=== PATIENT | male | born 1970 | race Caucasian/White ===

== ENCOUNTER 2018-04-09 10:11 | Observation (INO) | payer BC ==
--- NOTE | 2018-04-09 10:27 | ED ---
Shortness of Breath - HPI Summary HPI Summary: This is scrhang Jj documenting for attending Parish Xiong MD. Patient is a 47 y/o M w/ c/o SOB. He was sent to ED from [facility] today due to low O2 sat on RA and SOB. Patient notes SOB onset a couple of months ago. He notes that he measures O2 sat levels at home and reports they are typically in the 70s in the morning and mid 80s later in the day. He denies chest pain, palpitations, N/V/D, and constipation. The patient reports going to his doctor some time last week and states he was prescribed prednisone, which he notes was helpful in alleviating Sx. However, he ran out of prednisone recently. In the ED room, he was given O2 which increased sat levels to 98. On triage, pain is denied and nothing is noted to aggravate Sx. He reports that he smoked for 25 years before quitting 2 years ago. PMHx of testicular problems, depression, and biopsy is reported; he denies asthma, diabetes, COPD, HTN, and HLD. However, his BP on vitals is 161/121. 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 Allergies and home medications are noted. - History of Current Complaint Chief Complaint: EDShortnessOfBreath Time Seen by Provider: 04/09/18 10:22 Hx Obtained From: Patient Onset/Duration: Lasting Weeks - onset a couple of months ago Timing: Constant Current Severity: None - pain is denied on triage Aggrevating Factors: Nothing Alleviating Factors: Oxygen, Other - prednisone is noted to improve O2 sat levelts - Allergy/Home Medications Allergies/Adverse Reactions: Allergies Allergy/AdvReac Type Severity Reaction Status Date / Time No Known Allergies Allergy Verified 12/09/13 11:46 Home Medications: Home Medications DULoxetine DR CAP* [Cymbalta CAP*] 1 cap PO DAILY 04/09/18 [History Confirmed ] PMH/Surg Hx/FS Hx/Imm Hx Endocrine/Hematology History: Denies: Hx Diabetes - reported in room Cardiovascular History: Reports: Other Cardiovascular Problems/Disorders - NEGATIVE: HLD, reported in room Denies: Hx Hypertension - reported in room Respiratory History: Reports: Hx Pneumonia - reported in room , Other Respiratory Problems/Disorders - HX OF WHEEZING NONE NOW Denies: Hx Chronic Obstructive Pulmonary Disease (COPD) History: Reports: Other Problems/Disorders - testicular problems Sensory History: Reports: Hx Contacts or Glasses - GLASSES Denies: Hx Hearing Aid Opthamlomology History: Reports: Hx Contacts or Glasses - GLASSES Psychiatric History: Reports: Hx Anxiety - ON MEDS - Surgical History Surgery Procedure, Year, and Place: 1974 TONSILLECTOMY AND ADENOIDECTOMY, [facility] Hx Anesthesia Reactions: No Infectious Disease History: No Infectious Disease History: Denies: History Other Infectious Disease, Traveled Outside the [place] in Last 30 Days - Family History Known Family History: Negative: Blood Disorder - Social History Alcohol Use: Daily Alcohol Amount: 6 PACK PER DAY Substance Use Type: Reports: None Smoking Status (MU): Heavy Every Day Tobacco Smoker Amount Used/How Often: 1 PPD Length of Time of Smoking/Using Tobacco: 28 YEARS Review of Systems Negative: Palpitations, Chest Pain Positive: Shortness Of Breath Positive: Other - NEGATIVE: constipation . Negative: Vomiting, Diarrhea, Nausea All Other Systems Reviewed And Are Negative: Yes Physical Exam - Summary Physical Exam Summary: VITAL SIGNS: Reviewed. GENERAL: Patient is a well-developed and nourished male who is lying comfortable in the stretcher. Patient is not in any acute respiratory distress. HEAD AND FACE: No signs of trauma. No ecchymosis, hematomas or skull depressions. No sinus tenderness. EYES: PERRLA, EOMI x 2, No injected conjunctiva, no nystagmus. EARS: Hearing grossly intact. Ear canals and tympanic membranes are within normal limits. MOUTH: Oropharynx within normal limits. NECK: Supple, trachea is midline, no adenopathy, no JVD, no carotid bruit, no c- spine tenderness, neck with full ROM. CHEST: Symmetric, no tenderness at palpation LUNGS: Decreased breathing sounds, a little wheezing is noted. No crackles. Clear to auscultation bilaterally. CVS: Regular rate and rhythm, S1 and S2 present, no murmurs or gallops appreciated. ABDOMEN: Soft, non-tender. No signs of distention. No rebound no guarding, and no masses palpated. Bowel sounds are normal. EXTREMITIES: FROM in all major joints, no edema, no cyanosis or clubbing. NEURO: Alert and oriented x 3. No acute neurological deficits. Speech is normal and follows commands. SKIN: Dry and warm Triage Information Reviewed: Yes Vital Signs On Initial Exam: Initial Vitals Temp Pulse Resp BP Pulse Ox 98.6 F 82 18 161/121 95 04/09/18 10:18 04/09/18 10:18 04/09/18 10:18 04/09/18 10:18 04/09/18 10:18 Vital Signs Reviewed: Yes Diagnostics - Vital Signs Vital Signs Temp Pulse Resp BP Pulse Ox 04/09/18 10:18 98.6 F 82 18 161/121 95 - Laboratory Result Diagrams: 04/09/18 10:43 04/09/18 10:43 Lab Statement: Any lab studies that have been ordered have been reviewed, and results considered in the medical decision making process. - Radiology CXR Radiology Interpretation Completed By: Radiologist - COPD with stable fibrotic changes. This report was reviewed by ED physician. - EKG 1044 Cardiac Rate: NL - rate of BPM 86 EKG Rhythm: Sinus Rhythm EKG Interpretation: no ST elevation, normal axis Re-Evaluation - Re-Evaluation First Eval Re-Evaluation Time: 12:07 Comment: Discussed labs and test results with patient as well as likely admission of patient to [facility] for further work-up. Course/Dx - Course Assessment/Plan: This patient is a 47-year-old male who was transferred from the primary care physician office secondary to hypoxia. The patient reports that he doesnt have any history of COPD or asthma however he has smoked for approximately 25 years and he quit 2 years ago. He reports that he has a pulse oximetry the home and his usual O2 sat on the morning is about 70. Acid stable on his O2 sat is about 85 in the afternoon. Today the patient is only complaining of shortness of breath. Denies any chest pain or palpitations. Patient denies any nausea vomiting diarrhea constipation. Patient has history of depression and he takes one aspirin. In the ED course the patient was given 2 nebs, Solu-Medrol and aspirin since the patients troponin was elevated. Test results without any significant abnormality except for troponin of 0.04 CRP of 10 and BMP 158. D-dimer is less than 200. ABG shows a pH of 7.31, PCO2 of 54, PCO2 of 52, O2 sat is 86.1%. In the ED course he reports that after the medications he feels better the shortness of breath has improved. Chest x-ray impression: COPD with a stable fibrotic changes. I discussed the findings and test results with Dr. Mendoza who accepted the patient for admission. He since that the patient has a COPD exacerbation way the demand ischemia secondary to hypoxia. Dr. Mendoza requested to order a chest CT without contrast and she will follow-up the test results. - Diagnoses Differential Diagnosis/HQI/PQRI: Positive: CHF, COPD Exacerbation, OR, Pulmonary Edema Provider Diagnoses: COPD exacerbation, Elevated troponin, Hypoxia - Physician Notifications Discussed Care of Patient With: Ines Mendoza Time Discussed With Above Provider: 12:07 Instructed by Provider To: Other - Dr. Mendoza was consulted with regards to this patient's case at 1207. Dr. Mendoza accpets patient for admission to hospital. Discharge - Sign-Out/Discharge Documenting (check all that apply): Patient Departure - admit - Discharge Plan Condition: Good Disposition: ADMITTED TO [facility] Referrals: Neela Mcqueen WELDING MACHINE OPERATOR [Primary Care Provider] -
[2018-04-09] MEDS ORDERED: methylPREDNISolone 125 MG* 2 ML VIAL IV ONE (10:30)
--- OUTSIDE RECORDS SUMMARY | 2018-04-09 10:42 | XMS REPORT ---
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 Cigarette Use Former Cigarette Smoker ETOH Use Currently consumes alcohol 1 30 pack or more/week sometimes less ETOH Use He has hx of Dwi, has breathilizer in his car Recreational Drug Use Denies Drug Use Smoking Patient is a former smoker Recreational Drug Use Former Drug User crystal meth age 31 for 1 year, smoked and IVDA Allergies, Adverse Reactions, Alerts Date Description Reaction Status Severity Comments 06/25/2013 NKDA active Medications Medication Date Status Form Strength Qnty SIG Indications Ordering Provider Prednisone 03/23/ Active Tablets 50mg 5tabs 1 tab by J44.9 Neela 2017 mouth once Shortle, a day for 5 [employer] days Ventolin HFA 03/20/ Active Aerosol 108(90Bas 8gm 2 puff Neela 2017 e) inhalation Shortle, mcg/Act every 4 to [employer] 6 hours as needed Duloxetine HCL 04/07/ Active Caps DR 60mg 30cap take one Neela 2016 Part s capsule by Charisse, mouth every [employer] day Oxycodone HCL 07/31/ Hx Tablets 5mg 24tab take one to Divine 2016 - two tablet P. 03/20/ by mouth Blegen, 2018 every 6 M.D. hours as needed for pain; maximum daily dose=4 Advair HFA 01/07/ Hx Aerosol 115-21mcg 8gm 1 R06.02 Imelda 2016 - /Act inhalation Oscar, 03/20/ twice a [employer]C 2017 day, then rinse your mouth, Ventolin HFA 01/07/ Hx Aerosol 108(90Bas 1unit 2 puffs R06.02 Imelda 2016 - e) s every every Oscar, 03/20/ mcg/Act 4-6 hours [employer] 2017 as needed wheezing/ti ghtness Duloxetine HCL 12/03/ Hx Caps 60mg 30cap 1 by mouth Imelda 2017 - Part s every day Oscar, 01/07/ [employer] 2016 Cephalexin 12/03/ Hx Tablets 250mg 21tab 1 tablet by S61.223A Imelda 2016 - s mouth three Oscar, 12/15/ times a day [employer] 2016 x 7 days Ibuprofen 07/19/ Hx Tablets 800mg 90tab one by M54.2 Imelda 2015 - s mouth every Oscar, 12/03/ 8 hours [employer] 2016 with food as needed pain Cyclobenzaprine 07/19/ Hx Tablets 5mg 30tab 1-2 by M54.2 Imelda HCL 2015 - s mouth three Oscar, 12/03/ times a day [employer] 2016 for muscle spasm, may cause drowsiness Prednisone 10/25/ Hx Tablets 20mg QS take 2 tabs 486 Imelda 2014 - po daily X Oscar, 10/02/ days [employer] 2015 Azithromycin 10/24/ Hx Tablets 250mg 6tabs take 2 J18.8 Imelda 2015 - tablets Oscar, 07/19/ today then [employer] 2016 1 tablet daily for the next 4 days Ventolin HFA 10/24/ Hx Aerosol 108(90Bas 1unit 2 puffs J18.8 Imelda 2014 - e) s every every Oscar, 12/03/ mcg/Act 4-6 hours [facility] 2016 as needed wheezing/ti ghtness Nicotine Step 3 09/05/ Hx Patches 7mg/24HR 28uni apply one Imelda 2013 - 24HR ts patch every [facility], 07/19/ 24 hours as [employer] 2016 directed. rotate sites. Nicotine 08/05/ Hx Patches 14mg/24HR 28uni Apply One Imelda 2013 - 24HR ts Patch Oscar, 07/19/ Topically [employer] 2016 Every 24 Hours as Directed Rotate Sites Duloxetine HCL 07/11/ Hx Caps DR 20mg 60cap Take Two Imelda 2013 - Part s Capsules By Oscar, 12/03/ Mouth Once [employer] [facility] 2016 Daily Escitalopram 07/09/ Hx Tablets 10mg 30tab 1 tablet po 300.00 Imelda Oxalate 2012 - s daily Oscar, 07/11/ [employer] 2013 No Active 06/25/ Hx Imelda Medications 2012 - [facility], 06/25/ [facility] 2012 Nicotine 06/25/ Hx Patches 21mg/24HR 28uni apply 1 305.1 Imelda 2012 - 24HR ts patch every [facility], 07/19/ 24 hours, [facility] 2015 rotate sites Mupirocin 06/25/ Hx Ointment 2% 1tube apply thin Imelda 2013 - layer on [facility], 07/19/ lesion bid [facility] 2015 until healed Immunizations CPT Code Status Date Vaccine Lot # [id number] Given 01/07/2017 Tdap (Adacel) [id number] Given 2014 Influenza Virus Vaccine, Quadrivalent, 3 Yr > [id number] Quad, Preserv Free Vital Signs Date Vital Result Comment 04/09/2018 Weight 214.00 lb Weight in kg's 97.070 BP Systolic 124 mmHg BP Diastolic 84 mmHg Heart Rate 88 /min Body Temperature 97.4 F Respiratory Rate 20 /min O2 % BldC Oximetry 78 % 03/23/2018 Weight 212.00 lb Weight in kg's 96.163 BP Systolic 144 mmHg BP Diastolic 90 mmHg Heart Rate 84 /min Body Temperature 97.9 F Respiratory Rate 16 /min O2 % BldC Oximetry 91 % 03/20/2018 Weight 215.00 lb Weight in kg's 97.524 BP Systolic 150 mmHg BP Diastolic 108 mmHg Heart Rate 88 /min Body Temperature 98.9 F Respiratory Rate 18 /min O2 % BldC Oximetry 88 % 07/31/2017 Weight 226.00 lb Weight in kg's 102.514 BP Systolic 150 mmHg BP Diastolic 90 mmHg Heart Rate 88 /min Body Temperature 97.9 F Respiratory Rate 20 /min O2 % BldC Oximetry 90 % 07/28/2017 Weight 222.00 lb Weight in kg's 100.699 BP Systolic 140 mmHg BP Diastolic 100 mmHg Heart Rate 94 /min Body Temperature 98.4 F Respiratory Rate 20 /min O2 % BldC Oximetry 93 % 02/14/2017 Weight 216.00 lb Weight in kg's 97.978 BP Systolic 138 mmHg BP Diastolic 80 mmHg Heart Rate 72 /min Body Temperature 98.4 F Respiratory Rate 20 /min 01/07/2017 Weight 215.00 lb Weight in kg's 97.524 BP Systolic 136 mmHg BP Diastolic 86 mmHg Heart Rate 66 /min Body Temperature 98.1 F Respiratory Rate 18 /min O2 % BldC Oximetry 92 % 12/03/2016 Weight 219.00 lb Weight in kg's 99.338 BP Systolic 142 mmHg BP Diastolic 92 mmHg Heart Rate 73 /min Body Temperature 98.0 F Respiratory Rate 18 /min Height 70 inches 5'10" BMI (Body Mass Index) 31.4 kg/m2 O2 % BldC Oximetry 92 % 07/19/2016 Weight 198.00 lb Weight in kg's 89.813 BP Systolic 128 mmHg BP Diastolic 85 mmHg Heart Rate 72 /min O2 % BldC Oximetry 96 % 10/02/2015 Weight 202.00 lb Weight in kg's 91.627 BP Systolic 140 mmHg BP Diastolic 87 mmHg Heart Rate 84 /min Body Temperature 97.9 F O2 % BldC Oximetry 90 % 11/29/2014 Weight 192.00 lb Weight in kg's 87.091 BP Systolic 110 mmHg BP Diastolic 70 mmHg Heart Rate 74 /min Body Temperature 97.2 F O2 % BldC Oximetry 93 % 10/28/2014 Weight 200.00 lb With Boots Weight in kg's 90.720 BP Systolic 134 mmHg BP Diastolic 78 mmHg Heart Rate 71 /min Body Temperature 97.5 F O2 % BldC Oximetry 93 % Room Air 10/25/2014 Weight 200.00 lb With Boots Weight in kg's 90.720 BP Systolic 118 mmHg BP Diastolic 80 mmHg Heart Rate 67 /min Body Temperature 96.9 F O2 % BldC Oximetry 93 % 10/24/2014 Weight 203.00 lb W/Boots Weight in kg's 92.081 BP Systolic 122 mmHg BP Diastolic 78 mmHg Heart Rate 78 /min Body Temperature 98.0 F O2 % BldC Oximetry 84 % 87-89 repeat, best 95 with deep br 08/05/2014 Weight 195.00 lb Weight in kg's 88.452 BP Systolic 126 mmHg BP Diastolic 74 mmHg Heart Rate 76 /min 2014 Weight 194.00 lb Weight in kg's 87.998 BP Systolic 126 mmHg BP Diastolic 82 mmHg Heart Rate 72 /min Height 70 inches 5'10" BMI (Body Mass Index) 27.8 kg/m2 08/06/2013 Weight 192.00 lb Weight in kg's 87.091 BP Systolic 120 mmHg BP Diastolic 72 mmHg Heart Rate 84 /min 07/09/2013 Weight 199.00 lb Weight in kg's 90.266 BP Systolic 128 mmHg BP Diastolic 70 mmHg Heart Rate 88 /min Body Temperature 97.5 F O2 % BldC Oximetry 98 % 06/25/2013 Weight 194.00 lb Weight in kg's 87.998 BP Systolic 126 mmHg BP Diastolic 86 mmHg Heart Rate 88 /min Height 69 inches 5'9" BMI (Body Mass Index) 28.6 kg/m2 Results Test Date Test Result H/L Range Note Lipid Profile (Trig/Chol/HDL) 02/14/2017 Triglycerides 423 mg/dL 1 Cholesterol 265 mg/dL 2 HDL Cholesterol 45.2 mg/dL 3 LDL Cholesterol (SEE NOTE) mg/dL 4 Laboratory test finding 02/14/2017 TSH (Thyroid Stimulating 2.05 mcIU/mL 0.34-5.60 Horm) Total T3 1.38 ng/mL 0.87-1.78 Free T4 0.76 ng/dL 0.61-1.12 Thyroperoxidase AB 9.30 IU/mL High <9 CBC Auto Diff 01/07/2017 White Blood Count 7.0 10^3/uL 3.5-10.8 Red Blood Count 5.53 10^6/uL High 4.0-5.4 Hemoglobin 16.1 g/dL 14.0-18.0 Hematocrit 49 % 42-52 Mean Corpuscular Volume 89 fL 80-94 Mean Corpuscular Hemoglobin 29 pg 27-31 Mean Corpuscular HGB Conc 33 g/dL 31-36 Red Cell Distribution Width 14 % 10.5-15 Platelet Count 243 10^3/uL 150-450 Mean Platelet Volume 9 um3 7.4-10.4 Abs Neutrophils 4.7 10^3/uL 1.5-7.7 Abs Lymphocytes 1.1 10^3/uL 1.0-4.8 Abs Monocytes 1.0 10^3/uL High 0-0.8 Abs Eosinophils 0.2 10^3/uL 0-0.6 Abs Basophils 0.1 10^3/uL 0-0.2 Abs Nucleated RBC 0.02 10^3/uL Granulocyte % 67.1 % 38-83 Lymphocyte % 15.0 % Low 25-47 Monocyte % 14.5 % High 1-9 Eosinophil % 2.3 % 0-6 Basophil % 1.1 % 0-2 Nucleated Red Blood Cells % 0.3 Comp Metabolic Panel 01/07/2017 Sodium 134 mmol/L 133-145 Potassium 4.6 mmol/L 3.5-5.0 Chloride 98 mmol/L Low 101-111 Co2 Carbon Dioxide 30 mmol/L 22-32 Anion Gap 6 mmol/L 2-11 Glucose 103 mg/dL High 70-100 Blood Urea Nitrogen 20 mg/dL 6-24 Creatinine 0.94 mg/dL 0.67-1.17 BUN/Creatinine Ratio 21.3 High 8-20 Calcium 10.1 mg/dL 8.6-10.3 Total Protein 7.3 g/dL 6.4-8.9 Albumin 4.5 g/dL 3.2-5.2 Globulin 2.8 g/dL 2-4 Albumin/Globulin Ratio 1.6 1-3 Total Bilirubin 0.60 mg/dL 0.2-1.0 Alkaline Phosphatase 65 U/L 34-104 Alt 59 U/L High 7-52 Ast 37 U/L 13-39 Egfr Non- 86.0 >60 Egfr 110.6 >60 5 Lipid Profile (Trig/Chol/HDL) 01/07/2017 Triglycerides 513 mg/dL 6 Cholesterol 274 mg/dL 7 HDL Cholesterol 47.4 mg/dL 8 LDL Cholesterol (SEE NOTE) mg/dL 9 Laboratory test finding 01/07/2017 PSA Screening 3.388 ng/mL 0-4.000 10 CBC Auto Diff 11/29/2014 White Blood Count 7.7 10^3/uL 4.8-10.8 Red Blood Count 5.43 10^6/uL High 4.0-5.4 Hemoglobin 16.8 g/dL 14.0-18.0 Hematocrit 50 % 42-52 Mean Corpuscular Volume 93 fL 80-94 Mean Corpuscular Hemoglobin 31 pg 27-31 Mean Corpuscular HGB Conc 34 g/dL 31-36 Red Cell Distribution Width 14 % 10.5-15 Platelet Count 282 10^3/uL 150-450 Mean Platelet Volume 9 um3 7.4-10.4 Abs Neutrophils 5.3 10^3/uL 1.5-7.7 Abs Lymphocytes 1.3 10^3/uL 1.0-4.8 Abs Monocytes 0.9 10^3/uL High 0-0.8 Abs Eosinophils 0.1 10^3/uL 0-0.6 Abs Basophils 0.1 10^3/uL 0-0.2 Abs Nucleated RBC 0 10^3/uL Granulocyte % 68.8 % 38-83 Lymphocyte % 17.1 % Low 25-47 Monocyte % 12.0 % High 1-9 Eosinophil % 1.3 % 0-6 Basophil % 0.8 % 0-2 Nucleated Red Blood Cells % 0.1 Comp Metabolic Panel 11/29/2014 Sodium 136 mmol/L 133-145 Potassium 4.1 mmol/L 3.5-5.0 Chloride 100 mmol/L Low 101-111 Co2 Carbon Dioxide 30 mmol/L 22-32 Anion Gap 6 mmol/L 2-11 Glucose 93 mg/dL 70-100 Blood Urea Nitrogen 26 mg/dL High 6-24 Creatinine 0.87 mg/dL 0.67-1.17 BUN/Creatinine Ratio 29.9 High 8-20 Calcium 9.9 mg/dL 8.6-10.3 Total Protein 7.1 g/dL 6.4-8.9 Albumin 4.7 g/dL 3.2-5.2 Globulin 2.4 g/dL 2-4 Albumin/Globulin Ratio 2.0 1-3 Total Bilirubin 0.40 mg/dL 0.2-1.0 Alkaline Phosphatase 54 U/L 34-104 Alt 29 U/L 7-52 Ast 21 U/L 13-39 Egfr Non- 94.9 >60 Egfr 122.0 >60 11 Laboratory test finding 11/29/2014 Lyme Disease Serology Negative Negative 12 Urine DIP 11/29/2014 Specific [place] 1.020 1.01-1.02 Urine pH 5 5-6 Leukocytes NEG Neg Urine Nitrites NEG Neg Total Protein, Urine +30 High Neg Urine Glucose NORM Norm Urine Ketones NEG Neg Urobilinogen NORM Norm Urine Bilirubin NEG Neg Urine Blood NEG Neg Flu Test A, B, Or A & B,Binaxn 10/24/2014 Influenza A Antigen neg Influenza B Antigen neg CBC Auto Diff 2014 White Blood Count 9.1 10^3/uL 4.8-10.8 Red Blood Count 5.35 10^6/uL 4.0-5.4 Hemoglobin 16.8 g/dL 14.0-18.0 Hematocrit 49 % 42-52 Mean Corpuscular Volume 92 fL 80-94 Mean Corpuscular Hemoglobin 31 pg 27-31 Mean Corpuscular HGB Conc 34 g/dL 31-36 Red Cell Distribution Width 14 % 10.5-15 Platelet Count 278 10^3/uL 150-450 Mean Platelet Volume 8 um3 7.4-10.4 Abs Neutrophils 6.7 10^3/uL 1.5-7.7 Abs Lymphocytes 1.2 10^3/uL 1.0-4.8 Abs Monocytes 1.0 10^3/uL High 0-0.8 Abs Eosinophils 0.1 10^3/uL 0-0.6 Abs Basophils 0 10^3/uL 0-0.2 Abs Nucleated RBC 0.01 10^3/uL Granulocyte % 73.8 % 38-83 Lymphocyte % 13.6 % Low 25-47 Monocyte % 10.9 % High 1-9 Eosinophil % 1.2 % 0-6 Basophil % 0.5 % 0-2 Nucleated Red Blood Cells % 0.1 Comp Metabolic Panel 2014 Sodium 135 mmol/L 133-145 Potassium 4.8 mmol/L 3.7-5.6 Chloride 99 mmol/L Low 101-111 Co2 Carbon Dioxide 32 mmol/L 22-32 Anion Gap 4 mmol/L 2-11 Glucose 96 mg/dL 70-100 Blood Urea Nitrogen 13 mg/dL 6-24 Creatinine 0.85 mg/dL 0.67-1.17 BUN/Creatinine Ratio 15.3 8-20 Calcium 9.8 mg/dL 8.6-10.3 Total Protein 7.2 g/dL 6.4-8.9 Albumin 4.6 g/dL 3.2-5.2 Globulin 2.6 g/dL 2-4 Albumin/Globulin Ratio 1.8 1-3 Total Bilirubin 0.70 mg/dL 0.2-1.0 Alkaline Phosphatase 51 U/L 34-104 Alt 50 U/L 7-52 Ast 28 U/L 13-39 Egfr Non- 97.5 >60 Egfr 125.4 >60 13 Urine DIP 2014 Specific [place] 1.010 1.01-1.02 Urine pH 7 High 5-6 Leukocytes NEG Neg Urine Nitrites NEG Neg Total Protein, Urine 30+ High Neg Urine Glucose NORM Norm Urine Ketones NEG Neg Urobilinogen NORM Norm Urine Bilirubin NEG Neg Urine Blood NEG Neg Laboratory test finding 2014 PSA Screening 3.764 ng/mL 0-4.000 14 TSH (Thyroid Stimulating Horm) 3.00 IU/mL 0.34-5.60 Lipid Profile (Trig/Chol/HDL) 2014 Triglycerides 201 mg/dL 15 Cholesterol 251 mg/dL 16 HDL Cholesterol 61.3 mg/dL 17 LDL Cholesterol 150 mg/dL 18 Laboratory test 07/09/2013 Hemoglobin A1c 6.0 % Less than 6.0 19 finding Vitamin D, 25 Hydroxy 06/25/2013 25-Hydroxy Vitamin D2 <4.0 ng/mL 25-Hydroxy Vitamin D3 29 ng/mL 25-Hydroxy Vitamin D Total 29 ng/mL 20 Comp Metabolic Panel 06/25/2013 Sodium 137 mmol/L 133-145 Potassium 4.8 mmol/L 3.5-5.0 Chloride 101 mmol/L 101-111 Co2 Carbon Dioxide 29.0 mmol/L 22-32 Anion Gap 7.0 mmol/L 2-11 Glucose 197 mg/dL High 70-100 Blood Urea Nitrogen 17 mg/dL 6-24 Creatinine 1.00 mg/dL 0.50-1.40 BUN/Creatinine Ratio 17.0 8-20 Calcium 9.8 mg/dL 8.1-9.9 Total Protein 6.7 g/dL 6.2-8.1 Albumin 4.4 g/dL 3.6-5.4 Globulin 2.3 g/dL 2-4 Albumin/Globulin Ratio 1.9 1-3 Total Bilirubin 0.6 mg/dL 0.4-1.5 Alkaline Phosphatase 52 U/L 30-110 Alt 39 U/L 14-54 Ast 31 U/L 12-42 Egfr Non- 81.6 >60 Egfr 104.9 >60 21 CBC Auto Diff 06/25/2013 White Blood Count 10.2 10^3/uL 4.8-10.8 Red Blood Count 5.34 10^6/uL 4.0-5.4 Hemoglobin 16.5 g/dL 14.0-18.0 Hematocrit 48 % 42-52 Mean Corpuscular Volume 90 fL 80-94 Mean Corpuscular Hemoglobin 31 pg 27-31 Mean Corpuscular HGB Conc 34 g/dL 31-36 Red Cell Distribution Width 14 % 10.5-15 Platelet Count 351 10^3/uL 150-450 Mean Platelet Volume 8 um3 7.4-10.4 Abs Neutrophils 9.2 10^3/uL High 1.5-7.7 Abs Lymphocytes 0.6 10^3/uL Low 1.0-4.8 Abs Monocytes 0.4 10^3/uL 0-0.8 Abs Eosinophils 0 10^3/uL 0-0.6 Abs Basophils 0 10^3/uL 0-0.2 Abs Nucleated RBC 0.01 10^3/uL Granulocyte % 89.4 % High 38-83 Lymphocyte % 6.0 % Low 25-47 Monocyte % 4.3 % 1-9 Eosinophil % 0.1 % 0-6 Basophil % 0.2 % 0-2 Nucleated Red Blood Cells % 0.1 Laboratory test finding 06/25/2013 PSA Screening 2.330 ng/mL 0-4.000 22 Wound Culture/Sensi 06/25/2013 Wound/Misc Culture-Gram (SEE NOTE) 23 Stain Urine DIP 06/25/2013 Leukocytes NEG Neg Urine Nitrites NEG Neg Urine pH 5 5-6 Total Protein, Urine 30+ High Neg Urine Glucose 100 High Norm Urine Ketones NEG Neg Urobilinogen NORM Norm Urine Bilirubin NEG Neg Urine Blood NEG Neg Specific [place] 1.015 1.01-1.02 Laboratory test finding 06/25/2013 TSH (Thyroid Stimulating 0.94 miu/mL 0.34-5.60 Horm) 1 Desirable <150 Borderline high 150-199 High 200-499 Very High >500 2 Desirable <200 Borderline high 200-239 High >239 3 Low <40 Desirable: 40-60 High: >60 4 Unable to calculate LDL as triglyceride is > 400 5 Because ethnic data is not always readily available, this report includes an eGFR for both -Americans and non- Americans. The National Kidney Disease Education Program (NKDEP) does not endorse the use of the MDRD equation for patients that are not between the ages of 18 and 70, are , have extremes of body size, muscle mass, or nutritional status, or are non- or non-. According to the National Kidney Foundation, irrespective of diagnosis, the stage of the disease is based on the level of kidney function: Stage Description GFR(mL/min/1.73 m(2)) 1 Kidney damage with normal or decreased GFR 90 2 Kidney damage with mild decrease in GFR 60-89 3 Moderate decrease in GFR 30-59 4 Severe decrease in GFR 15-29 5 Kidney failure <15 (or dialysis) 6 Desirable <150 Borderline high 150-199 High 200-499 Very High >500 7 Desirable <200 Borderline high 200-239 High >239 8 Low <40 Desirable: 40-60 High: >60 9 Unable to calculate LDL as triglyceride is > 400 10 Serum levels of PSA measured using the Pari Exact[employer] DXI Hybritech immunoassay should not be interpreted as absolute evidence of the presence or absence of disease. The PSA value should be used in conjunction with other pertinent clinical diagnostic procedures. The values obtained with different assay methods or kits cannot be used interchangeably. 11 Because ethnic data is not always readily available, this report includes an eGFR for both -Americans and non- Americans. The National Kidney Disease Education Program (NKDEP) does not endorse the use of the MDRD equation for patients that are not between the ages of 18 and 70, are , have extremes of body size, muscle mass, or nutritional status, or are non- or non-. According to the National Kidney Foundation, irrespective of diagnosis, the stage of the disease is based on the level of kidney function: Stage Description GFR(mL/min/1.73 m(2)) 1 Kidney damage with normal or decreased GFR 90 2 Kidney damage with mild decrease in GFR 60-89 3 Moderate decrease in GFR 30-59 4 Severe decrease in GFR 15-29 5 Kidney failure <15 (or dialysis) 12 Serologic response to B. burgdorferi infection is not detected, but cannot rule out early infection during which low or undetectable antibody levels to B. burgdorferi may be present. If clinically indicated, a new serum specimen should be submitted in 7-14 days. Test Performed by: [facility] [address] [place] [address] Sem Manager: Jj Ramey II, M.D., Ph.D. 13 Because ethnic data is not always readily available, this report includes an eGFR for both -Americans and non- Americans. The National Kidney Disease Education Program (NKDEP) does not endorse the use of the MDRD equation for patients that are not between the ages of 18 and 70, are , have extremes of body size, muscle mass, or nutritional status, or are non- or non-. According to the National Kidney Foundation, irrespective of diagnosis, the stage of the disease is based on the level of kidney function: Stage Description GFR(mL/min/1.73 m(2)) 1 Kidney damage with normal or decreased GFR 90 2 Kidney damage with mild decrease in GFR 60-89 3 Moderate decrease in GFR 30-59 4 Severe decrease in GFR 15-29 5 Kidney failure <15 (or dialysis) 14 Serum levels of PSA measured using the Pari Cristobal DXI Hybritech immunoassay should not be interpreted as absolute evidence of the presence or absence of disease. The PSA value should be used in conjunction with other pertinent clinical diagnostic procedures. The values obtained with different assay methods or kits cannot be used interchangeably. 15 Desirable <150 Borderline high 150-199 High 200-499 Very High >500 16 Desirable <200 Borderline high 200-239 High >239 17 Low <40 Desirable: 40-60 High: >60 18 Desirable <100 Near Optimal 100-129 Borderline high 130-159 High 160-189 Very High >189 19 Therapeutic target for the treatment of diabetes Mellitus patients is <7% HBA1C, and in selective patients <6.0%.Please refer to [place] [employer] Diabetic care guidelines for further information. 20 -- REFERENCE VALUE -- 25-HYDROXY D TOTAL (D2+D3) Optimum levels in the healthy population are 20-50, patients with bone disease may benefit from higher levels within this range. Test Performed by: [facility] [address] [place] [address] Sem Manager: Stanley Potter III, M.D. 21 Because ethnic data is not always readily available, this report includes an eGFR for both -Americans and non- Americans. The National Kidney Disease Education Program (NKDEP) does not endorse the use of the MDRD equation for patients that are not between the ages of 18 and 70, are , have extremes of body size, muscle mass, or nutritional status, or are non- or non-. According to the National Kidney Foundation, irrespective of diagnosis, the stage of the disease is based on the level of kidney function: Stage Description GFR(mL/min/1.73 m(2)) 1 Kidney damage with normal or decreased GFR 90 2 Kidney damage with mild decrease in GFR 60-89 3 Moderate decrease in GFR 30-59 4 Severe decrease in GFR 15-29 5 Kidney failure <15 (or dialysis) 22 Serum levels of PSA measured using the Pari Cristobal DXI Hybritech immunoassay should not be interpreted as absolute evidence of the presence or absence of disease. The PSA value should be used in conjunction with other pertinent clinical diagnostic procedures. The values obtained with different assay methods or kits cannot be used interchangeably. 23 RUN DATE: 06/27/13 [facility] LAB LIVE PAGE 1 RUN TIME: [address] [place], [place] [address] Specimen Inquiry Name: NAIMA GRISSOM : [address]: Imelda Evans NP Acct: [id number] Unit: [id number] AGE: 42 Location: [facility] Re06/25/13 SEX: M Status: REG REF SPEC: [id number] ALLIE: 06/25/13 [facility] DR: Imelda Evans NP REQ: [id number] RECD: 06/25/13 STATUS: COMP _ SOURCE: FACE SPDESC: ORDERED: Culture Stain QUERIES: Medent Number [id number] Specimen Description RIGHT FACE LESION Procedure Result Verified Site Wound/Misc Gram Stain Final 06/26/13- 0738 ML 1+ Epithelial Cells No Polys Observed 2+ Gram Positive Cocci Possible 1+ Gram Negative Bacilli Wound/Misc Culture Final 06/27/13- 1119 ML Organism 1 NORMAL SAMUEL Quantity 2+ END OF REPORT * ML=Testing performed at Main Lab DEPARTMENT OF PATHOLOGY, [address] [place] [id number] Brenton Smith M.D. Director [facility] Permit #[id number] Procedures Date CPT Code Description Status 01/07/2017 66209 Spirometry Completed 10/25/2014 13418 Nebulizer Treatment Completed 10/24/2014 52357 Nebulizer Treatment Completed Encounters Type Date Location Provider CPT E/M Dx Office Visit 03/23/2018 9:00a Main Office Neela MIGUEL Mcqueen 75360 J44.9 Office Visit 03/20/2018 9:30a [place] [address] R06.02 Office Visit 07/31/2017 12:00p Main Office BLAISE Felix-Lester 42297 R07.82 Office Visit 07/28/2017 11:30a [place] [address] R07.82 Office Visit 02/14/2017 8:45a Main Office BLAISE Felix-Lester 11413 E78.2 Office Visit 01/07/2017 9:00a Main Office RULA Felix 67923 Z00.00 Z12.5 R33.8 R06.02 Z23 Office Visit 12/03/2016 12:00p Main Office RULA Felix 24961 S61.223A F32.89 Office Visit 07/19/2016 9:30a Main Office RULA Felix 61463 M54.2 Office Visit 10/02/2015 4:00p Main Office RULA Felix 21140 J20.9 Office Visit 11/29/2014 4:15p Main Office RULA Felix 33603 257.8 785.6 Office Visit 10/28/2014 3:15p Main Office RULA Felix 80121 486 Office Visit 10/25/2014 4:45p Main Office RULA Felix 05029 486 Office Visit 10/24/2014 2:15p Main Office RULA Felix 33846 486 Office Visit 08/05/2014 4:15p Main Office RULA Felix 49941 300.00 Office Visit 2014 8:00a Main Office Imelda Evans [facility] 54233 V70.0 300.00 V18.11 V17.49 V04.81 Office Visit 08/06/2013 3:30p Main Office Imelda Herronjimmie [facility] 60490 300.00 709.8 Office Visit 07/09/2013 3:00p Main Office Imelda Evans [facility] 97755 300.00 790.6 Office Visit 06/25/2013 1:30p Main Office Imelda Herronjimmie [facility] 04842 V70.0 300.09 V17.49 V18.11 305.1 Plan of Care 04/09/2018 - Neela Mcqueen, SHADY44.9 Chronic obstructive pulmonary disease, unspecifiedComments:Patient sent to ED for higher level of care. Patient refused ambulance. Educated on risks of taking private car and patient stated understanding. Patient's parents are here to drive patient to ED. Report called to ED by RN.
--- OUTSIDE RECORDS SUMMARY | 2018-04-09 10:42 | XMS REPORT ---
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 [address] PayID: [id number] [place] [address] Problems Description No Information Family History Date [...] mouth once Shortle, a day for 5 CROSSBAR SWITCH ADJUSTER days Ventolin HFA 03/20/ Active Aerosol 108(90Bas 8gm 2 puff Neela 2017 e) inhalation Shortle, mcg/Act every 4 to CROSSBAR SWITCH ADJUSTER 6 hours as needed Duloxetine HCL 04/07/ Active Caps DR 60mg 30cap take one Neela 2016 Part s capsule by Charisse, mouth every CROSSBAR SWITCH ADJUSTER day Oxycodone HCL 07/31/ Hx Tablets 5mg 24tab take one to Divine 2016 - two tablet P. 03/20/ by mouth Blegen, 2018 every 6 M.D. hours as needed for pain; maximum daily dose=4 Advair HFA 01/07/ Hx Aerosol 115-21mcg 8gm 1 R06.02 Imelda 2016 - /Act inhalation Oscar, 03/20/ twice a PORTER BAGGAGE-C 2017 day, then rinse your mouth, Ventolin HFA 01/07/ Hx Aerosol 108(90Bas 1unit 2 puffs R06.02 Imelda 2016 - e) s every every Oscar, 03/20/ mcg/Act 4-6 hours PORTER BAGGAGE-C 2017 as needed wheezing/ti ghtness Duloxetine HCL 12/03/ Hx Caps 60mg 30cap 1 by mouth Imelda 2017 - Part s every day Oscar, 01/07/ PORTER BAGGAGE-C 2016 Cephalexin 12/03/ Hx Tablets 250mg 21tab 1 tablet by S61.223A Imelda 2016 - s mouth three Oscar, 12/15/ times a day PORTER BAGGAGE-C 2016 x 7 days Ibuprofen 07/19/ Hx Tablets 800mg 90tab one by M54.2 Imelda 2015 - s mouth every Oscar, 12/03/ 8 hours PORTER BAGGAGE-C 2016 with food as needed pain Cyclobenzaprine 07/19/ Hx Tablets 5mg 30tab 1-2 by M54.2 Imelda HCL 2015 - s mouth three Oscar, 12/03/ times a day PORTER BAGGAGE-C 2016 for muscle spasm, may cause drowsiness Prednisone 10/25/ Hx Tablets 20mg QS take 2 tabs 486 Imelda 2014 - po daily X Oscar, 10/02/ days PORTER BAGGAGE-C 2015 Azithromycin 10/24/ Hx Tablets 250mg 6tabs take 2 J18.8 Imelda 2015 - tablets Oscar, 07/19/ today then PORTER BAGGAGE-C 2016 1 tablet daily for the next 4 days Ventolin HFA 10/24/ Hx Aerosol 108(90Bas 1unit 2 puffs J18.8 Imelda 2014 - e) s every every Oscar, 12/03/ mcg/Act 4-6 hours PORTER BAGGAGE-C 2016 as needed wheezing/ti ghtness Nicotine Step 3 09/05/ Hx Patches 7mg/24HR 28uni apply one Imelda 2013 - 24HR ts patch every [facility], 07/19/ 24 hours as PORTER BAGGAGE-C 2016 directed. rotate sites. Nicotine 08/05/ Hx Patches 14mg/24HR 28uni Apply One Imelda 2013 - 24HR ts Patch Oscar, 07/19/ Topically PORTER BAGGAGE-C 2016 Every 24 Hours as Directed Rotate Sites Duloxetine HCL 07/11/ Hx Caps DR 20mg 60cap Take Two Imelda 2013 - Part s Capsules By Oscar, 12/03/ Mouth Once PORTER BAGGAGE-C 2016 Daily Escitalopram 07/09/ Hx Tablets 10mg 30tab 1 tablet po 300.00 Imelda Oxalate 2012 - s daily Oscar, 07/11/ PORTER BAGGAGE-C 2013 No Active 06/25/ Hx Imelda Medications 2012 - Oscar, 06/25/ PORTER BAGGAGE-C 2012 Nicotine 06/25/ Hx Patches 21mg/24HR 28uni apply 1 305.1 Imelda 2012 - 24HR ts patch every [facility], 07/19/ 24 hours, PORTER BAGGAGE-C 2015 rotate sites Mupirocin 06/25/ Hx Ointment 2% 1tube apply thin Imelda 2013 - layer on [facility], 07/19/ lesion bid PORTER BAGGAGE-C 2015 until healed Immunizations CPT Code Status Date Vaccine Lot # [id number] Given 01/07/2017 Tdap (Adacel) [id number] Given 2014 Influenza Virus Vaccine, Quadrivalent, 3 Yr > [id number] Quad, Preserv Free Vital Signs Date Vital Result Comment 03/23/2018 Weight 212.00 lb Weight in kg's [...] Negative Negative 12 Urine DIP 11/29/2014 [facility] [place] 1.020 1.01-1.02 Urine pH 5 5-6 Leukocytes [...] 125.4 >60 13 Urine DIP 2014 [facility] 1.010 1.01-1.02 Urine pH 7 High 5-6 [...] NEG Neg Urine Blood NEG Neg [facility] 1.015 1.01-1.02 Laboratory test finding 06/25/2013 TSH [...] levels of PSA measured using the Pari Local[employer] DXI Hybritech immunoassay should not be interpreted [...] submitted in 7-14 days. Test Performed by: [facility] [address] [place] [address] Staple Cutter: Jj Ramey II, M.D., Ph.D. 13 Because [...] levels of PSA measured using the Pari Local[employer] DXI Hybritech immunoassay should not be interpreted [...] and in selective patients <6.0%.Please refer to [place] [employer] Diabetic care guidelines for further information. 20 -- REFERENCE VALUE -- 25-HYDROXY D TOTAL (D2+D3) Optimum levels in the healthy population are 20-50, patients with bone disease may benefit from higher levels within this range. Test Performed by: [facility] [address] [place] [address] Staple Cutter: Stanley Potter III, M.D. 21 Because ethnic [...] levels of PSA measured using the Pari Local[employer] DXI Hybritech immunoassay should not be interpreted as absolute evidence of the presence or absence of disease. The PSA value should be used in conjunction with other pertinent clinical diagnostic procedures. The values obtained with different assay methods or kits cannot be used interchangeably. 23 RUN DATE: 06/27/13 [facility] LAB LIVE PAGE 1 RUN TIME: [address] [place], [place] [address] Specimen Inquiry Name: NAIMA GRISSOM : [address]: Imelda Evans NP Acct: [id number] Unit: [id number] AGE: 42 Location: [facility] Re06/25/13 SEX: M Status: REG REF SPEC: [id number] ALLIE: 06/25/[address] [facility] [address]: Imelda Evans NP REQ: [id number] RECD: 06/25/13 STATUS: COMP _ SOURCE: FACE SPDESC: ORDERED: Culture Stain QUERIES: [employer] Number [id number] Specimen Description RIGHT FACE LESION Procedure Result Verified Site Wound/Misc Gram Stain Final 06/26/13- 0738 ML 1+ Epithelial Cells No Polys Observed 2+ Gram Positive Cocci Possible 1+ Gram Negative Bacilli Wound/Misc Culture Final 06/27/13- 1119 ML Organism 1 NORMAL SAMUEL Quantity 2+ END OF REPORT * ML=Testing performed at Main Lab DEPARTMENT OF PATHOLOGY, [address] [place] [address] Brenton Smith M.D. Director [facility] Permit #[id number] Procedures Date CPT Code Description Status 01/07/2017 13287 Spirometry Completed 10/25/2014 81407 Nebulizer Treatment Completed 10/24/2014 88726 Nebulizer Treatment Completed Encounters Type Date Location Provider CPT E/M Dx Office Visit 07/31/2017 12:00p Main Office BLAISE Felix-C 39954 R07.82 Office Visit 07/28/2017 11:30a Main Office Neela Mcqueen CROSSBAR SWITCH ADJUSTER 40448 R07.82 Office Visit 02/14/2017 8:45a Main Office BLAISE Felix-C 14294 E78.2 Office Visit 01/07/2017 9:00a Main Office BLAISE Felix-C 31154 Z00.00 Z12.5 R33.8 R06.02 Z23 Office Visit 12/03/2016 12:00p Main Office BLAISE Felix-C 82146 S61.223A F32.89 Office Visit 07/19/2016 9:30a Main Office BLAISE Felix-C 75640 M54.2 Office Visit 10/02/2015 4:00p Main Office BLAISE Felix-C 51588 J20.9 Office Visit 11/29/2014 4:15p Main Office BLAISE Felix-C 34689 257.8 785.6 Office Visit 10/28/2014 3:15p Main Office BLAISE Felix-C 17297 486 Office Visit 10/25/2014 4:45p Main Office BLAISE Felix-C 24899 486 Office Visit 10/24/2014 2:15p Main Office BLAISE Felix-C 70858 486 Office Visit 08/05/2014 4:15p Main Office BLAISE Felix-C 92166 300.00 Office Visit 2014 8:00a Main Office BLAISE Felix-C 07673 V70.0 300.00 V18.11 V17.49 V04.81 Office Visit 08/06/2013 3:30p Main Office BLAISE Felix-C 43852 300.00 709.8 Office Visit 07/09/2013 3:00p Main Office BLAISE Felix-C 73498 300.00 790.6 Office Visit 06/25/2013 1:30p Main Office Imelda HerronRULA samuel 91665 V70.0 300.09 V17.49 V18.11 305.1 Plan of Care Future Appointment(s):04/09/2018 9:30 am - Neela Mcqueen NP at Main Amdksz9503/23/2018 - Neela Mcqueen NPJ44.9 Chronic obstructive pulmonary disease, unspecifiedNew Medication:Prednisone 50 mgComments:DuoNeb given in officeO2 sat increased to 96% after treatment and mildly increase in air flow noted.Prednisone ordered. Discussed med, action, side effects, proper usePatient to follow up in 2 wks and if continues to need rescue as often we will add maintenance inhaler.Educated on new/worsening symptoms and when to call /return or when to seek immediate medical attentionPatient stated understanding and agrees to planFollow up:follow up in 2 wks
--- OUTSIDE RECORDS SUMMARY | 2018-04-09 10:42 | XMS REPORT ---
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 03/20/ by mouth Blegen, 2018 every 6 M.D. hours as needed for pain; maximum daily dose=4 Advair HFA 01/07/ Hx Aerosol 115-21mcg 8gm 1 R06.02 Imelda 2017 - /Act inhalation Oscar, 03/20/ twice a GIG TENDER-C 2017 day, then rinse your mouth, Ventolin HFA 01/07/ Hx Aerosol 108(90Bas 1unit 2 puffs R06.02 Imelda 2016 - e) s every every Oscar, 03/20/ mcg/Act 4-6 hours GIG TENDER-C 2017 as needed wheezing/ti ghtness Duloxetine HCL 12/03/ Hx Caps DR 60mg 30cap 1 by mouth Imelda 2016 - Part s every day Oscar, 01/07/ GIG TENDER-C 2016 Cephalexin 12/03/ Hx Tablets 250mg 21tab 1 tablet by S61.223A Imelda 2016 - s mouth three Oscar, 12/15/ times a day GIG TENDER-C 2016 x 7 days Ibuprofen 07/19/ Hx Tablets 800mg 90tab one by M54.2 Imelda 2015 - s mouth every Oscar, 12/03/ 8 hours GIG TENDER-C 2016 with food as needed pain Cyclobenzaprine 07/19/ Hx Tablets 5mg 30tab 1-2 by M54.2 Imelda HCL 2016 - s mouth three Oscar, 12/03/ times a day GIG TENDER-C 2016 for muscle spasm, may cause drowsiness Prednisone 10/25/ Hx Tablets 20mg QS take 2 tabs 486 Imelda 2014 - po daily X Oscar, 10/02/ 7 days GIG TENDER-C 2015 Azithromycin 10/24/ Hx Tablets 250mg 6tabs take 2 J18.8 Imelda 2014 - tablets Oscar, 07/19/ today then GIG TENDER-C 2015 1 tablet daily for the next 4 days Ventolin HFA 10/24/ Hx Aerosol 108(90Bas 1unit 2 puffs J18.8 Imelda 2014 - e) s every every Oscar, 12/03/ mcg/Act 4-6 hours GIG TENDER-C 2016 as needed wheezing/ti ghtness Nicotine Step 3 09/05/ Hx Patches 7mg/24HR 28uni apply one Imelda 2013 - 24HR ts patch every Oscar, 07/19/ 24 hours as GIG TENDER-C 2016 directed. rotate sites. Nicotine 08/05/ Hx Patches 14mg/24HR 28uni Apply One Imelda 2013 - 24HR ts Patch Oscar, 07/19/ Topically GIG TENDER-C 2016 Every 24 Hours as Directed Rotate Sites Duloxetine HCL 07/11/ Hx Caps DR 20mg 60cap Take Two Imelda 2013 - s Capsules By Oscar, 12/03/ Mouth Once GIG TENDER-C 2016 Daily Escitalopram 07/09/ Hx Tablets 10mg 30tab 1 tablet po 300.00 Imelda Oxalate 2012 - daily Oscar, 07/11/ GIG TENDER-C 2013 No Active 06/25/ Hx Imelda Medications 2012 - Oscar, 06/25/ GIG TENDER-C 2012 Nicotine 06/25/ Hx Patches 21mg/24HR 28uni apply 1 305.1 Imelda 2012 - 24HR ts patch every Oscar, 07/19/ 24 hours, GIG TENDER-C 2015 rotate sites Mupirocin 06/25/ Hx Ointment 2% 1tube apply thin Imelda 2012 - layer on Oscar, 07/19/ lesion bid GIG TENDER-C 2015 until healed Immunizations CPT Code Status Date Vaccine Lot # [id number] Given 01/07/2017 Tdap (Adacel) [id number] Given 2014 Influenza Virus Vaccine, Quadrivalent, 3 Yr > [id number] Quad, Preserv Free Vital Signs Date Vital [...] Negative Negative 12 Urine DIP 11/29/2014 Specific [place] 1.020 1.01-1.02 Urine pH 5 5-6 Leukocytes [...] 125.4 >60 13 Urine DIP 2014 Specific [place] 1.010 1.01-1.02 Urine pH 7 High 5-6 [...] NEG Neg Urine Blood NEG Neg Specific [place] 1.015 1.01-1.02 Laboratory test finding 06/25/2013 TSH [...] Serum levels of PSA measured using the [employer] DXI Hybritech immunoassay should not be interpreted [...] submitted in 7-14 days. Test Performed by: [address] [address] Pathology Technician: Jj Ramey II, M.D., Ph.D. 13 Because [...] Serum levels of PSA measured using the MYTRND DXI Hybritech immunoassay should not be interpreted [...] and in selective patients <6.0%.Please refer to [place] Diabetes Association Diabetic care guidelines for further information. 20 -- REFERENCE VALUE -- 25-HYDROXY D TOTAL (D2+D3) Optimum levels in the healthy population are 20-50, patients with bone disease may benefit from higher levels within this range. Test Performed by: [address] [address] Pathology Technician: Stanley Potter III, M.D. 21 Because ethnic [...] be used interchangeably. 23 RUN DATE: 06/27/13 [facility] LAB LIVE PAGE 1 RUN TIME: [address] [place], [place] [address] Specimen Inquiry Name: JACIELNAIMA L : [address]: Imelda Evans NP Acct: [id number] Unit: [id number] AGE: 42 Location: [facility] Re06/25/13 SEX: M Status: REG REF SPEC: [id number] ALLIE: 06/25/13-[address]: Imelda Evans NP REQ: [id number] RECD: 06/25/13 STATUS: COMP _ SOURCE: FACE SPDESC: ORDERED: Culture Stain QUERIES: [facility] Number [id number] Specimen Description RIGHT FACE LESION Procedure Result Verified Site Wound/Misc Gram Stain Final 06/26/13- 0738 ML 1+ Epithelial Cells No Polys Observed 2+ Gram Positive Cocci Possible 1+ Gram Negative Bacilli Wound/Misc Culture Final 06/27/13- 1119 ML Organism 1 NORMAL SAMUEL Quantity 2+ END OF REPORT * ML=Testing performed at Main Lab DEPARTMENT OF PATHOLOGY, [address] [place] [address] Brenton Smith M.D. Director [facility] Permit #[id number] Procedures Date CPT Code Description Status 01/07/2017 47281 Spirometry Completed 10/25/2014 17352 Nebulizer Treatment Completed 10/24/2014 01668 Nebulizer Treatment Completed Encounters Type Date Location Provider CPT E/M Dx Office Visit 07/31/2017 12:00p Main Office Imelda Evans GIG TENDER-C 66390 R07.82 Office Visit 07/28/2017 11:30a [place] [address] R07.82 Office Visit 02/14/2017 8:45a Main Office Imelda Evans GIG TENDER-C 94430 E78.2 Office Visit 01/07/2017 9:00a Main Office Imelda HerronBLAISE samuel-C 65441 Z00.00 Z12.5 R33.8 R06.02 Z23 Office Visit 12/03/2016 12:00p Main Office Imelda Herronjimmie GIG TENDER-C 22896 S61.223A F32.89 Office Visit 07/19/2016 9:30a Main Office Imelda HerronTOBI samuelP-C 42089 M54.2 Office Visit 10/02/2015 4:00p Main Office Imelda HerronBLAISE samuel-C 21932 J20.9 Office Visit 11/29/2014 4:15p Main Office Imelda Herronjimmie GIG TENDER-C 80574 257.8 785.6 Office Visit 10/28/2014 3:15p Main Office Imelda HerronTOBI samuelP-C 40581 486 Office Visit 10/25/2014 4:45p Main Office Imelda Herronjimmie GIG TENDER-C 39678 486 Office Visit 10/24/2014 2:15p Main Office Imelda HerronTOBI samuelP-C 80764 486 Office Visit 08/05/2014 4:15p Main Office Imelda HerronTOBI samuelP-C 34315 300.00 Office Visit 2014 8:00a Main Office Imelda Herronjimmie GIG TENDER-C 12518 V70.0 300.00 V18.11 V17.49 V04.81 Office Visit 08/06/2013 3:30p Main Office Imelda BLAISE Evans-C 07811 300.00 709.8 Office Visit 07/09/2013 3:00p Main Office Imelda Oscar GIG TENDER-C 37176 300.00 790.6 Office Visit 06/25/2013 1:30p Main Office Imeldakecia Evans GIG TENDER-C 09240 V70.0 300.09 V17.49 V18.11 305.1 Plan of Care 03/20/2018 - Neela Charisse, NPR06.02 Shortness of breathComments:Patient O2 stat increases to 97% with deep breath, but dips to low 90s to high 80s as rest.GH evaluated the patient also EKG obtained and reviewed. Due to low O2 Saturation and sob, patient encouraged to go to ED for oxygen therapy and further evaluation. Patient refused. Discussed risks not being treated and patient stated understandingPatient agrees to hold and call chest xray. Xray orderedPatient to follow up FridayEducated on new/worsening symptoms and when to call/return or seek immediate medical attention. Encouraged to have low threshold for gong to EDPatient stated understanding and agrees to planFollow up :schedule chest xray hold and call follow up friday with me or NILTON
[2018-04-09] MEDS: Albuterol/Ipratropium NEB.SOL* Albuterol 2.5 MG/Ipratropium 0.5 MG 3 ML INH SCH ×3 (10:46→13:26)
[2018-04-09 11:09] LABS: ABS Basophils 0 10^3/ul (0-0.2); ABS Eosinophils 0.1 10^3/ul (0-0.6); ABS Lymphocytes 0.9 10^3/ul (1.0-4.8); ABS Monocytes 0.5 10^3/ul (0-0.8); ABS Neutrophils 2.2 10^3/ul (1.5-7.7); ABS Nucleated RBC 0 10^3/ul; Eosinophil % 2.2 % (0-6); Hematocrit 49 % (42-52); Hemoglobin 16.1 g/dl (14.0-18.0); Lymphocyte % 24.4 % (25-47); Mean Corpuscular HGB Conc 33 g/dl (31-36); Mean Corpuscular Hemoglobin 30 pg (27-31); Mean Corpuscular Volume 91 fL (80-94); Mean Platelet Volume 7.6 um3 (7.4-10.4); Nucleated Red Blood Cells % 0.7; Platelet Count 228 10^3/ul (150-450); Red Cell Distribution Width 14 % (10.5-15); White Blood Count 3.7 10^3/ul (3.5-10.8)
[2018-04-09] MEDS ORDERED: Aspirin TAB* 325 MG PO ONE (11:47)
[2018-04-09 11:50] LABS: EGFR Non-African American 114.7 (>60)
--- NOTE | 2018-04-09 12:12 | RAD ---
HISTORY: SOB COMPARISONS: March 20, 2018 VIEWS: 4: Frontal dual-energy and lateral views of the chest. FINDINGS: CARDIOMEDIASTINAL SILHOUETTE: The cardiomediastinal silhouette is normal. AIDA: The aida are normal. PLEURA: The costophrenic angles are sharp. No pleural abnormalities are noted. LUNG PARENCHYMA: There is hyperinflation with flattening of the diaphragm and expansion of the AP diameter of the chest. There is a coarse reticular pattern, similar to the previous examination. There are calcified granulomas. ABDOMEN: The upper abdomen is clear. There is no subphrenic gas. BONES AND SOFT TISSUES: No bone or soft tissue abnormalities are noted. OTHER: None. IMPRESSION: COPD WITH STABLE FIBROTIC CHANGES.
[2018-04-09 12:40] LABS: Urine Appearance Clear; Urine Blood 1+ (Negative); Urine Color Yellow; Urine Ketones Negative (Negative); Urine Protein 3+(>=500 mg/dL) (Negative); Urine Red Blood Cell Trace(0-2/hpf) (Absent); Urine Specific Gravity 1.014 (1.010-1.030); Urine Urobilinogen Negative (Negative); Urine White Blood Cell Trace(0-5/hpf) (Absent)
--- NOTE | 2018-04-09 12:55 | RAD ---
HISTORY: Hypoxia COMPARISONS: None TECHNIQUE: Multiple contiguous axial CT scans of the chest were obtained without intravenous contrast. Coronal and sagittal multiplanar reformations are also submitted for review. FINDINGS: The study is limited by the lack of intravenous contrast. This limits evaluation of the solid organs and vasculature. NECK AND THYROID: The lower neck and thyroid are unremarkable. CHEST WALL: There is no lower cervical, axillary, or supraclavicular lymphadenopathy by size criteria. HEART AND PERICARDIUM: The heart is unremarkable. AORTA AND PULMONARY VASCULATURE: The aorta and pulmonary vasculature are normal. MEDIASTINUM: There are calcified mediastinal lymph nodes. AIDA: There are calcified hilar lymph nodes. AIRWAY AND ESOPHAGUS: The airway is unremarkable, without endobronchial filling defect. The esophagus is grossly normal. LUNG PARENCHYMA: There is minimal subpleural nodularity of the left upper lobe on axial image 29 measuring 0.3 cm. There is a nodule of the right lower lobe on axial image 35 measuring 0.5 cm. There are scattered calcified granulomas of the lungs. There fibrotic changes of the right upper lung and left lower lung. PLEURA: No pleural abnormalities are noted. UPPER ABDOMEN: There is fatty infiltration of the liver. BONES AND SOFT TISSUES: No bone or soft tissue abnormalities are noted. OTHER: None. IMPRESSION: 1. 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 2. THE NONCALCIFIED LUNG NODULES MEASURING UP TO 0.5 CM IN SIZE. THE RECOMMENDATIONS FOR FOLLOWUP AND MANAGEMENT OF AN INCIDENTALLY DETECTED PULMONARY NODULE LESS THAN 6 MM IN SIZE, IN A PATIENT WITHOUT A HISTORY OF MALIGNANCY, INCLUDE NO FOLLOWUP FOR A LOW-RISK PATIENT OR OPTIONAL FOLLOWUP CT IN 12 MONTHS FOR A HIGH RISK PATIENT. NOTES: SIZE = AVERAGE LENGTH AND WIDTH; HIGH RISK IS DEFINED A HISTORY OF SMOKING OR OTHER KNOW RISK FACTORS FOR LUNG CANCER; LOW RISK IS DEFINED MINIMAL OR ABSENT HISTORY OF SMOKING OR OTHER KNOWN RISK FACTORS. Betina, H, HAIDER Olivarez, WALLACE Edmondson, et al (2017) "Guidelines for Management of Incidental Pulmonary Nodules Detected on CT Images: From the Fleischner Society 2017." Radiology; 284(1): 228-243. doi:10.1148/radiol.[id number]
[2018-04-09] MEDS ORDERED: LORazepam TAB(*) 0.5 MG PO PRN (14:02)
[2018-04-09] MEDS: amLODIPine TAB* 5 MG PO SCH (15:41)
--- NOTE | 2018-04-09 16:11 | HP ---
CC: [facility] * HISTORY AND PHYSICAL: DATE OF ADMISSION: 04/09/18 PRIMARY CARE PROVIDER: [facility]. CHIEF COMPLAINT: Shortness of breath and hypoxia. HISTORY OF PRESENT ILLNESS: Mr. Patel is a 47-year-old male who has a 25-pack - year history of smoking, quitting approximately 2 years ago, who was initially seen at [facility] around 03/20/18 with complaints of shortness of breath and increased sputum production. The patient at that time underwent chest x-ray and was started on prednisone for 5 days and was given an albuterol inhaler. He states that for a while he felt better. Today, he had a routine followup from that visit with Neela Mcqueen at [facility]. At that point, he was found to be significantly hypoxic with oxygen saturations in 80s on room air. The patient does state that approximately 3 days prior to admission, he again began to feel as of his breathing was tight. He again noticed some slight increase in cough, increased mucus production. The patient states that he has a pulse oximeter at home and when he was checking his oxygen level while treating with prednisone and albuterol, he noted that his oxygen saturations were typically in the 90s. He states that over the last 3 days in the morning, he would note that his oxygen saturations were in the 70s in the morning and by afternoon, they would be in the 80s, but never in the 90s. The patient denies any significant fevers or chills. He denies any change in appetite. No unexplained weight loss. He does state that he lived in [place] for 10 years and [place] for 10 years and otherwise he is lived in [facility]. 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 He does not routinely wear respirator. PAST MEDICAL HISTORY: None. PAST SURGICAL HISTORY: 1. Inguinal hernia repair bilaterally as an . 2. Tonsillectomy. MEDICATIONS: 1. Albuterol 2 puffs inhaled q.4 hours p.r.n. shortness of breath. 2. Duloxetine 60 mg p.o. daily. 3. Aspirin 325 mg p.o. daily. ALLERGIES: No known drug allergies. FAMILY HISTORY: Mom is living, she is 72. Her health is unknown. Dad is also living, he is 78. He has history of asbestos exposure and has lung disease related to that. SOCIAL HISTORY: The patient is a former smoker of 1 pack per day for approximately 25 years. He quit approximately 2 years ago. He admits to drinking 1 pint of liquor daily as well as 6 beers daily. He states that he has never gone through withdrawal as he has never stopped drinking. He works, doing maintenance as above. He is not . He has 2 children. He indicates his father, Jamie, would be his surrogate decision maker. REVIEW OF SYSTEMS: A complete 11-system review of systems is obtained, pertinent positives and negatives are as per HPI and otherwise negative. PHYSICAL EXAMINATION GENERAL: The patient is a well-developed, middle aged male, sitting up in the stretcher, in no acute distress. VITAL SIGNS: Blood pressure 157/107, pulse 94, respirations 22, temp 98.6, O2 sat 91% on 2 L. HEENT: Pupils are equal and round. Extraocular muscles are intact. Oropharynx is clear. Oral mucosa is moist. There is no submandibular, cervical , or supraclavicular adenopathy. Thyroid is not enlarged. No thyroid nodules noted. PULMONARY: Lungs are clear bilaterally. The breath sounds are diminished throughout. CARDIAC: Normal S1 and S2. Regular rate and rhythm. I do not appreciate any murmurs. ABDOMEN: Bowel sounds are present. Abdomen is soft, nontender, nondistended. MUSCULOSKELETAL: There is no cyanosis or clubbing of the digits. There is full active range of motion of all 4 extremities. NEURO: Cranial nerves II through XII are grossly intact. Sensation is intact to light touch throughout. Strength is 5/5 and symmetric in both upper lower extremities bilaterally. SKIN: Warm and dry. There are no rashes. PSYCH: The patient is alert. He is oriented x3. Affect appears appropriate. LABORATORY DATA/DIAGNOSTIC STUDIES: WBC 3.7, hemoglobin 16.1, hematocrit 49, platelets 228. D-dimer less than 200. Sodium 141, potassium 4.9, chloride of 106, CO2 of 26, BUN 17, creatinine 0.73, glucose 118, lactic acid 1.6, calcium 8.9. Bilirubin 0.3, AST 47, ALT 52, alk phos 65. CPK 130, troponin 0.04, CRP 10.27, BNP 158, albumin 3.8. EKG reveals normal sinus rhythm with slight ST depression in leads II, III, and aVF. CT chest, calcified and non-calcified lung nodules with calcified mediastinal and hilar lymph nodes and bilateral fibrotic changes most consistent with exposure to granulomatous disease. The non-calcified lung nodules measure up to 0.5 cm in size. ASSESSMENT AND PLAN: Mr. Patel is a 47-year-old male with [id number] history of smoking as well as alcohol abuse, who presents to the emergency room with complaints of shortness of breath and hypoxia and is admitted for possible chronic obstructive pulmonary disease exacerbation. 1. Hypoxia and shortness of breath. Most likely etiology for the patient's current symptoms is chronic obstructive pulmonary disease exacerbation. Reportedly, the patient's breath sounds were quite tight and he was wheezing. He has been treated in the emergency room. With this, the wheezing and tight breath sounds have resolved. The patient will be admitted under observation status and placed on Solu-Medrol 40 mg IV q.12 hours and standing nebs every 6 hours. I am most concerned, however, about the patient's abnormal CT findings. Because of these findings, I will ask Dr. Mojica to consult on the patient. Perhaps he needs biopsy. Regardless, he will need long-term followup with Pulmonology. We will monitor his oxygen saturation closely and try to wean him off oxygen. Nocturnal desaturation study will be obtained this evening on room air. 2. Alcohol abuse. The patient admits to drinking 1 pint of liquor and 6 beers daily. He states that he has never tried to quit drinking. At this point, he will be placed on WAM protocol every 2 hours. 3. Hypertension. The patient's blood pressure is moderately elevated in the emergency room. He will be started on amlodipine 5 mg p.o. daily. 4. Depression/issues with anger. The patient will continue on duloxetine. 5. DVT prophylaxis. According to the Adult Thrombosis Prophylaxis Risk Factor Assessment Guide, the patient has a total risk factor score of 2, making him moderate risk. Ambulation will be utilized as DVT prophylaxis. Code status is full. TIME SPENT: Sixty five minutes were spent admitting this patient, of which greater than half spent [id number] with the patient reviewing his history and performing physical exam. [id number]/[facility] #: [id number] ABHINAV
[2018-04-09] MEDS ORDERED: Levofloxacin 500 MG IVPREMIX(* 500 MG/100 ML BAG IVPB SCH (17:00)
[2018-04-09] MEDS: hydrALAZINE IV* 20 MG/ML VIAL IV SLOW PU PRN (17:20)
[2018-04-09] MEDS: LORazepam TAB(*) 1 MG PO PRN (17:20)
--- NOTE | 2018-04-09 18:47 | CONS ---
PULMONARY CONSULTATION REPORT: DATE OF CONSULT: 04/09/18 CONSULTATION REQUESTED BY: Ines Mendoza DO REASON FOR CONSULTATION: Evaluation of shortness of breath and abnormal CT chest findings. HISTORY OF PRESENT ILLNESS: The patient is a 47-year-old obese male, former smoker with [id number] smoking history, quit 2 years ago, who presents with worsening shortness of breath and sputum production. The patient a few days ago has not been feeling himself, has been having significant cough and sputum production. The patient reports feeling hot, but did not take his temperatures. The patient denies chills. The patient denies loss of weight or appetite. The patient was seen by primary care physician and was prescribed prednisone and albuterol. The patient has been checking pulse ox that he has at home, O2 sats have been in low 80s 2 days ago. The patient had symptomatic improvement with prednisone, symptoms recurred again, and he decided to come in for further evaluation. Further evaluation in the emergency room revealed significant hypoxemia with O2 sats in the 70s to 80s. The patient was placed on O2 supplementation. The patient had CT scan of the chest for further evaluation. I have personally reviewed chest x-ray and CT scan of the chest. The patient noted to have patchy reticulonodular opacities bilaterally and evidence of scar tissue. The patient also noted to have a calcified pulmonary nodules and mildly enlarged and calcified mediastinal and hilar nodes. The patient also with subcentimeter pulmonary nodules, some of them that are noncalcified. Mild scattered emphysematous changes. No pleural effusion noted. The patient was admitted for acute COPD exacerbation and was initiated on bronchodilators, Solu- Medrol. The patient reports cough productive of green phlegm. The patient denies chest pain, palpitations, dizziness. The patient also noted to have significant elevated blood pressure. He is also mildly tachycardic. The patient was seen and examined at bedside. The patient reports improvement in shortness of breath. The patient also reports significant relief from the cough. PAST MEDICAL HISTORY: 1. A 25-year tobacco smoking history. 2. Obesity. PAST SURGICAL HISTORY: 1. Inguinal hernia repair. 2. Tonsillectomy. MEDICATIONS: 1. Albuterol 2 puffs q.4 hours p.r.n. 2. Duloxetine 60 mg daily. 3. Aspirin 325 mg daily. ALLERGIES: No known drug allergies. FAMILY HISTORY: Father has history of asbestos lung disease and COPD. SOCIAL HISTORY: Former smoker, smoked 1 pack per day for approximately 25 years , quit 2 years ago. The patient with significant alcohol intake with pint of liquor every day as well as 6 beers. He works in [employer], reports significant exposure to dust, mold, and fungus. The patient reports doing meth in the past, has not been doing any drugs at this time. REVIEW OF SYSTEMS: All 14 systems reviewed and as per HPI. PHYSICAL EXAM: Obese male in bed, in no apparent distress. Vital Signs: Temperature 98.1, pulse 93 beats per minute, respiratory rate 19 per minute, O2 sat 96% on 2 L, blood pressure 178/102. HEENT: Pupils equal and reactive to light. Mucous membranes moist. Lungs: Diminished air entry bilaterally, decreased at bases. Scattered wheezing bilaterally. Cardiovascular: S1, S2 present, tachycardic. No murmurs or rubs. Abdomen: Obese. Bowel sounds present, nontender, nondistended. Extremities: Normal range of motion. No edema. Skin: No rash or bruise. Neurologic: No focal deficits. DIAGNOSTIC STUDIES/LAB DATA: WBC count 3.7, hemoglobin 16.1, hematocrit 49, platelet count 228. D-dimer less than 200. Blood gas analysis showed respiratory acidosis with pO2 of 52 and O2 sat of 86%. Sodium 141, potassium 4.9, chloride 106, bicarb 26, BUN 17, creatinine 0.73, glucose 118. Lactic acid 1.6. Troponin slightly elevated on admission coming down. CRP elevated at 10.27. BNP elevated at 158. LFTs within normal limits, except for mildly elevated AST at 47. Chest x-ray, CT chest as described above in HPI. IMPRESSION AND RECOMMENDATIONS: 47-year-old morbidly obese male, former smoker , admitted with worsening shortness of breath and cough, being treated for acute bronchitis/acute chronic obstructive pulmonary disease exacerbation. The patient reports symptomatic improvement. He also had hypoxemia on admission, likely secondary from underlying chronic obstructive pulmonary disease exacerbation. He does have reticulonodular opacities, calcified lymph nodes, and calcified pulmonary nodules indicative of chronic granulomatous disease, sarcoidosis is also possibility. I do not think he has an acute exacerbation of interstitial lung disease. Would treat as acute chronic obstructive pulmonary disease exacerbation. He is also already showing clinical improvement, FiO2 requirements are also improving. Agree with current dose of steroids. Given green sputum and reported sick contact with his father being diagnosed with community-acquired pneumonia, would start him on antibiotics even though he does not have a white count. He will need PFTs, sleep study as outpatient. Thank you for allowing me to participate in the care of your patient. We will follow up with you. [id number]/[facility] #: [id number] ABHINAV
[2018-04-09] MEDS ORDERED: Albuterol 2.5 MG/3 ML NEB.SOL* (0.083%) INH SCH (19:00)
[2018-04-09] MEDS ORDERED: amLODIPine TAB* 5 MG PO ONE (21:10)
[2018-04-09] MEDS: methylPREDNISolone SOD 40 MG* 1 ML VIAL IV SCH (21:37)
[2018-04-09] MEDS ORDERED: Albuterol 2.5 MG/3 ML NEB.SOL* (0.083%) INH PRN (23:22)
[2018-04-10] MEDS: LORazepam TAB(*) 1 MG PO PRN (01:40)
[2018-04-10] MEDS: hydrALAZINE IV* 20 MG/ML VIAL IV SLOW PU PRN (01:40)
[2018-04-10] MEDS ORDERED: DULoxetine DR CAP* 60 MG CAP.DR PO SCH (09:00)
[2018-04-10] MEDS ORDERED: Aspirin TAB* 325 MG PO SCH (09:00)
[2018-04-10] MEDS: amLODIPine TAB* 5 MG PO SCH (09:05)
[2018-04-10] MEDS: methylPREDNISolone SOD 40 MG* 1 ML VIAL IV SCH (09:06)
[2018-04-10 10:54] VITALS: BP 161/110
--- NOTE | 2018-04-11 03:24 | DS ---
CC: Neela Mcqueen NP; Dr. Mojica * DISCHARGE SUMMARY: DATE OF ADMISSION: 04/09/18 DATE OF DISCHARGE: 04/10/18 PRIMARY CARE PROVIDER: Neela Mcqueen NP PRINCIPAL DIAGNOSES: 1. Hypoxia, likely secondary to chronic obstructive pulmonary disease exacerbation plus/minus bronchitis. 2. Appearance of interstitial lung disease - possible sarcoidosis. 3. Hypertension. SECONDARY DIAGNOSES: 1. Tobacco abuse. 2. Alcohol abuse. DISCHARGE MEDICATIONS: 1. Duloxetine 60 mg p.o. daily. 2. Aspirin 325 mg p.o. daily. 3. Prednisone 40 mg p.o. daily x2 days, then 30 mg x2 days, then 20 mg x2 days , then 10 mg x2 days. 4. Spiriva 1 puff inhaled daily (new). 5. Losartan 25 mg p.o. daily (new). 6. Levofloxacin 500 mg p.o. daily x6 days. 7. Amlodipine 10 mg p.o. daily (new). HOSPITAL COURSE: Mr. Patel is a 47-year-old male who has a past history of tobacco abuse quitting approximately 2 years ago and ongoing alcohol abuse, who presents to the emergency room with complaints of hypoxia from his PCP's office. The patient states that early in March he developed shortness of breath, cough and mucus production. He was seen by his primary care provider and prescribed prednisone and an albuterol inhaler. He felt well after initiating that therapy; however, approximately 3 days prior to this admission he again began to feel short of breath. He also noted that his oxygen saturations were in the 70s in the morning. The patient had a routine followup with his primary care provider, on the day of admission he was found to be hypoxic in the 80s. He was referred to the emergency room for evaluation. The patient was ultimately admitted for possible COPD exacerbation, though COPD has not been formally diagnosed. He does carry a longstanding history of tobacco abuse. He was treated with steroids, nebulizers and was started on Levaquin. The patient has had significant improvement in his hypoxia and his shortness of breath with this treatment. Of note, in the emergency room, the patient had a chest x-ray that was read as having COPD with stable fibrotic changes. He then underwent a CT of the chest, which revealed calcified and noncalcified lung nodules with calcified mediastinal and hilar lymph nodes and bilateral fibrotic changes most consistent with exposure to granulomatous disease. Noncalcified lung nodules were identified up to 0.5 cm in size. Followup CT scan was recommended in 12 months for a high risk patient. Given the lung findings, the patient was seen in consultation by Dr. Mojica. She felt that treating the patient for a COPD exacerbation would be appropriate. She did recommend continuing antibiotics despite no fever, elevated white blood cell count. It was felt that he would need a biopsy for the granulomatous disease possibility. This can be done as an outpatient. It was also felt that he would need outpatient PFTs and sleep study. At this point, the patient is feeling quite a bit better. He is no longer hypoxic. He denies any shortness of breath. At this point, the patient would like to be discharged home. The patient admitted to a history of snoring. Given his hypoxia and reports of low oxygen saturations in the morning, a nocturnal desaturation study was performed. He was found to have desaturated for 1 hour 58 minutes of sleep. Because of this, he was started on 2 L of oxygen to use with sleep. The patient will need a formal sleep study as an outpatient. PHYSICAL EXAMINATION: On the day of discharge, the patient is awake, alert, and oriented, sitting up in bed, in no acute distress. His blood pressure is moderately elevated. His heart rate is regular. His lungs are diminished throughout, but clear. Abdomen is soft, nontender, and nondistended. FOLLOWUP CONCERNS: The patient is being discharged home today, 04/10/18. ACTIVITY LEVEL: As tolerated. DIET: Regular. CONDITION ON DISCHARGE: Poor, but stable. DISCHARGE FOLLOWUP: The patient is to follow up with Dr. Mojica on 05/11/18 at 12:30 p.m.; however, I have left message for her to try to get him in sooner for the biopsy. Additionally, the patient will need to follow up with his primary care provider in the next 4 to 7 days. TIME SPENT: Thirty-five minutes was spent discharging this patient. [id number]/[facility] #: [id number] ABHINAV
== END 2018-04-10 12:25 | disposition home or self-care (01) ==
LOC: ED 10:11 → MED 13:21
PROVIDERS: ADMIT Hospitalist; ATTEND Hospitalist
DX: R09.02 Hypoxemia (principal); Z79.82 Long term (current) use of aspirin; F10.10 Alcohol abuse, uncomplicated; I10 Essential (primary) hypertension; E66.9 Obesity, unspecified; Z87.891 Personal history of nicotine dependence; R06.02 Shortness of breath
CPT/HCPCS: 36415; 71046; 71250; 80053; 81003; 81015; 82550; 82803; 83605; 83880; 84484; 85025; 85379; 86140; 87086; 93005; 94640; 96374; 96375; 99284; A9270-GY; G0378; J0360; J1956; J2920; J2930

== ENCOUNTER → 2019-02-05 05:46 | Day surgery (SDC) | payer OTHER ==
[~2019-02-05 05:46] MED LIST: Acetaminophen TAB* 325 MG ONE; Acetaminophen TAB* 325 MG PO ONE; Acetaminophen TAB* 325 MG PO PRN; Buffered Lidocaine 1% SYRIN* 1 ML/SYRINGE INTRADERM ONE; Bupivacaine 0.5% W/EPI SDV* 30 ML VIAL ONE; Cisatracurium* 2 MG/ML MDV 5 ML ONE; DiMENhydriNATE IV* 50 MG/ML VIAL IV PUSH PRN; EPINEPHRINE 1 MG/ML 1 ML VIAL ONE; Famotidine IV* 10 MG/ML 2 ML (20 mg) IV ONE; Famotidine IV* 10 MG/ML 2 ML (20 mg) ONE; Gabapentin CAP(*) 300 MG ONE; Gabapentin CAP(*) 300 MG PO ONE; HYDROcodone/ACETAMIN 5-325 MG* 1 TAB ONE; HYDROcodone/ACETAMIN 5-325 MG* 1 TAB PO PRN; HYDROmorphone INJ1* 1 MG/ML SYRINGE IV PRN; HYDROmorphone INJ1* 1 MG/ML SYRINGE ONE; Ketorolac INJ* 30 MG/ML 1 ML VIAL ONE; Lactated Ringers 1000 ML Bag* 1,000 ML IV SCH; Levalbuterol 0.63MG/3ML NEB* UNIT OF USE INH ONE; Levalbuterol 0.63MG/3ML NEB* UNIT OF USE INH PRN; Levalbuterol HFA INHALER* 1 PUFF MDI ONE; Lidocaine 2% PF * 5 ML VIAL ONE; Midazolam* 1 MG/ML 2 ML VIAL (2 MG) ONE; Naloxone* 0.4 MG/ML 1 ML VIAL IV PRN; Ondansetron INJ* 2 MG/ML VIAL ONE; PROCHLORPERAZINE INJ 5 MG/ML 2 ML VIAL IV PRN; ROPIVACAINE 5 MG/ML 30 ML BTL (0.5%) ONE; Ropivacaine (OR use only) 2 MG/ML 10 ML ONE; ceFAZolin 2 GM PREMIX in ORs 2 GM/50 ML BAG IVPB ONE; diPHENhydraMINE IV* 50 MG/ML 1 ml VIAL (BENADRYL) IV PRN; fentaNYL* 50 MCG/ML 2 ML VIAL (100 MCG VIAL) ONE
[2019-02-05] MEDS: fentaNYL* 50 MCG/ML 2 ML VIAL (100 MCG VIAL) IV PRN ×4 (11:39→12:31)
[2019-02-05 14:59] VITALS: BP 125/99
--- NOTE | 2019-02-06 15:15 | OP ---
OPERATIVE REPORT: DATE OF SURGERY: 02/05/19 DATE OF : 68 SURGEON: Scott Herman MD PARTNER MARKETING MANAGER: LEE Winchester ANESTHESIOLOGIST: Shandra Agarwal MD ANESTHESIA: General anesthesia, regional interscalene block anesthesia, local anesthesia with Marcai ne 0.5% with epinephrine, 25 cc. PRE-OP DIAGNOSES: 1. Left shoulder rotator cuff tendon tear, supraspinatus, infraspinatus. 2. Left shoulder subacromial bursitis and impingement. 3. Left shoulder acromioclavicular joint osteoarthritis. 4. Possible left shoulder biceps tendinitis. POST-OP DIAGNOSES: 1. Left shoulder rotator cuff tendon tear, supraspinatus, infraspinatus, with significant retraction . 2. Left shoulder subacromial impingement and bursitis. 3. Left shoulder acromioclavicular joint osteoarthritis. 4. Left shoulder proximal biceps tendinitis and superior labral tear. OPERATIVE PROCEDURE: 1. Left shoulder arthroscopic rotator cuff tendon repair, supraspinatus, anterior portion of infrasp inatus with double row repair after significant mobilization and anterior interval release. 2. Modifier 22 given the complexity of procedure, given the significant amount of debridement and re lease as it need be performed to make a rotator cuff repair feasible, making this longer than the sta ndard rotator cuff repair in duration. 3. Left shoulder arthroscopic subacromial decompression. 4. Left shoulder arthroscopic distal clavicle resection. 5. Left shoulder arthroscopic limited debridement with release of biceps tendon, anterior interval r elease and significant bursectomy and release of tissue surrounding rotator cuff tendons. ANTIBIOTICS: Ancef 2 g IV. IV FLUIDS: 800 cc. DMWO-EX-FBLR TIME: 133 minutes. ARTHROSCOPIC FLUID UTILIZED: Not recorded. SPECIMEN: None. IMPLANTS: A 5.5 mm Arthrex double-loaded rotator cuff anchors with suture tape. Also, 2 SwiveLock Ar threx anchors, placed laterally. COMPLICATIONS: None. ESTIMATED BLOOD LOSS: Minimal. 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 Left should er MRI demonstrated significantly retracted rotator cuff tear of the supraspinatus with likely a tear in infraspinatus as well as the appropriate degenerative changes. The patient looks older than chronologic age and has a significant smoking tobacco history. The jordyn ent was seen and cleared by his primary care physician and his double end tenoner operator. Business Attorney noted th at the patient was at high risk for surgery because of idiopathic interstitial lung disease and COPD. He stated that the patient was optimized for surgery. Discussed risks and potential complications of surgery with the patient including nonhealing of tear and possible retear. I discussed worsened outcomes with cigarette smoking. After Anesthesiology reviewed this case, we decided that it would be a low threshold to admit the pat ient postoperatively for respiratory therapy and observation given the patient's significant respirat ory history. I booked the patient for a rotator cuff tendon repair versus superior capsular repair, given that mariama palumbo at the patient's MRI was not clear whether the supraspinatus would be able to be repaired or not primarily. The patient understood this. DESCRIPTION OF PROCEDURE: In preoperative holding, the patient signed a written consent. Operative extremity was marked in preoperative holding. Anesthesiologist after discussing risks and potential complications with the patient performed interscalene regional nerve block in preoperative holding. The patient was taken back to the operating room and placed supine on the operating room table. Linda francis and intubated. Transferred to the lateral decubitus position, left shoulder up. Axillary roll, all bony prominences padded. Celis bag hardened. Longitudinal traction left shoulder with appropriate forward flexion an d abduction. Left shoulder was prepped and draped. Surgical time-out performed. At this point, I performed manipulation of the left shoulder. The patient's arm was taken out of tra ction. Performed a manipulation which produced audible and palpable breaking up of scar tissue, crac brody. I was able to get 180 degrees of forward flexion, proximally 80 degrees of external and inter nal rotation with the shoulder abducted 90 degrees. I repositioned the patient's shoulder in longitudinal traction. I infused 30 cc of normal saline into the glenohumeral joint from posterior. I established a posteri or glenohumeral joint portal using standard technique. Started diagnostic arthroscopy. No significant articular cartilage wear, humeral head or glenoid. Significant inflammation along the long head biceps tendon and at the superior labrum with some tearing of superior labrum. No loose body. I established an anterior glenohumeral joint portal under direct visualization. Introduced an arthros copic scissors and released the long head biceps tendon just off its origin. I introduced arthroscop ic shaver and smoothed out the superior labrum. Debrided some bursitic tissue in the rotator interva l. Subscapularis tendon intact. A clear full thickness tear of supraspinatus superior. Removed all instruments and fluids from glenohumeral joint. Next, moved to the subacromial space ant erior and posterior. Established lateral and then posterolateral portals under direct visualization. A bursitis encountered in this area and debrided with arthroscopic shaver. My first visualization from this perspective of the supraspinatus showed it to be retracted to the le skyler of the glenoid. The quality did not look excellent of the supraspinatus or infraspinatus, most of which seemed to be intact, the infraspinatus. I brought in a rotator cuff grasper. I was able to mobilize the tendon somewhat, although I was not yet certain if this would be repairable. This mobilized but not quite to the level lateral that woul d be expected of a good repair. I placed a traction suture using fiber tape in the supraspinatus. While playing traction, I used an arthroscopic shaver and a switching stick to debride superior and inferior to the supraspinatus. I d ebrided tissue back to the scapular spine which enabled me to visualize excellently what tendons were effective by this injury. Turned out that the entire width of the supraspinatus was torn and retrac francis. The anterior perhaps 15% of the infraspinatus were affected. It was clear that some more mobilization was required for a good repair. I therefore performed an an terior interval slide, debriding significant amount of rotator cuff interval tissue connecting subsca pularis to supraspinatus. I debrided down to the base of the coracoid process. That was well visual ized. The anterior interval slide did result in a significant increase of mobilization of the supras pinatus. With lateral traction, we could really get the tendon to cover the entire head of the humerus. Howev er, the tendon was not of the best quality. We were clearly lateralizing the tendon muscle unit. We had almost the muscle of the supraspinatus reaching bone. At this point, I decided that a rotator cuff repair will be preferable to the superior capsular repai r. This was because I had adequately lateralized the tendon such that a repair could be performed. My concern is given the patient's smoking history and the overall quality of this tendon. I knew terrence t this was not guaranteed to heal or not re-tear, but nor is a superior capsular repair guaranteed to be successful. I thought I would give this patient first a chance to heal his own tendon. A superi or capsular repair could always be done if he fails this repair in the future. Next, I performed subacromial decompression. Used arthroscopic joni to flatten out the curve on the undersurface of the anterior aspect of the acromion. This worked nicely. I then used a VAPR followe d by an arthroscopic joni to remove residual rotator cuff tendon tissue on the humeral head and prepa re that footprint for good healing. I also medialized the footprint significantly, perhaps 4 mm or s o. This provided a large bed for healing. I looked at first to tell how many medial row anchors would be required. It seemed that most of the infraspinatus was firmly attached to the humeral head. While this tissue was not the stoutest, there was no clear disruption of its insertion. I decided 2 anchors would sufficient to medial row. I went to the medial most aspect of the new foot print that I had developed. Through superolateral stab incisions, I placed two 5.5 mm Arthrex anchor s double-loaded with suture tape. Using a Arthrex scorpion passer, I passed horizontal mattress stitches. I passed all of these suture s before tying any of them. I tied my horizontal mattress stitches. I then next debrided the lateral aspect of the footprint. I decided there was enough room for 2 late ral row anchors. I placed 2 SwiveLock anchors, each with 4 pieces of tape from the medial row. To probing and also to passive rotation of the upper arm, the repair was stable. I next moved to the AC joint. I debrided bursitic tissue with a VAPR and then debrided 8 mm of the d istal end of the clavicle with an arthroscopic joni. Removed the instruments and fluids from the subacromial space. Closed skin incisions with figure-of- eight 12 stitches using nylon 3-0 suture. Anesthesia was concerned about the efficacy of the block, regional done preoperatively, so I provided significant amount of local anesthetic. A 25 cc of local anesthesia placed about the skin incisions . Xeroform, 4x4s, ABDs, foam tape. Sling and abduction pillow. The patient was awakened, extubated, and transferred to the PACU. DISPOSITION: The patient was discharged home when medically stable. W ound care instructions provided. Percocet as needed for pain control. The patient will follow up in 10 to 14 days postoperatively. Sling day and night. No physical therapy until at least 6 weeks pos toperative. [id number]/[facility] #: [id number]
== END | disposition home or self-care (01) ==
LOC: OR 05:46
PROVIDERS: ATTEND Orthopaedic Surgery
DX: S46.012A Strain of muscle(s) and tendon(s) of the rotator cuff of left shoulder, initial encounter (principal); M75.42 Impingement syndrome of left shoulder; M75.52 Bursitis of left shoulder; M75.22 Bicipital tendinitis, left shoulder; G89.18 Other acute postprocedural pain; I10 Essential (primary) hypertension; G47.33 Obstructive sleep apnea (adult) (pediatric); J44.9 Chronic obstructive pulmonary disease, unspecified; I27.20 Pulmonary hypertension, unspecified; F41.8 Other specified anxiety disorders; Z72.0 Tobacco use; W00.9XXA Unspecified fall due to ice and snow, initial encounter; Y92.89 Other specified places as the place of occurrence of the external cause
CPT/HCPCS: A9270-GY; C1713; J0690; J1170; J1885; J2250; J2405; J2795; J3010

== ENCOUNTER 2019-05-21 08:05 | Inpatient (IN) | payer BC ==
[2019-05-21] MEDS ORDERED: Albuterol/Ipratropium NEB.SOL* Albuterol 2.5 MG/Ipratropium 0.5 MG 3 ML ONE (08:27)
[2019-05-21] MEDS ORDERED: Dexamethasone IV* 4 MG/ML 1 ML (4 MG) IV SLOW PU ONE (08:29)
[2019-05-21] MEDS ORDERED: Albuterol/Ipratropium NEB.SOL* Albuterol 2.5 MG/Ipratropium 0.5 MG 3 ML INH ONE (08:29)
--- OUTSIDE RECORDS SUMMARY | 2019-05-21 08:33 | XMS REPORT | Continuity of Care Document ---
:1970 External Reference #:[id number] Author Name Scott Herman MD (transmitted by agent of provider Ary Baltazar) Address [address] [place] [address] Care Team Providers Name Role Phone Jovita Alfonso MD [facility] - Care Team Information Cardiac Monitor Technician Cardiovascular Disease Ashwini Hudson F.N.P. - Family Care Team Information Cardiac Monitor Technician Problems Active Problems Provider Date Strain of muscle(s) and tendon(s) of the Scott Herman MD Onset: 2018 rotator cuff of right shoulder, subsequent encounter Social History Type Date Description Comments Sex Unknown Tobacco Use Start: Unknown End: Former Cigarette Quit smoking in 2015 Unknown Smoker 1 Pack Daily Tobacco Use Start: Unknown Current Cigarette 3/4 of a pack. Smoker 1 Pack Daily Restarted 2017. Plans to quit after surgery Smoking Status Reviewed: 04/29/19 Current Cigarette 3/4 of a pack. Smoker 1 Pack Daily Restarted 2017. Plans to quit after surgery ETOH Use consumes 5-6 beers per day ETOH Use Consumes 1 pint of liquor per day Recreational Drug Use Former Drug User smoking, injecting, and eating meth for two years 7711-4963 Tobacco Use Start: Unknown Heavy tobacco smoker Restarted 2017. (more than 10 Plans to quit after cigarettes/day) surgery Exercise Type/Frequency Exercises rarely Allergies, Adverse Reactions, Alerts Description No Known Drug Allergies Medications Active Medications SIG Qnty Indications Ordering Date Provider Ipratropium 1 unit every 6 hours 270ml Leilani Galina, 03/10/2019 [place]/Albuterol as needed MD Sulfate 0.5-2.5(3)mg/3ML Solution Nebulizer 1 unit nebulization 1units Leilani Mojica, 03/10/2019 Kit/Tubing/Mouthpiec every 4- 6 hours as e needed Kit Nebulizer Air 1 unit nebulization 1units Leilani Mojica, 03/10/2019 Tube/Plugs every 4-6 hours MD Man Oxycodone-Acetaminop 1-2 tabs by mouth 60tabs Scott Becerra 02/16/2019 hen every 4 hours for MD Batsheva 5-325mg Tablets pain Magnesium Oxide 1 by mouth twice Brionna Ghulam Kevin, 07/20/2018 400mg daily N.P. Tablets Oxygen please use o2 at 1units R09.02 Leilani Mojica, 06/30/2018 Misc 3l/min during MD exertion, pls provide pt with portable o2 concentrator. uses 3liters with cpap for sleep as well Lasix one by mouth every 30tabs Qutaybeh S. 06/18/2018 40mg Tablets day Wild Alfonso Ventolin HFA 2-4 puffs by mouth Unknown four times a day as 108(90Base) mcg/Act needed Aerosol Duloxetine HCL 1 by mouth every day Unknown 60mg Caps DR Perdomo Losartan Potassium 1 by mouth twice a 90tabs Qutaybeh S. day Wild Alfonso 50mg Tablets Spiriva Handihaler 1 unit inhalation Unknown daily 18mcg Capsules Eq Lansoprazole 1 capsule daily by Unknown 15mg mouth. Patient says Angélica GERMAIN he decided on his own to take this med Cpap for use while Unknown Device sleeping History Medications Oxycodone-Acetaminophen 1-2 tabs by 60tabs Scott Becerra 02/05/2019 - 5-325mg Tablets mouth every 4 MD Batsheva 02/15/2019 hours for pain Immunizations Description No Information Available Vital Signs Date Vital Result Comment 04/29/2019 8:45am Height 69 inches 5'9" Heart Rate 87 /min BP Systolic 120 mmHg BP Diastolic 60 mmHg Respiratory Rate 16 /min Body Temperature 98.6 F Pain Level 4 03/25/2019 8:42am Height 69 inches 5'9" Heart Rate 104 /min BP Systolic 128 mmHg BP Diastolic 82 mmHg Respiratory Rate 18 /min Body Temperature 98.2 F Pain Level 5 Results Description No Information Available Procedures Date Code Description Status 02/05/2019 50058 Arthroscopy Shoulder,W/Rotator Cuff Repair Completed 02/05/2019 78578 Arthroscopy Shoulder,W/Rotator Cuff Repair Completed 02/05/2019 75808 Arthroscopy,Shoulder Decompression Of Subacromial Space Completed W/Acromio 02/05/2019 11394 Arthroscopy,Shoulder Decompression Of Subacromial Space Completed W/Acromio 02/05/2019 58124 Arthroscopy,Shoulder,Distal Claviculectomy Incl Dist Completed Articular SR 02/05/2019 62834 Arthroscopy,Shoulder,Distal Claviculectomy Incl Dist Completed Articular SR Medical Devices Description No Information Available Encounters Type Date Location Provider Dx Diagnosis Office Visit 04/29/2019 Orthopedic Scott Becerra S46.012D Strain of 8:45a Services Of Gino Herman MD musc/tend the rotator cuff of left shoulder, subs M75.42 Impingement syndrome of left shoulder M75.22 Bicipital tendinitis, left shoulder M19.012 Primary osteoarthritis, left shoulder Office Visit 02/22/2019 9:15a Pulmonology And Leilani J44.9 Chronic Sleep Services Of MD [place] obstructive Nanny Babysitter pulmonary disease, unspecified G47.33 Obstructive sleep apnea (adult) (pediatric) R09.02 Hypoxemia Office Visit 01/28/2019 10:30a Pulmonology And Leilani J44.9 [facility] [place] obstructive Nanny Babysitter pulmonary disease, unspecified Z01.811 Encounter for preprocedural respiratory examination R09.02 Hypoxemia J44.9 Chronic obstructive pulmonary disease, unspecified G47.33 Obstructive sleep apnea (adult) (pediatric) R09.02 Hypoxemia Z01.811 Encounter for preprocedural respiratory examination G47.33 Obstructive sleep apnea (adult) (pediatric) Office Visit 12/17/2018 3:30p Orthopedic Scott Becerra S46.012D Strain of Services Of MD Batsheva musc/tend the C.M.A. rotator cuff of left shoulder, subs S46.012D Strain of musc/tend the rotator cuff of left shoulder, subs M75.52 Bursitis of left shoulder M75.42 Impingement syndrome of left shoulder Office Visit 12/15/2018 [facility] Dermatology Bess Mojica, L92.0 Granuloma 11:00a MD barton Office Visit 11/30/2018 Orthopedic Scott Becerra S46.012A Strain of 1:30p Services Of MD Batsheva musc/tend the C.M.A. 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.0 Granuloma annulare D22.5 Melanocytic nevi of trunk Z08 Encntr for follow-up exam after trtmt for malignant neoplasm Z85.828 Personal history of other malignant neoplasm of skin Assessments Date Code Description Provider 04/29/2019 S46.012D Strain of muscle(s) and tendon(s) of the Scott Herman MD rotator cuff of left shoulder, subsequent encounter 04/29/2019 M75.42 Impingement syndrome of left shoulder Scott Herman MD 04/29/2019 M75.22 Bicipital tendinitis, left shoulder Scott Herman MD 04/29/2019 M19.012 Primary osteoarthritis, left shoulder Scott Herman MD 03/25/2019 S46.012D Strain of muscle(s) and tendon(s) of the Scott Herman MD rotator cuff of lef 03/25/2019 M75.42 Impingement syndrome of left shoulder Scott Herman MD 03/25/2019 M75.22 Bicipital tendinitis, left shoulder Scott Herman MD 03/25/2019 M19.012 Primary osteoarthritis, left shoulder Scott Herman MD 03/25/2019 S46.012D Strain of muscle(s) and tendon(s) of the Scott Herman MD rotator cuff of left shoulder, subsequent encounter 02/22/2019 J44.9 Chronic obstructive pulmonary disease, Leilani Mojica MD unspecified 02/22/2019 G47.33 Obstructive sleep apnea (adult) Leilani Mojica MD (pediatric) 02/22/2019 R09.02 Hypoxemia Leilani Mojica MD 02/16/2019 S46.012D Strain of muscle(s) and tendon(s) of the Scott Herman MD rotator cuff of lef 02/16/2019 M75.42 Impingement syndrome of left shoulder Scott Herman MD 02/16/2019 M75.22 Bicipital tendinitis, left shoulder Scott Herman MD 02/16/2019 M19.012 Primary osteoarthritis, left shoulder Scott Herman MD 02/05/2019 S46.012A Strain of musc/tend the rotator cuff of LEE Winchester left shoulder, init 02/05/2019 S46.012A Strain of musc/tend the rotator cuff of Scott Herman MD left shoulder, init 02/05/2019 M75.42 Impingement syndrome of left shoulder Orestes Boykin PA 02/05/2019 M75.42 Impingement syndrome of left shoulder Scott Herman MD 02/05/2019 M75.22 Bicipital tendinitis, left shoulder Orestes Boykin, PA 02/05/2019 M19.012 Primary osteoarthritis, left shoulder Scott Herman MD 02/05/2019 M19.012 Primary osteoarthritis, left shoulder Orestes Boykin, PA 02/05/2019 M75.22 Bicipital tendinitis, left shoulder Scott Herman MD 01/28/2019 J44.9 Chronic obstructive pulmonary disease, Leilani Mojica MD unspecified 01/28/2019 Z01.811 Encounter for preprocedural respiratory Leilani Mojica MD examination 01/28/2019 R09.02 Hypoxemia Leilani Mojica MD 01/28/2019 J44.9 Chronic obstructive pulmonary disease, Leilani Mojica MD unspecified 01/28/2019 G47.33 Obstructive sleep apnea (adult) Leilani Mojica MD (pediatric) 01/28/2019 R09.02 Hypoxemia Leilani Mojica MD 01/28/2019 Z01.811 Encounter for preprocedural respiratory Leilani Mojica MD examination 01/28/2019 G47.33 Obstructive sleep apnea (adult) Leilani Mojica MD (pediatric) 01/21/2019 S46.011D Strain of muscle(s) and tendon(s) of the Scott Herman MD rotator cuff of rig 01/12/2019 S46.012D Strain of muscle(s) and tendon(s) of the Scott Herman MD rotator cuff of left shoulder, subsequent encounter 12/17/2018 S46.012D Strain of muscle(s) and tendon(s) of the Scott Herman MD rotator cuff of lef 12/17/2018 S46.012D Strain of muscle(s) and tendon(s) of the Scott Herman MD rotator cuff of left shoulder, subsequent encounter 12/17/2018 M75.52 Bursitis of left shoulder Scott Herman MD 12/17/2018 M75.42 Impingement syndrome of left shoulder Scott Herman MD 12/15/2018 L92.0 Granuloma mick Mojica MD 11/30/2018 S46.012A Strain of musc/tend the rotator cuff of Scott Herman MD left shoulder, init 11/30/2018 W00.9xxA Unspecified fall due to ice and snow, Scott Herman MD initial encounter 11/20/2018 L85.3 Xerosis cutis Bess Mojica MD 11/20/2018 L92.0 Granuloma yarye Bess Mojica MD 11/20/2018 D22.5 Melanocytic nevi of trunk Bess Mojica MD 11/20/2018 Z08 Encounter for follow-up examination after Bess Mojica MD completed treatmen 11/20/2018 Z85.828 Personal history of other malignant Bess Mojica MD neoplasm of skin Plan of Treatment Future Appointment(s):12/07/2019 8:00 am - Bess Mojica MD at [facility] Zzwmqjndmau38/15/2019 - Scott Herman MDS46.012D Strain of muscle(s) and tendon(s) of the rotator cuff of left shoulder, subsequent encounterFollow up: Follow up: 2 culqviL50.42 Impingement syndrome of left mvhoioubQ16.22 Bicipital tendinitis, left euqfbgvtG48.012 Primary osteoarthritis, left shoulder Functional Status Description No Information Available Mental Status Description No Information Available Referrals Description No Information Available
[2019-05-21 09:13] LABS: ABS Eosinophils 0.1 10^3/ul (0-0.6); ABS Lymphocytes 0.5 10^3/ul (1.0-4.8); ABS Monocytes 1.1 10^3/ul (0-0.8); ABS Neutrophils 17.7 10^3/ul (1.5-7.7); Eosinophil % 0.3 %; Hematocrit 51 % (42-52); Hemoglobin 16.4 g/dL (14.0-18.0); Lymphocyte % 2.8 %; Mean Corpuscular HGB Conc 32 g/dL (31-36); Mean Corpuscular Hemoglobin 28 pg (27-31); Mean Corpuscular Volume 88 fL (80-94); Platelet Count 314 10^3/uL (150-450); Red Blood Count 5.77 10^6 /uL (4.18-5.48); Red Cell Distribution Width 15 % (10-15); White Blood Count 19.5 10^3/uL (3.5-10.8)
[2019-05-21 09:28] LABS: Albumin 4.4 g/dL (3.2-5.2); Anion Gap 14 mmol/L (2-11); CO2 Carbon Dioxide 30 mmol/L (22-32); Calcium 10.1 mg/dL (8.6-10.3); Chloride 93 mmol/L (101-111); Sodium 137 mmol/L (135-145)
[2019-05-21 09:29] LABS: Troponin I 0.04 ng/mL (<0.04)
[2019-05-21] MEDS ORDERED: Furosemide IV* 10 MG/ML VIAL (40 MG) IV SLOW PU ONE (09:31)
[2019-05-21 09:35] LABS: ALT 15 U/L (7-52); AST 17 U/L (13-39); Albumin/Globulin Ratio 1.3 (1-3); Alkaline Phosphatase 75 U/L (34-104); BUN/Creatinine Ratio 24.1 (8-20); Blood Urea Nitrogen 20 mg/dL (6-24); EGFR African American 119.2 (>60); EGFR Non-African American 98.5 (>60); Globulin 3.5 g/dL (2-4); Glucose 126 mg/dL (70-100); Total Protein 7.9 g/dL (6.4-8.9)
[2019-05-21] MEDS ORDERED: cefTRIAXone(*) 1 GM in NS 0.9% 50 ML* 50 ML IVPB ONE (09:44)
[2019-05-21] MEDS ORDERED: Azithromycin 500 mg/250 ml NS 500 MG/250 ML BAG IVPB ONE (09:44)
[2019-05-21] MEDS ORDERED: NS 0.9% IV ONE (09:44)
--- NOTE | 2019-05-21 10:05 | ED ---
Shortness of Breath - HPI Summary HPI Summary: Pt is a 48 y/o M presenting to the ED with a chief complaint of SOB initially onset 3wks ago, but worsened this morning. He reports slight chest tightness and pressure in the lower sternal/epigastric region, wheezing, a slight cough and has been using his inhaler and nebulizer without relief. He last used it today at 0630. Pt denies any fever, chills, erythema of eyes, sore throat, orthopnea, abdominal pain, N/V, dysuria, hematuria, myalgia, edema, rash, or dizziness. He uses 3L of O2 at home. Sx aggravated by sitting up. - History of Current Complaint Chief Complaint: EDShortnessOfBreath Time Seen by Provider: 05/21/19 08:15 Hx Obtained From: Patient Onset/Duration: Gradual Onset, Lasting Weeks, Still Present, Worse Since - this morning Timing: Constant Current Severity: Moderate Dyspnea At: Rest Aggravating Factors: Other - sitting up Alleviating Factors: Nothing Associated Signs & Symptoms: Cough (Nonproductive), Wheezing - Allergy/Home Medications Allergies/Adverse Reactions: Allergies Allergy/AdvReac Type Severity Reaction Status Date / Time amlodipine AdvReac See Comment Verified 02/05/19 06:34 Home Medications: Home Medications Ipratropium 0.5MG/2.5ML NEB* [Atrovent 0.5 MG NEB.CHA*] 0.5 mg INH Q6H PRN 05/21 [History Confirmed 05/21/19] Magnesium Oxide [Magnesium] 400 mg PO DAILY 05/21/19 [History Confirmed 05/21/19 ] Tamsulosin CAP* [Flomax CAP*] 0.4 mg PO DAILY 05/21/19 [History Confirmed ] PMH/Surg Hx/FS Hx/Imm Hx Previously Healthy: No Endocrine/Hematology History: Denies: Hx Diabetes Cardiovascular History: Reports: Hx Hypercholesterolemia, Hx Hypertension - ON MEDICATION FOR Denies: Hx Angina, Hx Coronary Artery Disease, Hx Myocardial Infarction, Hx Pacemaker/ICD, Hx Valvular Heart Disease, Other Cardiovascular Problems/ Disorders Respiratory History: Reports: Hx Chronic Obstructive Pulmonary Disease (COPD), Hx Pneumonia - reported in room , Hx Sleep Apnea Denies: Hx Asthma, Other Respiratory Problems/Disorders GI History: Reports: Hx Gastroesophageal Reflux Disease - ON MEDICATION FOR History: Reports: Other Problems/Disorders - testicular problems Denies: Hx Renal Disease Sensory History: Reports: Hx Contacts or Glasses - GLASSES Denies: Hx Hearing Aid Opthamlomology History: Reports: Hx Contacts or Glasses - GLASSES Neurological History: Reports: Hx Migraine - A CHILD Denies: Other Neuro Impairments/Disorders Psychiatric History: Reports: Hx Anxiety - ON MEDICATION FOR, Hx Depression - ON MEDICATION FOR Denies: Hx Panic Disorder - Cancer History Cancer Type, Location and Year: skin - Surgical History Surgery Procedure, Year, and Place: 1974 TONSILLECTOMY AND ADENOIDECTOMY, [facility] ; . SKIN CA REMOVED FROM BELOW EYE IN [place] ;. INGUINAL HERNIA REPAIR AN Hx Anesthesia Reactions: No Infectious Disease History: No Infectious Disease History: Denies: History Other Infectious Disease, Traveled Outside the [place] in Last 30 Days - Family History Known Family History: Negative: Blood Disorder - blood clots - Social History Alcohol Use: Weekly Alcohol Amount: 12 PACK WEEKLY Hx Substance Use: Yes Substance Use Type: Reports: None Substance Use Comment - Amount & Last Used: HX OF USE IN THE PAST Hx Tobacco Use: Yes Smoking Status (MU): Heavy Every Day Tobacco Smoker Type: Cigarettes Amount Used/How Often: 3/4 PPD X35 YEARS OFF AND ON Length of Time of Smoking/Using Tobacco: 33 YEARS Have You Smoked in the Last Year: Yes Review of Systems Negative: Fever, Chills Negative: Erythema Negative: Sore Throat Positive: Chest Pain Positive: Shortness Of Breath, Cough. Negative: Other - orthopnea Negative: Abdominal Pain, Vomiting, Nausea Negative: dysuria, hematuria Negative: Myalgia, Edema Negative: Rash Neurological: Negative - dizziness All Other Systems Reviewed And Are Negative: Yes Physical Exam - Summary Physical Exam Summary: Constitutional: Well-developed, Well-nourished, Alert. (-) Distressed Skin: Warm, Dry HENT: Normocephalic; Atraumatic Eyes: Conjunctiva normal Neck: Musculoskeletal ROM normal neck. (-) JVD, (-) Stridor, (-) Tracheal deviation Cardio: Rhythm regular, rate normal, Heart sounds normal; Intact distal pulses; The pedal pulses are 2+ and symmetric. Radial pulses are 2+ and symmetric. (-) Murmur Pulmonary/Chest wall: Tachypnea, respiratory distress, wheezing with diminished air flow Abd: Soft, (-) tenderness, (-) Distension, (-) Guarding, (-) Rebound Musculoskeletal: (-) Edema Lymph: (-) Cervical adenopathy Neuro: Alert, Oriented x3 Psych: Mood and affect Normal Triage Information Reviewed: Yes Vital Signs On Initial Exam: Initial Vitals Temp Pulse Resp BP Pulse Ox 97.6 F 111 28 125/89 53 05/21/19 08:13 05/21/19 08:13 05/21/19 08:13 05/21/19 08:13 05/21/19 08:13 Vital Signs Reviewed: Yes Diagnostics - Vital Signs Vital Signs Temp Pulse Resp BP Pulse Ox 05/21/19 09:21 114 20 118/97 95 05/21/19 09:00 117 27 96 05/21/19 08:51 117 28 143/80 96 05/21/19 08:40 97 30 115 05/21/19 08:23 110 32 142/87 94 05/21/19 08:20 109 30 93 05/21/19 08:17 29 05/21/19 08:13 97.6 F 111 28 125/89 53 - Laboratory Lab Results: Lab Results 05/21/19 05/21/19 05/21/19 Range/Units 08:53 08:53 09:08 WBC 19.5 H (3.5-10.8) 10^3/uL RBC 5.77 H (4.18-5.48) 10^6 /uL Hgb 16.4 (14.0-18.0) g/dL Hct 51 (42-52) % MCV 88 (80-94) fL MCH 28 (27-31) pg MCHC 32 (31-36) g/dL RDW 15 (10-15) % Plt Count 314 (150-450) 10^3/uL MPV 8.0 (7.4-10.4) fL Neut % (Auto) 90.9 % Lymph % (Auto) 2.8 % [place] % (Auto) 5.8 % Eos % (Auto) 0.3 % Baso % (Auto) 0.2 % Absolute Neuts (auto) 17.7 H (1.5-7.7) 10^3/ul Absolute Lymphs (auto) 0.5 L (1.0-4.8) 10^3/ul Absolute Monos (auto) 1.1 H (0-0.8) 10^3/ul Absolute Eos (auto) 0.1 (0-0.6) 10^3/ul Absolute Basos (auto) 0.0 (0-0.2) 10^3/ul Absolute Nucleated RBC 0.0 10^3/ul Nucleated RBC % 0.0 ABG pH (7.35-7.45) ABG pCO2 (35-45) mmHg ABG pO2 (80-100) mmHg ABG HCO3 (19-31) mmol/L ABG O2 Saturation (94.0-98.0) % ABG Base Excess (-2.0-2.0) mmol/L Sodium 137 (135-145) mmol/L Potassium 5.0 (3.5-5.0) mmol/L Chloride 93 L (101-111) mmol/L Carbon Dioxide 30 (22-32) mmol/L Anion Gap 14 H (2-11) mmol/L BUN 20 (6-24) mg/dL Creatinine 0.83 (0.67-1.17) mg/dL Est GFR ( Amer) 119.2 (>60) Est GFR (Non-Af Amer) 98.5 (>60) BUN/Creatinine Ratio 24.1 H (8-20) Glucose 126 H (70-100) mg/dL Lactic Acid 2.2 H* (0.5-2.0) mmol/L Calcium 10.1 (8.6-10.3) mg/dL Total Bilirubin 1.40 H (0.2-1.0) mg/dL AST 17 (13-39) U/L ALT 15 (7-52) U/L Alkaline Phosphatase 75 (34-104) U/L Troponin I 0.04 H* (<0.04) ng/mL Total Protein 7.9 (6.4-8.9) g/dL Albumin 4.4 (3.2-5.2) g/dL Globulin 3.5 (2-4) g/dL Albumin/Globulin Ratio 1.3 (1-3) 05/21/19 Range/Units 09:36 WBC (3.5-10.8) 10^3/uL RBC (4.18-5.48) 10^6 /uL Hgb (14.0-18.0) g/dL Hct (42-52) % MCV (80-94) fL MCH (27-31) pg MCHC (31-36) g/dL RDW (10-15) % Plt Count (150-450) 10^3/uL MPV (7.4-10.4) fL Neut % (Auto) % Lymph % (Auto) % [place] % (Auto) % Eos % (Auto) % Baso % (Auto) % Absolute Neuts (auto) (1.5-7.7) 10^3/ul Absolute Lymphs (auto) (1.0-4.8) 10^3/ul Absolute Monos (auto) (0-0.8) 10^3/ul Absolute Eos (auto) (0-0.6) 10^3/ul Absolute Basos (auto) (0-0.2) 10^3/ul Absolute Nucleated RBC 10^3/ul Nucleated RBC % ABG pH 7.38 (7.35-7.45) ABG pCO2 62 H (35-45) mmHg ABG pO2 92 (80-100) mmHg ABG HCO3 32.0 H (19-31) mmol/L ABG O2 Saturation 98.4 H (94.0-98.0) % ABG Base Excess 9.2 H (-2.0-2.0) mmol/L Sodium (135-145) mmol/L Potassium (3.5-5.0) mmol/L Chloride (101-111) mmol/L Carbon Dioxide (22-32) mmol/L Anion Gap (2-11) mmol/L BUN (6-24) mg/dL Creatinine (0.67-1.17) mg/dL Est GFR ( Amer) (>60) Est GFR (Non-Af Amer) (>60) BUN/Creatinine Ratio (8-20) Glucose (70-100) mg/dL Lactic Acid (0.5-2.0) mmol/L Calcium (8.6-10.3) mg/dL Total Bilirubin (0.2-1.0) mg/dL AST (13-39) U/L ALT (7-52) U/L Alkaline Phosphatase (34-104) U/L Troponin I (<0.04) ng/mL Total Protein (6.4-8.9) g/dL Albumin (3.2-5.2) g/dL Globulin (2-4) g/dL Albumin/Globulin Ratio (1-3) Result Diagrams: 05/24/19 05:37 05/24/19 05:37 Lab Statement: Any lab studies that have been ordered have been reviewed, and results considered in the medical decision making process. - Radiology CXR Radiology Interpretation Completed By: Radiologist Summary of Radiographic Findings: DIFFUSE MIXED INTERSTITIAL AND AIR SPACE DISEASE DEVELOPED FROM NOVEMBER 14, 2018 SUGGESTIVE OF A SUPERIMPOSED AIRSPACE PROCESS ON CHRONIC INTERSTITIAL LUNG DISEASE. ED physician has reviewed this report. - EKG 0816 Cardiac Rate: Tachycardia - 105bpm EKG Rhythm: Sinus Tachycardia ST Segment: Normal Ectopy: None Summary of EKG Findings: EKG at 0816 shows sinus tachycardia at 105bpm with no STEMI. Re-Evaluation - Re-Evaluation 1st re-eval Re-Evaluation Time: 10:51 Change: Improved Comment: The pt feels slightly better. He has had 3L of fluids and has not decompensated at all. His lungs are still slightly diminished, there are slight wheezes bilaterally, without crackles. Course/Dx - Course Course Of Treatment: Pt is a 48 y/o M presenting to the ED with a chief complaint of SOB initially onset 3wks ago, but worsened this morning. He reports slight chest tightness and pressure in the lower sternal/epigastric region, wheezing, a slight cough and has been using his inhaler and nebulizer without relief. He last used it today at 0630. Pt denies any fever, chills, erythema of eyes, sore throat, orthopnea, abdominal pain, N/V, dysuria, hematuria, myalgia, edema, rash, or dizziness. He uses 3L of O2 at home. EKG at 0816 shows sinus tachycardia at 105bpm with no STEMI. CXR shows: DIFFUSE MIXED INTERSTITIAL AND AIR SPACE DISEASE DEVELOPED FROM NOVEMBER 14, 2018 SUGGESTIVE OF A SUPERIMPOSED AIRSPACE PROCESS ON CHRONIC INTERSTITIAL LUNG DISEASE. On exam, the pt is wheezing with diminished air sounds, is tachypnic, and is in respiratory distress. As of 1051, the pt feels slightly better. He has had 3L of fluids and has not decompensated at all. His lungs are still slightly diminished, there are slight wheezes bilaterally, without crackles. Pt s hematology shows WBC of 19.5 and RBC of 5.77. ABG shows pCO2 of 62, HCO3 of 32.0, SaO2 of 98.4, and base excess of 9.2. His chemistry shows Chloride of 93, Anion Gap of 14, BUN/Creatinine ratio of 24.1, total Bilirubin of 1.40, and BNP of 391. The pts Troponin I is 0.04, and his initial Lactic Acid is 2.2. In the ED course, the pt was given 40mg of Furosemide IV, 1gm of Rocephin IV, 8mg of Decadron IV, 500mg Azithromycin IV, and an Albuterol/Ipratropium nebulizer. I spoke with Dr. Villarreal who will be admitting the pt to [facility] [place]. CT from 2 days ago revealed infiltrates and pulmonary edema as well. I discussed the possibility of pulmonary edema with the hospitalist care, who opted to care primarily for sepsis and pneumonia. The pt will be admitted with dx of COPD exacerbation and respiratory distress. - Diagnoses Provider Diagnoses: COPD exacerbation - Physician Notifications Discussed Care of Patient With: Joanie Villarreal Time Discussed With Above Provider: 09:47 Instructed by Provider To: Admit As Inpatient Admit/Transition Orders Completed By ED Provider: Yes - Critical Care Time Critical Care Time: 30-74 min - 60min Discharge ED - Sign-Out/Discharge Documenting (check all that apply): Patient Departure - Discharge Plan Condition: Stable Disposition: ADMITTED TO [facility] - Billing Disposition and Condition Condition: STABLE Disposition: Admitted to [facility] - Attestation Statements Document Initiated by Scribe: Yes Documenting Scribe: Vicenta Queen Provider For Whom Scribe is Documenting (Include Credential): Brian Saleem MD. Scribe Attestation: Vicenta Jones, denzeled for Brian Saleem MD. on 05/24/19 at 0741. Scribe Documentation Reviewed: Yes Provider Attestation: The documentation as recorded by the Vicenta jefferson accurately reflects the service I personally performed and the decisions made by , Brian Saleem MD. Status of Scribe Document: Viewed Consult Consult: 2370 - I spoke with Dr. Villarreal about the pt's condition. The pt will be admitted to [facility] [place] [place].
[2019-05-21] MEDS ORDERED: Albuterol HFA INHALER* 8 gm MDI INH PRN (11:19)
[2019-05-21] MEDS ORDERED: methylPREDNISolone SOD 40 MG* 1 ML VIAL IV SCH (12:00)
[2019-05-21] MEDS: Enoxaparin(*) 40 MG/0.4 ML SYR SUBCUT SCH (12:16)
[2019-05-21] MEDS: Albuterol/Ipratropium NEB.SOL* Albuterol 2.5 MG/Ipratropium 0.5 MG 3 ML INH SCH ×4 (12:30→23:58)
--- NOTE | 2019-05-21 13:33 | CONS ---
PULMONARY CONSULTATION REPORT: DATE OF CONSULT: 05/21/19 CONSULTATION REQUESTED BY: Samara Harris NP. REASON FOR CONSULTATION: Hypoxemic respiratory failure. HISTORY OF PRESENT ILLNESS: The patient is a 48-year-old obese male with a history of interstitial lung disease, unclear whether sarcoidosis or hypersensitivity pneumonitis, the patient declined bronchoscopy. The patient also with significant smoking history with a history of COPD. The patient with chronic hypoxemic respiratory failure. The patient known to me from prior outpatient and inpatient evaluation. The patient presents for evaluation of worsening shortness of breath. The patient reports gradually worsening shortness of breath over the past few days. The patient reports cough, which is not productive. He reports difficulty expectorating the phlegm. Denies fevers , reports chills and night sweats. The patient reports that he had quit smoking in February after the outpatient visit, during which smoking cessation was discussed with him. The patient has been trying to be compliant with oxygen recently. He also has been using Trilogy at night and claims to be compliant with it. The patient reports that he could not use his machine recently. The patient was found to be in significant hypoxemic respiratory failure on arrival. He has been placed on high-flow with 100% FiO2 and flow rate of 30. Further evaluation included a chest x-ray. I personally reviewed chest x-ray and CT scan of the chest performed as outpatient yesterday. The patient with evidence of diffuse airspace opacities on the chest x-ray. CT chest showed evidence of diffuse ground-glass opacities bilaterally. He also has a history of interstitial lung disease with radicular nodular opacities and calcified mediastinal nodes and some calcified subcentimeter nodules. Those changes seem to have been stable. No pleural effusions noted. The patient also found to have elevated white count at 19.5 with a left shift. He was also found to have elevated lactate at 2.2. His BNP is elevated at 391. He also had mildly elevated troponin at 0.04. The patient in significant distress with accessory muscle usage and appeared to be all but comfortable after he was initiated on high-flow O2. The patient was also given a dose of steroids and nebulizers. He was also given azithromycin and Rocephin. The patient has a history of severe COPD with FEV1 of 43% predicted, noted on PFTs from May of 2018. He also had severely decreased diffusion capacity at that time. The patient was also given 2 L of fluid bolus for possible sepsis. PAST MEDICAL HISTORY: 1. Prior smoker with significant smoking history, quit in February of 2019. 2. Interstitial lung disease with suspicion for sarcoidosis given occupational exposure, also with possibility of hypersensitivity pneumonitis, not treated in the past. 3. Obesity. 4. Obstructive sleep apnea, severe, on CPAP at night. 5. Chronic hypoxemic respiratory failure. 6. Pulmonary hypertension. PAST SURGICAL HISTORY: 1. Inguinal hernia repair. 2. Tonsillectomy. MEDICATIONS AT HOME: 1. Ipratropium nebulizer. 2. Flomax. 3. Aspirin. 4. Cozaar. 5. Pravastatin. 6. Cymbalta. 7. Ventolin. 8. Furosemide. ALLERGIES: AMLODIPINE. FAMILY HISTORY: History of asbestosis, lung disease, and COPD in family. SOCIAL HISTORY: Former smoker, quit smoking in February of 2019 with unsuccessful quit attempts in the past. History of significant alcohol intake, also reports has been sober since February. He has occupational exposure to dust, mold, fungus. 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 REVIEW OF SYSTEMS: All 14 systems reviewed, as per HPI. PHYSICAL EXAM: The patient in bed, in no apparent distress. Temperature 97.6, pulse 103 beats per minute, respiratory rate 27 per minute, O2 sat 95% on 100% FiO2, blood pressure 119/82. HEENT: Pupils equal, reactive to light. Mucous membranes moist. Lungs: Diminished air entry bilaterally. Crackles at the left base and mild expiratory wheeze. Cardiovascular: Tachycardic. S1, S2 present. Abdomen: Obese. Bowel sounds present. Extremities: Normal range of motion. No edema. Skin: No rash or bruises. DIAGNOSTIC STUDIES/LAB DATA: WBC count 19.5, hemoglobin 16.1, hematocrit 51, platelet count of 314. Blood gas analysis showed respiratory acidosis with pCO2 of 62, pH of 7.38, O2 of 92, bicarb of 32 with O2 sat 98%. Sodium 137, potassium 5.0, chloride 93, bicarb of 30, anion gap elevated at 14, BUN 20, creatinine 0.83, lactic acid slightly elevated at 2.2, troponin 0.04, BNP 391. Chest x-ray, CT of the chest as described above in HPI. IMPRESSION AND RECOMMENDATIONS: 48-year-old male with significant smoking history, also with occupational exposures, with interstitial lung disease, with [id number] hypoxemic respiratory failure. Suspect acute exacerbation of underlying interstitial lung disease. I do not suspect there is a component of fluid overload at this time. Community acquired pneumonia on top of interstitial lung disease is also a possibility. We will initiate the patient on antibiotic coverage for community acquired pneumonia. We will follow up on the lactate levels and sepsis protocol. He will be started on Solu-Medrol 60 IV q.6, taper down as he shows response. We will also try to titrate FiO2 as tolerated. Would order echocardiogram with a bubble echo to look for any pulmonary or cardiac shunting given significant hypoxemia. The patient with pulmonary hypertension, which is multifactorial, most likely from underlying lung disease given COPD, interstitial lung disease, chronic hypoxemia, obstructive sleep apnea. Continue with bronchodilators. Initiate on auto-CPAP at night. Thank you for allowing me to participate in the care of your patient. I will follow up with you. Plan of care discussed with the patient and Samara Harris NP. [id number]/[facility] #: [id number]
[2019-05-21] MEDS ORDERED: Perflutren Lipid Microsphere* 3 ML VIAL ONE (13:52)
--- NOTE | 2019-05-21 14:07 | HP ---
CC: Sujatha Hudson NP; Dr. Leilani Mojica * ADMISSION HISTORY AND PHYSICAL: DATE OF ADMISSION: 05/21/19 PRIMARY CARE PROVIDER: Sujatha Hudson NP. ATTENDING FOR THIS ADMISSION: Dr. Joanie Rain.* (DICTATED BY TENZIN EWING NP) CONSULTING PHYSICIAN: Leilani Mojica MD of Pulmonology. CHIEF COMPLAINT: Shortness of breath. HISTORY OF PRESENT ILLNESS: Mr. Patel is a 48-year-old male patient with a history of COPD. The patient states that he was at home in his normal state of health. He does have known history again of COPD and he normally follows with Dr. Mojica. He started to notice that he was getting progressively short of breath approximately 3 weeks ago. He had a followup chest CT that was ordered by Dr. Mojica yesterday; however, he noticed this morning that he started to have some chest tightening and pressure, wheezing and nonproductive cough. He used his inhaler and his nebulizer without any relief. He denied any fever or chills. He did not have any dizziness or any further symptoms; however, his shortness of breath began to get progressively worse, [id number] in nature. He came to the emergency department for evaluation. In the ED, he was found to be hypoxic. He was placed on Vapotherm, laboratories and ABG were obtained. The patient is retaining CO2. Labs also revealed a leukocytosis. Imaging of the chest reveals pneumonia, also an elevated lactic acid and an elevated BNP. For these reasons, hospitalists were asked to evaluate the patient for ICU admission. PAST MEDICAL HISTORY: The patient's past medical history is significant for COPD, interstitial lung disease, hypertension, GERD and BPH. PAST SURGICAL HISTORY: Left shoulder arthroscopy and also an eye surgery on the right eye. MEDICATIONS: His home medications include: 1. Lasix 40 mg daily. 2. Losartan 50 mg 2 times a day. 3. Cymbalta 30 mg daily. 4. Albuterol inhaler q.6 hours as needed. 5. Atrovent inhaler q.6 hours. 6. Flomax 0.4 mg daily. 7. Prevacid 15 mg daily. 8. Magnesium supplement 400 mg daily. ALLERGIES: To AMLODIPINE, which causes ankle swelling. FAMILY HISTORY: Mother with cancer, currently undergoing diagnostics and treatment. Father is alive and healthy. SOCIAL HISTORY: The patient has a longstanding history of smoking. He stated he started smoking as a child, recently states he quit, although he cannot identify the date that he actually stopped. Denies any drug use, drinks alcohol socially. 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 He is currently on a disability for a shoulder surgery. He is not . He has no children. His father, Shannon, is his healthcare proxy. REVIEW OF SYSTEMS: The patient denies any fever or chills. He is short of breath, but states he feels improved on Vapotherm. He does have an unproductive cough. Currently, no chest pain. No nausea. No vomiting. No abdominal pain. No urinary symptoms. No weakness. No skin complaints. No arthralgias or myalgias. No further constitutional complaints. PHYSICAL EXAMINATION GENERAL: Reveals a gentleman slightly older than his stated age in mild-to- moderate distress. VITAL SIGNS: Blood pressure 130/84, heart rate 105, respiratory rate between 27 and 31, O2 saturation 97% on Vapotherm. HEENT: The patient is atraumatic, normocephalic. PERRLA. Nonicteric sclerae. Oral mucosa is dry. Tongue is midline. NECK: Supple, nontender. No JVD noted. No carotid bruit auscultated. LUNGS: Diminished at the apices. Greatly diminished at the bases. He has very poor air entry throughout the lung ocasio. No wheezing or rhonchi noted. CARDIOVASCULAR: S1, S2 are present. Rate is tachycardic. Rhythm is regular. No murmurs, gallops or rubs noted. ABDOMEN: Soft, slightly protuberant. No hepatosplenomegaly noted. He has positive bowel sounds in all 4 quadrants. : Deferred. MUSCULOSKELETAL: There is no clubbing, no cyanosis. There is no pedal edema. He has +2 distal pulses palpable. Full range of motion. Gross motor and sensation are intact. NEUROLOGIC: Grossly intact with no focal deficit. PSYCHIATRIC: He is cooperative and appropriate. DIAGNOSTIC DATA/LAB DATA: WBCs 19.5, RBCs 5.77, hemoglobin 16.4, hematocrit 51 , and platelets 314. Sodium 137, potassium 5.0, chloride 93, CO2 of 30, anion gap 14, BUN 20, creatinine 0.83. GFR 98.5. BUN and creatinine ratio 24.1. Glucose 126. Lactic acid 2.2, calcium 10.1. Total bilirubin 1.40, AST 17, ALT 15, alk phos 75. Troponin is 0.04. BNP 391. Total protein 7.9, albumin 4.4, globulin 3.5. Albumin and globulin ratio 7.3. Arterial blood gas at 9:36 this morning, please note it is not noted on the chart if the blood gas is on room air or on oxygen, pH is 7.38, CO2 of 62, pO2 of 92, bicarb 32.0, O2 saturation 98.4 with a base excess of 9.2. Imaging: Chest x-ray, radiologist impression: Chest x-ray at 8:15 this morning shows diffuse mixed interstitial and airspace disease developed from 11/03 suggestive of a superimposed air space process on a chronic interstitial lung disease. Please also note there is a CT scan from an outpatient imaging on 05/20/19. Outpatient chest CT shows a stable pulmonary and parenchymal nodularity, stable fibrotic changes. There has been interval development of a diffuse airspace and interstitial disease. The differential includes pulmonary , interstitial, and alveolar edema. The pulmonary arteries enlarged suggestive of a pulmonary arterial hypertension and stable calcified granulomas and calcified mediastinal and hilar lymph nodes. IMPRESSION: Mr. Patel is a 48-year-old male with advanced interstitial lung disease that presented to the emergency department with acute shortness of breath, found to be in hypoxic respiratory failure with likely right-sided pneumonia and sepsis. PLAN/RECOMMENDATIONS: The patient will be admitted to ICU. Diagnoses: 1. Hypoxic respiratory failure secondary to pneumonia and chronic interstitial lung disease. In the emergency department, the patient was given ceftriaxone and azithromycin and Decadron. He was also given fluid bolus. He was placed on Vapotherm, which seems to be improving the patient's shortness of breath. By his own admission, he does feel subjectively better. His oxygen saturation is stable. Vapotherm will be continued and we will wean as tolerated. He will be placed on DuoNebs q.4 hours and incentive spirometry. Changed him to Solu- Medrol 40 mg q.8 hours and we will continue to monitor his respiratory status closely. I have also discussed his findings with Dr. Mojica, his pier hand , who is at the bedside now evaluating the patient. She is in agreement with steroids, antibiotics and continued Vapotherm. 2. Sepsis, source, pneumonia. The patient does have an elevated white count and tachycardia and acidosis. At this point, the patient is not coughing for a sputum sample. Blood cultures have been drawn. Lactic acid is 2.2. Lactic acid will be repeated at 12:45 today. We will continue him on ceftriaxone and azithromycin to cover him for acute community-acquired pneumonia. He is hemodynamically stable. He is not showing any signs of hypotension, does not require pressors. We will continue to wean oxygen as tolerated. 3. History of hypertension. We will continue his home medications, which are losartan and his oral Lasix. It should be noted that the patient did receive IV Lasix in the emergency department and tolerated. 4. Elevated BNP and findings of fluid overload on chest x-ray. The chest x- ray does appear to be slightly fluid overloaded and the patient does take diuretics. He did receive 1 dose of Lasix IV in the emergency department as well. I did discuss this with the ER physician and we are both in agreement that the patient does appear to be slightly volume overloaded. I will order an echocardiogram to assess for any systolic or diastolic dysfunction. He does appear to have some pulmonary arterial hypertension on CT of the chest. We will await the results of the echo and determine if the patient does have any systolic or diastolic dysfunction. Continue his Lasix daily, to start tomorrow. 5. History of benign prostatic hypertrophy. He will be continued on Flomax. 6. History of gastroesophageal reflux disease. He will be continued on PPI. Diet. He can have a heart-healthy as tolerated. DVT prophylaxis. The patient is high risk given his comorbid conditions and respiratory failure at this time. He will be placed on Lovenox 40 daily. Activity. Bedrest and then out of bed to chair as tolerated. Disposition: The patient has been admitted to ICU. TIME SPENT: Seventy five minutes of critical care time, more than 50% has been spent [id number] with the patient and interfacing with other specialists involved in this patient's care. This plan of care has been discussed with Dr. Frank Rain and Dr. Mojica, Pulmonology and they are in agreement with this admission plan of care. TENZIN EWING, MIGUEL [id number]/[facility] #: [id number] ABHINAV
--- NOTE | 2019-05-21 16:08 | ECHO ---
*[facility]* [place] [address] Fax #: [phone] Transthoracic Echocardiogram Patient: Mathieu Patel : 1970 Study Date: 05/21/2019 Age: 48 Gender: M HR: 93 bpm Height: 79 in /200.7 cm BSA: 2.28 m^2 Weight: 199.6 lb /90.7 kg BMI: 22.5 kg/m^2 *Engine Oiler: * Imelda Billings [facility] *Referring Physician: * Samara Harris *Reading Physician: * Jovanny Schrader MD Indications: Resp Insufficiency. History: Chronic obstructive pulmonary disease. Risk factors: Current tobacco use. Hypertension. Dyslipidemia. Conclusions Summary: - Left ventricle: The cavity size is normal. Wall thickness is mildly increased. Systolic function is normal. The estimated ejection fraction is 55-60%. Wall motion is normal; there are no regional wall motion abnormalities. - Right ventricle: The cavity size is moderately dilated. Systolic function is moderately reduced. - Ventricular septum: There is septal flattening of the interventricular septum consistent with RV volume or pressure overload. - Right atrium: The atrium is moderately dilated. - Functionally benign heart valves. - Since the prior echocardiogram completed 07/15/18, there is no significant change. Study data: Transthoracic echocardiogram. Procedure: Transthoracic echocardiography was performed. Image quality was suboptimal. Intravenous Definity , 2 mlswas administered. Image enhancement administered by BELLA Seguraunit secy. Complete 2D, spectral Doppler, and color flow Doppler. Location: ICU Patient status: Inpatient. Patient room number: 1. Rhythm: Normal sinus rhythm. Findings Left ventricle: The cavity size is normal. Wall thickness is mildly increased. Systolic function is normal. The estimated ejection fraction is 55-60%. Wall motion is normal; there are no regional wall motion abnormalities. There is no consistent Doppler evidence of clinically significant diastolic dysfunction. Right ventricle: The cavity size is moderately dilated. Systolic function is moderately reduced. Ventricular septum: There is septal flattening of the interventricular septum consistent with RV volume or pressure overload. Left atrium: The atrium is normal in size. Right atrium: The atrium is moderately dilated. Mitral valve: The leaflets are normal thickness. There is no significant regurgitation. Aortic valve: The valve is probably trileaflet. The leaflets are normal thickness. There is no evidence of stenosis. There is no significant regurgitation. Tricuspid valve: The leaflets are normal thickness. There is trace regurgitation. Pulmonic valve: Not well visualized. There is no significant regurgitation. Aorta: The aortic root appears normal. The aortic arch appears normal. Pericardium: There is no significant pericardial effusion. Pulmonary arteries: Not well visualized. Systolic pressure can not be accurately estimated. Systemic veins: Inferior vena cava: The vessel is dilated. There is (>= 50%) respiratory change in the IVC dimension. Measurements Left ventricle Value Ref Right atrium continued Value Ref ANGELA, LAX (L) 4.0 cm 4.2 - 5.8 ML dim, ES, A4C (H) 4.9 cm 2.6 - 4.4 ESD, LAX 2.6 cm 2.5 - 4.0 Estimated RAP 8 mm Hg --------- FS, LAX 34 % 25 - 43 PW, ED, LAX (H) 1.1 cm 0.6 - 1.0 Aortic valve Value Ref EF 63 % 52 - 72 Jade diam, ED 2.3 cm --------- E', lat jade, TDI 14.0 cm/sec >=10.0 Peak v, S 0.98 m/sec ----- ---- E/e', lat jade, 3 VTI, S 15.0 cm -------- - TDI Mean grad, S 2.0 mm Hg --------- E', med jade, TDI (L) 5.3 cm/sec >=7.0 Peak grad, S 4.0 mm Hg ----- ---- E/e', med jade, 9 TDI Mitral valve Value Ref E', avg, TDI 9.7 cm/sec Peak E 0.48 m/sec -------- - E/e', avg, TDI 5 <=14 Peak A 0.52 m/sec ----- ---- Decel time 129 ms --------- LVOT Value Ref Peak E/A ratio 0.9 --------- Peak skyler, S 0.84 m/sec Mean grad, S 2 mm Hg Pulmonic valve Value Ref Peak v, S 0.56 m/sec --------- Ventricular septum Value Ref Peak grad, S 1.0 mm Hg --------- IVS, ED (H) 1.1 cm 0.6 - 1.0 Aortic root Value Ref Right ventricle Value Ref Root diam 3.2 cm <4.3 ANGELA, LAX 3.7 cm ANGELA minor ax, 3.0 cm 1.9 - 3.5 Ascending aorta Value Ref A4C mid AAo AP diam, S 2.6 cm --------- Left atrium Value Ref Aortic arch Value Ref AP dim, ES 3.40 cm 3.00 - Arch diam 2.9 cm --------- 4.00 ML dim, A4C 3.3 cm Inferior vena cava Value Ref SI dim, A4C 5.2 cm Diam 3.0 cm --------- Vol/bsa, ES, A/L 28 ml/m^2 16 - 34 Right atrium Value Ref SI dim, ES (H) 5.5 cm 3.4 - 5.3 Legend: (L) and (H) trina values outside specified reference range. Prepared and electronically signed by Jovanny Schrader MD 05/21/2019 16:08
[2019-05-21] MEDS: methylPREDNISolone SOD 40 MG* 1 ML VIAL IV SCH (17:48)
[2019-05-21] MEDS: Losartan TAB* 25 MG PO SCH (21:30)
[2019-05-22] MEDS: methylPREDNISolone SOD 40 MG* 1 ML VIAL IV SCH ×4 (00:27→17:20)
[2019-05-22] MEDS: Albuterol/Ipratropium NEB.SOL* Albuterol 2.5 MG/Ipratropium 0.5 MG 3 ML INH SCH ×4 (03:49→19:37)
[2019-05-22 05:51] LABS: ABS Lymphocytes 0.3 10^3/ul (1.0-4.8); ABS Monocytes 0.4 10^3/ul (0-0.8); ABS Neutrophils 9.3 10^3/ul (1.5-7.7); Hematocrit 43 % (42-52); Hemoglobin 13.8 g/dL (14.0-18.0); Lymphocyte % 3.2 %; Mean Corpuscular HGB Conc 32 g/dL (31-36); Mean Corpuscular Hemoglobin 28 pg (27-31); Mean Corpuscular Volume 88 fL (80-94); Mean Platelet Volume 8.2 fL (7.4-10.4); Platelet Count 320 10^3/uL (150-450); Red Blood Count 4.91 10^6 /uL (4.18-5.48); Red Cell Distribution Width 15 % (10-15); White Blood Count 9.9 10^3/uL (3.5-10.8)
[2019-05-22 06:08] LABS: Albumin/Globulin Ratio 1.1 (1-3); BUN/Creatinine Ratio 29.7 (8-20); Calcium 9.8 mg/dL (8.6-10.3); EGFR Non-African American 112.4 (>60); Globulin 3.8 g/dL (2-4); Total Bilirubin 0.6 mg/dL (0.2-1.0); Total Protein 7.8 g/dL (6.4-8.9)
[2019-05-22 06:10] LABS: Potassium 5.1 mmol/L (3.5-5.0)
[2019-05-22] MEDS: Tamsulosin CAP* 0.4 MG PO SCH (08:06)
[2019-05-22] MEDS: Furosemide TAB* 40 MG PO SCH (08:06)
[2019-05-22] MEDS: Magnesium Oxide TAB* 400 MG PO SCH (08:06)
[2019-05-22] MEDS: DULoxetine DR CAP* 60 MG CAP.DR PO SCH (08:07)
[2019-05-22] MEDS: Losartan TAB* 25 MG PO SCH ×2 (08:07→21:34)
[2019-05-22] MEDS: Pantoprazole TAB * 40 MG TAB PO SCH (08:07)
[2019-05-22] MEDS: Aspirin EC TAB* 81 MG TAB.EC PO SCH (08:07)
[2019-05-22] MEDS: cefTRIAXone(*) 1 GM in NS 0.9% 50 ML* 50 ML IVPB SCH (09:47)
[2019-05-22] MEDS: Azithromycin 500 mg/250 ml NS 500 MG/250 ML BAG IVPB SCH (10:32)
[2019-05-22] MEDS: Enoxaparin(*) 40 MG/0.4 ML SYR SUBCUT SCH (11:40)
--- NOTE | 2019-05-22 13:55 | PN ---
Subjective Date of Service: 05/22/19 Interval History: Patient is feeling better. Patient feels less SOB and has increased exercise capacity. Patient is coughing intermittently, but not producing sputum. Patient denies F/C, N/V, abdominal pain, diarrhea, CP, dysuria, or other pain. Family History: Unchanged from Admission Social History: Unchanged from Admission Past Medical History: Unchanged from Admission Objective Active Medications: Albuterol (Ventolin Hfa Inhaler*) 1 puff INH Q6H PRN PRN Reason: SHORTNESS OF BREATH Albuterol/Ipratropium (Duoneb (Albuterol 2.5 Mg/Ipratropium 0.5 Mg)) 1 neb INH [id number] AWAKE [facility] Last Admin: 05/22/19 13:40 Dose: 1 neb Aspirin (Aspirin Ec Tab*) 81 mg PO DAILY [facility] Last Admin: 05/22/19 08:07 Dose: 81 mg Duloxetine HCl (Cymbalta Cap*) 60 mg PO QAM [facility] Last Admin: 05/22/19 08:07 Dose: 60 mg Enoxaparin Sodium (Lovenox(*)) 40 mg SUBCUT Q24H [facility] Last Admin: 05/22/19 11:40 Dose: 40 mg Furosemide (Lasix Tab*) 40 mg PO DAILY [facility] Last Admin: 05/22/19 08:06 Dose: 40 mg Ceftriaxone Sodium 1 gm/ (Sodium Chloride) 50 mls @ 100 mls/hr IVPB Q24H [facility] Last Admin: 05/22/19 09:47 Dose: 100 mls/hr Azithromycin (Zithromax 500 Mg/250 Ml) 500 mg in 250 mls @ 250 mls/hr IVPB Q24H [facility] Last Admin: 05/22/19 10:32 Dose: 250 mls/hr Losartan Potassium (Cozaar Tab*) 50 mg PO BID [facility] Last Admin: 05/22/19 08:07 Dose: 50 mg Magnesium Oxide (Magox 400 Tab*) 400 mg PO DAILY [facility] Last Admin: 05/22/19 08:06 Dose: 400 mg Methylprednisolone Sodium Succinate (Solu-Medrol 40 Mg) 60 mg IV Q6H [facility] Last Admin: 05/22/19 11:41 Dose: 60 mg Pantoprazole Sodium (Protonix Tab*) 50 mg PO DAILY [facility] Last Admin: 05/22/19 08:07 Dose: 50 mg Tamsulosin HCl (Flomax Cap*) 0.4 mg PO DAILY [facility] Last Admin: 05/22/19 08:06 Dose: 0.4 mg Vital Signs - 8 hr 05/22/19 05/22/19 05/22/19 06:00 06:01 06:43 Temperature Pulse Rate 61 66 73 Respiratory 14 18 22 Rate Blood Pressure 108/74 108/74 (mmHg) O2 Sat by Pulse 99 97 91 Oximetry 05/22/19 05/22/19 05/22/19 07:00 07:31 07:46 Temperature Pulse Rate 63 73 Respiratory 24 20 20 Rate Blood Pressure 118/81 (mmHg) O2 Sat by Pulse 97 98 Oximetry 05/22/19 05/22/19 05/22/19 08:00 08:18 09:00 Temperature 97 F Pulse Rate 83 75 Respiratory 21 20 21 Rate Blood Pressure 117/78 90/79 (mmHg) O2 Sat by Pulse 94 94 Oximetry 05/22/19 05/22/19 05/22/19 09:26 10:00 10:40 Temperature Pulse Rate 90 Respiratory 21 19 20 Rate Blood Pressure 108/76 (mmHg) O2 Sat by Pulse 93 Oximetry 05/22/19 05/22/19 05/22/19 11:01 11:26 12:00 Temperature 97.9 F Pulse Rate 101 73 Respiratory 21 21 Rate Blood Pressure 113/88 (mmHg) O2 Sat by Pulse 88 100 Oximetry 05/22/19 05/22/19 05/22/19 12:01 12:37 13:01 Temperature Pulse Rate 91 77 Respiratory 21 22 22 Rate Blood Pressure (mmHg) O2 Sat by Pulse 100 91 Oximetry 05/22/19 05/22/19 13:35 13:41 Temperature Pulse Rate 75 Respiratory 20 16 Rate Blood Pressure (mmHg) O2 Sat by Pulse 98 Oximetry Oxygen Devices in Use Now: Nasal Cannula Appearance: Patient is a 48yo male who appears stated age and is sitting in the bed in NAD. Eyes: No Scleral Icterus, PERRLA Ears/Nose/Mouth/Throat: NL Teeth, Lips, Gums, Clear Oropharnyx, Mucous Membranes Moist Neck: NL Appearance and Movements; NL JVP, Trachea Midline Respiratory: Symmetrical Chest Expansion and Respiratory Effort, Clear to Auscultation, - - Diminished. Cardiovascular: NL Sounds; No Murmurs; No JVD, RRR, No Edema Abdominal: NL Sounds; No Tenderness; No Distention, No Hepatosplenomegaly Lymphatic: No Cervical Adenopathy Extremities: No Edema, No Clubbing, Cyanosis Skin: No Nodules or Sclerosis Neurological: Alert and Oriented x 3, NL Sensation, NL Muscle Strength and Tone , - - CN II-XII intact. Result Diagrams: 05/22/19 05:18 05/22/19 05:18 Additional Lab and Data: Lab Results 05/21/19 05/21/19 05/21/19 Range/Units 08:53 08:53 09:08 WBC 19.5 H (3.5-10.8) 10^3/uL RBC 5.77 H (4.18-5.48) 10^6 /uL Hgb 16.4 (14.0-18.0) g/dL Hct 51 (42-52) % MCV 88 (80-94) fL MCH 28 (27-31) pg MCHC 32 (31-36) g/dL RDW 15 (10-15) % Plt Count 314 (150-450) 10^3/uL MPV 8.0 (7.4-10.4) fL Neut % (Auto) 90.9 % Lymph % (Auto) 2.8 % [place] % (Auto) 5.8 % Eos % (Auto) 0.3 % Baso % (Auto) 0.2 % Absolute Neuts (auto) 17.7 H (1.5-7.7) 10^3/ul Absolute Lymphs (auto) 0.5 L (1.0-4.8) 10^3/ul Absolute Monos (auto) 1.1 H (0-0.8) 10^3/ul Absolute Eos (auto) 0.1 (0-0.6) 10^3/ul Absolute Basos (auto) 0.0 (0-0.2) 10^3/ul Absolute Nucleated RBC 0.0 10^3/ul Nucleated RBC % 0.0 ABG pH (7.35-7.45) ABG pCO2 (35-45) mmHg ABG pO2 (80-100) mmHg ABG HCO3 (19-31) mmol/L ABG O2 Saturation (94.0-98.0) % ABG Base Excess (-2.0-2.0) mmol/L Sodium 137 (135-145) mmol/L Potassium 5.0 (3.5-5.0) mmol/L Chloride 93 L (101-111) mmol/L Carbon Dioxide 30 (22-32) mmol/L Anion Gap 14 H (2-11) mmol/L BUN 20 (6-24) mg/dL Creatinine 0.83 (0.67-1.17) mg/dL Est GFR ( Amer) 119.2 (>60) Est GFR (Non-Af Amer) 98.5 (>60) BUN/Creatinine Ratio 24.1 H (8-20) Glucose 126 H (70-100) mg/dL Lactic Acid 2.2 H* (0.5-2.0) mmol/L Calcium 10.1 (8.6-10.3) mg/dL Total Bilirubin 1.40 H (0.2-1.0) mg/dL AST 17 (13-39) U/L ALT 15 (7-52) U/L Alkaline Phosphatase 75 (34-104) U/L Troponin I 0.04 H* (<0.04) ng/mL Total Protein 7.9 (6.4-8.9) g/dL Albumin 4.4 (3.2-5.2) g/dL Globulin 3.5 (2-4) g/dL Albumin/Globulin Ratio 1.3 (1-3) 05/21/19 Range/Units 09:36 WBC (3.5-10.8) 10^3/uL RBC (4.18-5.48) 10^6 /uL Hgb (14.0-18.0) g/dL Hct (42-52) % MCV (80-94) fL MCH (27-31) pg MCHC (31-36) g/dL RDW (10-15) % Plt Count (150-450) 10^3/uL MPV (7.4-10.4) fL Neut % (Auto) % Lymph % (Auto) % [place] % (Auto) % Eos % (Auto) % Baso % (Auto) % Absolute Neuts (auto) (1.5-7.7) 10^3/ul Absolute Lymphs (auto) (1.0-4.8) 10^3/ul Absolute Monos (auto) (0-0.8) 10^3/ul Absolute Eos (auto) (0-0.6) 10^3/ul Absolute Basos (auto) (0-0.2) 10^3/ul Absolute Nucleated RBC 10^3/ul Nucleated RBC % ABG pH 7.38 (7.35-7.45) ABG pCO2 62 H (35-45) mmHg ABG pO2 92 (80-100) mmHg ABG HCO3 32.0 H (19-31) mmol/L ABG O2 Saturation 98.4 H (94.0-98.0) % ABG Base Excess 9.2 H (-2.0-2.0) mmol/L Sodium (135-145) mmol/L Potassium (3.5-5.0) mmol/L Chloride (101-111) mmol/L Carbon Dioxide (22-32) mmol/L Anion Gap (2-11) mmol/L BUN (6-24) mg/dL Creatinine (0.67-1.17) mg/dL Est GFR ( Amer) (>60) Est GFR (Non-Af Amer) (>60) BUN/Creatinine Ratio (8-20) Glucose (70-100) mg/dL Lactic Acid (0.5-2.0) mmol/L Calcium (8.6-10.3) mg/dL Total Bilirubin (0.2-1.0) mg/dL AST (13-39) U/L ALT (7-52) U/L Alkaline Phosphatase (34-104) U/L Troponin I (<0.04) ng/mL Total Protein (6.4-8.9) g/dL Albumin (3.2-5.2) g/dL Globulin (2-4) g/dL Albumin/Globulin Ratio (1-3) Microbiology and Other Data: Microbiology 05/21/19 09:08 Aerobic Blood Culture - Preliminary Blood Venous No Growth Day 1 Anaerobic Blood Culture - Preliminary No Growth Day 1 05/21/19 08:53 Aerobic Blood Culture - Preliminary Blood Venous No Growth Day 1 Anaerobic Blood Culture - Preliminary No Growth Day 1 05/21/19 12:53 Nasal Screen MRSA (PCR) - Final Nasal Mrsa Not Detected Assess/Plan/Problems-Billing Assessment: Patient is a 48yo male with a PMH for ILD, COPD, HTN, who is here with respiratory failure requiring Vapotherm and is improving on steroids, and antibiotics. - Patient Problems (1) COPD (chronic obstructive pulmonary disease) Current Visit: No Status: Acute Code(s): J44.9 - CHRONIC OBSTRUCTIVE PULMONARY DISEASE, UNSPECIFIED SNOMED Code(s): 41393433 Comment: - With Exacerbation, Appreciate Pulmonology Consultation - Continue steroids, Inhalers, antibiotics. (2) ILD (interstitial lung disease) Current Visit: Yes Status: Acute Code(s): J84.9 - INTERSTITIAL PULMONARY DISEASE, UNSPECIFIED SNOMED Code(s): 802837313 Comment: - Chronic, unclear cause - Continue steroids and inhalers - Follow up outpatient pulmonology. (3) Hypoxia Current Visit: No Status: Acute Code(s): R09.02 - HYPOXEMIA SNOMED Code(s) : 763195668 Comment: - Acute hypoxic respiratory failure, not on O2 at home - Initially needing Vapotherm, now on NC. (4) HTN (hypertension) Current Visit: No Status: Acute Code(s): I10 - ESSENTIAL (PRIMARY) HYPERTENSION SNOMED Code(s): 12964495 Comment: - Normotensive, Continue Furosemide and Losartan (5) DVT prophylaxis Current Visit: Yes Status: Acute Code(s): Z29.9 - ENCOUNTER FOR PROPHYLACTIC MEASURES, UNSPECIFIED SNOMED Code(s): 329631645 Comment: - Lovenox (6) Full code status Current Visit: Yes Status: Acute Code(s): Z78.9 - OTHER SPECIFIED HEALTH STATUS SNOMED Code(s): 981770704 Status and Disposition: Inpatient, likely Transfer out of ICU.
[2019-05-23] MEDS: Albuterol/Ipratropium NEB.SOL* Albuterol 2.5 MG/Ipratropium 0.5 MG 3 ML INH SCH ×2 (01:04→07:39)
[2019-05-23] MEDS: methylPREDNISolone SOD 40 MG* 1 ML VIAL IV SCH ×2 (01:07→05:31)
[2019-05-23 06:38] LABS: ABS Lymphocytes 0.4 10^3/ul (1.0-4.8); ABS Monocytes 0.6 10^3/ul (0-0.8); ABS Neutrophils 13.9 10^3/ul (1.5-7.7); Hematocrit 43 % (42-52); Hemoglobin 13.9 g/dL (14.0-18.0); Lymphocyte % 2.5 %; Mean Corpuscular HGB Conc 32 g/dL (31-36); Mean Corpuscular Hemoglobin 28 pg (27-31); Mean Corpuscular Volume 88 fL (80-94); Mean Platelet Volume 8.5 fL (7.4-10.4); Nucleated Red Blood Cells % 0.1; Platelet Count 312 10^3/uL (150-450); Red Blood Count 4.93 10^6 /uL (4.18-5.48); Red Cell Distribution Width 15 % (10-15); White Blood Count 14.9 10^3/uL (3.5-10.8)
[2019-05-23 06:52] LABS: Albumin/Globulin Ratio 1.3 (1-3); BUN/Creatinine Ratio 27.6 (8-20); Calcium 9.5 mg/dL (8.6-10.3); EGFR African American 131.9 (>60); Globulin 3.2 g/dL (2-4); Potassium 4.4 mmol/L (3.5-5.0); Total Bilirubin 0.4 mg/dL (0.2-1.0); Total Protein 7.2 g/dL (6.4-8.9)
[2019-05-23] MEDS ORDERED: Dextrose 50% VIAL 50 ml IV PUSH PRN (07:05)
[2019-05-23] MEDS ORDERED: Albuterol/Ipratropium NEB.SOL* Albuterol 2.5 MG/Ipratropium 0.5 MG 3 ML INH PRN (07:38)
[2019-05-23] MEDS: Pantoprazole TAB * 40 MG TAB PO SCH (08:59)
[2019-05-23] MEDS: Aspirin EC TAB* 81 MG TAB.EC PO SCH (08:59)
[2019-05-23] MEDS: Losartan TAB* 25 MG PO SCH ×2 (08:59→20:57)
[2019-05-23] MEDS: Tamsulosin CAP* 0.4 MG PO SCH (09:04)
[2019-05-23] MEDS: Furosemide TAB* 40 MG PO SCH (09:04)
[2019-05-23] MEDS: Magnesium Oxide TAB* 400 MG PO SCH (09:04)
[2019-05-23] MEDS: Insulin LISPRO* 1 UNITS UNIT SUBCUT SCH ×4 (09:05→20:58)
[2019-05-23] MEDS: cefTRIAXone(*) 1 GM in NS 0.9% 50 ML* 50 ML IVPB SCH (10:08)
[2019-05-23] MEDS: DULoxetine DR CAP* 60 MG CAP.DR PO SCH (10:08)
[2019-05-23] MEDS: Azithromycin 500 mg/250 ml NS 500 MG/250 ML BAG IVPB SCH (11:58)
[2019-05-23] MEDS: Enoxaparin(*) 40 MG/0.4 ML SYR SUBCUT SCH (12:18)
--- NOTE | 2019-05-23 13:23 | PN ---
Subjective Date of Service: 05/23/19 Interval History: Patient's breathing has improved. Patient still feels SOB with Walking. Patient had been feeling poorly for a signficant period before coming into the hospital. Patient has a dry cough without sputum production. Patient denies F/C , N/V, CP, dizziness, palpitations, or other pain. Family History: Unchanged from Admission Social History: Unchanged from Admission Past Medical History: Unchanged from Admission Objective Active Medications: Albuterol (Ventolin Hfa Inhaler*) 1 puff INH Q6H PRN PRN Reason: SHORTNESS OF BREATH Albuterol/Ipratropium (Duoneb (Albuterol 2.5 Mg/Ipratropium 0.5 Mg)) 1 neb INH [id number] AWAKE PRN PRN Reason: SOB/WHEEZING Aspirin (Aspirin Ec Tab*) 81 mg PO DAILY [facility] Last Admin: 05/23/19 08:59 Dose: 81 mg Dextrose (Dextrose 50% Vial 50 Ml*) 25 ml IV PUSH .FOR FS < 60 - SS PRN PRN Reason: FS < 60 Duloxetine HCl (Cymbalta Cap*) 60 mg PO QAM [facility] Last Admin: 05/23/19 10:08 Dose: 60 mg Enoxaparin Sodium (Lovenox(*)) 40 mg SUBCUT Q24H [facility] Last Admin: 05/23/19 12:18 Dose: 40 mg Furosemide (Lasix Tab*) 40 mg PO DAILY [facility] Last Admin: 05/23/19 09:04 Dose: 40 mg Ceftriaxone Sodium 1 gm/ (Sodium Chloride) 50 mls @ 100 mls/hr IVPB Q24H [facility] Last Admin: 05/23/19 10:08 Dose: 100 mls/hr Azithromycin (Zithromax 500 Mg/250 Ml) 500 mg in 250 mls @ 250 mls/hr IVPB Q24H [facility] Last Admin: 05/23/19 11:58 Dose: 250 mls/hr Insulin Human Lispro (Humalog*) 0 units SUBCUT ACHS [facility]; Protocol Last Admin: 05/23/19 12:14 Dose: Not Given Losartan Potassium (Cozaar Tab*) 50 mg PO BID [facility] Last Admin: 05/23/19 08:59 Dose: 50 mg Magnesium Oxide (Magox 400 Tab*) 400 mg PO DAILY [facility] Last Admin: 05/23/19 09:04 Dose: 400 mg Methylprednisolone Sodium Succinate (Solu-Medrol 125mg *) 60 mg IV Q12H [facility] Pantoprazole Sodium (Protonix Tab*) 50 mg PO DAILY [facility] Last Admin: 05/23/19 08:59 Dose: 50 mg Tamsulosin HCl (Flomax Cap*) 0.4 mg PO DAILY [facility] Last Admin: 05/23/19 09:04 Dose: 0.4 mg Vital Signs - 8 hr 05/23/19 05/23/19 07:15 08:00 Temperature 97.2 F Pulse Rate 95 Respiratory 16 22 Rate Blood Pressure 134/87 (mmHg) O2 Sat by Pulse 100 Oximetry Oxygen Devices in Use Now: Nasal Cannula Appearance: Patient is a 48yo male who appears stated age and is sitting in the bed in NAD. Eyes: No Scleral Icterus, PERRLA Ears/Nose/Mouth/Throat: NL Teeth, Lips, Gums, Clear Oropharnyx, Mucous Membranes Moist Neck: NL Appearance and Movements; NL JVP, Trachea Midline Respiratory: Symmetrical Chest Expansion and Respiratory Effort, - - Diminished. Cardiovascular: NL Sounds; No Murmurs; No JVD, RRR, No Edema Abdominal: NL Sounds; No Tenderness; No Distention, No Hepatosplenomegaly Lymphatic: No Cervical Adenopathy Extremities: No Edema, No Clubbing, Cyanosis Skin: No Rash or Ulcers, No Nodules or Sclerosis Neurological: Alert and Oriented x 3, NL Sensation, NL Muscle Strength and Tone , - - CN II-XII intact. Result Diagrams: 05/23/19 05:26 05/23/19 05:26 Additional Lab and Data: Lab Results 05/21/19 05/21/19 05/21/19 Range/Units 08:53 08:53 09:08 WBC 19.5 H (3.5-10.8) 10^3/uL RBC 5.77 H (4.18-5.48) 10^6 /uL Hgb 16.4 (14.0-18.0) g/dL Hct 51 (42-52) % MCV 88 (80-94) fL MCH 28 (27-31) pg MCHC 32 (31-36) g/dL RDW 15 (10-15) % Plt Count 314 (150-450) 10^3/uL MPV 8.0 (7.4-10.4) fL Neut % (Auto) 90.9 % Lymph % (Auto) 2.8 % [place] % (Auto) 5.8 % Eos % (Auto) 0.3 % Baso % (Auto) 0.2 % Absolute Neuts (auto) 17.7 H (1.5-7.7) 10^3/ul Absolute Lymphs (auto) 0.5 L (1.0-4.8) 10^3/ul Absolute Monos (auto) 1.1 H (0-0.8) 10^3/ul Absolute Eos (auto) 0.1 (0-0.6) 10^3/ul Absolute Basos (auto) 0.0 (0-0.2) 10^3/ul Absolute Nucleated RBC 0.0 10^3/ul Nucleated RBC % 0.0 ABG pH (7.35-7.45) ABG pCO2 (35-45) mmHg ABG pO2 (80-100) mmHg ABG HCO3 (19-31) mmol/L ABG O2 Saturation (94.0-98.0) % ABG Base Excess (-2.0-2.0) mmol/L Sodium 137 (135-145) mmol/L Potassium 5.0 (3.5-5.0) mmol/L Chloride 93 L (101-111) mmol/L Carbon Dioxide 30 (22-32) mmol/L Anion Gap 14 H (2-11) mmol/L BUN 20 (6-24) mg/dL Creatinine 0.83 (0.67-1.17) mg/dL Est GFR ( Amer) 119.2 (>60) Est GFR (Non-Af Amer) 98.5 (>60) BUN/Creatinine Ratio 24.1 H (8-20) Glucose 126 H (70-100) mg/dL Lactic Acid 2.2 H* (0.5-2.0) mmol/L Calcium 10.1 (8.6-10.3) mg/dL Total Bilirubin 1.40 H (0.2-1.0) mg/dL AST 17 (13-39) U/L ALT 15 (7-52) U/L Alkaline Phosphatase 75 (34-104) U/L Troponin I 0.04 H* (<0.04) ng/mL Total Protein 7.9 (6.4-8.9) g/dL Albumin 4.4 (3.2-5.2) g/dL Globulin 3.5 (2-4) g/dL Albumin/Globulin Ratio 1.3 (1-3) 05/21/19 Range/Units 09:36 WBC (3.5-10.8) 10^3/uL RBC (4.18-5.48) 10^6 /uL Hgb (14.0-18.0) g/dL Hct (42-52) % MCV (80-94) fL MCH (27-31) pg MCHC (31-36) g/dL RDW (10-15) % Plt Count (150-450) 10^3/uL MPV (7.4-10.4) fL Neut % (Auto) % Lymph % (Auto) % [place] % (Auto) % Eos % (Auto) % Baso % (Auto) % Absolute Neuts (auto) (1.5-7.7) 10^3/ul Absolute Lymphs (auto) (1.0-4.8) 10^3/ul Absolute Monos (auto) (0-0.8) 10^3/ul Absolute Eos (auto) (0-0.6) 10^3/ul Absolute Basos (auto) (0-0.2) 10^3/ul Absolute Nucleated RBC 10^3/ul Nucleated RBC % ABG pH 7.38 (7.35-7.45) ABG pCO2 62 H (35-45) mmHg ABG pO2 92 (80-100) mmHg ABG HCO3 32.0 H (19-31) mmol/L ABG O2 Saturation 98.4 H (94.0-98.0) % ABG Base Excess 9.2 H (-2.0-2.0) mmol/L Sodium (135-145) mmol/L Potassium (3.5-5.0) mmol/L Chloride (101-111) mmol/L Carbon Dioxide (22-32) mmol/L Anion Gap (2-11) mmol/L BUN (6-24) mg/dL Creatinine (0.67-1.17) mg/dL Est GFR ( Amer) (>60) Est GFR (Non-Af Amer) (>60) BUN/Creatinine Ratio (8-20) Glucose (70-100) mg/dL Lactic Acid (0.5-2.0) mmol/L Calcium (8.6-10.3) mg/dL Total Bilirubin (0.2-1.0) mg/dL AST (13-39) U/L ALT (7-52) U/L Alkaline Phosphatase (34-104) U/L Troponin I (<0.04) ng/mL Total Protein (6.4-8.9) g/dL Albumin (3.2-5.2) g/dL Globulin (2-4) g/dL Albumin/Globulin Ratio (1-3) Microbiology and Other Data: Microbiology 05/21/19 09:08 Aerobic Blood Culture - Preliminary Blood Venous No Growth Day 1 Anaerobic Blood Culture - Preliminary No Growth Day 1 05/21/19 08:53 Aerobic Blood Culture - Preliminary Blood Venous No Growth Day 1 Anaerobic Blood Culture - Preliminary No Growth Day 1 05/21/19 12:53 Nasal Screen MRSA (PCR) - Final Nasal Mrsa Not Detected Assess/Plan/Problems-Billing Assessment: Patient is a 48yo male with a PMH for ILD, COPD, HTN, who is here with respiratory failure requiring Vapotherm and is improving on steroids, and antibiotics. - Patient Problems (1) COPD (chronic obstructive pulmonary disease) Current Visit: No Status: Acute Code(s): J44.9 - CHRONIC OBSTRUCTIVE PULMONARY DISEASE, UNSPECIFIED SNOMED Code(s): 27081169 Comment: - With Exacerbation, Appreciate Pulmonology Consultation - Continue steroids, taper to IV BID, Inhalers, antibiotics. (2) ILD (interstitial lung disease) Current Visit: Yes Status: Acute Code(s): J84.9 - INTERSTITIAL PULMONARY DISEASE, UNSPECIFIED SNOMED Code(s): 415968921 Comment: - Chronic, unclear cause - Possible Pneumonitis vs Sarcoidosis - Continue steroids and inhalers - Follow up outpatient pulmonology. - Plan for prison steroid taper. - On Home O2 (3) Hypoxia Current Visit: No Status: Acute Code(s): R09.02 - HYPOXEMIA SNOMED Code(s) : 516003138 Comment: - Acute hypoxic respiratory failure, not on O2 at home - Initially needing Vapotherm, now on NC. - Continue to Wean as able. (4) HTN (hypertension) Current Visit: No Status: Acute Code(s): I10 - ESSENTIAL (PRIMARY) HYPERTENSION SNOMED Code(s): 98300850 Comment: - Normotensive, Continue Furosemide and Losartan (5) DVT prophylaxis Current Visit: Yes Status: Acute Code(s): Z29.9 - ENCOUNTER FOR PROPHYLACTIC MEASURES, UNSPECIFIED SNOMED Code(s): 043072391 Comment: - Lovenox (6) Full code status Current Visit: Yes Status: Acute Code(s): Z78.9 - OTHER SPECIFIED HEALTH STATUS SNOMED Code(s): 163024615 Status and Disposition: Inpatient, Improving, Likely D/C in 1-2 more days.
[2019-05-23] MEDS: methylPREDNISolone 125 MG* 2 ML VIAL IV SCH (17:01)
[2019-05-24] MEDS: methylPREDNISolone 125 MG* 2 ML VIAL IV SCH (05:37)
[2019-05-24 06:04] LABS: ABS Lymphocytes 0.5 10^3/ul (1.0-4.8); ABS Monocytes 1.3 10^3/ul (0-0.8); ABS Neutrophils 15.6 10^3/ul (1.5-7.7); Hematocrit 44 % (42-52); Hemoglobin 14.1 g/dL (14.0-18.0); Lymphocyte % 3.2 %; Mean Corpuscular HGB Conc 32 g/dL (31-36); Mean Corpuscular Hemoglobin 28 pg (27-31); Mean Corpuscular Volume 88 fL (80-94); Mean Platelet Volume 8.2 fL (7.4-10.4); Nucleated Red Blood Cells % 0.1; Platelet Count 358 10^3/uL (150-450); Red Blood Count 5.03 10^6 /uL (4.18-5.48); Red Cell Distribution Width 15 % (10-15); White Blood Count 17.5 10^3/uL (3.5-10.8)
[2019-05-24 06:24] LABS: BUN/Creatinine Ratio 32.9 (8-20); Calcium 9.7 mg/dL (8.6-10.3); EGFR African American 126.1 (>60); EGFR Non-African American 104.2 (>60); Magnesium 2.1 mg/dL (1.9-2.7); Potassium 4.8 mmol/L (3.5-5.0)
[2019-05-24] MEDS: Insulin LISPRO* 1 UNITS UNIT SUBCUT SCH ×4 (07:53→21:57)
[2019-05-24] MEDS: predniSONE TAB* 20 MG PO SCH (09:57)
[2019-05-24] MEDS: Losartan TAB* 25 MG PO SCH ×2 (09:57→21:57)
[2019-05-24] MEDS: Magnesium Oxide TAB* 400 MG PO SCH (09:58)
[2019-05-24] MEDS: Pantoprazole TAB * 40 MG TAB PO SCH (09:58)
[2019-05-24] MEDS: Furosemide TAB* 40 MG PO SCH (09:58)
[2019-05-24] MEDS: DULoxetine DR CAP* 60 MG CAP.DR PO SCH (09:58)
[2019-05-24] MEDS: cefTRIAXone(*) 1 GM in NS 0.9% 50 ML* 50 ML IVPB SCH (09:58)
[2019-05-24] MEDS: Tamsulosin CAP* 0.4 MG PO SCH (09:58)
[2019-05-24] MEDS: Aspirin EC TAB* 81 MG TAB.EC PO SCH (09:58)
[2019-05-24] MEDS: Azithromycin 500 mg/250 ml NS 500 MG/250 ML BAG IVPB SCH (10:47)
--- NOTE | 2019-05-24 11:29 | PN ---
Subjective Date of Service: 05/24/19 Interval History: Patient is feeling less SOB today. Patient states his chest was "tight" last night, but now it has resolved. Patient denies F/C, has intermittent cough, dizziness, abdominal pain, diarrhea, or other pain. Patient has not been wearing his CPAP while in the hospital. Stressed importance of CPAP for hypercarbic respiratory failure with patient. Family History: Unchanged from Admission Social History: Unchanged from Admission Past Medical History: Unchanged from Admission Objective Active Medications: Albuterol (Ventolin Hfa Inhaler*) 1 puff INH Q6H PRN PRN Reason: SHORTNESS OF BREATH Albuterol/Ipratropium (Duoneb (Albuterol 2.5 Mg/Ipratropium 0.5 Mg)) 1 neb INH [id number] AWAKE PRN PRN Reason: SOB/WHEEZING Aspirin (Aspirin Ec Tab*) 81 mg PO DAILY [facility] Last Admin: 05/24/19 09:58 Dose: 81 mg Dextrose (Dextrose 50% Vial 50 Ml*) 25 ml IV PUSH .FOR FS < 60 - SS PRN PRN Reason: FS < 60 Duloxetine HCl (Cymbalta Cap*) 60 mg PO QAM [facility] Last Admin: 05/24/19 09:58 Dose: 60 mg Enoxaparin Sodium (Lovenox(*)) 40 mg SUBCUT Q24H [facility] Last Admin: 05/23/19 12:18 Dose: 40 mg Furosemide (Lasix Tab*) 40 mg PO DAILY [facility] Last Admin: 05/24/19 09:58 Dose: 40 mg Ceftriaxone Sodium 1 gm/ (Sodium Chloride) 50 mls @ 100 mls/hr IVPB Q24H [facility] Last Admin: 05/24/19 09:58 Dose: 100 mls/hr Azithromycin (Zithromax 500 Mg/250 Ml) 500 mg in 250 mls @ 250 mls/hr IVPB Q24H [facility] Last Admin: 05/24/19 10:47 Dose: 250 mls/hr Insulin Human Lispro (Humalog*) 0 units SUBCUT ACHS [facility]; Protocol Last Admin: 05/24/19 07:53 Dose: Not Given Losartan Potassium (Cozaar Tab*) 50 mg PO BID [facility] Last Admin: 05/24/19 09:57 Dose: 50 mg Magnesium Oxide (Magox 400 Tab*) 400 mg PO DAILY [facility] Last Admin: 05/24/19 09:58 Dose: 400 mg Pantoprazole Sodium (Protonix Tab*) 50 mg PO DAILY [facility] Last Admin: 05/24/19 09:58 Dose: 50 mg Prednisone (Deltasone Tab*) 60 mg PO DAILY [facility] Last Admin: 05/24/19 09:57 Dose: 60 mg Tamsulosin HCl (Flomax Cap*) 0.4 mg PO DAILY [facility] Last Admin: 05/24/19 09:58 Dose: 0.4 mg Vital Signs - 8 hr 05/24/19 05/24/19 05/24/19 08:00 08:07 09:46 Temperature 97.3 F Pulse Rate 58 72 Respiratory 16 16 20 Rate Blood Pressure 146/91 156/85 (mmHg) O2 Sat by Pulse 100 94 Oximetry Oxygen Devices in Use Now: Nasal Cannula Appearance: Patient is a 48yo male who appears stated age and is sitting in the bed in [facility]. Eyes: No Scleral Icterus, PERRLA Ears/Nose/Mouth/Throat: NL Teeth, Lips, Gums, Clear Oropharnyx, Mucous Membranes Moist Neck: NL Appearance and Movements; NL JVP, Trachea Midline Respiratory: Symmetrical Chest Expansion and Respiratory Effort, - - Diminshed. Cardiovascular: NL Sounds; No Murmurs; No JVD Abdominal: NL Sounds; No Tenderness; No Distention, No Hepatosplenomegaly Lymphatic: No Cervical Adenopathy Extremities: No Edema, No Clubbing, Cyanosis Skin: No Rash or Ulcers, No Nodules or Sclerosis Neurological: Alert and Oriented x 3, NL Sensation, NL Muscle Strength and Tone , - - CN II-XII intact. Result Diagrams: 05/24/19 05:37 05/24/19 05:37 Additional Lab and Data: Lab Results Microbiology and Other Data: Microbiology 05/21/19 09:08 Aerobic Blood Culture - Preliminary Blood Venous No Growth Day 1 Anaerobic Blood Culture - Preliminary No Growth Day 1 05/21/19 08:53 Aerobic Blood Culture - Preliminary Blood Venous No Growth Day 1 Anaerobic Blood Culture - Preliminary No Growth Day 1 05/21/19 12:53 Nasal Screen MRSA (PCR) - Final Nasal Mrsa Not Detected Assess/Plan/Problems-Billing Assessment: Patient is a 48yo male with a PMH for ILD, COPD, HTN, who is here with respiratory failure requiring Vapotherm and is improving on steroids, and antibiotics. - Patient Problems (1) COPD (chronic obstructive pulmonary disease) Current Visit: No Status: Acute Code(s): J44.9 - CHRONIC OBSTRUCTIVE PULMONARY DISEASE, UNSPECIFIED SNOMED Code(s): 60234796 Comment: - With Exacerbation, Appreciate Pulmonology Consultation - Continue steroids, taper to PO, Inhalers, antibiotics. (2) ILD (interstitial lung disease) Current Visit: Yes Status: Acute Code(s): J84.9 - INTERSTITIAL PULMONARY DISEASE, UNSPECIFIED SNOMED Code(s): 716587717 Comment: - Chronic, unclear cause - Possible Pneumonitis vs Sarcoidosis - Continue steroids and inhalers - Follow up outpatient pulmonology. - Plan for prison steroid taper. - On Home O2 (3) Sepsis Current Visit: Yes Status: Acute Comment: - Presented with Respiratory failure, Tachypnea, Elevated Lactic, Tachycardia, and leukocytosis - No hypotension - Resolved. (4) Pneumonia Current Visit: Yes Status: Acute Code(s): J18.9 - PNEUMONIA, UNSPECIFIED ORGANISM SNOMED Code(s): 442232119 Comment: - Possible Pneumonia superimposed on above problems. Continue Antibiotics - No Sputum Culture, BC NTG (5) ERYN (obstructive sleep apnea) Current Visit: Yes Status: Acute Code(s): G47.33 - OBSTRUCTIVE SLEEP APNEA ( ADULT) (PEDIATRIC) SNOMED Code(s): 14715931 Comment: - Overnight desaturations and worsening hypercarbia - Not on CPAP in hospital, stressed with patient the importance of using CPAP - Will bring in CPAP (6) Hypoxia Current Visit: No Status: Acute Code(s): R09.02 - HYPOXEMIA SNOMED Code(s) : 178132054 Comment: - Acute hypoxic respiratory failure, not on O2 at home - Initially needing Vapotherm, now on NC. - Continue to Wean as able. - Down to home dose of 3L. Patient should be on hospital at all times due to pHTN related to chronic hypoxic respiratory failure. (7) HTN (hypertension) Current Visit: No Status: Acute Code(s): I10 - ESSENTIAL (PRIMARY) HYPERTENSION SNOMED Code(s): 89978297 Comment: - Normotensive, Continue Furosemide and Losartan (8) DVT prophylaxis Current Visit: Yes Status: Acute Code(s): Z29.9 - ENCOUNTER FOR PROPHYLACTIC MEASURES, UNSPECIFIED SNOMED Code(s): 777958635 Comment: - Jeanmariex (9) Full code status Current Visit: Yes Status: Acute Code(s): Z78.9 - OTHER SPECIFIED HEALTH STATUS SNOMED Code(s): 967865540 Status and Disposition: Inpatient, Improving, Likely D/C tomorrow.
[2019-05-24] MEDS: Enoxaparin(*) 40 MG/0.4 ML SYR SUBCUT SCH (12:06)
[2019-05-25] MEDS: Insulin LISPRO* 1 UNITS UNIT SUBCUT SCH ×2 (09:42→12:27)
[2019-05-25] MEDS: Losartan TAB* 25 MG PO SCH (09:49)
[2019-05-25] MEDS: predniSONE TAB* 20 MG PO SCH (09:49)
[2019-05-25] MEDS: DULoxetine DR CAP* 60 MG CAP.DR PO SCH (09:49)
[2019-05-25] MEDS: Pantoprazole TAB * 40 MG TAB PO SCH (09:50)
[2019-05-25] MEDS: Magnesium Oxide TAB* 400 MG PO SCH (09:50)
[2019-05-25] MEDS: Aspirin EC TAB* 81 MG TAB.EC PO SCH (09:50)
[2019-05-25] MEDS: cefTRIAXone(*) 1 GM in NS 0.9% 50 ML* 50 ML IVPB SCH (09:50)
[2019-05-25] MEDS: Tamsulosin CAP* 0.4 MG PO SCH (09:50)
[2019-05-25] MEDS: Furosemide TAB* 40 MG PO SCH (09:50)
[2019-05-25] MEDS: Azithromycin 500 mg/250 ml NS 500 MG/250 ML BAG IVPB SCH (10:45)
[2019-05-25] MEDS: Enoxaparin(*) 40 MG/0.4 ML SYR SUBCUT SCH (12:26)
[2019-05-25 13:01] VITALS: BP 134/90
--- NOTE | 2019-05-25 23:18 | DS ---
CC: Ashwini Hudson NP; Dr. Leilani Mojica * DISCHARGE SUMMARY: DATE OF ADMISSION: 05/21/19 DATE OF DISCHARGE: 05/25/19 PRIMARY CARE PROVIDER: Ashwini Hudson NP. PUBLIC POLICY ANALYST: Dr. Leilani Mojica. ATTENDING PHYSICIAN: Dr. Lenore Funez * (dictated by Kamala Ordonez NP). PRIMARY DIAGNOSES: 1. Chronic obstructive pulmonary disease exacerbation. 2. Community-acquired pneumonia. 3. Pyaub-xb-[id number] hypoxic and hypercapnic respiratory failure. 4. Prediabetes. 5. Severe sepsis. SECONDARY DIAGNOSES: 1. Interstitial lung disease. 2. Obstructive sleep apnea. 3. Hypertension. STUDIES DONE WHILE IN THE HOSPITAL: 1. EKG on 05/21/19 shows sinus tachycardia with rate of 105, QTc of 427. No obvious ST changes, though I will note that this EKG is of poor quality due to artifact. 2. Chest x-ray on 05/21/19 reads as diffuse mixed interstitial and airspace disease developed from 11/14/18, suggestive of a superimposed airspace process on chronic interstitial lung disease. 3. Transthoracic echocardiogram on 05/21/19 reads as the left ventricular cavity size is normal. Wall thickness is mildly increased. Systolic function is normal. The estimated ejection fraction is 55% to 60%. Wall motion is normal and there are no regional wall abnormalities. The ventricular cavity size is mildly dilated. Systolic function is moderately reduced. There is septal flattening of the interventricular septum consistent with RV volume or pressure overload. The right atrium is mildly dilated. Functionally benign heart valves. Since the prior echocardiogram on 07/15/18, there is no significant change. HISTORY OF PRESENT ILLNESS AND HOSPITAL COURSE: Mr. Patel is a 48-year-old male with past medical history of COPD, interstitial lung disease, hypertension , and chronic respiratory failure; on 3 L of oxygen who presented to the emergency room on 05/21/19 with complaints of shortness of breath. Please see the history and physical by Samara Harris NP, for complete summary of the events leading up to this hospitalization. In short, the patient noted 3 weeks of progressing shortness of breath, which got severe enough at home that he felt the need to present to the emergency room. In the emergency room, he had imaging as noted above. He was found to be hypoxic and was ultimately placed on Vapotherm. ABG revealed hypercapnia with a normal pH. He was also noted to have leukocytosis and lactic acidosis as well as tachycardia, for which he met criteria for severe sepsis. The patient was admitted to the intensive care unit by the hospitalist service. He was started on ceftriaxone and azithromycin in the emergency room and those were continued. He was given a dose of Decadron in the emergency room, but was ultimately changed over to Solu-Medrol while in the hospital. Lactic acidosis resolved with IV fluids. There was no evidence of hypotension. Urine antigens were negative for Legionella and Strep pneumo. An echo was checked to rule out any congestive heart failure contribution, though there was no evidence of CHF on echo as noted above. Pulmonology was asked to consult as the patient does see Dr. Mojica as an outpatient, and she saw the patient on 05/21/19, at which time she did suspect exacerbation of underlying interstitial lung disease and the possibility of community-acquired pneumonia. She recommended continuing IV steroids and titrating oxygen as tolerated. The patient was weaned down to a nasal cannula and was transferred out of the ICU on 05/22/19. Solu-Medrol was changed over to prednisone on 05/24/19 and ultimately, the patient was titrated back down to his baseline oxygen requirements of 3 to 3.5 L of oxygen. PHYSICAL EXAMINATION: On exam today, the patient reports feeling well and offers no complaints. He denies any shortness of breath or cough. He has been up ambulating to the bathroom without difficulty and, as noted above, is on his baseline oxygen requirements of 3.5 L. On exam, he has no focal neurological deficits. He is alert and oriented x4. His heart has a regular rate and rhythm without murmurs, rubs, or gallops. Lungs are diminished to auscultation with fine crackles in bilateral bases, though no rhonchi or wheezing. There is no edema. Physical exam is, otherwise, benign. Mr. Patel is stable for discharge today. Vital signs are as follows: Temp 97.4, heart rate 100, respiratory rate 16, oxygen saturation 92% on 3.5 L nasal cannula, blood pressure 134/90. DISCHARGE MEDICATIONS: New Medications: 1. Cefdinir 300 mg p.o. b.i.d. 2. Prednisone 10 mg taper (take 4 tabs for 2 days, 3 tabs for 2 days, 2 tabs for 2 days, and 1 tab for 2 days). Continued Medications: 1. Albuterol MDI 1 puff q.6 hours p.r.n. for shortness of breath. 2. Aspirin 81 mg p.o. daily. 3. Duloxetine 60 mg p.o. daily. 4. Furosemide 40 mg p.o. daily. 5. Atrovent neb 0.5 mg inhalation q.6 hours p.r.n. for shortness of breath and wheezing. 6. Lansoprazole 15 mg p.o. daily. 7. Losartan 50 mg p.o. b.i.d. 8. Magnesium oxide 400 mg p.o. daily. 9. Tamsulosin 0.4 mg p.o. daily. DISCHARGE PLAN: Mr. Patel will be discharged home. Activity will be as tolerated. Diet will be regular as tolerated. The patient has been instructed to wear his oxygen at all times as previously instructed. The patient did complete 5 days of azithromycin here in the hospital and has also completed 5 days of ceftriaxone, so I have transitioned him to cefdinir, for which he will need to complete 2 days to complete a total of 7 days of antibiotic therapy for his community-acquired pneumonia. I have also prescribed a prednisone taper, which I have instructed the patient to take as prescribed. He can continue his other usual medications as noted above and I have not made any further changes. The patient has been on short-acting insulin while here in the hospital to control hyperglycemia related to steroids, though his A1c is noted to be 6.3, so at this point, I will not place him on any diabetic agents at home and I will defer this to his PCP. He will need close followup and to see his primary care provider in the next 4 to 7 days. He reports that he has an appointment scheduled with Dr. Mojica next week and I have advised him that he should keep this appointment. The patient has been advised to return to the emergency room or nearest hospital for any worsening of symptoms, shortness of breath, lightheadedness, dizziness, chest discomfort, high fever, chills, night sweats, loss of consciousness, or any other worrisome signs or symptoms. DISCHARGE CONDITION: Stable. DISCHARGE DISPOSITION: Home. This is a summarized report of a complex medical history and hospital stay. For further details, please see the entire medical record. TIME SPENT: Approximately 45 minutes were spent on this discharge. KAMALA ORDONEZ NP [id number]/[facility] #: [id number] ABHINAV
== END 2019-05-25 13:44 | disposition home or self-care (01) | DRG 720 ==
LOC: ED 08:05 → ICU 11:08 → MEDTELE 05-22 15:00
PROVIDERS: ADMIT Internal Medicine Critical Care Medicine; ATTEND Internal Medicine
PROC: 5A09457 Assistance with Respiratory Ventilation, 24-96 Consecutive Hours, Continuous Positive Airway Pressure (ICD-10-PCS; principal; 2019-05-21)
DX: A41.9 Sepsis, unspecified organism (principal); J96.21 Acute and chronic respiratory failure with hypoxia; J96.02 Acute respiratory failure with hypercapnia; J18.9 Pneumonia, unspecified organism; E87.2 Acidosis; J44.0 Chronic obstructive pulmonary disease with (acute) lower respiratory infection; J44.1 Chronic obstructive pulmonary disease with (acute) exacerbation; J84.89 Other specified interstitial pulmonary diseases; I27.20 Pulmonary hypertension, unspecified; Z99.81 Dependence on supplemental oxygen; R65.20 Severe sepsis without septic shock; K21.9 Gastro-esophageal reflux disease without esophagitis; N40.0 Benign prostatic hyperplasia without lower urinary tract symptoms; E66.9 Obesity, unspecified; G47.33 Obstructive sleep apnea (adult) (pediatric); D86.9 Sarcoidosis, unspecified; I10 Essential (primary) hypertension; R73.03 Prediabetes; Z79.51 Long term (current) use of inhaled steroids; Z79.899 Other long term (current) drug therapy; Z88.8 Allergy status to other drugs, medicaments and biological substances; Z80.9 Family history of malignant neoplasm, unspecified; Z87.891 Personal history of nicotine dependence
CPT/HCPCS: 36415; 71045; 80048; 80053; 82803; 82947; 83036; 83605; 83735; 83880; 84484; 85025; 87040; 87641; 87899; 93005; 93306; 94640; 99284; A9270-GY; C8929; J0456; J0696; J1100; J1650; J2920; J2930; J7512

== ENCOUNTER → 2019-06-09 11:34 | Day surgery (SDC) | payer BC ==
[~2019-06-09 11:34] MED LIST changes: -Acetaminophen TAB* 325 MG ONE; -Acetaminophen TAB* 325 MG PO ONE; +Benzocaine/Butamben/Tetracain (CETACAINE - SINGLE USE) 5 gm TOPICAL ONE; -Bupivacaine 0.5% W/EPI SDV* 30 ML VIAL ONE; +Dexamethasone IV* 4 MG/ML 1 ML (4 MG) ONE; +EPHEDrine (Pressors)* 50 MG/ML VIAL ONE; -EPINEPHRINE 1 MG/ML 1 ML VIAL ONE; -Famotidine IV* 10 MG/ML 2 ML (20 mg) IV ONE; -Gabapentin CAP(*) 300 MG ONE; -Gabapentin CAP(*) 300 MG PO ONE; -HYDROcodone/ACETAMIN 5-325 MG* 1 TAB ONE; -HYDROcodone/ACETAMIN 5-325 MG* 1 TAB PO PRN; -HYDROmorphone INJ1* 1 MG/ML SYRINGE IV PRN; -HYDROmorphone INJ1* 1 MG/ML SYRINGE ONE; +KETAMINE HCL* 50 MG/ML 10 ML VIAL ONE; -Ketorolac INJ* 30 MG/ML 1 ML VIAL ONE; -Levalbuterol 0.63MG/3ML NEB* UNIT OF USE INH ONE; +Levalbuterol 1.25MG/0.5ML NEB INH PRN; +Levalbuterol 1.25MG/0.5ML NEB ONE; -Midazolam* 1 MG/ML 2 ML VIAL (2 MG) ONE; -Ondansetron INJ* 2 MG/ML VIAL ONE; -PROCHLORPERAZINE INJ 5 MG/ML 2 ML VIAL IV PRN; +Propofol* 10 MG/ML 20 ML BTL ONE; -ROPIVACAINE 5 MG/ML 30 ML BTL (0.5%) ONE; -Ropivacaine (OR use only) 2 MG/ML 10 ML ONE; +Succinylcholine* 20 MG/ML 10 ML VIAL ONE; +VASOPRESSIN 20 UNITS/ML 1 ML VIAL ONE; -ceFAZolin 2 GM PREMIX in ORs 2 GM/50 ML BAG IVPB ONE; -diPHENhydraMINE IV* 50 MG/ML 1 ml VIAL (BENADRYL) IV PRN
--- NOTE | 2019-06-09 14:46 | BRIEFOPN ---
Brief Operative/Procedure Note - Operation Details Pre-Op Diagnosis: Interstitial lung disease Post-Op Diagnosis: Interstial lung disease, bronchomalacia Procedures: Bronchoscopy/EBUS, TBNA, EBBX Surgeon(s)/Proceduralists: guillermina Lopez Anesthesia: GA Estimated Blood Loss: Minimal Findings: Bronchomalacia, thick secretions, friable mucosa Specimen(s)/Culture(s) Description: TBNA for cytology, EBBx for pathology Complications: None
[2019-06-09 15:55] VITALS: BP 106/66
--- NOTE | 2019-06-09 22:15 | PRO ---
BRONCHOSCOPY REPORT: DATE OF PROCEDURE: 06/09/19 - [facility] PROCEDURE PERFORMED: Bronchoscopy with endobronchial ultrasound-guided fine needle aspiration of R4 lymph node, TBNA of R4 lymph node and endobronchial biopsy. PREPROCEDURAL DIAGNOSIS: Interstitial lung disease. ANESTHESIA: General anesthesia. ANESTHESIOLOGIST: Dr. Agarwal. DESCRIPTION OF PROCEDURE: Informed consent was obtained from the patient prior to the procedure after all the risks and benefits were thoroughly explained. The patient was intubated with size 8.5 endotracheal tube. A flexible Olympus bronchoscope was inserted through ET tube for airway inspection. ET tube positioning was confirmed to be 2 cm above the level of cristin. The patient noted to have evidence of bronchomalacia with dynamic compression of the airways. No endobronchial lesions were noted. The patient has friable mucosa that would bleed easily to suction. Bronchoscope was then withdrawn. The patient also had thick secretions that were suctioned out. Bronchoscope was then withdrawn and EBUS bronchoscope was inserted. EBUS bronchoscope bronch image was not working. Ultrasound image was obtainable. R4 lymph node sampling was attempted, however, unsuccessful. EBUS bronchoscope was then withdrawn and regular bronchoscope was inserted and TBNA needle was used through R4 area to get a sample. Three passes were done and slides were made and rest of the specimen placed in CytoLyt. Rapid on-site evaluation revealed blood and bronchial cells, no specific lymphatic tissue was seen. Endobronchial biopsies were subsequently obtained from the right side and to the secondary carinas. Specimen was placed in formalin. The patient tolerated the procedure well. The patient was extubated and seen in Recovery in optimal condition. [id number]/[facility] #: [id number] [facility]
== END | disposition home or self-care (01) ==
LOC: OR 11:34
PROVIDERS: ATTEND Internal Medicine
DX: J98.4 Other disorders of lung (principal); J44.9 Chronic obstructive pulmonary disease, unspecified; G47.33 Obstructive sleep apnea (adult) (pediatric); R09.02 Hypoxemia; I10 Essential (primary) hypertension; R60.9 Edema, unspecified; Z87.891 Personal history of nicotine dependence
CPT/HCPCS: 88172; 88173; 88177; 88305; A9270-GY; J0330; J1100; J2704; J3010

== ENCOUNTER 2019-09-26 19:15 | Emergency (ER) | payer SELFPAY ==
--- NOTE | 2019-09-26 19:27 | ED ---
Altered Mental Status - HPI Summary HPI Summary: The patient is a 49 y/o male arriving by ambulance to [facility] with altered mental status and hypoxia tonight. EMS report that family found the patient and called. When they arrived, they found the patient to be unconscious and hypoxic with respiratory rate of 6 rpm. They administered 4 doses of intranasal Narcan, as well as 0.4mg IV Narcan, to which the patient responded with increased alertness and respiratory rate between 20-24 rpm. In the ED, the patient is unsure if he takes pain medication for the lung cancer that he is supposedly diagnosed with, and EMS did not see any prescribed opioids in his home. He uses 6-10L O2 at home. PMHx: HTN, HLD, COPD, PNA, sleep apnea, BPH. Former smoker, weekly EtOH, history of substance use. Medications reviewed. Allergies noted. The patient says he lives alone and does not know who might have called the ambulance. He does not know what happened. On review of his medical record here he had a bronchoscopy by Dr. Mojica in June with negative pathology, and review of PATIENT ACCOUNTS MANAGER shows no recent opioid prescriptions, the last was a brief rx in February by his orthopedist. EMS brought in his medications and there are no opioids there. Level 5 Caveat secondary to AMS. History obtained from EMS and medical records. - History Of Current Complaint Stated Complaint: UNCONSCOIUS PER EMS Time Seen by Provider: 09/26/19 19:17 Hx Obtained From: EMS, Medical Records Hx From Patient Unobtainable Due To: Altered Mental Status - Leevl 5 Caveat Onset/Duration: Unknown Severity Initially: Severe Character: Responsiveness Aggravating Factor(s): Unknown Alleviating Factor(s): Other - Narcan from EMS - Allergies/Home Medications Allergies/Adverse Reactions: Allergies Allergy/AdvReac Type Severity Reaction Status Date / Time amlodipine AdvReac Intermediate See Comment Verified 06/09/19 12:16 PMH/Surg Hx/FS Hx/Imm Hx Endocrine/Hematology History: Denies: Hx Bone Marrow Disease, Hx Diabetes, Hx Sickle Cell Disease, Hx Anemia Cardiovascular History: Reports: Hx Hypercholesterolemia, Hx Hypertension - ON MEDICATION FOR Denies: Hx Angina, Hx Coronary Artery Disease, Hx Myocardial Infarction, Hx Pacemaker/ICD, Hx Valvular Heart Disease, Other Cardiovascular Problems/ Disorders Respiratory History: Reports: Hx Chronic Obstructive Pulmonary Disease (COPD), Hx Pneumonia - reported in room , Hx Sleep Apnea, Other Respiratory Problems/ Disorders - 1-2 PPD SMOKER FOR 35+ YRS. QUIT 03/2019 Denies: Hx Asthma GI History: Reports: Hx Gastroesophageal Reflux Disease - ON MEDICATION FOR, Hx Hiatal Hernia History: Reports: Hx Benign Prostatic Hyperplasia Denies: Hx Renal Disease Musculoskeletal History: Reports: Other Musculoskeletal History - recent rotator cuff repair surg- L shoulder Sensory History: Reports: Hx Contacts or Glasses - GLASSES Denies: Hx Cataracts, Hx Glaucoma, Hx Hearing Aid Opthamlomology History: Reports: Hx Contacts or Glasses - GLASSES Denies: Hx Cataracts, Hx Glaucoma Neurological History: Reports: Hx Migraine - A CHILD Denies: Other Neuro Impairments/Disorders Psychiatric History: Reports: Hx Anxiety - ON MEDICATION FOR, Hx Depression - ON MEDICATION FOR Denies: Hx Panic Disorder - Cancer History Cancer Type, Location and Year: skin, lung Hx Chemotherapy: No - Surgical History Surgery Procedure, Year, and Place: BILATERAL INGUINAL HERNIA REPAIR AN INFANT. TONSILLECTOMY AND ADENOIDECTOMY, [address] [facility]. SKIN CA REMOVED FROM BELOW EYE 2013 [facility]. LEFT SHOULDER ROTATOR CUFF REPAIR 01/2019 [facility] [place] Hx Anesthesia Reactions: No Infectious Disease History: Denies: History Other Infectious Disease - Family History Known Family History: Negative: Blood Disorder - blood clots - Social History Alcohol Use: Weekly Alcohol Amount: 12 PACK WEEKLY Hx Substance Use: Yes Substance Use Type: Reports: None Substance Use Comment - Amount & Last Used: HX OF USE IN THE PAST Hx Tobacco Use: Yes Smoking Status (MU): Former Smoker Type: Cigarettes Amount Used/How Often: 1-2 PPD X 35 YEARS OFF AND ON Length of Time of Smoking/Using Tobacco: 35+ YRS Have You Smoked in the Last Year: Yes Review of Systems Positive: Other - hypoxic Neurological: Other - unconscious, AMS All Other Systems Reviewed And Are Negative: No - Comments Additional Review of Systems Comments: Level 5 Caveat secondary to AMS. Physical Exam - Summary Physical Exam Summary: Appearance: Middle-aged man, Well-nourished, lying in bed comfortably, Appears somewhat dazed and confused Skin: Warm, dry, no obvious rash Eyes: sclera anicteric, no conjunctival pallor ENT: mucous membranes moist, pharynx appears normal Neck: Supple, nontender Respiratory: Clear to auscultation, no signs of respiratory distress Cardiovascular: Normal S1, S2. No murmurs. Normal distal pulses in tibial and radial bilaterally. Abdomen: Soft, nontender, normal active bowel sounds present Musculoskeletal: Normal, Strength/ROM Intact Neurological: A&Ox3, awake and alert, mentation is normal although slightly confused, speech is fluent and appropriate Psychiatric: affect is normal, does not appear anxious or depressed Triage Information Reviewed: Yes Vital Signs Reviewed: Yes Completion Of Physical Exam Limited Due To: Altered Mental Status, Level 5 Procedures - Sedation Patient Received Moderate/Deep Sedation with Procedure: No Diagnostics - Laboratory Result Diagrams: 09/26/19 20:11 09/26/19 20:11 Lab Statement: Any lab studies that have been ordered have been reviewed, and results considered in the medical decision making process. - Radiology CXR Radiology Interpretation Completed By: ED Physician Summary of Radiographic Findings: Patchy infiltrates consistent with interstitial lung disease. Stable compared to prior film. ED physician has reviewed and interpreted this report. Pending official read. Re-Evaluation - Re-Evaluation First Eval Re-Evaluation Time: 22:40 Comment: Patient did not want to be admitted initially, but after discussing the risks and needs for admission, he agrees to staying in the hospital. Second Eval Re-Evaluation Time: 00:15 Comment: Dr. Moreno spoke with the patient and has obtained more history. He had taken heroin and drank alcohol tonight before going and waking up in the ED. Dr. Moreno is comfortable with discharge. Altered Mental Statu Course/Dx - Course Course Of Treatment: 49 y/o male with history of pulmonary conditions presenting by ambulance with altered mental status and hypoxia for unknown time as patients family found him unconscious. Patient reacted positively to 4 doses of intranasal Narcan and 0.4mg IV Narcan en route, although patient is unsure if he takes pain medications, and EMS noted to not find any opioids at home. He uses 6-10L O2 chronically. Nurse Golden has spoken with the patient' s family, who state that he had access to Percocet although he is not prescribed the medication, and he does not had a clear diagnosis of lung cancer , but he does have an appointment with Dr. Mojica tomorrow for a biopsy follow up. Physical exam reveals patient to be dazed and confused. Blood work obtained to reveal hemoglobin of 13.7, chloride of 86, carbon dioxide of 41, BUN of 27, glucose of 173, and TSH of 6.84. VBG obtained to reveal pH of 7.27, pCO2 of 96, pO2 of 74, HCO3 of 34.7, O2 sat of 95.8, and base excess of 12.8. UA reveals 2+ protein, 3+ glucose, and presence of squamous epithelial cells and hyaline casts. Toxicology report is positive for opiates and serum alcohol of 48. CXR, per my interpretation, reveals patchy infiltrates consistent with interstitial lung disease, stable compared to prior film. Patient administered fluids. Patient also placed on BiPAP in the ED. Dr. Moreno from the hospitalist services will evaluate the patient. Following her evaluation, she states that the patient can be discharged home as he has greatly improved since arrival. Patient understands and agrees with this plan. - Diagnoses Provider Diagnoses: Opioid overdose, Hypercapnic respiratory failure, Interstitial lung disease, Alcohol abuse - Provider Notifications Discussed Care Of Patient With: Nancy Moreno - hospitalist Time Discussed With Above Provider: 22:20 Instructed by Provider To: Other - I discussed the patients case with Dr. Moreno , who will evaluate the patient. She states patient is able to be discharged home as he gave her an adequate history, and he has improved since arrival. Discharge ED - Sign-Out/Discharge Documenting (check all that apply): Patient Departure - Patient will be discharged home. - Discharge Plan Condition: Improved Disposition: HOME Patient Education Materials: Opioid Safety (ED) Referrals: Ashwini Hudson BURLAP MAN [Primary Care Provider] - - Billing Disposition and Condition Condition: IMPROVED Disposition: Home - Attestation Statements Document Initiated by Lorie: Yes Documenting Scribe: Ny Barajas Provider For Whom Hansel is Documenting (Include Credential): Dr. Tremayne Pemberton MD Scribe Attestation: Ny Jones scribed for Dr. Tremayne Pemberton MD on 09/27/19 at 0142. Scribe Documentation Reviewed: Yes Provider Attestation: The documentation as recorded by the Ny jefferson accurately reflects the service I personally performed and the decisions made by me, Dr. Tremayne Pemberton MD Status of Scribe Document: Viewed
[2019-09-26] MEDS ORDERED: NS 0.9% 1000 ML** 2,000 ML IV ONE (20:01)
[2019-09-26 20:23] LABS: ABS Lymphocytes 0.6 10^3/ul (1.0-4.8); ABS Monocytes 0.8 10^3/ul (0-0.8); ABS Neutrophils 6.7 10^3/ul (1.5-7.7); Eosinophil % 0.3 %; Hematocrit 42 % (42-52); Hemoglobin 13.7 g/dL (14.0-18.0); Lymphocyte % 6.9 %; Mean Corpuscular HGB Conc 33 g/dL (31-36); Mean Corpuscular Hemoglobin 29 pg (27-31); Mean Corpuscular Volume 90 fL (80-94); Mean Platelet Volume 7.4 fL (7.4-10.4); Platelet Count 264 10^3/uL (150-450); Red Cell Distribution Width 14 % (10-15); White Blood Count 8.1 10^3/uL (3.5-10.8)
[2019-09-26 20:44] LABS: ALT 27 U/L (7-52); AST 21 U/L (13-39); Albumin 4.1 g/dL (3.2-5.2); Albumin/Globulin Ratio 1.2 (1-3); Alkaline Phosphatase 57 U/L (34-104); BUN/Creatinine Ratio 28.7 (8-20); Blood Urea Nitrogen 27 mg/dL (6-24); Calcium 9.8 mg/dL (8.6-10.3); Chloride 86 mmol/L (101-111); EGFR African American 102.8 (>60); EGFR Non-African American 84.9 (>60); Globulin 3.4 g/dL (2-4); Glucose 173 mg/dL (70-100); Potassium 3.8 mmol/L (3.5-5.0); Sodium 138 mmol/L (135-145); Total Protein 7.5 g/dL (6.4-8.9)
[2019-09-26 20:48] LABS: Acetaminophen < 15 mcg/mL; Alcohol 48 mg/dL (<10); Anion Gap 11 mmol/L (2-11); CO2 Carbon Dioxide 41 mmol/L (22-32); Salicylate < 2.50 mg/dL (<30)
[2019-09-26 21:03] LABS: TSH (Thyroid Stimulating Horm) 6.84 mcIU/mL (0.34-5.60)
[2019-09-26 21:38] LABS: Urine Appearance Cloudy; Urine Bilirubin Negative (Negative); Urine Blood Negative (Negative); Urine Color Yellow; Urine Glucose 3+(>=500 mg/dL) (Negative); Urine Ketones Negative (Negative); Urine Nitrite Negative (Negative); Urine Protein 2+(100 mg/dL) (Negative); Urine Specific Gravity 1.015 (1.010-1.030); Urine Urobilinogen Negative (Negative)
[2019-09-26 21:39] LABS: Urine Bacteria Absent (Absent); Urine Red Blood Cell Trace(0-2/hpf) (Absent); Urine Squamous Epithelial Cell Present (Absent); Urine White Blood Cell Trace(0-5/hpf) (Absent)
[2019-09-26 21:53] LABS: Urine Benzodiazepine Screen None Detected (None Detect); Urine Opiates Screen Presumptive Positive (None Detect)
--- OUTSIDE RECORDS SUMMARY | 2019-09-26 22:07 | XMS REPORT | Continuity of Care Document ---
:1970 External Reference #:[id number] Author Name Leilani Mojica MD (transmitted by agent of provider Serene Paul) Address [address], [address] [place] [address] Care Team Providers Name Role Phone Jovita Alfonso MD [facility] - Care Team Information Cancer Registrar Cardiovascular Disease Ashwini Hudson F.N.P. - Family Care Team Information Cancer Registrar [phone] Problems Active Problems Provider Date Strain of muscle(s) and tendon(s) of the Scott Herman MD Onset: 2018 rotator cuff of right shoulder, subsequent encounter Social History Type Date Description Comments Sex Unknown Tobacco Use Start: Unknown End: Former Cigarette Smoker Quit smoking in Unknown 1 Pack Daily 2015 ETOH Use Drinks Alcoholic Beverages Occasionally Recreational Drug Use Former Drug User smoking, injecting, and eating meth for two years 3042-5856 Tobacco Use Start: Unknown End: Patient is a former Unknown smoker Smoking Status Reviewed: 07/30/19 Patient is a former smoker Exercise Type/Frequency Exercises rarely Allergies, Adverse Reactions, Alerts Description No Known Drug Allergies Medications Active Medications SIG Qnty Indications Ordering Date Provider Sildenafil Citrate 1 tab daily, read 30tabs I27.20 Leilani Mojica, 2018 20mg leaflet prior to Tablets use Mycophenolate Mofetil 1 tab by mouth 30tabs J84.9 Leilani Mojica, 2018 daily 500mg Tablets Ipratropium 1 unit every 6 270ml Leilani Mojica, 03/10/2019 Jackson/Albuterol hours as needed Sulfate 0.5-2.5(3)mg/3ML Solution Nebulizer 1 unit nebulization 1units Leilani Mojica, 03/10/2019 Kit/Tubing/Mouthpiece every 4- 6 hours as MD needed Kit Nebulizer Air 1 unit nebulization 1units Leilani Mojica, 03/10/2019 Tube/Plugs every 4-6 hours MD Man Magnesium Oxide 1 by mouth twice Brionna Kevin, 07/20/2018 400mg daily N.P. Tablets Oxygen please use o2 at 1units R09.02 Leilani Mojica, 06/30/2018 Misc 3l/min during MD exertion, pls provide pt with portable o2 concentrator. uses 3liters with cpap for sleep as well Lasix one by mouth every 30tabs Qutaybeh S. 06/18/2018 40mg Tablets day Wild Alfonso Tamsulosin HCL Muraliethugo, 0.4mg Kush Patel MD Capsules Cpap for use while Unknown Device sleeping Eq Lansoprazole 1 capsule daily by Unknown 15mg mouth. Patient Capsules says he decided on his own to take this med Spiriva Handihaler 1 unit inhalation Unknown daily 18mcg Capsules Losartan Potassium 1 by mouth twice a 90tabs Qutaybmalissa S. 50mg day Wild Alfonso Tablets Duloxetine HCL 1 by mouth every Unknown 60mg day Caps DR Leanne Bass HFA 2-4 puffs by mouth Unknown four times a day as 108(90Base) mcg/Act needed Aerosol History Medications Prednisone 2 tabs by mouth 30tabs Leilani Mojica MD 06/24/2019 - 5mg Tablets every day for 2 07/30/2019 weeks, 1 tab daily Prednisone 1 tab for 2 21units Leilani Mojica MD 05/27/2019 - 10mg (48) weeks, 1/2 tab 06/24/2019 TBPK for 1 week Oxycodone-Acetaminoph 1-2 tabs by 60tabs Scott Becerra 02/16/2019 - en mouth every 4 MD Batsheva 07/01/2019 5-325mg Tablets hours for pain Oxycodone-Acetaminoph 1-2 tabs by 60tabs Scott Becerra 02/05/2019 - en mouth every 4 MD Batsheva 02/15/2019 5-325mg Tablets hours for pain Immunizations Description No Information Available Vital Signs Date Vital Result Comment 07/30/2019 9:05am Height 69 inches 5'9" Weight 212.00 lb Heart Rate 98 /min BP Systolic Sitting 130 mmHg BP Diastolic Sitting 84 mmHg O2 % BldC Oximetry 80 % on 4 liters BMI (Body Mass Index) 31.3 kg/m2 07/01/2019 9:36am Height 69 inches 5'9" Weight 200.00 lb stated Heart Rate 78 /min BP Systolic 128 mmHg BP Diastolic 70 mmHg Respiratory Rate 14 /min Pain Level 0 BMI (Body Mass Index) 29.5 kg/m2 Results Test Acquired Date Facility Test Result H/L Range Note Laboratory test 06/09/2019 [facility] Surgical SEE RESULT [address] [place] [address] [phone] Laboratory test 06/09/2019 [facility] Cytology SEE RESULT [address] Non-Medical Laboratory [place] [address] [phone] 1 SEE RESULT BELOW Name: NAIMA PATEL : [address]: Leilani Mojica MD Acct: [id number] Unit: [id number] AGE: 48 Location: OR Re06/09/19 SEX: M [place] [facility] [place] [id number] ALLIE: 06/09/19- SUBM DR: Leilani Mojica MD REQ: [id number] RECD: 06/09/19 STATUS: SOUT _ ORDERED: LEVEL 4 FINAL DIAGNOSIS Lung, endobronchial biopsy: -- Benign bronchial mucosa with no significant pathologic abnormalities. PRE-OPERATIVE DIAGNOSIS Lymph nodes enlargement, interstitial lung disease GROSS DESCRIPTION The specimen is received in formalin labeled, Endobronchial Biopsy, and consists of a 0.5 x 0.4 by up to 0.2 cm aggregate of tidwell-pink irregular soft tissue fragments admixed with scant red-brown blood clot. Entirely submitted, one cassette. Signed by and Reported on: Justina Luis MD 06/11/19 1009 END OF REPORT DEPARTMENT OF PATHOLOGY, [address] [place] [address] Brenton Smith M.D. Director [facility] # [id number] 2 SEE RESULT BELOW Name: NAIMA PATEL : [address]: Leilani Mojica MD Acct: [id number] Unit: [id number] AGE: 48 Location: OR Re06/09/19 SEX: M [place]: [place] [facility] [place]: [id number] ALLIE: 06/09/19-133[facility] DR: Leilani Mojica MD REQ: [id number] RECD: 06/09/192425 STATUS: SOUT _ ORDERED: FNA-IMG GUID BX, CY ADEQ-ADDL P, LEVEL 4, CYTO ADEQ-1ST P FINAL DIAGNOSIS Lymph node, R-4, endobronchial Ultrasound guided, fine needle aspiration: -- Benign bronchial epithelium. No lymphoid tissue present. A cell block was prepared in the evaluation of this specimen. Smears and cell block reveal similar findings. SPECIMEN(S) RECEIVED 1. LYMPH NODE - US GUIDED ENDOBRONCHIAL R-4 FINE NEELDE ASPIRATION CLINICAL HISTORY R-4 endobronchial lymph node. IMMEDIATE INTERPRETATION Pass 1, and 2-assessed. GROSS DESCRIPTION US guided endobronchial fine needle aspiration x 2 pass(es) with 7 alcohol fixed slides and needle rinse in formalin for cell block. Signed by and Reported on: Justina Luis MD 06/10/19 1118 END OF REPORT DEPARTMENT OF PATHOLOGY, [address] [place] [address] Brenton Smith M.D. Director [facility] # [id number] Procedures Date Code Description Status 06/09/2019 30891 With Endobronchial Ultrasound Guided Completed 06/09/2019 88396 Bronchoscopy W/Transbronchial Needle Aspiration Biopsy Completed 06/09/2019 38754 bronchoscopy w/washing (hosp) Completed 05/21/2019 79298 ECHO Transthorasic Realtime 2D W Doppler & Color Flow Hosp Completed 02/05/2019 30220 Arthroscopy Shoulder,W/Rotator Cuff Repair Completed 02/05/2019 93756 Arthroscopy Shoulder,W/Rotator Cuff Repair Completed 02/05/2019 87071 Arthroscopy,Shoulder Decompression Of Subacromial Space Completed W/Acromio 02/05/2019 18236 Arthroscopy,Shoulder Decompression Of Subacromial Space Completed W/Acromio 02/05/2019 47312 Arthroscopy,Shoulder,Distal Claviculectomy Incl Dist Completed Articular SR 02/05/2019 76430 Arthroscopy,Shoulder,Distal Claviculectomy Incl Dist Completed Articular SR Medical Devices Description No Information Available Encounters Type Date Location Provider Dx Diagnosis Office Visit 07/30/2019 Pulmonology And Olivia Sauceda.9 Interstitial 9:15a [facility] pulmonary charli Drying Machine Receiver unspecified J96.10 Chronic respiratory failure, unsp w hypoxia or hypercapnia I27.20 Pulmonary hypertension, unspecified G47.33 Obstructive sleep apnea (adult) (pediatric) Office Visit 07/01/2019 9:15a [place] Scott F S46.012D Strain of Orthopedics at MD isabel Herman/tend the [place] rotator cuff of left shoulder, subs M75.42 Impingement syndrome of left shoulder M19.012 Primary osteoarthritis, left shoulder S46.012D Strain of musc/tend the rotator cuff of left shoulder, subs Office Visit 06/18/2019 10:15a Pulmonology And Leilani J98.4 Other disorders [facility] [place] of lung Drying Machine Receiver J84.9 Interstitial pulmonary disease, unspecified J44.9 Chronic obstructive pulmonary disease, unspecified G47.33 Obstructive sleep apnea (adult) (pediatric) R09.02 Hypoxemia Office Visit 05/27/2019 10:45a Pulmonology And Leilani J98.4 Other disorders [facility] [place] of lung Drying Machine Receiver J44.9 Chronic obstructive pulmonary disease, unspecified G47.33 Obstructive sleep apnea (adult) (pediatric) R09.02 Hypoxemia Office Visit 05/25/2019 10:51a [facility] Kamala Mery, J96.21 Acute and chronic Assoc,pc STORE SALES CONSULTANT respiratory Hospitalists failure with hypoxia J96.22 Acute and chronic respiratory failure with hypercapnia J98.4 Other disorders of lung J44.1 Chronic obstructive pulmonary disease w (acute) exacerbation A41.9 Sepsis, unspecified organism Office Visit 05/24/2019 10:50a [facility] Jj J96.01 Acute respiratory Assoc,aleah Sorto PA failure with Hospitalists hypoxia J44.1 Chronic obstructive pulmonary disease w (acute) exacerbation J98.4 Other disorders of lung I10 Essential (primary) hypertension Office Visit 05/23/2019 10:50a [facility] Jj J96.01 Acute respiratory Assoc,aleah Sorto PA failure with Hospitalists hypoxia J44.1 Chronic obstructive pulmonary disease w (acute) exacerbation J98.4 Other disorders of lung I10 Essential (primary) hypertension Office Visit 05/22/2019 10:49a [facility] Jj J96.01 Acute respiratory Assoc,aelah Sorto PA failure with Hospitalists hypoxia J44.1 Chronic obstructive pulmonary disease w (acute) exacerbation J98.4 Other disorders of lung I10 Essential (primary) hypertension Office Visit 05/21/2019 [facility] Samara J96.01 Acute respiratory 10:49a Assoc,pc [facility], failure with Hospitalists STORE SALES CONSULTANT hypoxia J98.4 Other disorders of lung A41.9 Sepsis, unspecified organism Office Visit 05/21/2019 12:52p Pulmonology And Leilani J84.9 Interstitial [facility] [place] pulmonary disease, Drying Machine Receiver unspecified J96.20 Acute and chr resp failure, unsp w hypoxia or hypercapnia I27.20 Pulmonary hypertension, unspecified Z87.891 Personal history of nicotine dependence Office Visit 02/22/2019 9:15a Pulmonology And Leilani J44.9 Chronic [facility] [place] obstructive Drying Machine Receiver pulmonary disease, unspecified G47.33 Obstructive sleep apnea (adult) (pediatric) R09.02 Hypoxemia Office Visit 01/28/2019 10:30a Pulmonology And Leilani J44.9 Chronic [facility] [place] obstructive Drying Machine Receiver pulmonary disease, unspecified Z01.811 Encounter for preprocedural respiratory examination R09.02 Hypoxemia J44.9 Chronic obstructive pulmonary disease, unspecified G47.33 Obstructive sleep apnea (adult) (pediatric) R09.02 Hypoxemia Z01.811 Encounter for preprocedural respiratory examination G47.33 Obstructive sleep apnea (adult) (pediatric) Assessments Date Code Description Provider 07/30/2019 J84.9 Interstitial pulmonary disease, Leilani Mojica MD unspecified 07/30/2019 J96.10 Chronic respiratory failure, Leilani Mojica MD unspecified whether with hypoxia or hypercapnia 07/30/2019 I27.20 Pulmonary hypertension, unspecified Leilani Mojica MD 07/30/2019 G47.33 Obstructive sleep apnea (adult) Leilani Mojica MD (pediatric) 07/01/2019 S46.012D Strain of muscle(s) and tendon(s) Scott Herman MD of the rotator cuff of left shoulder, subsequent encounter 07/01/2019 M75.42 Impingement syndrome of left Scott Herman MD shoulder 07/01/2019 M19.012 Primary osteoarthritis, left Scott Herman MD shoulder 07/01/2019 S46.012D Strain of muscle(s) and tendon(s) Scott Herman MD of the rotator cuff of left shoulder, subsequent encounter 06/18/2019 J98.4 Other disorders of lung Leilani Mojica MD 06/18/2019 J84.9 Interstitial pulmonary disease, Leilani Mojica MD unspecified 06/18/2019 J44.9 Chronic obstructive pulmonary Leilani Mojica MD disease, unspecified 06/18/2019 G47.33 Obstructive sleep apnea (adult) Leilani Mojica MD (pediatric) 06/18/2019 R09.02 Hypoxemia Leilani Mojica MD 06/09/2019 J84.9 Interstitial pulmonary disease, Leilani Mojica MD unspecified 05/31/2019 J98.4 Other disorders of lung Leilani Mojica MD 05/27/2019 J98.4 Other disorders of lung Leilani Mojica MD 05/27/2019 J44.9 Chronic obstructive pulmonary Leilani Mojica MD disease, unspecified 05/27/2019 G47.33 Obstructive sleep apnea (adult) Leilani Mojica MD (pediatric) 05/27/2019 R09.02 Hypoxemia Leilani Mojica MD 05/25/2019 J96.21 Acute and chronic respiratory Kamala Mery, STORE SALES CONSULTANT failure with hypoxia 05/25/2019 J96.22 Acute and chronic respiratory Kamala Mery, STORE SALES CONSULTANT failure with hypercapnia 05/25/2019 J98.4 Other disorders of lung Kamala Mery, STORE SALES CONSULTANT 05/25/2019 J44.1 Chronic obstructive pulmonary Kamala Mery, STORE SALES CONSULTANT disease with (acute) exacerbation 05/25/2019 A41.9 Sepsis, unspecified organism Kamala Mery, STORE SALES CONSULTANT 05/24/2019 J96.01 Acute respiratory failure with Jj Noreen, PA hypoxia 05/24/2019 J44.1 Chronic obstructive pulmonary Jj Noreen, PA disease with (acute) exacerbation 05/24/2019 J98.4 Other disorders of lung Jj Noreen, PA 05/24/2019 I10 Essential (primary) hypertension Jj Tucker, PA 05/23/2019 J96.01 Acute respiratory failure with Jj Tucker, PA hypoxia 05/23/2019 J44.1 Chronic obstructive pulmonary Jj Noreen, PA disease with (acute) exacerbation 05/23/2019 J98.4 Other disorders of lung Jj Tucker, PA 05/23/2019 I10 Essential (primary) hypertension Jj Noreen, PA 05/22/2019 J96.01 Acute respiratory failure with Jj Tucker, PA hypoxia 05/22/2019 J44.1 Chronic obstructive pulmonary Jj Noreen, PA disease with (acute) exacerbation 05/22/2019 J98.4 Other disorders of lung Jj Noreen, PA 05/22/2019 I10 Essential (primary) hypertension Jj Noreen, PA 05/21/2019 R06.89 Other abnormalities of breathing Jovanny Schrader M.D., [facility], [facility] 05/21/2019 J84.9 Interstitial pulmonary disease, Leilani Mojica MD unspecified 05/21/2019 J96.01 Acute respiratory failure with Samara Harris, STORE SALES CONSULTANT hypoxia 05/21/2019 J96.20 Acute and chronic respiratory Leilani Mojica MD failure, unspecified whether with hypoxia or hypercapnia 05/21/2019 J98.4 Other disorders of lung Samara Harris, STORE SALES CONSULTANT 05/21/2019 I27.20 Pulmonary hypertension, unspecified Leilani Mojica MD 05/21/2019 A41.9 Sepsis, unspecified organism Samara Harris, STORE SALES CONSULTANT 05/21/2019 Z87.891 Personal history of nicotine Leilani Mojica MD dependence 04/29/2019 S46.012D Strain of muscle(s) and tendon(s) Scott Herman MD of the rotator cuff of left shoulder, subsequent encounter 04/29/2019 M75.42 Impingement syndrome of left Scott Herman MD shoulder 04/29/2019 M75.22 Bicipital tendinitis, left shoulder Scott Herman MD 04/29/2019 M19.012 Primary osteoarthritis, left Scott Herman MD shoulder 03/25/2019 S46.012D Strain of muscle(s) and tendon(s) Scott Herman MD of the rotator cuff of lef 03/25/2019 M75.42 Impingement syndrome of left Scott Herman MD shoulder 03/25/2019 M75.22 Bicipital tendinitis, left shoulder Scott Herman MD 03/25/2019 M19.012 Primary osteoarthritis, left Scott Herman MD shoulder 03/25/2019 S46.012D Strain of muscle(s) and tendon(s) Scott Herman MD of the rotator cuff of left shoulder, subsequent encounter 02/22/2019 J44.9 Chronic obstructive pulmonary Leilani Mojica MD disease, unspecified 02/22/2019 G47.33 Obstructive sleep apnea (adult) Leilani Mojica MD (pediatric) 02/22/2019 R09.02 Hypoxemia Leilani Mojica MD 02/16/2019 S46.012D Strain of muscle(s) and tendon(s) Scott Herman MD of the rotator cuff of lef 02/16/2019 M75.42 Impingement syndrome of left Scott Herman MD shoulder 02/16/2019 M75.22 Bicipital tendinitis, left shoulder Scott Herman MD 02/16/2019 M19.012 Primary osteoarthritis, left Scott Herman MD shoulder 02/05/2019 S46.012A Strain of musc/tend the rotator LEE [place] cuff of left shoulder, init 02/05/2019 S46.012A Strain of muscle(s) and tendon(s) Scott Herman MD of the rotator cuff of left shoulder, initial encounter 02/05/2019 M75.42 Impingement syndrome of left LEE [place] shoulder 02/05/2019 M75.42 Impingement syndrome of left Scott Herman MD shoulder 02/05/2019 M75.22 Bicipital tendinitis, left shoulder Orestes Boykin, PA 02/05/2019 M19.012 Primary osteoarthritis, left Scott Herman MD shoulder 02/05/2019 M19.012 Primary osteoarthritis, left Orestes Boykin, PA shoulder 02/05/2019 M75.22 Bicipital tendinitis, left shoulder Scott Herman MD 01/28/2019 J44.9 Chronic obstructive pulmonary Leilani Mojica MD disease, unspecified 01/28/2019 Z01.811 Encounter for preprocedural Leilani Mojica MD respiratory examination 01/28/2019 R09.02 Hypoxemia Leilani Mojica MD 01/28/2019 J44.9 Chronic obstructive pulmonary Leilani Mojica MD disease, unspecified 01/28/2019 G47.33 Obstructive sleep apnea (adult) Lielani Mojica MD (pediatric) 01/28/2019 R09.02 Hypoxemia Leilani Mojica MD 01/28/2019 Z01.811 Encounter for preprocedural Leilani Mojica MD respiratory examination 01/28/2019 G47.33 Obstructive sleep apnea (adult) Leilani Mojica MD (pediatric) Plan of Treatment Future Appointment(s):09/23/2019 9:15 am - Leilani Mojica MD at [facility]08/31/2019 9:45 am - Scott Herman MD at [place] [facility] at [id number]/07/2019 8:00 am - Bess Mojica MD at [facility] Dskuakftgkr48/15/2019 - Leilani Mojica MDJ84.9 Interstitial pulmonary disease, unspecifiedNew Medication:Mycophenolate Mofetil 500 mg - 1 tab by mouth dailyFollow up:6 weeks , BMP, LFTS, CBC vaabpO06.10 Chronic respiratory failure , unspecified whether with hypoxia or utfwfwxvhqeY78.20 Pulmonary hypertension, unspecifiedNew Medication:Sildenafil Citrate 20 mg - 1 tab daily, read leaflet prior to useG47.33 Obstructive sleep apnea (adult) (pediatric) Functional Status Description No Information Available Mental Status Description No Information Available Referrals Description No Information Available
--- OUTSIDE RECORDS SUMMARY | 2019-09-26 22:07 | XMS REPORT | Continuity of Care Document ---
:1970 External Reference #:[id number] Author Name Scott Herman MD (transmitted by agent of provider Ary Baltazar) Address [address] [place] [id number] Care Team Providers Name Role Phone Jovita Alfonso MD [facility] - Care Team Information Floor Refinisher [phone] Cardiovascular Disease Ashwini Hudson F.N.P. - Family Care Team Information Floor Refinisher Problems Active Problems Provider Date Strain of [...] injecting, and eating meth for two years 2360-8731 Tobacco Use Start: Unknown End: Patient is a former Unknown smoker Smoking Status Reviewed: 08/31/19 Patient is a former smoker Exercise Type/Frequency Exercises rarely Allergies, Adverse Reactions, Alerts Description No Known Drug Allergies Medications Active Medications SIG Qnty Indications Ordering Date Provider Sildenafil Citrate 1 tab daily, read 30tabs I27.20 Leilani Mojica, 2018 leaflet prior to 20mg Tablets use Mycophenolate 1 tab by mouth 30tabs J84.9 Leilani Mojica, 07/30/2019 Mofetil daily MD 500mg Tablets Prednisone 2 tabs daily 60units J84.9 Leilani Mojica, 07/30/2019 10mg (21) TBPK Ipratropium 1 unit every 6 270ml Leilani Mojica, 03/10/2019 [place]/Albuterol hours as needed Sulfate 0.5-2.5(3)mg/3ML Solution Nebulizer 1 unit nebulization 1units Leilani Mojica, 03/10/2019 Kit/Tubing/Mouthpiec every 4- 6 hours as MD e needed Kit Nebulizer Air 1 unit nebulization 1units Leilani Mojica, 03/10/2019 Tube/Plugs every 4-6 hours MD Man Magnesium Oxide 1 by mouth twice Brionna Kevin, 07/20/2018 400mg daily N.P. Tablets Oxygen please use o2 at 1units R09.02 Leilani Galina, 06/30/2018 Misc 6l/min during MD exertion, pls provide pt with portable o2 concentrator. uses 5 liters at rest Lasix one by mouth every 30tabs Qutaybeh S. 06/18/2018 40mg Tablets day Wild Alfonso Tamsulosin HCL ethugo, 0.4mg Kush Patel MD Capsules Cpap for use while Unknown Device sleeping Eq Lansoprazole 1 capsule daily by Unknown 15mg mouth. Patient Capsules says he decided on his own to take this med Spiriva Handihaler 1 unit inhalation Unknown daily 18mcg Capsules Losartan Potassium 1 by mouth twice a 90tabs Qutaybeh S. day Wild Alfonso 50mg Tablets Duloxetine HCL 1 by mouth every Unknown 60mg day Caps DR Perdomo Ventolin HFA 2-4 puffs by mouth Unknown four times a day as 108(90Base) mcg/Act needed Aerosol History Medications Prednisone 2 tabs by mouth 30tabs Leilani Mojica, 06/24/2019 - 5mg Tablets every day for 2 07/30/2019 weeks, 1 tab daily Prednisone 1 tab for 2 21units Leilani Mojica, 05/27/2019 - 10mg (48) weeks, 1/2 tab 06/24/2019 TBPK for 1 week Immunizations Description No Information Available Vital Signs Date Vital Result Comment 08/31/2019 9:55am Height 69 inches 5'9" Weight 214.50 lb Heart Rate 76 /min BP Systolic 126 mmHg BP Diastolic 72 mmHg Respiratory Rate 16 /min Pain Level 0 BMI (Body Mass Index) 31.7 kg/m2 07/30/2019 9:05am Height 69 inches 5'9" Weight 212.00 lb Heart Rate 98 /min BP Systolic Sitting 130 mmHg BP Diastolic Sitting 84 mmHg O2 % BldC Oximetry 80 % on 4 liters BMI (Body Mass Index) 31.3 kg/m2 Results Test Acquired Date Facility Test Result H/L Range Note Laboratory test 07/30/2019 [facility] Angiotensin 21 U/L 16 - [address] [place] [address] [phone] C Reactive Protein 38.97 mg/L High <8.01 Anca Panel For 07/30/2019 [facility] Myeloperoxidase AB < 0.[address] [place] [address] [phone] Proteinase 3 AB < 0.2 U 3 Scleroderma AB 07/30/2019 [facility] Scleroderma Ab <0.2 U [address] [place] [address] [phone] Laboratory test 07/30/2019 [facility] Anti Nuclear 0.[address] [place] [address] [phone] Laboratory test 06/09/2019 [facility] Surgical SEE RESULT [address] [place] [address] [phone] Laboratory test 06/09/2019 [facility] Cytology Non-Market Research Assistant SEE RESULT [address] [place] [address] [phone] 1 Test Performed by: [facility] [employer] - [address] [address] Seismic Interpreter: Jj Ramey M.D. Ph.D.; IA# [id number] 2 REFERENCE VALUE <0.4 (Negative) 3 REFERENCE VALUE <0.4 (Negative) Test Performed by: [place] [address] Seismic Interpreter: Jj Ramey M.D. Ph.D.; CLIA# [id number] 4 REFERENCE VALUE <1.0 (Negative) Test Performed by: [place] [address] Seismic Interpreter: Jj Ramey M.D. Ph.D.; CLIA# [id number] 5 REFERENCE VALUE <=1.0 (Negative) Test Performed by: [place] [address] Seismic Interpreter: Jj Ramey M.D. Ph.D.; CLIA# [id number] 6 SEE RESULT BELOW Name: NAIMA PATEL : [address]: Leilani Mojica MD Acct: [id number] Unit: [id number] AGE: 48 Location: OR Re06/09/19 SEX: M Status: REG [facility] SPEC: [id number] ALLIE: 06/09/19- [facility] DR: Leilani Mojica MD REQ: [id number] RECD: 06/09/19 STATUS: SOUT _ ORDERED: LEVEL [...] 1009 END OF REPORT DEPARTMENT OF PATHOLOGY, [address] [place] [address] Brenton Smith M.D. Director [facility] # [id number] 7 SEE RESULT BELOW Name: NAIMA PATEL : [address]: Leilani Mojica MD Acct: [id number] Unit: [id number] AGE: 48 Location: OR Re06/09/19 SEX: M Status: REG SDC SPEC: [id number] ALLIE: 06/09/19-1330 [facility] DR: Leilani Mojica MD REQ: [id number] RECD: 06/09/19639 STATUS: SOUT _ ORDERED: FNA-IMG GUID BX, [...] 1118 END OF REPORT DEPARTMENT OF PATHOLOGY, [address] [place] [address] Brenton Smith M.D. Director [facility] # [id number] Procedures Date Code Description Status 06/09/2019 88958 With Endobronchial Ultrasound Guided Completed 06/09/2019 16645 Bronchoscopy W/Transbronchial Needle Aspiration Biopsy Completed 06/09/2019 01651 bronchoscopy w/washing (hosp) Completed 05/21/2019 79986 ECHO Transthorasic Realtime 2D W Doppler & Color Flow Hosp Completed Medical Devices Description No Information Available Encounters Type Date Location Provider Dx Diagnosis Office Visit 08/31/2019 [facility] Scott Becerra S46.012D Strain of 9:45a at MD isabel Russo/tend the rotator cuff of left shoulder, subs M75.42 Impingement syndrome of left shoulder M19.012 Primary osteoarthritis, left shoulder Office Visit 07/30/2019 9:15a Pulmonology And Leilani J84.9 [facility] [place] pulmonary disease, Sumac Tanner unspecified J96.10 Chronic respiratory failure, unsp w hypoxia or hypercapnia I27.20 Pulmonary hypertension, unspecified G47.33 Obstructive sleep apnea (adult) (pediatric) Office Visit 07/01/2019 9:15a Trace Becerra S46.012D Strain of Orthopedics at [facility] [place] musc/tend the [place] rotator cuff of left shoulder, subs M75.42 Impingement syndrome of left shoulder M19.012 Primary osteoarthritis, left shoulder S46.012D Strain of musc/tend the rotator cuff of left shoulder, subs Office Visit 06/18/2019 10:15a [facility] J98.4 Other disorders [facility] [place] of lung Sumac Tanner J84.9 Interstitial pulmonary disease, unspecified J44.9 Chronic obstructive pulmonary disease, unspecified G47.33 Obstructive sleep apnea (adult) (pediatric) R09.02 Hypoxemia Office Visit 05/27/2019 10:45a [facility] J98.4 Other disorders [facility] [place] of lung Sumac Tanner J44.9 Chronic obstructive pulmonary disease, unspecified G47.33 Obstructive sleep apnea (adult) (pediatric) R09.02 Hypoxemia Office Visit 05/25/2019 10:51a [facility] Kamala Ordonez J96.21 Acute and chronic Assoc,pc DEVELOPMENT VICE PRESIDENT respiratory Hospitalists failure with hypoxia J96.22 Acute and chronic respiratory failure with hypercapnia J98.4 Other disorders of lung J44.1 Chronic obstructive pulmonary disease w (acute) exacerbation A41.9 Sepsis, unspecified organism Office Visit 05/24/2019 10:50a [facility] Jj J96.01 Acute respiratory Assoc,pc Noreen, PA failure with Hospitalists hypoxia J44.1 Chronic obstructive pulmonary disease w (acute) exacerbation J98.4 Other disorders of lung I10 Essential (primary) hypertension Office Visit 05/23/2019 10:50a [facility] Jj J96.01 Acute respiratory Assoc,pc Noreen, PA failure with Hospitalists hypoxia J44.1 Chronic obstructive pulmonary disease w (acute) exacerbation J98.4 Other disorders of lung I10 Essential (primary) hypertension Office Visit 05/22/2019 10:49a [facility] Jj J96.01 Acute respiratory Assoc,pc [place], PA failure with Hospitalists hypoxia J44.1 Chronic obstructive pulmonary disease w (acute) exacerbation J98.4 Other disorders of lung I10 Essential (primary) hypertension Office Visit 05/21/2019 [facility] Samara J96.01 Acute respiratory 10:49a Assoc,pc Jaylon Doto, failure with Hospitalists DEVELOPMENT VICE PRESIDENT hypoxia J98.4 Other disorders of lung A41.9 Sepsis, unspecified organism Office Visit 05/21/2019 12:52p [facility] J84.9 [facility] [place] pulmonary disease, [place]ac Tanner unspecified J96.20 Acute and chr resp failure, unsp w hypoxia or hypercapnia I27.20 Pulmonary hypertension, unspecified Z87.891 Personal history of nicotine dependence Assessments Date Code Description Provider 08/31/2019 S46.012D Strain of muscle(s) and tendon(s) Scott Herman MD of the rotator cuff of left shoulder, subsequent encounter 08/31/2019 M75.42 Impingement syndrome of left Scott Herman MD shoulder 08/31/2019 M19.012 Primary osteoarthritis, left Scott Herman MD shoulder 07/30/2019 J84.9 Interstitial pulmonary disease, Leilani Mojica [...] J96.21 Acute and chronic respiratory Kamala Mery, DEVELOPMENT VICE PRESIDENT failure with hypoxia 05/25/2019 J96.22 Acute and chronic respiratory Kamala Mery, DEVELOPMENT VICE PRESIDENT failure with hypercapnia 05/25/2019 J98.4 Other disorders of lung Kamala Mery, DEVELOPMENT VICE PRESIDENT 05/25/2019 J44.1 Chronic obstructive pulmonary Kamala Mery, DEVELOPMENT VICE PRESIDENT disease with (acute) exacerbation 05/25/2019 A41.9 Sepsis, unspecified organism Kamala Mery, DEVELOPMENT VICE PRESIDENT 05/24/2019 J96.01 Acute respiratory failure with LEE Niño hypoxia 05/24/2019 J44.1 Chronic obstructive pulmonary LEE Niño disease with (acute) exacerbation 05/24/2019 J98.4 Other disorders of lung Jj Sorto, PA 05/24/2019 I10 Essential (primary) hypertension Jj Sorto, PA 05/23/2019 J96.01 Acute respiratory failure with Jj Sorto, PA hypoxia 05/23/2019 J44.1 Chronic obstructive pulmonary Jj Sorto, PA disease with (acute) exacerbation 05/23/2019 J98.4 Other disorders of lung Jj Noreen, PA 05/23/2019 I10 Essential (primary) hypertension Jj Sorto, PA 05/22/2019 J96.01 Acute respiratory failure with Jj Sorto, PA hypoxia 05/22/2019 J44.1 Chronic obstructive pulmonary Jj Sorto, PA disease with (acute) exacerbation 05/22/2019 J98.4 Other disorders of lung Jj Noreen, PA 05/22/2019 I10 Essential (primary) hypertension Jj Sorto, PA 05/21/2019 R06.89 Other abnormalities of breathing Jovanny Schrader M.D., [facility], [facility] 05/21/2019 J84.9 Interstitial pulmonary disease, Leilani Mojica MD unspecified 05/21/2019 J96.01 Acute respiratory failure with Samara Harris NP hypoxia 05/21/2019 J96.20 Acute and chronic respiratory Leilani Mojica MD failure, unspecified whether with hypoxia or hypercapnia 05/21/2019 J98.4 Other disorders of lung Samara Harris, DEVELOPMENT VICE PRESIDENT 05/21/2019 I27.20 Pulmonary hypertension, unspecified Leilani Mojica MD 05/21/2019 A41.9 Sepsis, unspecified organism Samara Harris, DEVELOPMENT VICE PRESIDENT 05/21/2019 Z87.891 Personal history of nicotine Leilani [...] rotator cuff of left shoulder, subsequent encounter Plan of Treatment Future Appointment(s):11/30/2019 8:30 am - Scott Herman MD at [facility] at [place]609/23/2019 9:15 am - Leilani Mojica MD at [facility]12/07/2019 8:00 am - Bess Mojica MD at [facility] Hpddlhzgqti08/17/2019 - Scott Herman, MDS46.012D Strain of muscle(s) and tendon(s) of the rotator cuff of left shoulder, subsequent encounterFollow up: Follow up: 3 kmyblrO31.42 Impingement syndrome of left kwwmhmodS84.012 Primary osteoarthritis, left shoulder Functional Status Description No Information Available Mental Status Description No Information Available Referrals Description No Information Available
[2019-09-27 00:49] VITALS: BP 130/100
--- NOTE | 2019-09-27 01:25 | CONSULT ---
Subjective Date of Service: 09/27/19 Interval History: Hospitalist Consult Note 49M PMH COPD and ILD on chronic 10L oxygen, ongoing tob use, ETOH use d/o, HTN, depression, BPH who presented from EMS to the ED tonight after being found down in home. He had pinpoint pupils and was given Narcan x3 in the field. When he arrived to the ED his VSS, labs showed bicarb on BMP at 42 and VBG shows PH 7.2. He required his baseline O2. Initially he denied substance use but on my interview he tells a clear story, his parents, with whom he resides were out of town for his mothers cancer tx, he reports he invited some friends and his cousin over and they snorted heroin, drank about 1 Pint of Liqour, (he usually drinks about 6-7 shots a day at baseline) and next thing he new he woke up here. Apparently, his aunt came to the house to check on him and found him obtunded and called 911. His tox screen is + opiates and his BAL 48 ED Course: His VSS remains stable, a CXR showed his diffuse ILD. He initially was placed on BiPAP but he asked for that to be removed. Over the course of 1-2 hours with monitoring he did not have any further signs of sleepiness, he was AOx4, neurologically intact and remorseful of his heroin use. We offered him observation, for possible further need of narcan but he reports he feels no need for that, he tells me he would like to go home and have a meal. He has never had ETOH withdrawal needing hospitlization. ROS: + for confusion initially but AOx4 on reassessment - for CP, worsening SOB, cough with productive sputum, STEWARD, Vision changes, N/V, abd pain, MSK changes, changes in weight. PMH: ILD COPD PSA BPH HTN, recent bronch with bx FH: Mother with cancer, Father healthy Soical: Lives with mom and dad, disabled, ETOH as per above, TOB 1PPD for many years, Illicits: Denies ever IVDU, but endorses snorting heroin Family History: Unchanged from Admission Social History: Unchanged from Admission Past Medical History: Unchanged from Admission Review of Systems - Measurements Intake and Output: Intake and Output Last 24 Hours 09/24/19 09/25/19 09/26/1913/20 06:59 06:59 06:59 06:59 Intake Total 1999 Balance 1999 Weight 200 lb Intake: IV Fluids 1999 - Review of Systems General Comments: As per HPI Objective Vital Signs - 8 hr 09/26/19 09/26/19 09/26/19 19:16 19:21 19:22 Temperature 97 F Pulse Rate 111 100 103 Respiratory 20 20 19 Rate Blood Pressure 161/104 161/104 (mmHg) O2 Sat by Pulse 82 94 95 Oximetry 09/26/19 09/26/19 09/26/19 20:00 20:21 20:51 Temperature Pulse Rate 102 105 106 Respiratory 21 19 22 Rate Blood Pressure 122/88 123/82 (mmHg) O2 Sat by Pulse 90 91 93 Oximetry 09/26/19 09/26/19 09/26/19 21:00 21:23 21:51 Temperature Pulse Rate 103 102 106 Respiratory 16 20 18 Rate Blood Pressure 139/92 118/83 (mmHg) O2 Sat by Pulse 96 86 93 Oximetry 09/26/19 09/26/19 09/26/19 22:00 22:21 22:51 Temperature Pulse Rate 111 93 99 Respiratory 22 19 26 Rate Blood Pressure 129/87 124/83 (mmHg) O2 Sat by Pulse 93 92 93 Oximetry 09/26/19 09/26/19 09/26/19 23:00 23:21 23:51 Temperature Pulse Rate 94 104 103 Respiratory 25 20 29 Rate Blood Pressure 127/90 139/95 (mmHg) O2 Sat by Pulse 93 92 93 Oximetry 09/26/19 09/27/19 09/27/19 23:55 00:00 00:21 Temperature Pulse Rate 102 104 109 Respiratory 29 41 23 Rate Blood Pressure 137/88 (mmHg) O2 Sat by Pulse 91 85 91 Oximetry 09/27/19 00:48 Temperature 96.7 F Pulse Rate 106 Respiratory 18 Rate Blood Pressure 130/100 (mmHg) O2 Sat by Pulse 90 Oximetry Oxygen Devices in Use Now: OxyMask Appearance: Chronically ill appearing man in NAD Eyes: No Scleral Icterus, PERRLA Ears/Nose/Mouth/Throat: NL Teeth, Lips, Gums, Clear Oropharnyx Neck: NL Appearance and Movements; NL JVP Respiratory: Symmetrical Chest Expansion and Respiratory Effort, - - Distant lung sounds blt, no focal consolidation rhonchi or wheeze Cardiovascular: NL Sounds; No Murmurs; No JVD, RRR Abdominal: No Hepatosplenomegaly, - - Soft Distended non tender Lymphatic: No Cervical Adenopathy Extremities: No Edema Skin: No Rash or Ulcers Neurological: Alert and Oriented x 3, NL Sensation, NL Gait, NL Muscle Strength and Tone Result Diagrams: 09/26/19 20:11 09/26/19 20:11 Diagnostic Imaging: CXR-Chronic ILD EKG Data: NSR Assessment/Plan - Billing 49M PMH COPD and ILD on chronic 10L oxygen, ongoing tob use, ETOH use d/o, HTN, depression, BPH who presented from EMS to the ED tonight after being found down in home with acute hypercarbic resp failure 2/2 to heroin overdose. We initially accepted pt for admission but s/p narcan he had rapid improvement and requested to go home, he is medically clear to do so, showing no signs of persistent overdose, no signs of ETOH withdrawal and no acute changes to his baseline lung status #Overdose: Offered supportive care, AA/NA and referral to [facility], he says will discusess with PCP #Hypercarbia: Mild on presentation by VBG, pt AOX4 without BiPAP and was only on BiPAP for roughly 20 mins before refusing it. I see no clear need to observe patient in the ER for obvious heroin overdose responsive to narcan. #Hypoxia: chronic 2/2 to ILD, pt reports he is on his baseline O2 needs #Saftey: Pt has access to his home and denies SI intentions or that he will use again. Overall he is discharged from the ED with hospitalist consultation.
== END 2019-09-27 00:48 | disposition home or self-care (01) ==
LOC: ED 19:15
DX: T40.1X1A Poisoning by heroin, accidental (unintentional), initial encounter (principal); J96.92 Respiratory failure, unspecified with hypercapnia; Y92.009 Unspecified place in unspecified non-institutional (private) residence as the place of occurrence of the external cause; J84.9 Interstitial pulmonary disease, unspecified; F10.10 Alcohol abuse, uncomplicated; Y90.2 Blood alcohol level of 40-59 mg/100 ml; I10 Essential (primary) hypertension; J44.9 Chronic obstructive pulmonary disease, unspecified; Z99.81 Dependence on supplemental oxygen; K21.9 Gastro-esophageal reflux disease without esophagitis; F41.9 Anxiety disorder, unspecified; F32.9 Major depressive disorder, single episode, unspecified; Z88.8 Allergy status to other drugs, medicaments and biological substances; Z87.891 Personal history of nicotine dependence
CPT/HCPCS: 36415; 71045; 80053; 80307; 80320; 80329; 81003; 81015; 82803; 84443; 85025; 87086; 96360; 99284; G0480

== ENCOUNTER 2019-10-19 20:59 | Inpatient (IN) | payer MEDICAID ==
--- NOTE | 2019-10-19 21:57 | ED ---
HPI Chest Pain - HPI Summary HPI Summary: Patient with history of COPD on chronic O2 at 6 L complains of SOB and chest pain starting at 4 PM. Chest pain currently resolved, but was described as sternal, /, lasted a couple hours. SOB persistent. Denies fever, cough, sore throat, and/V/V abdominal pain, change in urine, change in BM. Medical history is chronic EtOH, COPD, HTN. - History of Current Complaint Chief Complaint: EDChestPainROMI Time Seen by Provider: 10/19/19 21:55 Hx Obtained From: Patient Onset/Duration: Started Hours Ago Timing: Constant Initial Severity: Moderate Current Severity: Moderate Pain Intensity: 5 Pain Scale Used: 0-10 Numeric Chest Pain Location: Mid Sternal Chest Pain Radiates: No Aggravating Factor(s): Nothing Alleviating Factor(s): Nothing Associated Signs and Symptoms: Positive: Chest Pain, Shortness of Breath - Additional Pertinent History Primary Care Physician: SPENCER - Allergy/Home Medications Allergies/Adverse Reactions: Allergies Allergy/AdvReac Type Severity Reaction Status Date / Time amlodipine AdvReac Intermediate See Comment Verified 10/19/19 21:47 Home Medications: Home Medications Aspirin EC TAB* [Ecotrin EC Low Dose 81 MG*] 81 mg PO DAILY 10/19/19 [History Confirmed 10/19/19] Ipratropium/Albuterol Sulfate [Iprat-Albut 0.5-3(2.5) mg/3 ml] 3 ml INH Q6HR PRN 10/19/19 [History Confirmed 10/19/19] Lansoprazole CAP (NF) [Prevacid CAP (NF)] 15 mg PO DAILY 10/19/19 [History Confirmed 10/19/19] Magnesium Oxide TAB* [MagOx 400 TAB*] 400 mg PO QAM 10/19/19 [History Confirmed 10/19/19] PMH/Surg Hx/FS Hx/Imm Hx Endocrine/Hematology History: Denies: Hx Bone Marrow Disease, Hx Diabetes, Hx Sickle Cell Disease, Hx Anemia Cardiovascular History: Reports: Hx Hypercholesterolemia, Hx Hypertension - ON MEDICATION FOR Denies: Hx Angina, Hx Coronary Artery Disease, Hx Myocardial Infarction, Hx Pacemaker/ICD, Hx Valvular Heart Disease, Other Cardiovascular Problems/ Disorders Respiratory History: Reports: Hx Chronic Obstructive Pulmonary Disease (COPD), Hx Pneumonia - reported in room , Hx Sleep Apnea, Other Respiratory Problems/ Disorders - 1-2 PPD SMOKER FOR 35+ YRS. QUIT 03/2019 Denies: Hx Asthma GI History: Reports: Hx Gastroesophageal Reflux Disease - ON MEDICATION FOR, Hx Hiatal Hernia History: Reports: Hx Benign Prostatic Hyperplasia, Other Problems/ Disorders - BPH Denies: Hx Renal Disease Musculoskeletal History: Reports: Other Musculoskeletal History - recent rotator cuff repair surg- L shoulder Sensory History: Reports: Hx Contacts or Glasses - GLASSES Denies: Hx Cataracts, Hx Glaucoma, Hx Hearing Aid Opthamlomology History: Reports: Hx Contacts or Glasses - GLASSES Denies: Hx Cataracts, Hx Glaucoma Neurological History: Reports: Hx Migraine - A CHILD Denies: Other Neuro Impairments/Disorders Psychiatric History: Reports: Hx Anxiety - ON MEDICATION FOR, Hx Depression - ON MEDICATION FOR Denies: Hx Panic Disorder - Cancer History Cancer Type, Location and Year: skin, lung Hx Chemotherapy: No - Surgical History Surgery Procedure, Year, and Place: BILATERAL INGUINAL HERNIA REPAIR AN . TONSILLECTOMY AND ADENOIDECTOMY, [facility]. SKIN CA REMOVED FROM BELOW EYE 2013 [place]. LEFT SHOULDER ROTATOR CUFF [place] [facility] [place]est[place] Reactions: No - Immunization History Immunizations Up to Date: Yes Infectious Disease History: No Infectious Disease History: Denies: History Other Infectious Disease, Traveled Outside the [place] in Last 30 Days - Family History Known Family History: Negative: Blood Disorder - blood clots - Social History Alcohol Use: Weekly Alcohol Amount: 12 PACK WEEKLY Hx Substance Use: Yes Substance Use Type: Reports: None Substance Use Comment - Amount & Last Used: HX OF USE IN THE PAST Hx Tobacco Use: Yes Smoking Status (MU): Former Smoker Type: Cigarettes Amount Used/How Often: 1-2 PPD X 35 YEARS OFF AND ON Length of Time of Smoking/Using Tobacco: 35+ YRS Have You Smoked in the Last Year: Yes Review of Systems Constitutional: Negative Eyes: Negative ENT: Negative Positive: Chest Pain Positive: Shortness Of Breath Gastrointestinal: Negative Genitourinary: Negative Musculoskeletal: Negative Skin: Negative Neurological: Negative Psychological: Normal All Other Systems Reviewed And Are Negative: Yes Physical Exam Triage Information Reviewed: Yes Vital Signs On Initial Exam: Initial Vitals Temp Pulse Resp BP Pulse Ox 97.8 F 115 24 74/58 95 10/19/19 21:03 10/19/19 21:03 10/19/19 21:03 10/19/19 21:03 10/19/19 21:03 Vital Signs Reviewed: Yes Appearance: Positive: Well-Appearing Skin: Positive: Warm Head/Face: Positive: Normal Head/Face Inspection Eyes: Positive: Normal ENT: Positive: Normal ENT inspection Neck: Positive: Supple Respiratory/Lung Sounds: Positive: Rales - Mild bilaterally Cardiovascular: Positive: Tachycardia Abdomen Description: Positive: Nontender Musculoskeletal: Positive: Normal Neurological: Positive: Normal Psychiatric: Positive: Normal AVPU Assessment: Alert - Ulisses Coma Scale Best Eye Response: 4 - Spontaneous Best Motor Response: 6 - Obeys Commands Best Verbal Response: 5 - Oriented Coma Scale Total: 15 Procedures - Sedation Patient Received Moderate/Deep Sedation with Procedure: No Diagnostics - Vital Signs Vital Signs Temp Pulse Resp BP Pulse Ox 10/19/19 21:56 97.4 F 10/19/19 21:06 97.8 F 112 24 74/58 95 10/19/19 21:03 97.8 F 115 24 74/58 95 - Laboratory Result Diagrams: 10/19/19 22:40 10/19/19 22:40 Lab Statement: Any lab studies that have been ordered have been reviewed, and results considered in the medical decision making process. Chest Pain Course/Dx - Course Course Of Treatment: Patient with history of COPD on chronic O2 at 6 L complains of SOB and chest pain starting at 4 PM. Chest pain currently resolved , but was described as sternal, 8/10, lasted a couple hours. SOB persistent. Denies fever, cough, sore throat, and/V/V abdominal pain, change in urine, change in BM. Medical history is chronic EtOH, COPD, HTN. Patient tachycardic 115. Hypotensive at 74/58. 86% on 6 L. Lactic 2.5. Creatinine 1.4 for which is new onset. Initial troponin 0.26, second troponin 0.7. CRP 13. EtOH 109. Negative. CTA negative for acute process. First EKG sinus tachycardia, heart rate of [address] depression. Second EKG sinus tachycardia with heart rate of 103, resolved diffuse ST depression. Admitted to hospitalist. - Diagnoses Provider Diagnoses: Elevated troponin, Hypoxia, Acute kidney injury, COPD (chronic obstructive pulmonary disease), Chest pain, Tachycardia, Hypotension, Chronic interstitial lung disease Discharge ED - Sign-Out/Discharge Documenting (check all that apply): Patient Departure - Discharge Plan Condition: Fair Disposition: ADM[facility] Disposition and Condition Condition: FAIR Disposition: Admitted to [facility]
[2019-10-19] MEDS ORDERED: NS 0.9% 1000 ML** 1,000 ML IV ONE (22:17)
[2019-10-19 22:45] LABS: ABS Basophils 0.1 10^3/ul (0-0.2); ABS Lymphocytes 0.9 10^3/ul (1.0-4.8); ABS Monocytes 1.1 10^3/ul (0-0.8); ABS Neutrophils 7.7 10^3/ul (1.5-7.7); ABS Nucleated RBC 0.1 10^3/ul; Eosinophil % 0.4 %; Hematocrit 43 % (42-52); Hemoglobin 14.1 g/dL (14.0-18.0); Lymphocyte % 8.9 %; Mean Corpuscular HGB Conc 33 g/dL (31-36); Mean Corpuscular Hemoglobin 30 pg (27-31); Mean Corpuscular Volume 91 fL (80-94); Mean Platelet Volume 7.4 fL (7.4-10.4); Nucleated Red Blood Cells % 0.5; Platelet Count 295 10^3/uL (150-450); Red Blood Count 4.73 10^6 /uL (4.18-5.48); Red Cell Distribution Width 15 % (10-15); White Blood Count 9.7 10^3/uL (3.5-10.8)
[2019-10-19 22:51] LABS: INR 0.96 (0.82-1.09)
[2019-10-19 23:04] LABS: ALT 29 U/L (7-52); Albumin 3.8 g/dL (3.2-5.2); Albumin/Globulin Ratio 1.2 (1-3); Alkaline Phosphatase 58 U/L (34-104); BUN/Creatinine Ratio 20.8 (8-20); Blood Urea Nitrogen 30 mg/dL (6-24); C Reactive Protein 13.11 mg/L (<8.01); CO2 Carbon Dioxide 40 mmol/L (22-32); Calcium 9.4 mg/dL (8.6-10.3); Chloride 89 mmol/L (101-111); EGFR African American 62.8 (>60); EGFR Non-African American 51.9 (>60); Globulin 3.1 g/dL (2-4); Glucose 162 mg/dL (70-100); Magnesium 1.9 mg/dL (1.9-2.7); Phosphorus 3.6 mg/dL (2.5-5.0); Sodium 138 mmol/L (135-145); Total Protein 6.9 g/dL (6.4-8.9)
[2019-10-19] MEDS ORDERED: Iodixanol* (CONTRAST) 320 MG/ML 100 ML SDV IV ONE (23:14)
[2019-10-19 23:22] LABS: Troponin I 0.26 ng/mL (<0.03)
[2019-10-19 23:35] LABS: Anion Gap 9 mmol/L (2-11)
[2019-10-19 23:40] LABS: TSH (Thyroid Stimulating Horm) 3.06 mcIU/mL (0.34-5.60)
[2019-10-20 00:24] LABS: Influenza A Molecular Negative (Negative); Influenza B Molecular Negative (Negative)
[2019-10-20 01:14] LABS: AST 21 U/L (13-39)
[2019-10-20] MEDS ORDERED: Albuterol 2.5 MG/3 ML NEB.SOL* (0.083%) INH PRN (02:03)
[2019-10-20] MEDS ORDERED: Aspirin 81 mg CHEW TAB* 81 MG TAB.CHEW PO ONE (02:03)
[2019-10-20] MEDS ORDERED: Ondansetron INJ* 2 MG/ML VIAL IV PRN (02:03)
[2019-10-20] MEDS ORDERED: Thiamine INJ* 100 MG, Folic Acid IV* 1 MG, Multiple Vitamin IV ADULT* 10 ML in NS 0.9% ... IV ONE (02:04)
[2019-10-20] MEDS ORDERED: Heparin VIAL(*) 5000 UNITS/ML VIAL (FIVE THOUSAND) IV PRN (02:17)
[2019-10-20] MEDS ORDERED: LORazepam TAB(*) 1 MG PO SCH (03:00)
[2019-10-20] MEDS ORDERED: Lorazepam PYXIS KEY PRN ×2 (03:03→12:41)
[2019-10-20] MEDS ORDERED: LORazepam INJ* 2 MG/ML 1 ML VIAL ONE ×2 (03:09→12:45)
[2019-10-20] MEDS ORDERED: Lorazepam PYXIS KEY ONE ×2 (03:09→12:45)
[2019-10-20] MEDS: Albuterol/Ipratropium NEB.SOL* Albuterol 2.5 MG/Ipratropium 0.5 MG 3 ML INH SCH ×2 (03:13→08:04)
[2019-10-20] MEDS: methylPREDNISolone SOD 40 MG* 1 ML VIAL IV SCH ×3 (03:19→19:41)
[2019-10-20 03:28] LABS: Urine Appearance Clear; Urine Bilirubin Negative (Negative); Urine Blood Negative (Negative); Urine Color Yellow; Urine Glucose Negative (Negative); Urine Ketones Negative (Negative); Urine Nitrite Negative (Negative); Urine Protein 2+(100 mg/dL) (Negative); Urine Specific Gravity 1.044 (1.010-1.030); Urine Urobilinogen Negative (Negative)
[2019-10-20] MEDS: Heparin DRIP 25,000 UNITS(*) 25,000 UNITS/500 ML BAG IV SCH ×2 (03:31→23:28)
[2019-10-20 03:40] LABS: Urine Bacteria 1+ (Absent); Urine Red Blood Cell 1+(3-5/hpf) (Absent); Urine Squamous Epithelial Cell Present (Absent); Urine White Blood Cell Trace(0-5/hpf) (Absent)
[2019-10-20 03:45] LABS: Urine Benzodiazepine Screen None Detected (None Detect); Urine Opiates Screen None Detected (None Detect)
[2019-10-20 03:58] LABS: Troponin I 1.21 ng/mL (<0.03)
--- NOTE | 2019-10-20 04:24 | HP ---
CC: Dr. Marte; Dr. Mojica; Dr. Schrader * HISTORY AND PHYSICAL: DATE OF ADMISSION: 10/20/19 PRIMARY CARE PROVIDER: Dr. Marte. ATTENDING PHYSICIAN WHILE IN THE HOSPITAL: Dr. Ines Mendoza * (report dictated by Gui Jhaveri NP). CHIEF COMPLAINT: Shortness of breath. HISTORY OF PRESENT ILLNESS: Mr. Patel is a 49-year-old male patient who carries a history of COPD, interstitial lung disease, and chronic O2 between 6 and 10 L, hypertension, GERD, and history of BPH, who states today the reason he is coming into the hospital, he says that he was sitting at his home and he was noted to becoming very short of breath, coming on suddenly. He could not catch his breath. He was concerned and he came to the ER for evaluation. He denied specifically to me having any chest discomfort whatsoever. He states that he has had a runny nose recently. He has been feeling somewhat stuffed up. He is in the midst of trying to get a lung transplant. Of note, he was seen in the ED about a month ago, admitted at that point to be drinking 6 to 7 shots a day and was using heroin, snorting it. He says that he did have 3 shots of alcohol before he came in today. He denied having any drug use. He did report to the ER provider that he was having chest pain, but I asked him twice and he denied chest pain, so the story is inconsistent. He denies nausea , vomiting, no fevers, no chills. Denies having any abdominal discomfort. He came into the ED. When he presented, it was noted that he was tachycardic, he was tachypneic and was hypotensive. He was given fluids, started on Vapotherm and did well. However, it was noted that he has elevated troponin. Because of his history, we were asked to evaluate for admission. Again he specifically denied any chest pain now. He says that he is feeling better. PAST MEDICAL HISTORY: Significant for: 1. COPD. 2. Interstitial lung disease. 3. Hypertension. 4. GERD. 5. BPH. PAST SURGICAL HISTORY: He has had a left knee arthroscopy. He has had shoulder surgery and eye surgery. MEDICATIONS: Home meds that he reported include: 1. Prevacid 15 mg daily. 2. DuoNeb 3 cc inhaled every 6 hours as needed. 3. Magnesium oxide 400 mg daily. 4. Aspirin 81 mg daily. 5. Prednisone 20 mg daily. 6. Flomax 0.4 mg daily. 7. Cozaar 50 mg daily. 8. Lasix 40 mg daily. 9. Cymbalta 60 mg p.o. daily. 10. Ventolin 2 puffs inhale every 4 to 6 hours as needed. ALLERGIES TO MEDICATION: Include AMLODIPINE. FAMILY HISTORY: His mother has a cancer. He says his father is healthy. SOCIAL HISTORY: He is a former smoker. He does state to me that he drinks 3 times a week, although previous notes from about a month ago he states he was drinking 6 to 7 shots a day. He denied drug use to me, however, 3 to 4 weeks ago, he did admit snorting heroin as well. Surrogate decision maker, he does not wish to appointment one at this point. REVIEW OF SYSTEMS: There is no documented fever. He denies any significant weight change to me. Denies having any double vision. There is no ear discharge. He denies having any rhinorrhea. There is no sore throat, no thyroid enlargement. He denied chest pain to me but did report that to the ER provider. He does admit to shortness of breath. He does admit dyspnea on exertion. Denies having any abdominal pain. There is no nausea, no vomiting, no dysuria, no frequency, no loss of consciousness, no pruritus, no skin ulceration. Review of 14 systems completed, all others are negative. PHYSICAL EXAMINATION GENERAL: At this time, Mr. Patel is a 49-year-old male patient. He is chronically ill appearing. He is sitting in the ED stretcher. He does not appear to be in any acute distress. VITAL SIGNS: Now, blood pressure 122/81, pulse of 98, respirations are 24, O2 saturation 97%, temperature was 97.4. HEENT: Head: Atraumatic and normocephalic. Eyes: EOMs intact. Sclerae anicteric and not pale. Throat: Oral mucosa appears to be moist. No oropharyngeal erythema. NECK: Supple. LUNGS: Actually was diminished throughout. He had very little air movement noted. Equal diaphragmatic expansion. HEART: Heart sounds S1, S2. Regular rate and rhythm. ABDOMEN: Soft, flat, nontender. EXTREMITIES: Pulses were 2+ throughout. He is moving all 4 extremities with 5/ 5 strength. He had no peripheral edema. NEUROLOGIC: Neurologically, he does have a tremor noted. It does appear to be action in nature. His speech is clear. His tongue is midline. He had no focal deficits noted. No facial drooping. Sensation was intact to his face. Again, EOMs were intact. Cranial nerves grossly intact as well. SKIN: Intact grossly. DIAGNOSTIC STUDIES/LAB DATA: WBC 9.7, RBC 4.73, hemoglobin 14.1, hematocrit of 43, platelet count of 295. INR of 0.96. His sodium was 138, potassium is pending, chloride 89, bicarb 40, BUN was 30, creatinine 1.44, which is up from his baseline of 0.94, glucose of 162, lactate 2.5, calcium 9.4, phos 3.6, mag 1.9, total bili 0.3, AST 21, ALT 29, alk phos 58. Troponin initially was 0.26, is now 0.70. CRP of 13. TSH of 3.06. Serology was negative for flu. He did have a CTA of the chest obtained today, which impression: No pulmonary emboli findings which in the proper clinical setting can be seen with pulmonary hypertension, lung findings with etiologies including NSIP pattern, interstitial lung disease, chronic hypersensitivity, pneumonitis, respiratory bronchiolitis, organizing pneumonia, and chronic eosinophilic pneumonia, stable right lower lobe pulmonary nodule. Based on Fleischner recommendations at this time of initial scan of 1 year followup has been performed. The followup is no longer necessary. He did have a chest x-ray obtained today and again under my review, I did not appreciate any effusions. He does appear to have increased prominence of the airways, which again can be seen in interstitial lung disease. He did get several EKGs obtained. His initial EKG at 2100, when he came in, does show sinus tachycardia with right bundle branch block and diffuse ST depression. The EKG was repeated with second troponin and is actually improved. The tachycardia was still there and the right bundle branch block, but the ST depression was again improved. Old medical records were reviewed. ASSESSMENT AND PLAN: Mr. Patel is a 49-year-old male patient with multiple medical problems, coming into the ED today with complaints again initially to the ER provider of chest discomfort and shortness of breath, although he denies this to me twice. He was evaluated. It was noted that his troponins were elevated. Because of these findings and the EKG findings that are now improved, we were asked to evaluate for admission. He will be admitted under inpatient status for: 1. Shortness of breath: Again etiology is unclear at this point. It could have been an anginal equivalent. Certainly, I would trend his troponin. He does appear to have a non-ST elevation myocardial infarction. Appears to be a type 2 in the setting of demand ischemia given the hypotension and the tachycardia. Since improving this with fluids, he is doing better, actually I am going to start him on heparin drip. I will order a cardiology consult. We will get an echocardiogram, cycle his troponins and repeat the EKG in the morning. I am also giving him aspirin. Given the history of drug abuse, I am not using a beta-hayden just yet. I would like to get a urinary tox screen as certainly cocaine could cause some of this findings possibly and I also hesitant to use a beta-hayden because of his significant pulmonary disease. At this point, again he is chest pain free, so we will continue monitoring him, start him on a heparin drip and baby aspirin will be given. We will trend his troponins. 2. Non-ST elevation myocardial infarction: Again I suspect this is demand mediated. We will get a cardiology consult, echo, cycle his troponins, placed him on heparin, and also aspirin. 3. History of EtOH abuse: I am checking a urine toxicology and also a serum alcohol level. We will place him on WA protocol and I will be giving him a banana bag. 4. History of chronic obstructive pulmonary disease with interstitial lung disease. I suspect he does have an exacerbation of this. He may have a viral upper respiratory infection that is exacerbating this. We will give him steroids. I will start nebs around the clock and p.r.n. albuterol with Dulera. I am holding on antibiotic therapy at this point. I do note the lactic acid of 2.5. I am going to trend this and check a urine Legionella antigen and strep pneumo antigen. Given the elevated lactic acid, I will also obtain blood cultures, but I do not want to have an obvious source, so again I am holding on antibiotic treatment. Flu was negative. He does have a component of respiratory failure. He is on Vapotherm, now doing well. 5. Hypertension: Continue meds as prescribed. 6. Gastroesophageal reflux disease: Continue meds as prescribed. 7. Benign prostatic hypertrophy: Continue meds as prescribed as stable. 8. Acute kidney injury. I will check a fractional excretion of sodium. We will hydrate him. We will repeat his labs in the morning. If this is continuing to trend up, we could consider getting an ultrasound and I am also again hydrating him to see if this improves. 9. DVT prophylaxis: He will be on heparin drip. 10. Code status: He is a full code. 11. Fluids, electrolytes, and nutrition: He can have a heart-healthy diet. TIME SPENT: On the admission was 60 minutes, greater than half the time spent face- to-face with the patient obtaining my history and physical; other half time spent going over the plan of care with the patient and implementing plan of care. I discussed the plan of care with my attending, Dr. Mendoza; she is in agreement. GUI JHAVERI, MIGUEL [id number]/CPS #: [id number] ABHINAV
[2019-10-20] MEDS: LORazepam INJ* 2 MG/ML 1 ML VIAL IV PUSH PRN ×5 (06:15→23:26)
[2019-10-20 06:18] LABS: ABS Lymphocytes 0.5 10^3/ul (1.0-4.8); ABS Monocytes 0.2 10^3/ul (0-0.8); ABS Neutrophils 6.2 10^3/ul (1.5-7.7); Eosinophil % 0.2 %; Hematocrit 43 % (42-52); Hemoglobin 13.8 g/dL (14.0-18.0); Lymphocyte % 6.6 %; Mean Corpuscular HGB Conc 32 g/dL (31-36); Mean Corpuscular Hemoglobin 30 pg (27-31); Mean Corpuscular Volume 92 fL (80-94); Mean Platelet Volume 7.4 fL (7.4-10.4); Nucleated Red Blood Cells % 0.3; Platelet Count 266 10^3/uL (150-450); Red Blood Count 4.67 10^6 /uL (4.18-5.48); Red Cell Distribution Width 15 % (10-15); White Blood Count 6.9 10^3/uL (3.5-10.8)
[2019-10-20 06:33] LABS: BUN/Creatinine Ratio 25.7 (8-20); Blood Urea Nitrogen 26 mg/dL (6-24); Calcium 8.6 mg/dL (8.6-10.3); Chloride 94 mmol/L (101-111); EGFR African American 94.6 (>60); EGFR Non-African American 78.2 (>60); Glucose 142 mg/dL (70-100); Potassium 4.6 mmol/L (3.5-5.0); Sodium 141 mmol/L (135-145)
[2019-10-20 06:46] LABS: Anion Gap 4 mmol/L (2-11); CO2 Carbon Dioxide 43 mmol/L (22-32)
[2019-10-20 06:55] LABS: Troponin I 1.43 ng/mL (<0.03)
[2019-10-20] MEDS ORDERED: Metoprolol Tartrate IV* 1 MG/ML 5 ML VIAL IV ONE (06:57)
[2019-10-20] MEDS ORDERED: NS 0.9% 1000 ML** 1,000 ML IV SCH (07:00)
[2019-10-20] MEDS: Mometasone/Formoter 200/5 MDI INH SCH ×2 (08:04→19:17)
[2019-10-20] MEDS ORDERED: Perflutren Lipid Microsphere* 3 ML VIAL ONE (08:36)
[2019-10-20] MEDS ORDERED: Losartan TAB* 25 MG PO SCH (09:00)
[2019-10-20] MEDS: Tamsulosin CAP* 0.4 MG PO SCH (09:04)
[2019-10-20] MEDS: Thiamine TAB* 100 MG TAB PO SCH (09:04)
[2019-10-20] MEDS: Multivitamins/Minerals TAB PO SCH (09:04)
[2019-10-20] MEDS: Aspirin EC TAB* 81 MG TAB.EC PO SCH (09:04)
[2019-10-20] MEDS: Folic Acid TAB* 1 MG PO SCH (09:04)
[2019-10-20] MEDS: Pantoprazole TAB * 40 MG TAB PO SCH (09:04)
[2019-10-20] MEDS: DULoxetine DR CAP* 60 MG CAP.DR PO SCH (09:06)
[2019-10-20 10:19] LABS: Creatine Kinase 125 U/L (10-223)
[2019-10-20 10:23] LABS: Creatine Kinase 50 U/L (10-223)
[2019-10-20 10:23] LABS: Creatine Kinase 86 U/L (10-223)
[2019-10-20 10:25] LABS: CKMB ng/mL 26.2 ng/mL (0.6-6.3)
[2019-10-20 10:28] LABS: CKMB ng/mL 17.4 ng/mL (0.6-6.3)
[2019-10-20 10:29] LABS: CKMB ng/mL 8.1 ng/mL (0.6-6.3)
[2019-10-20 11:36] LABS: Creatine Kinase 159 U/L (10-223)
[2019-10-20 11:38] LABS: CKMB ng/mL 37.2 ng/mL (0.6-6.3)
--- NOTE | 2019-10-20 12:34 | ECHO ---
*[facility]* [place] [address] Fax #: [phone] Transthoracic Echocardiogram Patient: Mathieu Patel : 1970 Study Date: 10/20/2019 Age: 49 Gender: M HR: 77 bpm Height: 71 in /180.3 cm BSA: 2.17 m^2 Weight: 214.6 lb /97.5 kg BMI: 30 kg/m^2 *Slack Line Yarder: Imelda Rizzo [facility] *Referring Physician: * Gui JhaveriReading Physician: * Pravin Raines MD Indications: SOB. History: Chronic obstructive pulmonary disease. Risk factors: Current tobacco use. Hypertension. Dyslipidemia. Conclusions Summary: - Left ventricle: The cavity size is trivially reduced. Wall thickness is mildly to moderately increased. Systolic function is normal. The estimated ejection fraction is 55-60%. Doppler parameters are consistent with abnormal left ventricular relaxation (grade 1 diastolic dysfunction). - Right ventricle: The cavity size is mildly to moderately dilated. Wall thickness is mildly to moderately increased. Systolic function is moderately to severely reduced. Overall RV function is worse in comparison with the study of May 2019. - Left atrium: The atrium is mildly to moderately dilated. - Pulmonary arteries: Systolic pressure is mildly increased. The peak pressure during systole by Doppler is 39.0 mm Hg. - Similar to 06/03 except that the right ventricle seems more hypokinetic. Study data: Transthoracic echocardiogram. Procedure: Transthoracic echocardiography was performed. Image quality was suboptimal. Intravenous Definity , 4 mlswas administered. Image enhancement administered by BELLA [facility] nurse supervisor. Complete 2D, spectral Doppler, and color flow Doppler. Location: ICU Patient status: Inpatient. Patient room number: 8. The previous study was not available, so comparison is made to the report of May 2019. Rhythm: Normal sinus rhythm. Findings Left ventricle: The cavity size is trivially reduced. Wall thickness is mildly to moderately increased. Systolic function is normal. The estimated ejection fraction is 55-60%. Wall motion is normal; there are no regional wall motion abnormalities. Doppler parameters are consistent with abnormal left ventricular relaxation (grade 1 diastolic dysfunction). Right ventricle: The cavity size is mildly to moderately dilated. Wall thickness is mildly to moderately increased. Systolic function is moderately to severely reduced. Overall RV function is worse in comparison with the study of May 2019. Ventricular septum: There is diastolic flattening and systolic flattening. Left atrium: The atrium is mildly to moderately dilated. Right atrium: The atrium is moderately to severely dilated. Mitral valve: The leaflets are normal thickness. There is no evidence of stenosis. There is no significant regurgitation. Aortic valve: The valve is trileaflet. The leaflets are normal thickness. There is no evidence of stenosis. There is no significant regurgitation. Tricuspid valve: The leaflets are normal thickness. There is no evidence of stenosis. There is no significant regurgitation. Pulmonic valve: The leaflets are normal thickness. There is no evidence of stenosis. There is no significant regurgitation. Aorta: The aortic root appears normal. The aortic arch appears normal. Pericardium: There is no significant pericardial effusion. Pulmonary arteries: Systolic pressure is mildly increased. May be underestimated. Systemic veins: Inferior vena cava: The vessel is dilated. There is (< 50%) respiratory change in the IVC dimension. Measurements Left ventricle Value Ref Aortic valve continued Value Ref ANGELA, LAX (L) 3.4 cm 4.2 - 5.8 VTI, S 10.7 cm ----- ESD, LAX 2.5 cm 2.5 - 4.0 Mean grad, S 1.0 mm Hg ----- FS, LAX 26 % 25 - 43 Peak grad, S 2.0 mm Hg ----- PW, ED, LAX (H) 1.4 cm 0.6 - 1.0 E', lat jade, TDI (L) 9.0 cm/sec >=10.0 Mitral valve Value Ref E/e', lat jade, 5 Peak E 0.43 m/sec --- -- TDI Peak A 0.5 m/sec ----- E', med jade, TDI (L) 5.3 cm/sec >=7.0 Decel time 124 ms ----- E/e', med jade, 8 Peak E/A ratio 0.9 --- -- TDI E', avg, TDI 7.2 cm/sec Pulmonic valve Value Ref E/e', avg, TDI 6 <=14 Peak v, S 0.48 m/sec ----- Peak grad, S 1.0 mm Hg ----- LVOT Value Ref Peak skyler, S 0.63 m/sec Tricuspid valve Value Ref Mean grad, S 1 mm Hg TR peak v 2.5 m/sec <=2.8 Peak RV-RA grad, S 25 mm Hg ----- Ventricular septum Value Ref IVS, ED (H) 1.3 cm 0.6 - 1.0 Aortic root Value Ref Root diam 3.0 cm <4.3 Right ventricle Value Ref Root max diam, ED 3.0 cm <4.3 AW thickness, ED (H) 0.9 cm 0.1 - 0.5 ANGELA, LAX 3.8 cm Ascending aorta Value Ref ANGELA minor ax, A4C (H) 3.9 cm 1.9 - 3.5 AAo AP diam, S 2.6 cm ----- mid AAo AP diam/bsa, S 1.2 cm/m^2 ----- Pressure, S 40 mm Hg Aortic arch Value Ref Left atrium Value Ref Arch diam 2.6 cm ----- AP dim, ES 3.60 cm 3.00 - 4.00 Decending aorta Value Ref ML dim, A4C 3.7 cm Rosalina peak skyler 0.45 m/sec ----- SI dim, A4C 5.1 cm Vol/bsa, ES, A/L (H) 39 ml/m^2 16 - 34 Pulmonary artery Value Ref Pressure, S 39.0 mm Hg ----- Right atrium Value Ref SI dim, ES (H) 5.7 cm 3.4 - 5.3 Inferior vena cava Value Ref ML dim, ES, A4C (H) 6.3 cm 2.6 - 4.4 Diam 2.9 cm ----- Estimated RAP 15 mm Hg Aortic valve Value Ref Jade diam, ED 2.2 cm Peak v, S 0.79 m/sec Legend: (L) and (H) trina values outside specified reference range. Prepared and electronically signed by Pravin Raines MD 10/20/2019 12:32
[2019-10-20] MEDS ORDERED: LORazepam INJ* 2 MG/ML 1 ML VIAL IV PUSH ONE (12:41)
[2019-10-20] MEDS: Dexmedetomidine* 1,000 MCG in NS 0.9% 250 ML* 240 ML IV SCH (13:03)
[2019-10-20 13:04] LABS: Urine Creatinine Concentration 1.78 mg/dL
--- NOTE | 2019-10-20 13:12 | CONS ---
CONSULTATION REPORT: DATE OF CONSULT: 10/20/19 ATTENDING PHYSICIAN: Dr. Pravin Raines, Cardiology.* (DICTATED BY SAUMYA ADAM NP) PRIMARY METER/RELAY TECHNICIAN: None. PRIMARY BUSINESS BROKER: Dr. Mojica. CHIEF COMPLAINT: Shortness of breath. HISTORY OF PRESENT ILLNESS: Mathieu Patel presented to [facility] on 10/19/19 according to the emergency provider record due to complaints of shortness of breath and reported chest pain that had lasted for several hours and it was 8/10. The patient was tachycardic and hypotensive. Pulse 115, blood pressure 74/58. Troponin was 0.26. The patient had informed the hospitalist that prior to presenting he had consumed 3 shots of liquor. He had denied having any recent drug use since his presentation, 09/27/19, where he had snorted heroin. Apparently, he had denied chest pain to the admitting hospitalist. He was admitted to the ICU. Troponin continues to rise. Last troponin was 1.43. This morning, he denies chest pain, although it is difficult to obtain an accurate history of symptomatology. The patient is anxious, thrashing in bed, not cooperative, and not communicating adequately when asked questions. Thus most of the information obtained for history of present illness was through medical records. The patient has been receiving IV Ativan due to concern for alcohol withdrawal. Pulmonology consultation has been placed. There is no family at his bedside. Again, he denies chest pain when asked. The patient was recently admitted as mentioned before on 09/27/19. Apparently, he was found down with pinpoint pupils, given Narcan and had reported snorting heroin. Last echocardiogram was on 05/21/19; per report LVEF 55% to 60%. No regional wall motion abnormalities. Moderate reduction in systolic function involving right ventricle. Moderate right atrial dilatation, functionally benign heart valves. Last ischemic evaluation was 06/24/18 via Lexiscan nuclear stress test. No ST changes with administration of regadenoson to suggest ischemia. Per myocardial perfusion imaging report, no fixed or reversible defect. LVEF 62%, TID 1.03. PAST MEDICAL HISTORY: Listed includes: 1. Obstructive sleep apnea. 2. Interstitial lung disease, referred for lung transplant. 3. Hepatic steatosis with enlarged liver, on prior duplex. 4. Hypertension. 5. Alcoholism. 6. Substance abuse. 7. COPD. PAST SURGICAL HISTORY: Includes: 1. Bronchoscopy, 06/09/19. 2. Left knee arthroscopy. HOME MEDICATIONS: Listed includes: 1. Ventolin HFA 2 puff inhalation q.4 to 6 hours p.r.n. 2. Cymbalta 60 mg a day. 3. Lasix 40 mg a day. 4. Losartan 50 mg a day. 5. Flomax 0.4 mg p.o. daily. 6. Prednisone 20 mg a day. 7. Aspirin 81 mg a day. 8. Magnesium oxide 400 mg a day. 9. Prevacid 15 mg a day. 10. Supplemental oxygen reported 10 L a day. ALLERGIES: Listed includes NORVASC. FAMILY HISTORY: Unable to obtain at this current time due to the patient's current medical status. SOCIAL HISTORY: The patient is unemployed, resides at home with his mom. He is a known alcoholic, was previously admitted on 09/27/19 due to heroin use. Unfortunately, at this time, given the patient's current medical status, I am not able to obtain further adequate history of his social behavior. REVIEW OF SYSTEMS: Extremely limited due the patient's current medical status. He denies chest pain when asked. Does report shortness of breath. Otherwise , unable to obtain. PHYSICAL EXAM: Temperature 97.6, pulse 79, respirations 18, oxygenation 96% on Vapotherm, and blood pressure 102/71. General: The patient is sitting upright in bed, trying to climb out of bed. He is somewhat cooperative; however, he continues to try to climb out of the bed. He is alert to self. Unable to assess alertness to time or place due to the patient's current anxious behavior. He does not appear to be in any apparent distress other than some confusion and agitation. HEENT: Head is atraumatic, normocephalic. Oral mucosa is moist. The patient is currently getting respiratory treatment. Neck : Supple. Trachea midline. Unable to assess JVD. No carotid bruits. Cardiac : Normal S1, S2. Regular rate and rhythm. No murmur, rub, or gallop noted. Lungs: Auscultated posteriorly, severely diminished throughout. Respirations are labored at a rate of 24. No retractions appreciated. Abdomen is distended, firm, nontender. Normoactive bowel sounds x4. Extremities: No pedal edema. No clubbing, no cyanosis. Skin: Intact. No evidence of rashes, ecchymosis, or lesions noted. DIAGNOSTIC STUDIES/LAB DATA: Blood work from 10/20/19, white count 6.9, hemoglobin 13.8, hematocrit 43, platelets 266. INR 0.96. Sodium 141, potassium 4.6, chloride 94, carbon dioxide 43, BUN 26, creatinine 1.01. Troponin #1 is 0.26. Troponin #2 is 0.70. Troponin #3 is 1.21. Troponin #4 is 1.43. TSH 3.06. Urine toxicology, serum alcohol level was 109. Chest, thoracic CTA 10/19/19; per radiology report, no PE. Unchanged lung findings, the etiologies including NSIP pattern interstitial lung disease, chronic hypersensitivity pneumonitis, respiratory bronchiolitis, organizing pneumonia, chronic eosinophilic pneumonia. Stable right lower lobe pulmonary nodule. ECG 10/20/19; reviewed, sinus tachycardia rate [address] segment depression noted in lead II, III, aVF, V4 through V6. No ST segment elevation appreciated. Isolated PVC noted in lateral leads. Echocardiogram today pending. ASSESSMENT AND PLAN: 1. [id number] myocardial infarction; the patient presented with shortness of breath. He reported chest pain to the emergency room provider; however, has denied experiencing chest pain since that time. He has diffuse minimal ST segment depression noted on ECG with elevated troponin. Last troponin was 1.43. Echocardiogram is pending to rule out wall motion abnormality. This is likely demand based ischemia given the patient presented with shortness of breath and has known end-stage interstitial lung disease, previously referred for a lung transplant. At this current time, I would not recommend beta-hayden therapy given known polysubstance abuse with recent evaluation for heroin overdose, 09/27/19. There is no ST segment elevation appreciated on EKG. At this current time, recommend cycling isoenzymes, continuing IV heparin therapy, and awaiting echocardiogram. We will follow closely. Continue aspirin 81 mg a day. We will place the patient on Lipitor therapy and again follow closely. 2. History of interstitial lung disease; follow with Dr. Mojica. According to her September 2019 office note, the patient had been referred for lung transplant but had wanted to delay until insurance issues were addressed. We will defer to primary team and await pulmonology consultation. 3. History of hypertension, on ARB therapy, currently, hypotensive. We will hold ARB therapy at this time. 4. History of alcoholism, currently on delirium tremens protocol. 5. History of polysubstance abuse with recent known usage of heroin. The patient denied recent drug use since his 09/27/19 evaluation. U-tox screen was negative except for alcohol. 6. Disposition: Pending course. We will await echocardiogram. Continue to cycle isoenzymes. Continue aspirin, IV heparin therapy, and we will add statin therapy. Given history of polysubstance abuse, please avoid beta-hayden therapy at this current time. Dr. Raines agrees with the above assessment and plan. SAUMYA ADAM, MIGUEL [id number]/[facility] #: [id number] Patient examined and d/w Ms. Adam and matrix inspector Ms. Harris on 10.20.2019. Echo revealed normal LV function and cor pulmonale with significant RV dysfunction. Given the overall findings, I suspect that the troponin elevation may have been related to increased demand and possible RV ischemia. The predominant issues at present relate to his severe lung disease and substance abuse both of which are potentially life threatening. Agree with above plan. In light of noncompliance and substance, the risks of anticoagulation are significant. Consider reducing antiplatelet rx/anticoagulation to asa 81 mg po qd and dvt prophylaxis.. Barbie Raines MD 10.21.19 12;55 pm. [facility]
[2019-10-20 16:39] LABS: Troponin I 1.58 ng/mL (<0.03)
--- NOTE | 2019-10-20 17:33 | PN ---
Progress Note - Progress Note Date of Service: 10/20/19 Note: Follow Up Critical Care Note from Admission: Patient on WAM protocol and becoming further agitated with some increased WOB and desaturations. Placed on precedex drip at low starting rate with good effect. Respiratory able to wean off vapo and on to salter without incident. I discussed withdrawal precautions with Mathieu's sister and father at bedside and his need to stay sober if he were to qualify for lung transplant list. They are aware of the gravity of his situation. Dr. Mojica and Dr. Raines also in to see the patient in consultation. CV - NSTEMI with elevated trops likely demand mediated in the face of severely decompensated ILD, numbers trending down - Continue heparin gtt and ASA, optimize with statin - ECHO with severe RV dysfunction and preserved EF - Cardiology recommending continuing conservative medical management Pulm - Successfully weaned off vapo to salter - Continue IV steroids and taper, no indication for IV atbx at this time - Highly recommend quitting tobacco indefinitely Neuro - ETOH withdrawal on WA, utilizing precedex, supplement with thiamine, folic acid and MVI - Highly recommend abstinence indefinitely
--- NOTE | 2019-10-20 17:48 | PN ---
Date of Service: 10/20/19 Critical Care Services: Brief follow Up Critical Care Note from Admission: Patient on WAM protocol and becoming further agitated with some increased WOB and desaturations. Placed on precedex drip at low starting rate with good effect. Respiratory able to wean off vapo and on to salter without incident. I discussed withdrawal precautions with Mathieu's sister and father at bedside and his need to stay sober if he were to qualify for lung transplant list. They are aware of the gravity of his situation. Dr. Mojica and Dr. Raines also in to see the patient in consultation. Vital Signs: Temp Pulse Resp BP SpO2 FiO2 97.2 F 74 14 84/68 100 80 10/20/19 12:00 10/20/19 16:00 10/20/19 16:00 10/20/19 16:00 10/20/19 16:00 10/20 16:00 Physical Exam: General: Arousable, NAD HEENT: Normocephalic, atraumatic, non-icteric sclera, moist oral mucosa Neck: soft, supple, no JVD CV: Regular rate and rhythm, no murmurs or rubs Pulm/Chest: Poor bilateral air entry, diminished throughout lung ocasio, no rhonchi or rales, no wheeze Abdomen/GI: soft, nontender, nondistended, +BS noted MSK/Skin: warm, dry, intact, +2 pulses+, no edema or cyanosis Neuro: RASS-2, sedated with precedex, arousable Fluid Balance (Past 24 Hours): Intake & Output 10/18/19 10/19/19 10/20/19 10/21/19 06:59 06:59 06:59 06:59 Intake Total 1858 485 Output Total 275 Balance 1858 210 Weight 215 lb 2.738 oz Intake: IV Fluids 1858 Thiamine 858 Oral 485 Output: Urine 275 Labs: Laboratory Results - last 24 hr 10/19/19 10/19/19 10/19/19 22:07 22:40 22:40 WBC 9.7 RBC 4.73 Hgb 14.1 Hct 43 MCV 91 MCH 30 MCHC 33 RDW 15 Plt Count 295 MPV 7.4 Neut % (Auto) 78.6 Lymph % (Auto) 8.9 [place] % (Auto) 11.4 Eos % (Auto) 0.4 Baso % (Auto) 0.7 Absolute Neuts (auto) 7.7 Absolute Lymphs (auto) 0.9 L Absolute Monos (auto) 1.1 H Absolute Eos (auto) 0.0 Absolute Basos (auto) 0.1 Absolute Nucleated RBC 0.1 Nucleated RBC % 0.5 INR (Anticoag Therapy) 0.96 APTT Sodium Potassium Chloride Carbon Dioxide Anion Gap BUN Creatinine Est GFR ( Amer) Est GFR (Non-Af Amer) BUN/Creatinine Ratio Glucose Lactic Acid Calcium Phosphorus Magnesium Total Bilirubin AST ALT Alkaline Phosphatase Total Creatine Kinase CK-MB (CK-2) Troponin I C-Reactive Protein Total Protein Albumin Globulin Albumin/Globulin Ratio TSH Urine Color Urine Appearance Urine pH Ur Specific [place] Urine Protein Urine Ketones Urine Blood Urine Nitrate Urine Bilirubin Urine Urobilinogen Ur Leukocyte Esterase Urine WBC (Auto) Urine RBC (Auto) Ur Squamous Epith Cells Urine Bacteria Ur Creatinine Concen U Sodium Concentration Urine Glucose Urine Opiates Screen Ur Barbiturates Screen Ur Phencyclidine Scrn Ur Amphetamines Screen U Benzodiazepines Scrn Urine Cocaine Screen U Cannabinoids Screen Serum Alcohol Influenza A (Rapid) Negative Influenza B (Rapid) Negative 10/19/19 10/20/19 10/20/19 22:40 00:42 00:42 WBC RBC Hgb Hct MCV MCH MCHC RDW Plt Count MPV Neut % (Auto) Lymph % (Auto) [place] % (Auto) Eos % (Auto) Baso % (Auto) Absolute Neuts (auto) Absolute Lymphs (auto) Absolute Monos (auto) Absolute Eos (auto) Absolute Basos (auto) Absolute Nucleated RBC Nucleated RBC % INR (Anticoag Therapy) APTT Sodium 138 Potassium TNP Chloride 89 L Carbon Dioxide 40 H Anion Gap 9 BUN 30 H Creatinine 1.44 H Est GFR ( Amer) 62.8 Est GFR (Non-Af Amer) 51.9 BUN/Creatinine Ratio 20.8 H Glucose 162 H Lactic Acid 2.5 H* Calcium 9.4 Phosphorus 3.6 Magnesium 1.9 Total Bilirubin 0.30 AST TNP 21 ALT 29 Alkaline Phosphatase 58 Total Creatine Kinase 50 86 CK-MB (CK-2) 8.1 H 17.4 H Troponin I 0.26 H* 0.70 H* C-Reactive Protein 13.11 H Total Protein 6.9 Albumin 3.8 Globulin 3.1 Albumin/Globulin Ratio 1.2 TSH 3.06 Urine Color Urine Appearance Urine pH Ur Specific [place] Urine Protein Urine Ketones Urine Blood Urine Nitrate Urine Bilirubin Urine Urobilinogen Ur Leukocyte Esterase Urine WBC (Auto) Urine RBC (Auto) Ur Squamous Epith Cells Urine Bacteria Ur Creatinine Concen U Sodium Concentration Urine Glucose Urine Opiates Screen Ur Barbiturates Screen Ur Phencyclidine Scrn Ur Amphetamines Screen U Benzodiazepines Scrn Urine Cocaine Screen U Cannabinoids Screen Serum Alcohol Influenza A (Rapid) Influenza B (Rapid) 10/20/19 10/20/19 10/20/19 02:10 02:10 02:15 WBC RBC Hgb Hct MCV MCH MCHC RDW Plt Count MPV Neut % (Auto) Lymph % (Auto) [place] % (Auto) Eos % (Auto) Baso % (Auto) Absolute Neuts (auto) Absolute Lymphs (auto) Absolute Monos (auto) Absolute Eos (auto) Absolute Basos (auto) Absolute Nucleated RBC Nucleated RBC % INR (Anticoag Therapy) APTT Sodium Potassium Chloride Carbon Dioxide Anion Gap BUN Creatinine Est GFR ( Amer) Est GFR (Non-Af Amer) BUN/Creatinine Ratio Glucose Lactic Acid 1.7 Calcium Phosphorus Magnesium Total Bilirubin AST ALT Alkaline Phosphatase Total Creatine Kinase CK-MB (CK-2) Troponin I C-Reactive Protein Total Protein Albumin Globulin Albumin/Globulin Ratio TSH Urine Color Yellow Urine Appearance Clear Urine pH 6.0 Ur Specific [place] 1.044 H Urine Protein 2+(100 mg/dl) A Urine Ketones Negative Urine Blood Negative Urine Nitrate Negative Urine Bilirubin Negative Urine Urobilinogen Negative Ur Leukocyte Esterase Negative Urine WBC (Auto) Trace(0-5/hpf) Urine RBC (Auto) 1+(3-5/hpf) A Ur Squamous Epith Cells Present A Urine Bacteria 1+ A Ur Creatinine Concen U Sodium Concentration Urine Glucose Negative Urine Opiates Screen None detected Ur Barbiturates Screen None detected Ur Phencyclidine Scrn None detected Ur Amphetamines Screen None detected U Benzodiazepines Scrn None detected Urine Cocaine Screen None detected U Cannabinoids Screen None detected Serum Alcohol Influenza A (Rapid) Influenza B (Rapid) 10/20/19 10/20/19 10/20/19 02:26 02:55 02:55 WBC RBC Hgb Hct MCV MCH MCHC RDW Plt Count MPV Neut % (Auto) Lymph % (Auto) [place] % (Auto) Eos % (Auto) Baso % (Auto) Absolute Neuts (auto) Absolute Lymphs (auto) Absolute Monos (auto) Absolute Eos (auto) Absolute Basos (auto) Absolute Nucleated RBC Nucleated RBC % INR (Anticoag Therapy) APTT 33.3 Sodium Potassium Chloride Carbon Dioxide Anion Gap BUN Creatinine Est GFR ( Amer) Est GFR (Non-Af Amer) BUN/Creatinine Ratio Glucose Lactic Acid Calcium Phosphorus Magnesium Total Bilirubin AST ALT Alkaline Phosphatase Total Creatine Kinase 125 CK-MB (CK-2) 26.2 H Troponin I 1.21 H* C-Reactive Protein Total Protein Albumin Globulin Albumin/Globulin Ratio TSH Urine Color Urine Appearance Urine pH Ur Specific [place] Urine Protein Urine Ketones Urine Blood Urine Nitrate Urine Bilirubin Urine Urobilinogen Ur Leukocyte Esterase Urine WBC (Auto) Urine RBC (Auto) Ur Squamous Epith Cells Urine Bacteria Ur Creatinine Concen U Sodium Concentration Urine Glucose Urine Opiates Screen Ur Barbiturates Screen Ur Phencyclidine Scrn Ur Amphetamines Screen U Benzodiazepines Scrn Urine Cocaine Screen U Cannabinoids Screen Serum Alcohol 109 H Influenza A (Rapid) Influenza B (Rapid) 10/20/19 10/20/19 10/20/19 06:07 06:07 09:40 WBC 6.9 RBC 4.67 Hgb 13.8 L Hct 43 MCV 92 MCH 30 MCHC 32 RDW 15 Plt Count 266 MPV 7.4 Neut % (Auto) 90.4 Lymph % (Auto) 6.6 [place] % (Auto) 2.5 Eos % (Auto) 0.2 Baso % (Auto) 0.3 Absolute Neuts (auto) 6.2 Absolute Lymphs (auto) 0.5 L Absolute Monos (auto) 0.2 Absolute Eos (auto) 0.0 Absolute Basos (auto) 0.0 Absolute Nucleated RBC 0.0 Nucleated RBC % 0.3 INR (Anticoag Therapy) APTT 48.9 H Sodium 141 Potassium 4.6 Chloride 94 L Carbon Dioxide 43 H* Anion Gap 4 BUN 26 H Creatinine 1.01 Est GFR ( Amer) 94.6 Est GFR (Non-Af Amer) 78.2 BUN/Creatinine Ratio 25.7 H Glucose 142 H Lactic Acid Calcium 8.6 Phosphorus Magnesium Total Bilirubin AST ALT Alkaline Phosphatase Total Creatine Kinase 159 CK-MB (CK-2) 37.2 H Troponin I 1.43 H* C-Reactive Protein Total Protein Albumin Globulin Albumin/Globulin Ratio TSH Urine Color Urine Appearance Urine pH Ur Specific [place] Urine Protein Urine Ketones Urine Blood Urine Nitrate Urine Bilirubin Urine Urobilinogen Ur Leukocyte Esterase Urine WBC (Auto) Urine RBC (Auto) Ur Squamous Epith Cells Urine Bacteria Ur Creatinine Concen U Sodium Concentration Urine Glucose Urine Opiates Screen Ur Barbiturates Screen Ur Phencyclidine Scrn Ur Amphetamines Screen U Benzodiazepines Scrn Urine Cocaine Screen U Cannabinoids Screen Serum Alcohol Influenza A (Rapid) Influenza B (Rapid) 10/20/19 10/20/19 10/20/19 09:40 12:30 15:40 WBC RBC Hgb Hct MCV MCH MCHC RDW Plt Count MPV Neut % (Auto) Lymph % (Auto) [place] % (Auto) Eos % (Auto) Baso % (Auto) Absolute Neuts (auto) Absolute Lymphs (auto) Absolute Monos (auto) Absolute Eos (auto) Absolute Basos (auto) Absolute Nucleated RBC Nucleated RBC % INR (Anticoag Therapy) APTT Sodium Potassium Chloride Carbon Dioxide Anion Gap BUN Creatinine Est GFR ( Amer) Est GFR (Non-Af Amer) BUN/Creatinine Ratio Glucose Lactic Acid Calcium Phosphorus Magnesium Total Bilirubin AST ALT Alkaline Phosphatase Total Creatine Kinase CK-MB (CK-2) Troponin I 1.60 H* 1.58 H* C-Reactive Protein Total Protein Albumin Globulin Albumin/Globulin Ratio TSH Urine Color Urine Appearance Urine pH Ur Specific [place] Urine Protein Urine Ketones Urine Blood Urine Nitrate Urine Bilirubin Urine Urobilinogen Ur Leukocyte Esterase Urine WBC (Auto) Urine RBC (Auto) Ur Squamous Epith Cells Urine Bacteria Ur Creatinine Concen 1.78 U Sodium Concentration 77 Urine Glucose Urine Opiates Screen Ur Barbiturates Screen Ur Phencyclidine Scrn Ur Amphetamines Screen U Benzodiazepines Scrn Urine Cocaine Screen U Cannabinoids Screen Serum Alcohol Influenza A (Rapid) Influenza B (Rapid) Studies: *[facility]* [place] [address] Fax #: [phone] Transthoracic Echocardiogram Patient: Mathieu Patel Octavia : 1970 Study Date: 10/20/2019 Age: 49 Gender: M HR: 77 bpm Height: 71 in /180.3 cm BSA: 2.17 m^2 Weight: 214.6 lb /97.5 kg BMI: 30 kg/m^2 *Licensed Real Estate Broker: * Imelda Billings [facility] *Referring Physician: * Gui JhaveriReading Physician: * Pravin Raines MD Indications: SOB. History: Chronic obstructive pulmonary disease. Risk factors: Current tobacco use. Hypertension. Dyslipidemia. Conclusions Summary: - Left ventricle: The cavity size is trivially reduced. Wall thickness is mildly to moderately increased. Systolic function is normal. The estimated ejection fraction is 55-60%. Doppler parameters are consistent with abnormal left ventricular relaxation (grade 1 diastolic dysfunction). - Right ventricle: The cavity size is mildly to moderately dilated. Wall thickness is mildly to moderately increased. Systolic function is moderately to severely reduced. Overall RV function is worse in comparison with the study of May 2019. - Left atrium: The atrium is mildly to moderately dilated. - Pulmonary arteries: Systolic pressure is mildly increased. The peak pressure during systole by Doppler is 39.0 mm Hg. - Similar to 06/03 except that the right ventricle seems more hypokinetic. This report is only to be considered final once signed by the Provider(s) as displayed in the "<Electronically Signed by >" field (s). Absence of a signature indicates the report is in a draft status and still needs to be finalized. In the event this document was created by someone other than the signing Provider, the individual initiating the document will be listed in the "Entered by:" or "Dictated by:" ocasio. Nutrition: Heart healthy diet Impression: This is a 49 year old male with history of end stage interstitial lung disease, COPD, tobacco abuse, ETOH abuse and recent accidental heroin overdose that presented to the ED with complaints of increasing shortness of breath: Diagnoses: 1. Hypoxic respiratory failure, acute on chronic 2. ETOH withdrawal 3. NSTEMI Plan: CV - NSTEMI with elevated trops peaked at 1.60 likely demand mediated in the face of severely decompensated ILD, numbers trending down - Continue heparin gtt and ASA, optimize with statin - ECHO with severe RV dysfunction and preserved EF - Cardiology recommending continuing conservative medical management Pulm - Successfully weaned off vapo to salter - Continue IV steroids and taper, no indication for IV atbx at this time - Continue dulera - Highly recommend quitting tobacco indefinitely given combination of COPD and end stage ILD Neuro - ETOH withdrawal on WAM, utilizing precedex, supplement with thiamine, folic acid and MVI - Very concerned that withdrawal symptoms will increase CV and pulm work and further compromise status further - Highly recommend abstinence indefinitely GI - HH diet when more awake MSK/SKIN - Pressure ulcer prophy, T&P Q2h Endo - No active issues Heme - No active issues ID - No indications for atbx treatment DVT prophy - On heparin gtt FULL CODE status Disposition: Requires ICU monitoring for respiratory failure and precedex support during withdrawal. Coordinated care with staff and family. Critical care time spent, 35 minutes.
--- NOTE | 2019-10-20 20:32 | CONS ---
PULMONARY CONSULTATION REPORT: DATE OF CONSULT: 10/20/19 CONSULTATION REQUESTED BY: Gui Jhaveri NP REASON FOR CONSULTATION: Evaluation of hypoxemic respiratory failure. HISTORY OF PRESENT ILLNESS: The patient is a 49-year-old male with history of COPD; interstitial lung disease; chronic respiratory failure, on O2 between 6 to 10 L at home; hypertension; GERD; BPH. The patient known to me from prior inpatient and outpatient evaluation. The patient recently was hospitalized for heroin overdose. The patient was brought in for evaluation of worsening shortness of breath. He was noted to be having significantly high alcohol levels. The patient was also noted to have elevated troponins. He has denied nausea, vomiting, fevers, or chills as per admission records. The patient was also noted to be tachycardic, tachypneic, and hypotensive. He was started on fluids, Vapotherm, and was monitored grossly in the ICU. The patient was seen and examined at bedside. The patient was having little episodes of agitation today due to EtOH overdose. The patient was started on Precedex. The patient is sleepy and sedated at the time of my evaluation. PAST MEDICAL HISTORY: 1. COPD. 2. Interstitial lung disease. 3. Hypertension. 4. GERD. 5. BPH. PAST SURGICAL HISTORY: Left knee arthroscopy, shoulder surgery, and eye surgery. MEDICATIONS: 1. Prevacid. 2. DuoNeb. 3. Magnesium oxide. 4. Aspirin. 5. Prednisone. 6. Flomax. 7. Cozaar. 8. Lasix. 9. Cymbalta. 10. Ventolin. ALLERGIES TO MEDICATIONS: AMLODIPINE. FAMILY HISTORY: Mother with cancer and father is healthy. SOCIAL HISTORY: Former smoker. He has been drinking alcohol 3 times a week, although previously he did not have significant drinking issue. He was noted to be positive with heroin on the last admission. REVIEW OF SYSTEMS: The patient on admission has denied fevers or weight changes. He continues to have hypoxemic respiratory failure and was compliant with oxygen usage. Review of systems is otherwise negative. PHYSICAL EXAM: The patient in bed, in no apparent distress. Vital Signs: Temperature 97.2, pulse 75 beats per minute, respiratory rate 19 per minute, O2 sat 100% on high-flow O2, blood pressure 95/64. HEENT: Pupils equal, reactive to light. Mucous membranes moist. Lungs: Diminished air entry bilaterally. Prolonged expiratory phase. Cardiovascular: S1, S2 present, tachycardic. Abdomen: Obese. Bowel sounds present. Extremities: Normal range of motion. Skin: No rash or bruises. DIAGNOSTIC STUDIES/LAB DATA: CT scan of the chest was personally reviewed by me. Evidence of scattered ground-glass opacities and prominent interstitium. The patient also with basal atelectasis. No significant change in CT findings in comparison with prior scans. WBC 6.9, hemoglobin 13.8, hematocrit 43, platelet count 266. Sodium 141, potassium 4.6, chloride 94, bicarb 43, BUN 26, creatinine 1.01. Lactic acid 1.7. Troponin 1.60. Serum alcohol 109. UA showed 2+ protein, 1+ rbc. Influenza A and B negative. CT chest as described above. IMPRESSION AND RECOMMENDATIONS: 49-year-old male with interstitial lung disease likely secondary to occupational exposures and also prior smoking history with chronic hypoxemic respiratory failure requiring high FiO2, admitted for shortness of breath, found to be having acute on chronic hypoxemic respiratory failure and hypercapnic respiratory failure, also with EtOH toxicity. The patient with mild withdrawal symptoms today, has otherwise been stable. He is started on high-flow, which will be titrated as tolerated. He is also on Solu-Medrol. He is empirically started on antibiotics. He is receiving nebulizers. Thank you for allowing me to participate in the care of the patient. Will follow up with you. [id number]/CPS #: [id number] MTDD
[2019-10-20] MEDS ORDERED: Atorvastatin* 80 MG TAB PO ONE (21:00)
[2019-10-21] MEDS ORDERED: LORazepam INJ* 2 MG/ML 1 ML VIAL IV PUSH ONE ×2 (00:30→10:15)
[2019-10-21] MEDS ORDERED: Lorazepam PYXIS KEY ONE (00:32)
[2019-10-21] MEDS ORDERED: LORazepam INJ* 2 MG/ML 1 ML VIAL ONE (00:33)
[2019-10-21] MEDS: Dexmedetomidine* 1,000 MCG in NS 0.9% 250 ML* 240 ML IV SCH ×3 (03:31→21:08)
[2019-10-21] MEDS: methylPREDNISolone SOD 40 MG* 1 ML VIAL IV SCH ×3 (03:32→19:23)
[2019-10-21] MEDS: LORazepam INJ* 2 MG/ML 1 ML VIAL IV PUSH PRN ×6 (03:54→22:16)
[2019-10-21 04:39] LABS: ABS Lymphocytes 0.4 10^3/ul (1.0-4.8); ABS Monocytes 0.3 10^3/ul (0-0.8); ABS Neutrophils 6.1 10^3/ul (1.5-7.7); Hematocrit 43 % (42-52); Hemoglobin 13.5 g/dL (14.0-18.0); Lymphocyte % 6.1 %; Mean Corpuscular HGB Conc 31 g/dL (31-36); Mean Corpuscular Hemoglobin 29 pg (27-31); Mean Corpuscular Volume 93 fL (80-94); Nucleated Red Blood Cells % 0.6; Platelet Count 235 10^3/uL (150-450); Red Blood Count 4.59 10^6 /uL (4.18-5.48); Red Cell Distribution Width 16 % (10-15); White Blood Count 6.9 10^3/uL (3.5-10.8)
[2019-10-21 04:54] LABS: BUN/Creatinine Ratio 34.6 (8-20); Calcium 8.4 mg/dL (8.6-10.3); EGFR African American 88.5 (>60); EGFR Non-African American 73.2 (>60)
[2019-10-21 04:57] LABS: Potassium 6.2 mmol/L (3.5-5.0)
[2019-10-21] MEDS ORDERED: Sodium Polystyrene ORAL.SOL* 15 GM/60 ML BTL PO ONE (05:55)
[2019-10-21] MEDS ORDERED: Sodium Polystyrene RECTAL* 30 GM/120 ML RECTAL.SUS PR ONE (06:30)
[2019-10-21] MEDS: Aspirin EC TAB* 81 MG TAB.EC PO SCH (07:57)
[2019-10-21] MEDS: Multivitamins/Minerals TAB PO SCH (07:58)
[2019-10-21] MEDS: Folic Acid TAB* 1 MG PO SCH (07:58)
[2019-10-21] MEDS: Mometasone/Formoter 200/5 MDI INH SCH ×2 (07:58→19:17)
[2019-10-21] MEDS: DULoxetine DR CAP* 60 MG CAP.DR PO SCH (07:58)
[2019-10-21] MEDS: Tamsulosin CAP* 0.4 MG PO SCH (07:59)
[2019-10-21] MEDS: Thiamine TAB* 100 MG TAB PO SCH (07:59)
[2019-10-21] MEDS: Pantoprazole TAB * 40 MG TAB PO SCH (07:59)
[2019-10-21 08:45] LABS: BUN/Creatinine Ratio 37.4 (8-20); Blood Urea Nitrogen 40 mg/dL (6-24); Calcium 9.1 mg/dL (8.6-10.3); Chloride 93 mmol/L (101-111); EGFR African American 88.5 (>60); EGFR Non-African American 73.2 (>60); Glucose 235 mg/dL (70-100); Sodium 137 mmol/L (135-145)
[2019-10-21 08:53] LABS: CO2 Carbon Dioxide 44 mmol/L (22-32); Potassium 6.3 mmol/L (3.5-5.0)
[2019-10-21 08:54] LABS: Troponin I 0.88 ng/mL (<0.03)
[2019-10-21] MEDS ORDERED: CALCIUM GLUCONATE* 1 GM/10 ML VIAL (in Pyxis) IV PUSH ONE (08:58)
[2019-10-21] MEDS ORDERED: Dextrose 50% Syringe 50 ML* 25 GM/50 ML SYRINGE IV PUSH ONE ×2 (09:00→16:19)
[2019-10-21] MEDS ORDERED: Insulin LISPRO* 1 UNITS UNIT SUBCUT ONE (09:00)
[2019-10-21] MEDS ORDERED: Insulin REGULAR(*) 1 UNITS UNIT IV ONE (10:10)
--- NOTE | 2019-10-21 15:12 | PN ---
Date of Service: 10/21/19 Critical Care Services: Patient seen and examined. Placed back on bipap this morning for elevated CO2 and low pH. Patient was also persistently agitated and seems to be withdrawing more and requiring ativan in addition to precedex drip. Bipap being titrated. Also had elevated potassium, but no changes on EKG. Vital Signs: Temp Pulse Resp BP SpO2 FiO2 98.5 F 69 20 125/93 97 70 10/21/19 12:00 10/21/19 12:00 10/21/19 13:00 10/21/19 12:00 10/21/19 12:00 10/21 12:00 Physical Exam: General: Arousable on bipap, NAD HEENT: Normocephalic, atraumatic, non-icteric sclera, moist oral mucosa Neck: soft, supple, no JVD CV: Regular rate and rhythm, no murmurs or rubs Pulm/Chest: Poor bilateral air entry, diminished throughout lung ocasio, no rhonchi or rales, no wheeze Abdomen/GI: soft, nontender, nondistended, +BS noted MSK/Skin: warm, dry, intact, +2 pulses+, no edema or cyanosis Neuro: RASS-2, sedated with precedex, arousable Fluid Balance (Past 24 Hours): I= O= Net Intake & Output 10/19/19 10/20/19 10/21/19 10/22/19 06:59 06:59 06:59 06:59 Intake Total 1858 2612.5 Output Total 275 450 Balance 1858 2337.5 -450 Weight 215 lb 2.738 oz 218 lb 11.177 oz Intake: IV Fluids 1858 Thiamine 858 IVPB 1200 IVF 1200 Medicated IV 927.5 Heparin 605.6 Precedex 321.9 Oral 485 Output: Urine 275 450 Womack 0 Other: Estimated Void Large Labs: Laboratory Results - last 24 hr 10/20/19 10/20/19 10/20/19 15:40 15:40 21:35 WBC RBC Hgb Hct MCV MCH MCHC RDW Plt Count MPV Neut % (Auto) Lymph % (Auto) Spalding % (Auto) Eos % (Auto) Baso % (Auto) Absolute Neuts (auto) Absolute Lymphs (auto) Absolute Monos (auto) Absolute Eos (auto) Absolute Basos (auto) Absolute Nucleated RBC Nucleated RBC % APTT 72.1 H 65.4 H Patient Temperature ABG pH ABG pH (Temp Correct) ABG pCO2 ABG pCO2 (Temp Corrct ABG pO2 ABG pO2 (Temp Correct ABG HCO3 ABG O2 Saturation ABG Base Excess Respiration Rate O2 Delivery Device Ventilator Type Vent Mode FiO2 Inspiratory Time PEEP Pressure Support Pressure Control EPAP IPAP BiPAP Sodium Potassium Chloride Carbon Dioxide Anion Gap BUN Creatinine Est GFR ( Amer) Est GFR (Non-Af Amer) BUN/Creatinine Ratio Glucose Calcium Troponin I 1.58 H* 10/21/19 10/21/19 10/21/19 04:24 04:24 06:15 WBC 6.9 RBC 4.59 Hgb 13.5 L Hct 43 MCV 93 MCH 29 MCHC 31 RDW 16 H Plt Count 235 MPV 8.0 Neut % (Auto) 89.0 Lymph % (Auto) 6.1 Spalding % (Auto) 4.7 Eos % (Auto) 0.0 Baso % (Auto) 0.2 Absolute Neuts (auto) 6.1 Absolute Lymphs (auto) 0.4 L Absolute Monos (auto) 0.3 Absolute Eos (auto) 0.0 Absolute Basos (auto) 0.0 Absolute Nucleated RBC 0.0 Nucleated RBC % 0.6 APTT Patient Temperature Not Reportable ABG pH 7.29 L ABG pH (Temp Correct) Not Reportable ABG pCO2 86 H* ABG pCO2 (Temp Corrct Not Reportable ABG pO2 59 L* ABG pO2 (Temp Correct Not Reportable ABG HCO3 33.3 H ABG O2 Saturation 91.4 L ABG Base Excess 11.0 H Respiration Rate Not Reportable O2 Delivery Device n/c Ventilator Type Not Reportable Vent Mode Not Reportable FiO2 41 Inspiratory Time Not Reportable PEEP Not Reportable Pressure Support Not Reportable Pressure Control Not Reportable EPAP Not Reportable IPAP Not Reportable BiPAP Not Reportable Sodium 137 Potassium 6.2 H* D Chloride 96 L Carbon Dioxide 39 H Anion Gap 2 BUN 37 H Creatinine 1.07 Est GFR ( Amer) 88.5 Est GFR (Non-Af Amer) 73.2 BUN/Creatinine Ratio 34.6 H Glucose 225 H Calcium 8.4 L Troponin I 0.88 H* 0210/21/19 10/21/19 08:16 08:20 10:30 WBC RBC Hgb Hct MCV MCH MCHC RDW Plt Count MPV Neut % (Auto) Lymph % (Auto) Spalding % (Auto) Eos % (Auto) Baso % (Auto) Absolute Neuts (auto) Absolute Lymphs (auto) Absolute Monos (auto) Absolute Eos (auto) Absolute Basos (auto) Absolute Nucleated RBC Nucleated RBC % APTT Patient Temperature Not Reportable Not Reportable ABG pH 7.24 L 7.32 L ABG pH (Temp Correct) Not Reportable Not Reportable ABG pCO2 96 H* 79 H* ABG pCO2 (Temp Corrct Not Reportable Not Reportable ABG pO2 167 H 89 ABG pO2 (Temp Correct Not Reportable Not Reportable ABG HCO3 32.5 H 33.6 H ABG O2 Saturation 99.7 H 98.4 H ABG Base Excess 9.7 H 11.1 H Respiration Rate Not Reportable Not Reportable O2 Delivery Device v60 Ventilator Type Not Reportable Not Reportable Vent Mode Not Reportable s/t FiO2 100 70 Inspiratory Time Not Reportable Not Reportable PEEP Not Reportable Not Reportable Pressure Support Not Reportable Not Reportable Pressure Control Not Reportable Not Reportable EPAP Not Reportable 5 IPAP Not Reportable 25 BiPAP Not Reportable Not Reportable Sodium 137 Potassium 6.3 H* Chloride 93 L Carbon Dioxide 44 H* Anion Gap Not Reportable BUN 40 H Creatinine 1.07 Est GFR ( Amer) 88.5 Est GFR (Non-Af Amer) 73.2 BUN/Creatinine Ratio 37.4 H Glucose 235 H Calcium 9.1 Troponin I 10/21/19 13:40 WBC RBC Hgb Hct MCV MCH MCHC RDW Plt Count MPV Neut % (Auto) Lymph % (Auto) Spalding % (Auto) Eos % (Auto) Baso % (Auto) Absolute Neuts (auto) Absolute Lymphs (auto) Absolute Monos (auto) Absolute Eos (auto) Absolute Basos (auto) Absolute Nucleated RBC Nucleated RBC % APTT Patient Temperature ABG pH ABG pH (Temp Correct) ABG pCO2 ABG pCO2 (Temp Corrct ABG pO2 ABG pO2 (Temp Correct ABG HCO3 ABG O2 Saturation ABG Base Excess Respiration Rate O2 Delivery Device Ventilator Type Vent Mode FiO2 Inspiratory Time PEEP Pressure Support Pressure Control EPAP IPAP BiPAP Sodium Potassium 6.1 H* Chloride Carbon Dioxide Anion Gap BUN Creatinine Est GFR ( Amer) Est GFR (Non-Af Amer) BUN/Creatinine Ratio Glucose Calcium Troponin I Studies: *[facility]* [place] [address] Fax #: [phone] Transthoracic Echocardiogram Patient: Mathieu Patel : 1970 Study Date: 10/20/2019 Age: 49 Gender: M HR: 77 bpm Height: 71 in /180.3 cm BSA: 2.17 m^2 Weight: 214.6 lb /97.5 kg BMI: 30 kg/m^2 *Glove Brusher: * Imelda Billings [facility] *Referring Physician: * Gui Jhaveri *Reading Physician: * Pravin Raines MD Indications: SOB. History: Chronic obstructive pulmonary disease. Risk factors: Current tobacco use. Hypertension. Dyslipidemia. Conclusions Summary: - Left ventricle: The cavity size is trivially reduced. Wall thickness is mildly to moderately increased. Systolic function is normal. The estimated ejection fraction is 55-60%. Doppler parameters are consistent with abnormal left ventricular relaxation (grade 1 diastolic dysfunction). - Right ventricle: The cavity size is mildly to moderately dilated. Wall thickness is mildly to moderately increased. Systolic function is moderately to severely reduced. Overall RV function is worse in comparison with the study of May 2019. - Left atrium: The atrium is mildly to moderately dilated. - Pulmonary arteries: Systolic pressure is mildly increased. The peak pressure during systole by Doppler is 39.0 mm Hg. - Similar to 06/03 except that the right ventricle seems more hypokinetic. This report is only to be considered final once signed by the Provider(s) as displayed in the "<Electronically Signed by >" field (s). Absence of a signature indicates the report is in a draft status and still needs to be finalized. In the event this document was created by someone other than the signing Provider, the individual initiating the document will be listed in the "Entered by:" or "Dictated by:" ocasio. Nutrition: Heart healthy no caffeine Impression: This is a 49 year old male with history of end stage interstitial lung disease, COPD, tobacco abuse, ETOH abuse and recent accidental heroin overdose that presented to the ED with complaints of increasing shortness of breath: Diagnoses: 1. Hypoxic, hypercapneic respiratory failure, acute on chronic 2. ETOH withdrawal 3. NSTEMI Plan: CV - NSTEMI with elevated trops peaked at 1.60, now down to 0.88, likely demand mediated in the face of severely decompensated ILD and RV dysfunction - Heparin gtt DCd, continue ASA, optimize with statin - ECHO with severe RV dysfunction and preserved EF - Cardiology recommending continuing conservative medical management Pulm - Failed salter, escalated to Bipap overnight, titrating to continue to blow off CO2, follow serial ABGs and follow mental status. Oxygenating appropriately. - Continue IV steroids and taper, no indication for IV atbx at this time - Continue dulera - Highly recommend quitting tobacco indefinitely given combination of COPD and end stage ILD Neuro - ETOH withdrawal on WAM, utilizing precedex, supplement with thiamine, folic acid and MVI, ativan PRN - Very concerned that withdrawal symptoms will increase CV and pulm work and further compromise status further - Highly recommend abstinence indefinitely GI - HH diet when more awake MSK/SKIN - Pressure ulcer prophy, T&P Q2h Endo - Considering elevated sugar and hyperkalemia today, check A1c, start accuchecks Q6h and cover with lispro SS. Renal - Follow strict I/O - Potassium elevated in the presence of respiratory acidosis and relative hyperglycemia but no documented hx of DM. Also previous renal function over the last few years shows periodic elevated creatinine; not unreasonable that he may have underlying CKD as well. Will continue to treat to lower K with Ca+ gluconate, insulin and D5, Heme - No active issues ID - No indications for atbx treatment DVT prophy - Off heparin gtt, start heparin SQ FULL CODE status Disposition: Requires ICU monitoring for respiratory failure and precedex support during withdrawal. Coordinated care with staff and family. Critical care time spent, 35 minutes.
[2019-10-21] MEDS ORDERED: Dextrose 50% Syringe 50 ML* 25 GM/50 ML SYRINGE IV PUSH PRN (15:44)
[2019-10-21] MEDS ORDERED: Insulin REGULAR(*) 1 UNITS UNIT IV PUSH ONE (16:29)
[2019-10-21] MEDS: Insulin LISPRO* 1 UNITS UNIT SUBCUT SCH (18:17)
[2019-10-22] MEDS: Insulin LISPRO* 1 UNITS UNIT SUBCUT SCH ×4 (00:11→18:05)
[2019-10-22] MEDS: LORazepam INJ* 2 MG/ML 1 ML VIAL IV PUSH PRN ×10 (01:18→22:54)
[2019-10-22] MEDS ORDERED: Enalaprilat IV* 1.25 MG/ML 1 ML VIAL (1.25 MG) IV PRN (03:53)
[2019-10-22] MEDS: methylPREDNISolone SOD 40 MG* 1 ML VIAL IV SCH ×3 (04:03→19:59)
[2019-10-22 04:17] LABS: ABS Lymphocytes 0.5 10^3/ul (1.0-4.8); ABS Monocytes 0.5 10^3/ul (0-0.8); ABS Neutrophils 8.1 10^3/ul (1.5-7.7); ABS Nucleated RBC 0.1 10^3/ul; Hematocrit 42 % (42-52); Hemoglobin 13.7 g/dL (14.0-18.0); Lymphocyte % 5.4 %; Mean Corpuscular HGB Conc 33 g/dL (31-36); Mean Corpuscular Hemoglobin 30 pg (27-31); Mean Corpuscular Volume 92 fL (80-94); Mean Platelet Volume 8.3 fL (7.4-10.4); Nucleated Red Blood Cells % 0.7; Platelet Count 206 10^3/uL (150-450); Red Blood Count 4.58 10^6 /uL (4.18-5.48); Red Cell Distribution Width 15 % (10-15); White Blood Count 9.2 10^3/uL (3.5-10.8)
[2019-10-22] MEDS: Dexmedetomidine* 1,000 MCG in NS 0.9% 250 ML* 240 ML IV SCH ×4 (04:17→22:37)
[2019-10-22 04:34] LABS: Calcium 9.5 mg/dL (8.6-10.3); EGFR African American 79.1 (>60); EGFR Non-African American 65.3 (>60); Potassium 5.5 mmol/L (3.5-5.0)
[2019-10-22] MEDS: DULoxetine DR CAP* 60 MG CAP.DR PO SCH (08:29)
[2019-10-22] MEDS: Aspirin EC TAB* 81 MG TAB.EC PO SCH (08:29)
[2019-10-22] MEDS: Folic Acid TAB* 1 MG PO SCH (08:29)
[2019-10-22] MEDS: Tamsulosin CAP* 0.4 MG PO SCH (08:30)
[2019-10-22] MEDS: Mometasone/Formoter 200/5 MDI INH SCH ×2 (08:30→19:53)
[2019-10-22] MEDS: Multivitamins/Minerals TAB PO SCH (08:30)
[2019-10-22] MEDS: Pantoprazole TAB * 40 MG TAB PO SCH (08:30)
[2019-10-22] MEDS: Thiamine TAB* 100 MG TAB PO SCH (08:30)
--- NOTE | 2019-10-22 10:00 | PN ---
<Clotilde Adam - Last Filed: 10/22/19 10:01> Subjective Date of Service: 10/22/19 - NSTEMI Interval History: No events last night, patient bradycardic. Patient sedated. Medications Active Medications: Albuterol (Ventolin 2.5 Mg/3 Ml Neb.Vashti*) 2.5 mg INH Q2H PRN PRN Reason: SOB/WHEEZING Aspirin (Aspirin Ec Tab*) 81 mg PO DAILY [facility] Last Admin: 10/22/19 08:29 Dose: Not Given Dextrose (D50w Syringe 50 Ml*) 12.5 gm IV PUSH .FOR FS < 60 - SS PRN PRN Reason: FS < 60 Duloxetine HCl (Cymbalta Cap*) 60 mg PO QAM [facility] Last Admin: 10/22/19 08:29 Dose: Not Given Enalaprilat (Vasotec Iv*) 0.625 mg IV Q6H PRN PRN Reason: BLOOD PRESSURE Last Admin: 10/22/19 04:01 Dose: 0.625 mg Folic Acid (Folvite Tab*) 1 mg PO DAILY [facility] Last Admin: 10/22/19 08:29 Dose: Not Given Hydralazine HCl (Apresoline Iv*) 5 mg IV SLOW PU Q6H PRN PRN Reason: hypertension Dexmedetomidine HCl 1,000 mcg/ (Sodium Chloride) 250 mls @ 7.32 mls/hr IV Q6H [facility]; Protocol Insulin Human Lispro (Humalog*) 0 units SUBCUT FS Q6 ICU [facility]; Protocol Last Admin: 10/22/19 06:06 Dose: 3 units Lorazepam (Ativan Inj*) 0 mg IV PUSH Q2H PRN; Protocol PRN Reason: alcohol withdrawal Last Admin: 10/22/19 08:35 Dose: 2 mg Methylprednisolone Sodium Succinate (Solu-Medrol 40 Mg) 60 mg IV Q8H [facility] Last Admin: 10/22/19 04:03 Dose: 60 mg Miscellaneous (Ativan Pyxis Martin) 1 ea N/A .ATIVAN IV MARTIN PRN PRN Reason: PYXIS MARTIN Mometasone Furoate/Formoterol Fumar (Dulera 200/5 Mdi*) 2 puff INH BID [facility] Last Admin: 10/22/19 08:30 Dose: Not Given Multivitamins/Minerals (Theragran/Minerals Tab*) 1 tab PO DAILY [facility] Last Admin: 10/22/19 08:30 Dose: Not Given Ondansetron HCl (Zofran Inj*) 4 mg IV Q6H PRN PRN Reason: NAUSEA Pantoprazole Sodium (Protonix Tab*) 40 mg PO DAILY [facility] Last Admin: 10/22/19 08:30 Dose: Not Given Tamsulosin HCl (Flomax Cap*) 0.4 mg PO QAM [facility] Last Admin: 10/22/19 08:30 Dose: Not Given Thiamine HCl (Vitamin B-1 Tab*) 100 mg PO DAILY [facility] Last Admin: 10/22/19 08:30 Dose: Not Given Objective Vital Signs: Temp Pulse Resp BP Pulse Ox 98.5 F 47 20 164/111 90 10/22/19 08:00 10/22/19 09:03 10/22/19 09:03 10/22/19 09:03 10/22/19 09:03 Oxygen Devices in Use Now: BiPAP Appearance: Sedated on Bipap, NAD Ears/Nose/Mouth/Throat: Clear Oropharnyx, Mucous Membranes Moist Neck: Trachea Midline Respiratory: Clear to Auscultation Cardiovascular: NL Sounds; No Murmurs; No JVD, No Edema - distended, normoactive BS x4 Extremities: No Edema Neurological: - - sedated. Lines/Tubes/Other Access: Clean, Dry and Intact Peripheral IV Laboratory Results: 10/22/19 04:07 10/22/19 04:07 INR (Anticoag Therapy) 0.96 (0.82-1.09) 10/19/19 22:40 APTT 65.4 seconds (26.0-38.0) H 10/20/19 21:35 Total Bilirubin 0.30 mg/dL (0.2-1.0) 10/19/19 22:40 AST 21 U/L (13-39) 10/20/19 00:42 ALT 29 U/L (7-52) 10/19/19 22:40 Alkaline Phosphatase 58 U/L (34-104) 10/19/19 22:40 CK-MB (CK-2) 37.2 ng/mL (0.6-6.3) H 10/20/19 06:07 Total Protein 6.9 g/dL (6.4-8.9) 10/19/19 22:40 Albumin 3.8 g/dL (3.2-5.2) 10/19/19 22:40 Globulin 3.1 g/dL (2-4) 10/19/19 22:40 Albumin/Globulin Ratio 1.2 (1-3) 10/19/19 22:40 TSH 3.06 mcIU/mL (0.34-5.60) 10/19/19 22:40 10/19/19 10/20/19 10/20/19 22:40 00:42 02:55 Troponin I 0.26 H* 0.70 H* 1.21 H* 10/20/19 10/20/19 10/20/19 06:07 09:40 15:40 Troponin I 1.43 H* 1.60 H* 1.58 H* 10/21/19 04:24 Troponin I 0.88 H* Laboratory Results - last 24 hr 10/21/19 10/21/19 10/21/19 10:30 13:40 18:06 WBC RBC Hgb Hct MCV MCH MCHC RDW Plt Count MPV Neut % (Auto) Lymph % (Auto) Cowley % (Auto) Eos % (Auto) Baso % (Auto) Absolute Neuts (auto) Absolute Lymphs (auto) Absolute Monos (auto) Absolute Eos (auto) Absolute Basos (auto) Absolute Nucleated RBC Nucleated RBC % Patient Temperature Not Reportable ABG pH 7.32 L ABG pH (Temp Correct) Not Reportable ABG pCO2 79 H* ABG pCO2 (Temp Corrct Not Reportable ABG pO2 89 ABG pO2 (Temp Correct Not Reportable ABG HCO3 33.6 H ABG O2 Saturation 98.4 H ABG Base Excess 11.1 H Respiration Rate Not Reportable O2 Delivery Device v60 Ventilator Type Not Reportable Vent Mode s/t FiO2 70 Inspiratory Time Not Reportable PEEP Not Reportable Pressure Support Not Reportable Pressure Control Not Reportable EPAP 5 IPAP 25 BiPAP Not Reportable Sodium Potassium 6.1 H* 5.6 H Chloride Carbon Dioxide Anion Gap BUN Creatinine Est GFR ( Amer) Est GFR (Non-Af Amer) BUN/Creatinine Ratio Glucose POC Glucose (mg/dL) Calcium 10/21/19 10/21/19 10/22/19 18:09 23:58 04:07 WBC RBC Hgb Hct MCV MCH MCHC RDW Plt Count MPV Neut % (Auto) Lymph % (Auto) Cowley % (Auto) Eos % (Auto) Baso % (Auto) Absolute Neuts (auto) Absolute Lymphs (auto) Absolute Monos (auto) Absolute Eos (auto) Absolute Basos (auto) Absolute Nucleated RBC Nucleated RBC % Patient Temperature ABG pH ABG pH (Temp Correct) ABG pCO2 ABG pCO2 (Temp Corrct ABG pO2 ABG pO2 (Temp Correct ABG HCO3 ABG O2 Saturation ABG Base Excess Respiration Rate O2 Delivery Device Ventilator Type Vent Mode FiO2 Inspiratory Time PEEP Pressure Support Pressure Control EPAP IPAP BiPAP Sodium 137 Potassium 5.5 H Chloride 95 L Carbon Dioxide 40 H Anion Gap 2 BUN 46 H Creatinine 1.18 H Est GFR ( Amer) 79.1 Est GFR (Non-Af Amer) 65.3 BUN/Creatinine Ratio 39.0 H Glucose 189 H POC Glucose (mg/dL) 233 H 189 H Calcium 9.5 10/22/19 10/22/19 10/22/19 04:07 06:00 08:50 WBC 9.2 RBC 4.58 Hgb 13.7 L Hct 42 MCV 92 MCH 30 MCHC 33 RDW 15 Plt Count 206 MPV 8.3 Neut % (Auto) 88.3 Lymph % (Auto) 5.4 Cowley % (Auto) 5.9 Eos % (Auto) 0.0 Baso % (Auto) 0.4 Absolute Neuts (auto) 8.1 H Absolute Lymphs (auto) 0.5 L Absolute Monos (auto) 0.5 Absolute Eos (auto) 0.0 Absolute Basos (auto) 0.0 Absolute Nucleated RBC 0.1 Nucleated RBC % 0.7 Patient Temperature Not Reportable ABG pH 7.43 ABG pH (Temp Correct) Not Reportable ABG pCO2 60 H ABG pCO2 (Temp Corrct Not Reportable ABG pO2 66 L ABG pO2 (Temp Correct Not Reportable ABG HCO3 34.8 H ABG O2 Saturation 95.3 ABG Base Excess 12.8 H Respiration Rate Not Reportable O2 Delivery Device Ventilator Type Not Reportable Vent Mode Not Reportable FiO2 70 Inspiratory Time Not Reportable PEEP Not Reportable Pressure Support Not Reportable Pressure Control Not Reportable EPAP 5 IPAP 25 BiPAP Not Reportable Sodium Potassium Chloride Carbon Dioxide Anion Gap BUN Creatinine Est GFR ( Amer) Est GFR (Non-Af Amer) BUN/Creatinine Ratio Glucose POC Glucose (mg/dL) 176 H Calcium Diagnostic Imaging: *[facility]* [place] [address] Fax #: [phone] Transthoracic Echocardiogram Patient: Mathieu Patel : 1970 Study Date: 10/20/2019 Age: 49 Gender: M HR: 77 bpm Height: 71 in /180.3 cm BSA: 2.17 m^2 Weight: 214.6 lb /97.5 kg BMI: 30 kg/m^2 *Product Handler: Imelda Rizzo [facility] *Referring Physician: * Gui Jhaveri *Reading Physician: * Pravin Raines MD Indications: SOB. History: Chronic obstructive pulmonary disease. Risk factors: Current tobacco use. Hypertension. Dyslipidemia. Conclusions Summary: - Left ventricle: The cavity size is trivially reduced. Wall thickness is mildly to moderately increased. Systolic function is normal. The estimated ejection fraction is 55-60%. Doppler parameters are consistent with abnormal left ventricular relaxation (grade 1 diastolic dysfunction). - Right ventricle: The cavity size is mildly to moderately dilated. Wall thickness is mildly to moderately increased. Systolic function is moderately to severely reduced. Overall RV function is worse in comparison with the study of May 2019. - Left atrium: The atrium is mildly to moderately dilated. - Pulmonary arteries: Systolic pressure is mildly increased. The peak pressure during systole by Doppler is 39.0 mm Hg. - Similar to 06/03 except that the right ventricle seems more hypokinetic. This report is only to be considered final once signed by the Provider(s) as displayed in the "<Electronically Signed by >" field (s). Absence of a signature indicates the report is in a draft status and still needs to be finalized. In the event this document was created by someone other than the signing Provider, the individual initiating the document will be listed in the "Entered by:" or "Dictated by:" ocasio. EKG Data: ECG 10/21/2019; Sinus rhythm rate 68 with TWI in V1-V2 Telemetry; Bradycardia rate 40-50's Assessment/Plan #1 NSTEMI; Troponin peaked at 1.6 on 10/20/2019 with new anterolateral TWI with c/ o SOB. LVEF preserved with no RWMA. Dighton to be related to severe RV strain. On ASA and statin therapy. Avoid bblocker therapy due to a h/o polysubstance abuse. Not recommending DAPT therapy given etiology is likely due to RV strain. #2 Bradycardia; HR in 40's on Precedex gtt. Would d/c Precedex. avoid AVN agents. utilize Cardene gtt for HTN and or IV hydralazine. #3 h/o end stage interstitial lung disease; on Bipap therpay at this time. Follows Dr. Mojica outpatient. #4 h/o HTN; On IV hydralazine. consider IV cardene. #5 Disposition pending course, Patient full code. Will sign off. D/w Dr. Raines who agrees with above plan of care. Attending: Pravin Raines <Pravin Raines - Last Filed: 10/22/19 20:11> Medications Active Medications: Albuterol (Ventolin 2.5 Mg/3 Ml Neb.Vashti*) 2.5 mg INH Q2H PRN PRN Reason: SOB/WHEEZING Aspirin (Aspirin Ec Tab*) 81 mg PO DAILY [facility] Last Admin: 10/22/19 08:29 Dose: Not Given Dextrose (D50w Syringe 50 Ml*) 12.5 gm IV PUSH .FOR FS < 60 - SS PRN PRN Reason: FS < 60 Duloxetine HCl (Cymbalta Cap*) 60 mg PO QAM [facility] Last Admin: 10/22/19 08:29 Dose: Not Given Folic Acid (Folvite Tab*) 1 mg PO DAILY [facility] Last Admin: 10/22/19 08:29 Dose: Not Given Hydralazine HCl (Apresoline Iv*) 5 mg IV SLOW PU Q6H PRN PRN Reason: hypertension Last Admin: 10/22/19 10:09 Dose: 5 mg Dexmedetomidine HCl 1,000 mcg/ (Sodium Chloride) 250 mls @ 7.32 mls/hr IV Q6H [facility]; Protocol Last Admin: 10/22/19 18:04 Dose: 7.32 mls/hr Insulin Human Lispro (Humalog*) 0 units SUBCUT FS Q6 ICU [facility]; Protocol Last Admin: 10/22/19 18:05 Dose: 2 units Lorazepam (Ativan Inj*) 0 mg IV PUSH Q2H PRN; Protocol PRN Reason: alcohol withdrawal Last Admin: 10/22/19 18:22 Dose: 2 mg Lorazepam (Ativan Inj*) 1 mg IV PUSH Q3H PRN PRN Reason: ANXIETY Methylprednisolone Sodium Succinate (Solu-Medrol 40 Mg) 60 mg IV Q8H [facility] Last Admin: 10/22/19 19:59 Dose: 60 mg Miscellaneous (Ativan Pyxis Martin) 1 ea N/A .ATIVAN IV MARTIN PRN PRN Reason: PYXIS MARTIN Mometasone Furoate/Formoterol Fumar (Dulera 200/5 Mdi*) 2 puff INH BID [facility] Last Admin: 10/22/19 19:53 Dose: Not Given Multivitamins/Minerals (Theragran/Minerals Tab*) 1 tab PO DAILY [facility] Last Admin: 10/22/19 08:30 Dose: Not Given Ondansetron HCl (Zofran Inj*) 4 mg IV Q6H PRN PRN Reason: NAUSEA Pantoprazole Sodium (Protonix Tab*) 40 mg PO DAILY [facility] Last Admin: 10/22/19 08:30 Dose: Not Given Tamsulosin HCl (Flomax Cap*) 0.4 mg PO QAM [facility] Last Admin: 10/22/19 08:30 Dose: Not Given Thiamine HCl (Vitamin B-1 Tab*) 100 mg PO DAILY [facility] Last Admin: 10/22/19 08:30 Dose: Not Given Objective Vital Signs: Temp Pulse Resp BP Pulse Ox 97.8 F 59 18 143/116 94 10/22/19 19:16 10/22/19 19:54 10/22/19 19:54 10/22/19 18:09 10/22/19 19:54 Laboratory Results: 10/22/19 04:07 10/22/19 04:07 INR (Anticoag Therapy) 0.96 (0.82-1.09) 10/19/19 22:40 APTT 65.4 seconds (26.0-38.0) H 10/20/19 21:35 Total Bilirubin 0.30 mg/dL (0.2-1.0) 10/19/19 22:40 AST 21 U/L (13-39) 10/20/19 00:42 ALT 29 U/L (7-52) 10/19/19 22:40 Alkaline Phosphatase 58 U/L (34-104) 10/19/19 22:40 CK-MB (CK-2) 37.2 ng/mL (0.6-6.3) H 10/20/19 06:07 Total Protein 6.9 g/dL (6.4-8.9) 10/19/19 22:40 Albumin 3.8 g/dL (3.2-5.2) 10/19/19 22:40 Globulin 3.1 g/dL (2-4) 10/19/19 22:40 Albumin/Globulin Ratio 1.2 (1-3) 10/19/19 22:40 TSH 3.06 mcIU/mL (0.34-5.60) 10/19/19 22:40 10/19/19 10/20/19 10/20/19 22:40 00:42 02:55 Troponin I 0.26 H* 0.70 H* 1.21 H* 10/20/19 10/20/19 10/20/19 06:07 09:40 15:40 Troponin I 1.43 H* 1.60 H* 1.58 H* 10/21/19 04:24 Troponin I 0.88 H* Assessment/Plan Patient examined and discussed with Ms. Adam and Nisreen Harris. Suggest bp control. Discussed possibility of using clonidine, nicardipine, and hydalazine given low hr's on precedex. Barbie Raines MD 2.7.20 8;11 pm
[2019-10-22] MEDS: hydrALAZINE IV* 20 MG/ML VIAL IV SLOW PU PRN (10:09)
[2019-10-22] MEDS ORDERED: LORazepam INJ* 2 MG/ML 1 ML VIAL IV PUSH PRN (11:23)
[2019-10-22] MEDS ORDERED: Lorazepam PYXIS KEY PRN ×2 (11:23→12:17)
--- NOTE | 2019-10-22 14:53 | PN ---
Date of Service: 10/22/19 Critical Care Services: Patient seen and examined. Still with periods of agitation and HTN this morning. Does appear to be having increased withdrawal symptoms. Has been tolerating bipap without issue. Behavior remains impulsive and he does not seem to be following commands. Patient's uncle at bedside for support today during rounds. Vital Signs: Temp Pulse Resp BP SpO2 FiO2 98.3 F 65 18 155/112 92 70 10/22/19 12:00 10/22/19 14:00 10/22/19 14:27 10/22/19 14:00 10/22/19 14:00 10/22 08:57 Physical Exam: General: Arousable, periods of agitation HEENT: Normocephalic, atraumatic, non-icteric sclera, moist oral mucosa Neck: soft, supple, no JVD CV: Regular rate and rhythm, no murmurs or rubs Pulm/Chest: Poor bilateral air entry, diminished throughout lung ocasio, no rhonchi or rales, no wheeze Abdomen/GI: soft, nontender, nondistended, +BS noted MSK/Skin: warm, dry, intact, +2 pulses+, no edema or cyanosis Neuro: RASS-2, sedated with precedex, arousable Fluid Balance (Past 24 Hours): Intake & Output 10/20/19 10/21/19 10/22/19 10/23/19 06:59 06:59 06:59 06:59 Intake Total 1858 2612.5 901 262 Output Total 275 922 260 Balance 1858 2337.5 -21 2 Weight 215 lb 2.738 oz 218 lb 11.177 oz 218 lb 11.177 oz Intake: IV Fluids 1858 Thiamine 858 IVPB 1200 IVF 1200 Medicated IV 927.5 901 262 Heparin 605.6 108 Precedex 321.9 793 262 Oral 485 Output: Urine 275 922 180 Womack 0 0 80 Other: Estimated Void Large Large # Voids 1 Labs: Laboratory Results - last 24 hr 10/21/19 10/21/19 10/21/19 18:06 18:09 23:58 WBC RBC Hgb Hct MCV MCH MCHC RDW Plt Count MPV Neut % (Auto) Lymph % (Auto) Hamilton % (Auto) Eos % (Auto) Baso % (Auto) Absolute Neuts (auto) Absolute Lymphs (auto) Absolute Monos (auto) Absolute Eos (auto) Absolute Basos (auto) Absolute Nucleated RBC Nucleated RBC % Patient Temperature ABG pH ABG pH (Temp Correct) ABG pCO2 ABG pCO2 (Temp Corrct ABG pO2 ABG pO2 (Temp Correct ABG HCO3 ABG O2 Saturation ABG Base Excess Respiration Rate Ventilator Type Vent Mode FiO2 Inspiratory Time PEEP Pressure Support Pressure Control EPAP IPAP BiPAP Sodium Potassium 5.6 H Chloride Carbon Dioxide Anion Gap BUN Creatinine Est GFR ( Amer) Est GFR (Non-Af Amer) BUN/Creatinine Ratio Glucose POC Glucose (mg/dL) 233 H 189 H Calcium 10/22/19 10/22/19 10/22/19 04:07 04:07 06:00 WBC 9.2 RBC 4.58 Hgb 13.7 L Hct 42 MCV 92 MCH 30 MCHC 33 RDW 15 Plt Count 206 MPV 8.3 Neut % (Auto) 88.3 Lymph % (Auto) 5.4 Hamilton % (Auto) 5.9 Eos % (Auto) 0.0 Baso % (Auto) 0.4 Absolute Neuts (auto) 8.1 H Absolute Lymphs (auto) 0.5 L Absolute Monos (auto) 0.5 Absolute Eos (auto) 0.0 Absolute Basos (auto) 0.0 Absolute Nucleated RBC 0.1 Nucleated RBC % 0.7 Patient Temperature ABG pH ABG pH (Temp Correct) ABG pCO2 ABG pCO2 (Temp Corrct ABG pO2 ABG pO2 (Temp Correct ABG HCO3 ABG O2 Saturation ABG Base Excess Respiration Rate Ventilator Type Vent Mode FiO2 Inspiratory Time PEEP Pressure Support Pressure Control EPAP IPAP BiPAP Sodium 137 Potassium 5.5 H Chloride 95 L Carbon Dioxide 40 H Anion Gap 2 BUN 46 H Creatinine 1.18 H Est GFR ( Amer) 79.1 Est GFR (Non-Af Amer) 65.3 BUN/Creatinine Ratio 39.0 H Glucose 189 H POC Glucose (mg/dL) 176 H Calcium 9.5 10/22/19 10/22/19 08:50 11:46 WBC RBC Hgb Hct MCV MCH MCHC RDW Plt Count MPV Neut % (Auto) Lymph % (Auto) Hamilton % (Auto) Eos % (Auto) Baso % (Auto) Absolute Neuts (auto) Absolute Lymphs (auto) Absolute Monos (auto) Absolute Eos (auto) Absolute Basos (auto) Absolute Nucleated RBC Nucleated RBC % Patient Temperature Not Reportable ABG pH 7.43 ABG pH (Temp Correct) Not Reportable ABG pCO2 60 H ABG pCO2 (Temp Corrct Not Reportable ABG pO2 66 L ABG pO2 (Temp Correct Not Reportable ABG HCO3 34.8 H ABG O2 Saturation 95.3 ABG Base Excess 12.8 H Respiration Rate Not Reportable Ventilator Type Not Reportable Vent Mode Not Reportable FiO2 70 Inspiratory Time Not Reportable PEEP Not Reportable Pressure Support Not Reportable Pressure Control Not Reportable EPAP 5 IPAP 25 BiPAP Not Reportable Sodium Potassium Chloride Carbon Dioxide Anion Gap BUN Creatinine Est GFR ( Amer) Est GFR (Non-Af Amer) BUN/Creatinine Ratio Glucose POC Glucose (mg/dL) 195 H Calcium Studies: *[facility]* [place] [address] Fax #: [phone] Transthoracic Echocardiogram Patient: Mathieu Patel : 1970 Study Date: 10/20/2019 Age: 49 Gender: M HR: 77 bpm Height: 71 in /180.3 cm BSA: 2.17 m^2 Weight: 214.6 lb /97.5 kg BMI: 30 kg/m^2 *Divider Operator: * Imelda Billings [facility] *Referring Physician: * Gui Jhaveri *Reading Physician: * Pravin Raines MD Indications: SOB. History: Chronic obstructive pulmonary disease. Risk factors: Current tobacco use. Hypertension. Dyslipidemia. Conclusions Summary: - Left ventricle: The cavity size is trivially reduced. Wall thickness is mildly to moderately increased. Systolic function is normal. The estimated ejection fraction is 55-60%. Doppler parameters are consistent with abnormal left ventricular relaxation (grade 1 diastolic dysfunction). - Right ventricle: The cavity size is mildly to moderately dilated. Wall thickness is mildly to moderately increased. Systolic function is moderately to severely reduced. Overall RV function is worse in comparison with the study of May 2019. - Left atrium: The atrium is mildly to moderately dilated. - Pulmonary arteries: Systolic pressure is mildly increased. The peak pressure during systole by Doppler is 39.0 mm Hg. - Similar to 06/03 except that the right ventricle seems more hypokinetic. This report is only to be considered final once signed by the Provider(s) as displayed in the "<Electronically Signed by >" field (s). Absence of a signature indicates the report is in a draft status and still needs to be finalized. In the event this document was created by someone other than the signing Provider, the individual initiating the document will be listed in the "Entered by:" or "Dictated by:" ocasio. Nutrition: Heat healthy no caffeine Impression: This is a 49 year old male with history of end stage interstitial lung disease, COPD, tobacco abuse, ETOH abuse and recent accidental heroin overdose that presented to the ED with complaints of increasing shortness of breath: Diagnoses: 1. Hypoxic, hypercapneic respiratory failure, acute on chronic 2. ETOH withdrawal 3. NSTEMI Plan: CV - NSTEMI with elevated trops peaked at 1.60, now down to 0.88, likely demand mediated in the face of severely decompensated ILD and RV dysfunction - Heparin gtt DCd, continue ASA, optimize with statin - ECHO with severe RV dysfunction and preserved EF - Cardiology recommending continuing conservative medical management Pulm - Failed salter, escalated to Bipap yesterday which has now been discontinued. ABG today with pH 7.45, CO2 60, PO2 66 and Bicarb 34.8. Bipap DCd and placed on vapotherm. now that CO2 is controlled, will concentrate on oxygenation. Continue to follow serial ABGs and mentation. - Continue IV steroids and taper when oxygen can be weaned to home dose, no indication for IV atbx at this time - Continue dulera - Highly recommend quitting tobacco indefinitely given combination of COPD and end stage ILD Neuro - ETOH withdrawal on WA, Will continue with PRN ativan and precedex to prevent withdrawal seizures. Continue to supplement with thiamine, folic acid and MVI - Very concerned that withdrawal symptoms will increase CV and pulm work and further compromise status further - Highly recommend abstinence indefinitely GI - HH diet when more awake MSK/SKIN - Pressure ulcer prophy, T&P Q2h Endo - Considering elevated sugar and hyperkalemia, check A1c, start accuchecks Q6h and cover with lispro SS. - Sugars may also be an issue being on IV steroids, will need to continue with ACHS monitoring while in ICU Renal - Follow strict I/O - Potassium improved with treatment and oxygenation; may have also been elevated from heparin and precedex; continue tight glucose control and monitoring renal function Heme - No active issues ID - No indications for atbx treatment DVT prophy - Off heparin gtt, start heparin SQ FULL CODE status Disposition: Requires ICU monitoring for respiratory failure/vapotherm and support during withdrawal on precedex drip. Coordinated care with staff and family. Critical care time spent, 40 minutes.
[2019-10-23] MEDS ORDERED: Dextrose 50% VIAL 50 ml IV PUSH PRN (00:09)
[2019-10-23] MEDS: LORazepam INJ* 2 MG/ML 1 ML VIAL IV PUSH PRN ×8 (00:37→22:45)
[2019-10-23] MEDS: Insulin LISPRO* 1 UNITS UNIT SUBCUT SCH ×5 (00:37→23:18)
[2019-10-23] MEDS: Dexmedetomidine* 1,000 MCG in NS 0.9% 250 ML* 240 ML IV SCH ×5 (00:38→22:59)
[2019-10-23] MEDS: methylPREDNISolone SOD 40 MG* 1 ML VIAL IV SCH ×3 (04:50→21:27)
[2019-10-23 06:34] LABS: ABS Lymphocytes 0.6 10^3/ul (1.0-4.8); ABS Monocytes 0.7 10^3/ul (0-0.8); ABS Neutrophils 7.6 10^3/ul (1.5-7.7); Hematocrit 39 % (42-52); Hemoglobin 12.9 g/dL (14.0-18.0); Lymphocyte % 6.7 %; Mean Corpuscular HGB Conc 33 g/dL (31-36); Mean Corpuscular Hemoglobin 30 pg (27-31); Mean Corpuscular Volume 91 fL (80-94); Mean Platelet Volume 8.4 fL (7.4-10.4); Nucleated Red Blood Cells % 0.2; Platelet Count 175 10^3/uL (150-450); Red Blood Count 4.33 10^6 /uL (4.18-5.48); Red Cell Distribution Width 15 % (10-15); White Blood Count 8.9 10^3/uL (3.5-10.8)
[2019-10-23] MEDS: Mometasone/Formoter 200/5 MDI INH SCH ×2 (08:10→20:59)
[2019-10-23] MEDS: Thiamine TAB* 100 MG TAB PO SCH (10:33)
[2019-10-23] MEDS: Aspirin EC TAB* 81 MG TAB.EC PO SCH (10:33)
[2019-10-23] MEDS: DULoxetine DR CAP* 60 MG CAP.DR PO SCH (10:33)
[2019-10-23] MEDS: Pantoprazole TAB * 40 MG TAB PO SCH (10:33)
[2019-10-23] MEDS: Folic Acid TAB* 1 MG PO SCH (10:33)
[2019-10-23] MEDS: Tamsulosin CAP* 0.4 MG PO SCH (10:33)
[2019-10-23] MEDS: Multivitamins/Minerals TAB PO SCH (10:33)
--- NOTE | 2019-10-23 13:25 | PN ---
Date of Service: 10/23/19 Critical Care Services: Appears much more comfortable today. Vital Signs: Temp Pulse Resp BP SpO2 FiO2 36.6 C 78 19 156/120 90 70 10/23/19 07:42 10/23/19 12:00 10/23/19 12:17 10/23/19 12:00 10/23/19 12:00 10/23 08:08 Physical Exam: Gen: Appears non-toxic and well perfused and comfortable. NAD. HEENT: NCAT, PERRL Lungs: dry crackles Cardiac: S1S2 regular domenica Abdomen: soft, obese, NT, ND, +BS Extremities: no edema Neuro: rouses off sedation and moves all 4's Fluid Balance (Past 24 Hours): I= O= Net Intake & Output 10/21/19 10/22/19 10/23/19 10/24/19 06:59 06:59 06:59 06:59 Intake Total 2612.5 901 883 0 Output Total 393 798 6684 725 Balance 2337.5 -21 -592 -725 Weight 99.2 kg 99.2 kg 97.3 kg Intake: IVPB 1200 IVF 1200 Medicated IV 927.5 901 883 Heparin 605.6 108 Precedex 321.9 793 883 Oral 485 0 0 Output: Urine 215 624 9793 425 Womack 0 0 270 300 Other: Estimated Void Large Large # Voids 1 Labs: Laboratory Results - last 24 hr 10/22/19 10/22/19 10/22/19 04:07 17:30 23:31 WBC RBC Hgb Hct MCV MCH MCHC RDW Plt Count MPV Neut % (Auto) Lymph % (Auto) Leake % (Auto) Eos % (Auto) Baso % (Auto) Absolute Neuts (auto) Absolute Lymphs (auto) Absolute Monos (auto) Absolute Eos (auto) Absolute Basos (auto) Absolute Nucleated RBC Nucleated RBC % POC Glucose (mg/dL) 148 H 157 H Hemoglobin A1c 6.3 H 10/23/19 10/23/19 04:52 04:57 WBC 8.9 RBC 4.33 Hgb 12.9 L Hct 39 L MCV 91 MCH 30 MCHC 33 RDW 15 Plt Count 175 MPV 8.4 Neut % (Auto) 84.9 Lymph % (Auto) 6.7 Leake % (Auto) 8.4 Eos % (Auto) 0.0 Baso % (Auto) 0.0 Absolute Neuts (auto) 7.6 Absolute Lymphs (auto) 0.6 L Absolute Monos (auto) 0.7 Absolute Eos (auto) 0.0 Absolute Basos (auto) 0.0 Absolute Nucleated RBC 0.0 Nucleated RBC % 0.2 POC Glucose (mg/dL) 140 H Hemoglobin A1c Nutrition: Eats some when not agitated Impression: Acute on chronic hypoxic and hypercapnic respiratory failure complicated by ACS and now DTs but generally improving last 48 hrs Plan: Acuet On Chronic Combined Hypoxic and Hypercapnic Respiratory Failure - severe baseline ILD, now with COPD exacerbation being treated with steroids and bronchodilators. Getting more time off PPV and oxygen requirement coming down nicely for someone who is baseline 10LPM. Will continue current COPD management and time. ACS - resolved. remains on ASA and hydralazine for BP. ETOH - DTs running their course, thiamine and folate on board. Precedex wean as tolerated, WAM on board. DM - A1C surprisingly good at 6.3, continue current insulin management with reasonable glycemic control BPH - continue tamsulosin GI/DVT prophylaxis on board. D/W SO at bedside today and Uncle Alton yesterday. Slow but steady improvement.
[2019-10-23] MEDS: Heparin VIAL(*) 5000 UNITS/ML VIAL (FIVE THOUSAND) SUBCUT SCH ×2 (15:32→21:30)
[2019-10-23] MEDS: hydrALAZINE IV* 20 MG/ML VIAL IV SLOW PU PRN ×2 (17:10→23:12)
[2019-10-23] MEDS ORDERED: Lorazepam PYXIS KEY ONE (22:43)
[2019-10-24] MEDS: LORazepam INJ* 2 MG/ML 1 ML VIAL IV PUSH PRN ×8 (02:22→23:13)
[2019-10-24] MEDS: methylPREDNISolone SOD 40 MG* 1 ML VIAL IV SCH ×3 (04:31→20:40)
[2019-10-24 04:57] LABS: Hematocrit 43 % (42-52); Hemoglobin 14.2 g/dL (14.0-18.0); Mean Corpuscular HGB Conc 33 g/dL (31-36); Mean Corpuscular Hemoglobin 30 pg (27-31); Mean Corpuscular Volume 90 fL (80-94); Mean Platelet Volume 7.9 fL (7.4-10.4); Platelet Count 175 10^3/uL (150-450); Red Blood Count 4.79 10^6 /uL (4.18-5.48); Red Cell Distribution Width 15 % (10-15); White Blood Count 8.5 10^3/uL (3.5-10.8)
[2019-10-24 05:14] LABS: Albumin 3.8 g/dL (3.2-5.2); Albumin/Globulin Ratio 1.5 (1-3); BUN/Creatinine Ratio 50.7 (8-20); Calcium 9.5 mg/dL (8.6-10.3); EGFR African American 151.9 (>60); EGFR Non-African American 125.6 (>60); Globulin 2.5 g/dL (2-4); Magnesium 2.2 mg/dL (1.9-2.7); Phosphorus 5.3 mg/dL (2.5-5.0); Potassium 4.9 mmol/L (3.5-5.0); Total Bilirubin 0.9 mg/dL (0.2-1.0); Total Protein 6.3 g/dL (6.4-8.9)
[2019-10-24] MEDS: Insulin LISPRO* 1 UNITS UNIT SUBCUT SCH ×3 (06:06→18:09)
[2019-10-24] MEDS: Heparin VIAL(*) 5000 UNITS/ML VIAL (FIVE THOUSAND) SUBCUT SCH ×3 (06:06→21:45)
[2019-10-24] MEDS: Dexmedetomidine* 1,000 MCG in NS 0.9% 250 ML* 240 ML IV SCH ×3 (06:06→16:28)
[2019-10-24] MEDS: Mometasone/Formoter 200/5 MDI INH SCH ×3 (07:34→19:54)
[2019-10-24] MEDS: Aspirin EC TAB* 81 MG TAB.EC PO SCH (08:47)
[2019-10-24] MEDS: Multivitamins/Minerals TAB PO SCH (08:47)
[2019-10-24] MEDS: Tamsulosin CAP* 0.4 MG PO SCH (08:47)
[2019-10-24] MEDS: Pantoprazole TAB * 40 MG TAB PO SCH (08:47)
[2019-10-24] MEDS: Folic Acid TAB* 1 MG PO SCH (08:47)
[2019-10-24] MEDS: Thiamine TAB* 100 MG TAB PO SCH (08:47)
[2019-10-24] MEDS: DULoxetine DR CAP* 60 MG CAP.DR PO SCH (08:47)
--- NOTE | 2019-10-24 13:36 | PN ---
Date of Service: 10/24/19 Critical Care Services: No events overnight Vital Signs: Temp Pulse Resp BP SpO2 FiO2 35.8 C 70 17 133/99 94 70 10/24/19 07:57 10/24/19 13:02 10/24/19 13:02 10/24/19 13:02 10/24/19 13:02 10/23 08:08 Physical Exam: Gen: sedated on precedex when seen this AM HEENT: NCAT, PERRL Lungs: dry crackles Cardiac: S1S2 regular Abdomen: soft, obese, NT, +BS Extremities: no edema Neuro: rouses, moves ext Fluid Balance (Past 24 Hours): I= O= Net Intake & Output 10/22/19 10/23/19 10/24/19 10/25/19 06:59 06:59 06:59 06:59 Intake Total 901 883 754 0 Output Total 922 1475 2205 1 Balance -21 -592 -1451 -1 Weight 99.2 kg 97.3 kg 96.2 kg Intake: Medicated IV 901 883 754 Heparin 108 Precedex 793 883 754 Oral 0 0 0 Output: Urine 922 1205 1725 1 Womack 0 270 480 Other: Estimated Void Large Large Date of Last Bowel 10/23/19 Movement # Bowel Movements 1 Estimated Stool Amount Medium # Voids 1 1 Labs: Laboratory Results - last 24 hr 10/23/19 10/24/19 10/24/19 16:58 04:47 04:47 WBC 8.5 RBC 4.79 Hgb 14.2 Hct 43 MCV 90 MCH 30 MCHC 33 RDW 15 Plt Count 175 MPV 7.9 Sodium 140 Potassium 4.9 Chloride 94 L Carbon Dioxide 45 H* Anion Gap 1 L BUN 34 H Creatinine 0.67 Est GFR ( Amer) 151.9 Est GFR (Non-Af Amer) 125.6 BUN/Creatinine Ratio 50.7 H Glucose 148 H POC Glucose (mg/dL) 143 H Calcium 9.5 Ionized Calcium Phosphorus 5.3 H Magnesium 2.2 Total Bilirubin 0.90 AST 12 L ALT 24 Alkaline Phosphatase 36 Total Protein 6.3 L Albumin 3.8 Globulin 2.5 Albumin/Globulin Ratio 1.5 10/24/19 04:47 WBC RBC Hgb Hct MCV MCH MCHC RDW Plt Count MPV Sodium Potassium Chloride Carbon Dioxide Anion Gap BUN Creatinine Est GFR ( Amer) Est GFR (Non-Af Amer) BUN/Creatinine Ratio Glucose POC Glucose (mg/dL) Calcium Ionized Calcium 1.18 Phosphorus Magnesium Total Bilirubin AST ALT Alkaline Phosphatase Total Protein Albumin Globulin Albumin/Globulin Ratio Nutrition: Eating when awake Impression: Acute on chronic combined hypoxic and hypercapnic respiratory failure in setting of advanced ILD and now COPD exacerbation, ACS and ETOH withdrawal improving steadily last 72 hrs. Plan: Acute On Chronic Combined Hypoxic and Hypercapnic Respiratory Failure - severe baseline ILD, now with COPD exacerbation being treated with steroids and bronchodilators. Getting more time off PPV and oxygen requirement coming down nicely for someone who is baseline 10LPM. Will continue current COPD management and time. Breathing has improved enough today to try OOB when more awake. ACS - resolved. remains on ASA and hydralazine for BP. ETOH - DTs running their course, thiamine and folate on board. Precedex weaning as tolerated, WAM on board. Goal today is to get off the precedex and convert entirely to WAM. I'm hoping OOB with that later today and possibly even to the floor tomorrow if that works out. DM - A1C surprisingly good at 6.3, continue current insulin management with good glycemic control between 140 and 148 the last 48hrs. BPH - continue tamsulosin GI/DVT prophylaxis on board. Hopefully OOB and eating today. Time will tell.
[2019-10-24] MEDS: hydrALAZINE IV* 20 MG/ML VIAL IV SLOW PU PRN (18:10)
[2019-10-24] MEDS ORDERED: NS 0.9% 500 ML* 500 ML IV ONE (19:00)
[2019-10-24] MEDS ORDERED: LORazepam INJ* 2 MG/ML 1 ML VIAL ONE (19:10)
[2019-10-24] MEDS ORDERED: LORazepam INJ* 2 MG/ML 1 ML VIAL IV PUSH ONE (19:10)
[2019-10-24] MEDS ORDERED: NS 0.9% 1000 ML** 2,000 ML IV ONE (19:13)
[2019-10-24 19:59] LABS: Troponin I 0.42 ng/mL (<0.03)
[2019-10-24 23:01] LABS: Troponin I 0.52 ng/mL (<0.03)
[2019-10-25] MEDS: Insulin LISPRO* 1 UNITS UNIT SUBCUT SCH ×4 (00:07→18:13)
[2019-10-25] MEDS: LORazepam INJ* 2 MG/ML 1 ML VIAL IV PUSH PRN ×12 (00:53→22:12)
[2019-10-25] MEDS ORDERED: Haloperidol INJ IV/IM* 5 MG/ML AMP IM ONE (01:34)
[2019-10-25] MEDS ORDERED: diPHENhydraMINE IV* 50 MG/ML 1 ml VIAL (BENADRYL) IV ONE (01:34)
[2019-10-25 02:28] LABS: Troponin I 0.66 ng/mL (<0.03)
[2019-10-25] MEDS ORDERED: Dexmedetomidine* 1,000 MCG in NS 0.9% 250 ML* 240 ML IV SCH ×2 (04:00→09:00)
[2019-10-25] MEDS: methylPREDNISolone SOD 40 MG* 1 ML VIAL IV SCH ×3 (05:20→19:51)
[2019-10-25] MEDS: Enoxaparin(*) 100 MG/ML SYR SUBCUT SCH ×2 (05:22→18:31)
[2019-10-25 05:55] LABS: ALT 23 U/L (7-52); AST 17 U/L (13-39); Albumin 3.7 g/dL (3.2-5.2); Albumin/Globulin Ratio 1.7 (1-3); Alkaline Phosphatase 33 U/L (34-104); BUN/Creatinine Ratio 36.5 (8-20); Blood Urea Nitrogen 23 mg/dL (6-24); Calcium 9.2 mg/dL (8.6-10.3); Chloride 95 mmol/L (101-111); EGFR African American 163.1 (>60); EGFR Non-African American 134.8 (>60); Globulin 2.2 g/dL (2-4); Glucose 166 mg/dL (70-100); Magnesium 2.1 mg/dL (1.9-2.7); Phosphorus 2.9 mg/dL (2.5-5.0); Potassium 4.4 mmol/L (3.5-5.0); Sodium 139 mmol/L (135-145); Total Protein 5.9 g/dL (6.4-8.9)
[2019-10-25 06:07] LABS: Anion Gap 2 mmol/L (2-11); CO2 Carbon Dioxide 42 mmol/L (22-32)
[2019-10-25] MEDS: Mometasone/Formoter 200/5 MDI INH SCH (07:34)
[2019-10-25 08:16] LABS: Troponin I 0.56 ng/mL (<0.03)
[2019-10-25] MEDS: DULoxetine DR CAP* 60 MG CAP.DR PO SCH (09:00)
[2019-10-25] MEDS: Folic Acid TAB* 1 MG PO SCH (09:00)
[2019-10-25] MEDS: Aspirin EC TAB* 81 MG TAB.EC PO SCH (09:00)
[2019-10-25] MEDS: Multivitamins/Minerals TAB PO SCH (09:01)
[2019-10-25] MEDS: QUEtiapine TAB* 25 MG PO SCH ×2 (09:01→19:55)
[2019-10-25] MEDS: Thiamine TAB* 100 MG TAB PO SCH (09:01)
[2019-10-25] MEDS: Pantoprazole TAB * 40 MG TAB PO SCH (09:01)
[2019-10-25] MEDS: Tamsulosin CAP* 0.4 MG PO SCH (09:01)
--- NOTE | 2019-10-25 10:03 | PN ---
Date of Service: 10/25/19 Critical Care Services: Patient was given Haldol and Ativan overnight due to hallucinations and agitation. Precedex was restarted. This morning he is lethargic and appears to have intermittent apnea. He is back on Bipap this morning. Precedex was turned off at change of shift. Vital Signs: Temp Pulse Resp BP SpO2 FiO2 97.6 F 85 12 101/67 99 80 10/25/19 07:15 10/25/19 09:00 10/25/19 09:00 10/25/19 09:00 10/25/19 09:00 10/25 08:08 Physical Exam: Gen: No acute distress. HEENT: Normocephalic and atraumatic. Pupils equal. Bipap mask on. Neck supple and trachea midline. Lungs: Equal air entry bilaterally. No accessory muscle use on bipap. Cardiac: RRR Abdomen: soft, obese, nontender. Extremities: Warm. No pedal edema. Neuro: Lethargic but opens eyes briefly to voice. Spontaneously moves all extremities equally but not following commands. Fluid Balance (Past 24 Hours): I= O= Net Intake & Output 10/23/19 10/24/19 10/25/19 10/26/19 06:59 06:59 06:59 06:59 Intake Total 833 770 5507.5 Output Total 1475 2205 1776 Balance -592 -1451 1320.5 Weight 214 lb 8.156 oz 212 lb 1.355 oz 200 lb 9.93 oz Intake: IV Fluids 2031 NS 2031 Medicated IV 883 754 334.5 Precedex 883 754 334.5 Oral 0 0 730 Output: Urine 1205 1725 1776 Womack 270 480 Other: Estimated Void Large Large Large Date of Last Bowel 10/23/19 Movement # Bowel Movements 1 Estimated Stool Amount Medium # Voids 1 1 1 Labs: Laboratory Results - last 24 hr 10/24/19 10/24/19 10/24/19 05:41 11:21 19:24 Patient Temperature Not Reportable ABG pH 7.37 ABG pH (Temp Correct) Not Reportable ABG pCO2 87 H* ABG pCO2 (Temp Corrct Not Reportable ABG pO2 63 L ABG pO2 (Temp Correct Not Reportable ABG HCO3 40.3 H* ABG O2 Saturation 92.7 L ABG Base Excess 20.0 H Respiration Rate Not Reportable O2 Delivery Device salter Ventilator Type Not Reportable Vent Mode Not Reportable FiO2 40 Inspiratory Time Not Reportable PEEP Not Reportable Pressure Support Not Reportable Pressure Control Not Reportable EPAP Not Reportable IPAP Not Reportable BiPAP Not Reportable Sodium Potassium Chloride Carbon Dioxide Anion Gap BUN Creatinine Est GFR ( Amer) Est GFR (Non-Af Amer) BUN/Creatinine Ratio Glucose POC Glucose (mg/dL) 144 H 141 H Calcium Phosphorus Magnesium Total Bilirubin AST ALT Alkaline Phosphatase Troponin I Total Protein Albumin Globulin Albumin/Globulin Ratio 10/24/19 10/24/19 10/25/19 19:27 22:29 01:56 Patient Temperature ABG pH ABG pH (Temp Correct) ABG pCO2 ABG pCO2 (Temp Corrct ABG pO2 ABG pO2 (Temp Correct ABG HCO3 ABG O2 Saturation ABG Base Excess Respiration Rate O2 Delivery Device Ventilator Type Vent Mode FiO2 Inspiratory Time PEEP Pressure Support Pressure Control EPAP IPAP BiPAP Sodium Potassium Chloride Carbon Dioxide Anion Gap BUN Creatinine Est GFR ( Amer) Est GFR (Non-Af Amer) BUN/Creatinine Ratio Glucose POC Glucose (mg/dL) Calcium Phosphorus Magnesium Total Bilirubin AST ALT Alkaline Phosphatase Troponin I 0.42 H* 0.52 H* 0.66 H* Total Protein Albumin Globulin Albumin/Globulin Ratio 10/25/19 05:27 Patient Temperature ABG pH ABG pH (Temp Correct) ABG pCO2 ABG pCO2 (Temp Corrct ABG pO2 ABG pO2 (Temp Correct ABG HCO3 ABG O2 Saturation ABG Base Excess Respiration Rate O2 Delivery Device Ventilator Type Vent Mode FiO2 Inspiratory Time PEEP Pressure Support Pressure Control EPAP IPAP BiPAP Sodium 139 Potassium 4.4 Chloride 95 L Carbon Dioxide 42 H* Anion Gap 2 BUN 23 Creatinine 0.63 L Est GFR ( Amer) 163.1 Est GFR (Non-Af Amer) 134.8 BUN/Creatinine Ratio 36.5 H Glucose 166 H POC Glucose (mg/dL) Calcium 9.2 Phosphorus 2.9 Magnesium 2.1 Total Bilirubin 1.10 H AST 17 ALT 23 Alkaline Phosphatase 33 L Troponin I 0.56 H* Total Protein 5.9 L Albumin 3.7 Globulin 2.2 Albumin/Globulin Ratio 1.7 Nutrition: Heart healthy diet Impression: 49M with acute on chronic respiratory failure due to ILD and COPD exacerbation. Mental status improved during the morning. He is oriented only to person but he is at his baseline 10LPM. He has received Ativan per [facility] protocol. Acute on chronic hypoxic and hypercapnic respiratory failure ACS Alcohol withdrawal DM BPH Plan: Neuro: Ativan prn per [facility] protocol. Will trial him off Precedex tonight if possible. Start Seroquel tonight. I suspect he was lethargic due to ativan and haldol. Will try to avoid using benzodiazepines. Continue thiamine and folate. CV: Goal MAP >65. Continue ASA. Troponin trending down to 0.56 from 0.66. Respiratory: Titrate O2 to keep sat >90%. Currently on baseline 10LPM. Duoneb prn GI: Heart healthy diet. GI ppx: Protonix Renal: Urine output adequate. Continue tamsulosin for BPH Strict I&Os ID: [id number] with opacification however no clinical evidence of pneumonia (no cough, fever, leukocytosis). Monitor WBC daily. Heme: No acute issues. CBC daily. Therapeutic Lovenox Endo: POC glucose has been <180. Sliding scale insulin ordered. MSK: OOB to chair. Code status: Full code Dispo: ICU for acute on chronic respiratory failure and need for bipap; alcohol withdrawal. If remains off bipap and precedex, possible transfer to floor tomorrow. Status: Guarded Critical Care Time: 35 min
[2019-10-25] MEDS ORDERED: Enoxaparin(*) 40 MG/0.4 ML SYR SUBCUT SCH (20:00)
[2019-10-26] MEDS: Dexmedetomidine* 1,000 MCG in NS 0.9% 250 ML* 240 ML IV SCH ×3 (00:06→16:54)
[2019-10-26] MEDS: Insulin LISPRO* 1 UNITS UNIT SUBCUT SCH ×4 (00:33→19:30)
[2019-10-26] MEDS: LORazepam INJ* 2 MG/ML 1 ML VIAL IV PUSH PRN ×11 (00:33→19:39)
[2019-10-26 04:14] LABS: ABS Lymphocytes 0.2 10^3/ul (1.0-4.8); ABS Monocytes 0.4 10^3/ul (0-0.8); ABS Neutrophils 6.4 10^3/ul (1.5-7.7); Hematocrit 41 % (42-52); Hemoglobin 13.2 g/dL (14.0-18.0); Lymphocyte % 3.1 %; Mean Corpuscular HGB Conc 32 g/dL (31-36); Mean Corpuscular Hemoglobin 30 pg (27-31); Mean Corpuscular Volume 92 fL (80-94); Mean Platelet Volume 8.2 fL (7.4-10.4); Nucleated Red Blood Cells % 0.1; Platelet Count 150 10^3/uL (150-450); Red Blood Count 4.44 10^6 /uL (4.18-5.48); Red Cell Distribution Width 16 % (10-15); White Blood Count 7.1 10^3/uL (3.5-10.8)
[2019-10-26 04:29] LABS: Albumin 3.6 g/dL (3.2-5.2); Albumin/Globulin Ratio 1.6 (1-3); BUN/Creatinine Ratio 35.7 (8-20); Calcium 9.4 mg/dL (8.6-10.3); EGFR African American 144.4 (>60); EGFR Non-African American 119.4 (>60); Globulin 2.3 g/dL (2-4); Potassium 4.9 mmol/L (3.5-5.0); Total Bilirubin 0.8 mg/dL (0.2-1.0); Total Protein 5.9 g/dL (6.4-8.9)
[2019-10-26] MEDS: Mometasone/Formoter 200/5 MDI INH SCH ×3 (06:49→19:39)
[2019-10-26] MEDS: methylPREDNISolone SOD 40 MG* 1 ML VIAL IV SCH ×3 (07:51→21:19)
[2019-10-26] MEDS: Enoxaparin(*) 40 MG/0.4 ML SYR SUBCUT SCH (07:56)
[2019-10-26] MEDS: DULoxetine DR CAP* 60 MG CAP.DR PO SCH (11:15)
[2019-10-26] MEDS: Aspirin EC TAB* 81 MG TAB.EC PO SCH (11:15)
[2019-10-26] MEDS: Thiamine TAB* 100 MG TAB PO SCH (11:15)
[2019-10-26] MEDS: Tamsulosin CAP* 0.4 MG PO SCH (11:15)
[2019-10-26] MEDS: Multivitamins/Minerals TAB PO SCH (11:15)
[2019-10-26] MEDS: Folic Acid TAB* 1 MG PO SCH (11:15)
[2019-10-26] MEDS: Pantoprazole TAB * 40 MG TAB PO SCH (11:16)
[2019-10-26] MEDS: QUEtiapine TAB* 25 MG PO SCH ×2 (11:16→21:19)
--- NOTE | 2019-10-26 14:27 | PN ---
Progress Note - Progress Note Date of Service: 10/26/19 Note: Progress Note -- Critical Care 24 hour events/significant events: - Patient had another episode overnight where he became very agitated, desaturating. Needed bipap, ativan, and ultimately the precedex gtt needed to be restarted again. - Once again this AM, he remains lethargic and difficult to arouse. ROS:ROS unable to be obtained secondary to altered mental status. Tele: sinus tach Vitals: Vital Signs 10/25/19 10/25/19 10/25/19 16:58 17:00 17:15 Temperature Pulse Rate 102 108 Respiratory 19 19 21 Rate Blood Pressure 157/101 (mmHg) O2 Sat by Pulse 93 96 Oximetry 10/25/19 10/25/19 10/25/19 17:25 17:30 17:31 Temperature Pulse Rate 112 109 Respiratory 22 21 20 Rate Blood Pressure 153/105 (mmHg) O2 Sat by Pulse 94 91 Oximetry 10/25/19 10/25/19 10/25/19 17:45 18:00 18:01 Temperature Pulse Rate 105 108 106 Respiratory 15 15 Rate Blood Pressure 137/113 (mmHg) O2 Sat by Pulse 96 96 96 Oximetry 10/25/19 10/25/19 10/25/19 18:15 18:23 18:30 Temperature Pulse Rate 115 113 109 Respiratory 20 15 30 Rate Blood Pressure 164/105 159/110 (mmHg) O2 Sat by Pulse 97 97 97 Oximetry 10/25/19 10/25/19 10/25/19 18:31 18:45 19:00 Temperature Pulse Rate 116 112 Respiratory 29 15 20 Rate Blood Pressure 155/108 (mmHg) O2 Sat by Pulse 96 96 Oximetry 10/25/19 10/25/19 10/25/19 19:13 19:15 19:22 Temperature 99.1 F Pulse Rate 107 Respiratory 23 18 Rate Blood Pressure (mmHg) O2 Sat by Pulse 97 Oximetry 10/25/19 10/25/19 10/25/19 19:30 19:31 19:35 Temperature Pulse Rate 130 112 Respiratory 26 20 23 Rate Blood Pressure 180/134 172/120 (mmHg) O2 Sat by Pulse 96 Oximetry 10/25/19 10/25/19 10/25/19 19:45 20:00 20:01 Temperature Pulse Rate 115 109 108 Respiratory 21 21 23 Rate Blood Pressure 178/115 (mmHg) O2 Sat by Pulse 95 91 91 Oximetry 10/25/19 10/25/19 10/25/19 20:06 20:15 20:21 Temperature Pulse Rate 120 106 Respiratory 20 24 31 Rate Blood Pressure 122/92 (mmHg) O2 Sat by Pulse 98 98 Oximetry 10/25/19 10/25/19 10/25/19 20:30 20:31 20:45 Temperature Pulse Rate 110 101 100 Respiratory 23 14 18 Rate Blood Pressure 155/102 (mmHg) O2 Sat by Pulse 100 99 98 Oximetry 10/25/19 10/25/19 10/25/19 21:00 21:01 21:15 Temperature Pulse Rate 101 107 Respiratory 25 25 20 Rate Blood Pressure 158/120 (mmHg) O2 Sat by Pulse 95 Oximetry 10/25/19 10/25/19 10/25/19 21:22 21:30 21:31 Temperature Pulse Rate 115 116 Respiratory 20 21 21 Rate Blood Pressure 163/147 (mmHg) O2 Sat by Pulse 98 99 Oximetry 10/25/19 10/25/19 10/25/19 21:45 22:00 22:01 Temperature Pulse Rate 115 105 105 Respiratory 19 17 16 Rate Blood Pressure 129/94 (mmHg) O2 Sat by Pulse 97 100 100 Oximetry 10/25/19 10/25/19 10/25/19 22:06 22:12 22:15 Temperature Pulse Rate 96 96 Respiratory 17 18 14 Rate Blood Pressure (mmHg) O2 Sat by Pulse 100 100 Oximetry 10/25/19 10/25/19 10/25/19 22:30 22:31 22:45 Temperature Pulse Rate 92 95 89 Respiratory 20 18 13 Rate Blood Pressure 147/102 (mmHg) O2 Sat by Pulse 98 99 100 Oximetry 10/25/19 10/25/19 10/25/19 23:00 23:01 23:02 Temperature 97.8 F Pulse Rate 86 92 Respiratory 20 17 Rate Blood Pressure 135/102 (mmHg) O2 Sat by Pulse 98 98 Oximetry 10/25/19 10/25/19 10/25/19 23:16 23:17 23:30 Temperature Pulse Rate 100 93 91 Respiratory 18 16 21 Rate Blood Pressure 141/99 163/108 (mmHg) O2 Sat by Pulse 94 97 93 Oximetry 10/25/19 10/26/19 10/26/19 23:45 00:00 00:01 Temperature Pulse Rate 94 77 73 Respiratory 22 15 23 Rate Blood Pressure 169/110 167/112 (mmHg) O2 Sat by Pulse 100 100 100 Oximetry 10/26/19 10/26/19 10/26/19 00:15 00:16 00:30 Temperature Pulse Rate 81 83 77 Respiratory 27 20 18 Rate Blood Pressure 168/105 150/99 (mmHg) O2 Sat by Pulse 85 100 100 Oximetry 10/26/19 10/26/19 10/26/19 00:33 00:45 01:00 Temperature Pulse Rate 86 100 Respiratory 21 13 18 Rate Blood Pressure 118/88 (mmHg) O2 Sat by Pulse 99 95 Oximetry 10/26/19 10/26/19 10/26/19 01:15 01:30 01:45 Temperature Pulse Rate 101 93 87 Respiratory 20 20 20 Rate Blood Pressure 120/90 97/63 81/63 (mmHg) O2 Sat by Pulse 92 94 94 Oximetry 10/26/19 10/26/19 10/26/19 02:00 02:01 02:15 Temperature Pulse Rate 85 86 Respiratory 20 20 20 Rate Blood Pressure 81/54 88/56 (mmHg) O2 Sat by Pulse 95 94 Oximetry 10/26/19 10/26/19 10/26/19 02:30 02:32 02:45 Temperature Pulse Rate 89 51 45 Respiratory 23 20 20 Rate Blood Pressure 99/75 85/54 (mmHg) O2 Sat by Pulse 95 98 98 Oximetry 10/26/19 10/26/19 10/26/19 03:00 03:15 03:30 Temperature Pulse Rate 61 47 Respiratory 20 20 20 Rate Blood Pressure 83/54 91/63 (mmHg) O2 Sat by Pulse 98 99 Oximetry 10/26/19 10/26/19 10/26/19 03:31 03:45 03:59 Temperature 97.1 F Pulse Rate 45 75 Respiratory 20 20 Rate Blood Pressure 155/94 120/84 (mmHg) O2 Sat by Pulse 99 98 Oximetry 10/26/19 10/26/19 10/26/19 04:00 04:15 04:30 Temperature Pulse Rate 68 85 82 Respiratory 16 15 20 Rate Blood Pressure 122/86 105/83 96/75 (mmHg) O2 Sat by Pulse 98 97 98 Oximetry 10/26/19 10/26/19 10/26/19 04:45 05:00 05:15 Temperature Pulse Rate 86 68 71 Respiratory 20 20 20 Rate Blood Pressure 101/70 94/69 91/68 (mmHg) O2 Sat by Pulse 96 96 96 Oximetry 10/26/19 10/26/19 10/26/19 05:30 05:41 05:42 Temperature Pulse Rate 66 80 Respiratory 20 20 Rate Blood Pressure 106/72 (mmHg) O2 Sat by Pulse 99 98 98 Oximetry 10/26/19 10/26/19 10/26/19 05:45 06:00 06:15 Temperature Pulse Rate 53 82 73 Respiratory 14 20 18 Rate Blood Pressure 133/101 130/87 (mmHg) O2 Sat by Pulse 99 97 100 Oximetry 10/26/19 10/26/19 10/26/19 06:16 06:30 06:31 Temperature Pulse Rate 73 68 67 Respiratory 18 13 16 Rate Blood Pressure 130/95 119/75 (mmHg) O2 Sat by Pulse 100 97 98 Oximetry 10/26/19 10/26/19 10/26/19 06:45 07:00 07:01 Temperature Pulse Rate 44 70 66 Respiratory 13 18 20 Rate Blood Pressure 113/72 120/93 (mmHg) O2 Sat by Pulse 98 100 100 Oximetry 10/26/19 10/26/19 10/26/19 07:10 07:15 07:30 Temperature 97.4 F Pulse Rate 68 73 Respiratory 20 20 Rate Blood Pressure 109/75 104/65 (mmHg) O2 Sat by Pulse 97 97 Oximetry 10/26/19 10/26/19 10/26/19 07:45 08:00 08:15 Temperature 98.3 F Pulse Rate 68 44 47 Respiratory 20 21 Rate Blood Pressure 94/64 109/67 (mmHg) O2 Sat by Pulse 98 99 100 Oximetry 10/26/19 10/26/19 10/26/19 08:18 08:30 08:31 Temperature Pulse Rate 58 48 65 Respiratory 23 14 Rate Blood Pressure 110/85 101/77 (mmHg) O2 Sat by Pulse 99 98 96 Oximetry 10/26/19 10/26/19 10/26/19 08:45 08:50 09:00 Temperature Pulse Rate 65 58 Respiratory 20 Rate Blood Pressure 90/65 (mmHg) O2 Sat by Pulse 94 99 92 Oximetry 10/26/19 10/26/19 10/26/19 09:01 09:03 09:04 Temperature Pulse Rate 46 Respiratory 20 20 Rate Blood Pressure 104/75 (mmHg) O2 Sat by Pulse 98 Oximetry 10/26/19 10/26/19 10/26/19 09:15 09:16 09:30 Temperature Pulse Rate 67 43 44 Respiratory 16 20 20 Rate Blood Pressure 111/74 104/74 (mmHg) O2 Sat by Pulse 98 99 98 Oximetry 10/26/19 10/26/19 10/26/19 09:45 09:46 10:00 Temperature Pulse Rate 44 65 Respiratory 21 17 16 Rate Blood Pressure 123/93 (mmHg) O2 Sat by Pulse 100 Oximetry 10/26/19 10/26/19 10/26/19 10:15 10:16 10:30 Temperature Pulse Rate 45 46 46 Respiratory 22 18 20 Rate Blood Pressure 128/94 123/88 (mmHg) O2 Sat by Pulse 97 99 100 Oximetry 10/26/19 10/26/19 10/26/19 10:45 10:46 10:58 Temperature Pulse Rate 72 Respiratory 17 12 19 Rate Blood Pressure 104/79 (mmHg) O2 Sat by Pulse Oximetry 10/26/19 10/26/19 10/26/19 11:00 11:15 11:27 Temperature 97.4 F Pulse Rate 45 74 Respiratory 16 18 Rate Blood Pressure 139/94 (mmHg) O2 Sat by Pulse 97 Oximetry 10/26/19 10/26/19 10/26/19 11:30 11:45 12:00 Temperature 98 F Pulse Rate 92 94 102 Respiratory 22 18 15 Rate Blood Pressure 121/94 142/102 (mmHg) O2 Sat by Pulse 94 94 92 Oximetry 10/26/19 10/26/19 10/26/19 12:14 12:15 12:17 Temperature Pulse Rate 101 101 101 Respiratory 18 17 16 Rate Blood Pressure 138/101 148/97 (mmHg) O2 Sat by Pulse 95 91 94 Oximetry 10/26/19 10/26/19 10/26/19 12:30 12:44 12:45 Temperature Pulse Rate 107 110 Respiratory 19 17 19 Rate Blood Pressure 135/100 145/98 (mmHg) O2 Sat by Pulse 93 93 Oximetry 10/26/19 10/26/19 13:00 14:40 Temperature Pulse Rate 104 Respiratory 17 21 Rate Blood Pressure 133/101 (mmHg) O2 Sat by Pulse 93 Oximetry Intake and Output Last 24 Hours 10/24/19 10/25/19 10/26/19 10/27/19 06:59 06:59 06:59 06:59 Intake Total 754 3096.5 85.7 0 Output Total 2205 1776 925 375 Balance -1451 1320.5 -839.3 -375 Weight 212 lb 1.355 oz 200 lb 9.93 oz 212 lb 8.41 oz Intake: IV Fluids 2031 NS 2031 Medicated IV 754 334.5 85.7 Precedex 754 334.5 85.7 Oral 0 730 0 0 Output: Urine 1725 1776 925 375 Womack 480 Other: Estimated Void Large Large Small Date of Last Bowel 10/23/19 Movement # Bowel Movements 1 Estimated Stool Amount Medium # Voids 1 1 1 O2: Bipap Infusions: precedex has been weaned off Medications: Albuterol (Ventolin 2.5 Mg/3 Ml Neb.Vashti*) 2.5 mg INH Q2H PRN PRN Reason: SOB/WHEEZING Aspirin (Aspirin Ec Tab*) 81 mg PO DAILY [facility] Last Admin: 10/26/19 11:15 Dose: 81 mg Dextrose (Dextrose 50% Vial 50 Ml*) 25 ml IV PUSH .FOR FS < 60 - SS PRN PRN Reason: FS < 60 Duloxetine HCl (Cymbalta Cap*) 60 mg PO QAM [facility] Last Admin: 10/26/19 11:15 Dose: 60 mg Enoxaparin Sodium (Lovenox(*)) 40 mg SUBCUT Q24HR@0600 [facility] Last Admin: 10/26/19 07:56 Dose: 40 mg Folic Acid (Folvite Tab*) 1 mg PO DAILY [facility] Last Admin: 10/26/19 11:15 Dose: 1 mg Hydralazine HCl (Apresoline Iv*) 5 mg IV SLOW PU Q6H PRN PRN Reason: hypertension Last Admin: 10/24/19 18:10 Dose: 5 mg Dexmedetomidine HCl 1,000 mcg/ (Sodium Chloride) 250 mls @ 12.02 mls/hr IV Q8H [facility]; Protocol Last Admin: 10/26/19 12:02 Dose: Not Given Insulin Human Lispro (Humalog*) 0 units SUBCUT FS Q6 ICU [facility]; Protocol Last Admin: 10/26/19 12:48 Dose: 3 units Lorazepam (Ativan Inj*) 0 mg IV PUSH Q2H PRN; Protocol PRN Reason: alcohol withdrawal Last Admin: 10/26/19 16:45 Dose: 4 mg Lorazepam (Ativan Inj*) 1 mg IV PUSH Q3H PRN PRN Reason: ANXIETY Last Admin: 10/26/19 14:40 Dose: 1 mg Methylprednisolone Sodium Succinate (Solu-Medrol 40 Mg) 60 mg IV Q8H [facility] Last Admin: 10/26/19 12:49 Dose: 60 mg Miscellaneous (Ativan Pyxis Dobbs) 1 ea N/A .ATIVAN IV DOBBS PRN PRN Reason: PYXIS DOBBS Mometasone Furoate/Formoterol Fumar (Dulera 200/5 Mdi*) 2 puff INH BID [facility] Last Admin: 10/26/19 07:10 Dose: Not Given Multivitamins/Minerals (Theragran/Minerals Tab*) 1 tab PO DAILY [facility] Last Admin: 10/26/19 11:15 Dose: 1 tab Nicotine (Nicotine Patch 7 Mg/24 Hr*) 1 patch TRANSDERM DAILY [facility] Ondansetron HCl (Zofran Inj*) 4 mg IV Q6H PRN PRN Reason: NAUSEA Last Admin: 10/24/19 17:55 Dose: 4 mg Pantoprazole Sodium (Protonix Tab*) 40 mg PO DAILY [facility] Last Admin: 10/26/19 11:16 Dose: 40 mg Pharmacy Profile Note (Nicotine Patch Removal Note*) 1 note FOLLOW UP 0600 [facility] Quetiapine Fumarate (Seroquel Tab*) 25 mg PO BEDTIME [facility] Quetiapine Fumarate (Seroquel Tab*) 12.5 mg PO DAILY [facility] Last Admin: 10/26/19 11:16 Dose: 12.5 mg Tamsulosin HCl (Flomax Cap*) 0.4 mg PO QAM [facility] Last Admin: 10/26/19 11:15 Dose: 0.4 mg Thiamine HCl (Vitamin B-1 Tab*) 100 mg PO DAILY [facility] Last Admin: 10/26/19 11:15 Dose: 100 mg Physical Exam: Constitutional: obtunded. Generally agitated and restless at times. Head: normocephalic, atraumatic Eyes: no pallor, no icterus ENT: dry mucous membranes Neck: soft, supple CVS: tachycardic, regular, no murmur Chest/Resp: bilateral air entry, diminished throughout, no rhales, no wheeze, no rhonchi, no acc muscle use Abdomen/GI: soft, nontender, nondistended, BS+ Ext/Msk: warm, pulses+, no edema Skin: intact, warm Neuro: obtunded, opens eyes sporadically, moving all extremities, no gross focal deficit Psych: normal affect Labs: Laboratory Results - last 24 hr 10/23/19 10/23/19 10/24/19 12:02 23:15 17:33 WBC RBC Hgb Hct MCV MCH MCHC RDW Plt Count MPV Neut % (Auto) Lymph % (Auto) Cloud % (Auto) Eos % (Auto) Baso % (Auto) Absolute Neuts (auto) Absolute Lymphs (auto) Absolute Monos (auto) Absolute Eos (auto) Absolute Basos (auto) Absolute Nucleated RBC Nucleated RBC % Sodium Potassium Chloride Carbon Dioxide Anion Gap BUN Creatinine Est GFR ( Amer) Est GFR (Non-Af Amer) BUN/Creatinine Ratio Glucose POC Glucose (mg/dL) 140 H 144 H 140 H Calcium Total Bilirubin AST ALT Alkaline Phosphatase Total Protein Albumin Globulin Albumin/Globulin Ratio 10/24/19 10/25/19 10/25/19 23:57 12:38 18:07 WBC RBC Hgb Hct MCV MCH MCHC RDW Plt Count MPV Neut % (Auto) Lymph % (Auto) Cloud % (Auto) Eos % (Auto) Baso % (Auto) Absolute Neuts (auto) Absolute Lymphs (auto) Absolute Monos (auto) Absolute Eos (auto) Absolute Basos (auto) Absolute Nucleated RBC Nucleated RBC % Sodium Potassium Chloride Carbon Dioxide Anion Gap BUN Creatinine Est GFR ( Amer) Est GFR (Non-Af Amer) BUN/Creatinine Ratio Glucose POC Glucose (mg/dL) 171 H 132 H 188 H Calcium Total Bilirubin AST ALT Alkaline Phosphatase Total Protein Albumin Globulin Albumin/Globulin Ratio 10/26/19 10/26/19 10/26/19 00:22 04:05 04:05 WBC 7.1 RBC 4.44 Hgb 13.2 L Hct 41 L MCV 92 MCH 30 MCHC 32 RDW 16 H Plt Count 150 MPV 8.2 Neut % (Auto) 90.7 Lymph % (Auto) 3.1 Cloud % (Auto) 6.1 Eos % (Auto) 0.0 Baso % (Auto) 0.1 Absolute Neuts (auto) 6.4 Absolute Lymphs (auto) 0.2 L Absolute Monos (auto) 0.4 Absolute Eos (auto) 0.0 Absolute Basos (auto) 0.0 Absolute Nucleated RBC 0.0 Nucleated RBC % 0.1 Sodium 139 Potassium 4.9 Chloride 95 L Carbon Dioxide 43 H* Anion Gap 1 L BUN 25 H Creatinine 0.70 Est GFR ( Amer) 144.4 Est GFR (Non-Af Amer) 119.4 BUN/Creatinine Ratio 35.7 H Glucose 170 H POC Glucose (mg/dL) 148 H Calcium 9.4 Total Bilirubin 0.80 AST 16 ALT 22 Alkaline Phosphatase 31 L Total Protein 5.9 L Albumin 3.6 Globulin 2.3 Albumin/Globulin Ratio 1.6 Imaging: Chest xray 10/25: increased airspace opacification of the right mid lower lung zone EKG 10/24: sinus tachy, qtc 366 Assessment: 49M with acute on chronic respiratory failure d/t ILD and COPD exacerbation. Course complicated by alcohol withdrawal and delirium. He continues to have episodes at night of increased agitation, desaturation, needing precedex and bipap. - Acute on chronic hypoxic and hypercapnic respiratory failure - ACS - Alcohol withdrawal - DM - BPH Plan: Neuro- - Delirium: acute. able to wean off precedex. Started seroquel 12.5mg in AM and 25mg at night. Continue to increase dosing as indicated. - ETOH withdrawal: continue ativan per [facility] protocol. CVS- - Continue asa. Trops trended down. -Titrate Pressors to Maintain MAP>65 Resp- - Likely hypercapnic episodes from increasing doses of anti-psychotics. Patient' s behavior is difficult to control. Will start placing patient on CPAP at night , since he also likely has ERYN. Will also be less likely to need benzos now that seroquel is started -Wean Fio2 to keep sat>92% -Bronchodilators PRN, Aspiration prec, Pulmonary Toilet ID- - No active issues GI- -Nutrition: encourage PO when patient is fully awake -GI prophylaxis: protonix Renal- -strict I/O, replete to keep K>4, Mg>2 -condom cath is able to keep on. Patient has been incontinent otherwise Heme- - No active issues - Lovenox for DVT prophylaxis Endo-Maintain BG<200, insulin protocol, BGs ACHS Musculsk- pressure ulcer prophylaxis. OOB Wounds- none Nutrition- encourage PO diet DVT prophylaxis: lovenox GI prophylaxis: PPI Disposition: Patient requires Critical Care/ICU for nighttime episodes of agitation with concurrent hypoxia and probable hypercapnia. If patient is able to stay off precedex tonight, he can go to floor tomorrow Patient clinical status: stable Code Status:full Total Critical Care time is 10minutes
[2019-10-26] MEDS: Nicotine PATCH 7 MG/24 HR* PATCH TRANSDERM SCH (16:57)
[2019-10-26] MEDS: OLANzapine TAB* 5 MG PO SCH (21:19)
[2019-10-27] MEDS: Insulin LISPRO* 1 UNITS UNIT SUBCUT SCH ×5 (00:53→20:28)
[2019-10-27] MEDS: methylPREDNISolone SOD 40 MG* 1 ML VIAL IV SCH ×3 (04:12→20:29)
[2019-10-27 05:24] LABS: ABS Lymphocytes 0.3 10^3/ul (1.0-4.8); ABS Monocytes 0.4 10^3/ul (0-0.8); ABS Neutrophils 6.6 10^3/ul (1.5-7.7); Hematocrit 43 % (42-52); Lymphocyte % 3.7 %; Mean Corpuscular HGB Conc 33 g/dL (31-36); Mean Corpuscular Hemoglobin 30 pg (27-31); Mean Corpuscular Volume 92 fL (80-94); Mean Platelet Volume 8.9 fL (7.4-10.4); Platelet Count 145 10^3/uL (150-450); Red Blood Count 4.69 10^6 /uL (4.18-5.48); Red Cell Distribution Width 15 % (10-15); White Blood Count 7.2 10^3/uL (3.5-10.8)
[2019-10-27 05:40] LABS: BUN/Creatinine Ratio 38.8 (8-20); Calcium 9.5 mg/dL (8.6-10.3); EGFR African American 151.9 (>60); EGFR Non-African American 125.6 (>60)
[2019-10-27] MEDS: Enoxaparin(*) 40 MG/0.4 ML SYR SUBCUT SCH (06:26)
[2019-10-27] MEDS: Nicotine Patch Removal NOTE FOLLOW UP SCH (06:26)
[2019-10-27] MEDS: LORazepam INJ* 2 MG/ML 1 ML VIAL IV PUSH PRN ×5 (06:26→20:29)
[2019-10-27] MEDS: DULoxetine DR CAP* 60 MG CAP.DR PO SCH (08:22)
[2019-10-27] MEDS: Tamsulosin CAP* 0.4 MG PO SCH (08:23)
[2019-10-27] MEDS: Nicotine PATCH 7 MG/24 HR* PATCH TRANSDERM SCH (08:23)
[2019-10-27] MEDS: Multivitamins/Minerals TAB PO SCH (08:23)
[2019-10-27] MEDS: OLANzapine TAB* 5 MG PO SCH (08:23)
[2019-10-27] MEDS: Thiamine TAB* 100 MG TAB PO SCH (08:23)
[2019-10-27] MEDS: Aspirin EC TAB* 81 MG TAB.EC PO SCH (08:23)
[2019-10-27] MEDS: Folic Acid TAB* 1 MG PO SCH (08:23)
[2019-10-27] MEDS: Pantoprazole TAB * 40 MG TAB PO SCH (08:23)
[2019-10-27] MEDS: QUEtiapine TAB* 25 MG PO SCH ×2 (08:23→20:26)
[2019-10-27] MEDS: Mometasone/Formoter 200/5 MDI INH SCH (08:31)
[2019-10-27] MEDS ORDERED: NS 0.9% IV ONE (11:00)
[2019-10-27] MEDS ORDERED: PHENOBARBITAL IV ONE (11:00)
--- NOTE | 2019-10-27 12:04 | PN ---
Date of Service: 10/27/19 Critical Care Services: Patient seen and examined. Remains confused and scoring on WAM assessment today , but has been off precedex drip for 24 hours and has been off rescue Bipap. He is still impulsive and tries to get out of bed and has difficulty following directions, but is otherwise clinically stable with no complaints, although he does not answer questions appropriately. Vital Signs: Temp Pulse Resp BP SpO2 FiO2 97.2 F 115 24 126/92 95 70 10/27/19 11:59 10/27/19 10:15 10/27/19 10:35 10/27/19 10:00 10/27/19 10:15 10/27 04:01 Physical Exam: General: Alert, NAD HEENT: Normocephalic, atraumatic, non-icteric sclera, moist oral mucosa Neck: soft, supple, no JVD CV: Regular rate and rhythm, no murmurs or rubs Pulm/Chest: Diminished throughout lung ocasio, no rhonchi, bilateral expiratory wheeze Abdomen/GI: soft, nontender, nondistended, +BS noted MSK/Skin: warm, dry, intact, +2 pulses+, no edema or cyanosis Neuro: Confused, 5/5 motor Psych: Impulsive Fluid Balance (Past 24 Hours): Intake & Output 10/25/19 10/26/19 10/27/19 10/28/19 06:59 06:59 06:59 06:59 Intake Total 3096.5 85.7 20 480 Output Total 2210 014 0559 Balance 1320.5 -839.3 -1075 480 Weight 200 lb 9.93 oz 212 lb 8.41 oz Intake: IV Fluids 2031 NS 2031 Medicated IV 334.5 85.7 20 Precedex 334.5 85.7 20 Oral 730 0 0 480 Output: Urine 1776 925 775 Straight Cath 320 Other: Estimated Void Large Small # Voids 1 1 Labs: Laboratory Results - last 24 hr 10/27/19 10/27/19 05:09 05:09 WBC 7.2 RBC 4.69 Hgb 14.0 Hct 43 MCV 92 MCH 30 MCHC 33 RDW 15 Plt Count 145 L MPV 8.9 Neut % (Auto) 91.1 Lymph % (Auto) 3.7 [place] % (Auto) 5.1 Eos % (Auto) 0.0 Baso % (Auto) 0.1 Absolute Neuts (auto) 6.6 Absolute Lymphs (auto) 0.3 L Absolute Monos (auto) 0.4 Absolute Eos (auto) 0.0 Absolute Basos (auto) 0.0 Absolute Nucleated RBC 0.0 Nucleated RBC % 0.0 Sodium 140 Potassium 5.0 Chloride 94 L Carbon Dioxide 41 H* Anion Gap 5 BUN 26 H Creatinine 0.67 Est GFR ( Amer) 151.9 Est GFR (Non-Af Amer) 125.6 BUN/Creatinine Ratio 38.8 H Glucose 145 H Calcium 9.5 Studies: Patient Name: NAIMA GRISSOM Medical Record#: [id number] Ordering Physician: Marylou Mars NP Acct.#: [id number] : 1970 Age: 49 Sex: M Location: [facility] Exam Date: 10/25/19822 ADM Status: ADM IN Order Information: CHEST AP/PORT Accession Number: [id number] CPT: 48486 INDICATION: Desaturation. COMPARISON: October 19, 2019 chest radiograph TECHNIQUE: A portable view of the chest was obtained. FINDINGS: Overlying leads obscure the [id number]. There is increased airspace opacification the right mid lower lung zone. No large pleural effusion is identified. The cardiac silhouette is unchanged. IMPRESSION: Increased airspace opacification of the right mid lower lung zone (could represent pneumonia in the correct clinical context). Nutrition: Regular diet Impression: This is a 49 year old male with acute on chronic respiratory failure d/t ILD and COPD exacerbation. Course complicated by alcohol withdrawal and delirium. He continues to have episodes at night of increased agitation, desaturation, needing precedex and bipap which is improved today: Diagnoses: - Acute on chronic hypoxic and hypercapnic respiratory failure - NSTEMI - Alcohol withdrawal with acute delerium tremens - DM Plan: Neuro - Remains delirious, now off precedex but getting agitated again - continue WAM protocol with ativan, continue seroquel 12.5mg in AM and 25mg at night, tirate PRN, zyprexa PRN - Gave one time dose phenobarbital today for further agitation this morning, continue to monitor for effect - Taper steroids today, may be contributing to behavior - Continue thiamine, folic acid and MVI CV - Trops trended down, continue conservative medical management with ASA only as per cardiology - Troponinemia likely 2/2 severe RV dysfunction rather than ACS Resp- - Likely hypercapnic episodes from increasing doses of anti-psychotics. Patient 's behavior is difficult to control. Continue on CPAP at night, since he also likely has ERYN. Will also be less likely to need benzos now that seroquel is started - Goal sats>90% given severe lung disease, CO2 improved - Taper IV steroids - CXR as above, but patient with no white count and no fever, not likely increasing consolidation or PNA - Bronchodilators PRN, Aspiration prec, Pulmonary Toilet ID- - No active issues GI- - Regular diet - PPI Renal- - strict I/O, replete to keep K>4, Mg>2 - condom cath if able to tolerate Heme- - No active issues - Lovenox for DVT prophylaxis Endo - No active issues MSK/SKIN - Pressure ulcer prophylaxis, T&P Q2H - OOB to chair if safe to do so Wounds- none Nutrition- encourage PO diet DVT prophylaxis: lovenox GI prophylaxis: PPI Disposition: Patient requires Critical Care/ICU for nighttime episodes of agitation with concurrent hypoxia and probable hypercapnia. If patient is able to stay off precedex tonight, he can go to floor tomorrow Patient clinical status: Hemodynamically stable, behavior is fair Code Status:full Total Critical Care time is 30 minutes
[2019-10-27 15:30] LABS: Urine Appearance Cloudy; Urine Bilirubin Negative (Negative); Urine Blood 3+ (Negative); Urine Color Amber; Urine Glucose 1+(50 mg/dL) (Negative); Urine Ketones Negative (Negative); Urine Nitrite Negative (Negative); Urine Protein 2+(100 mg/dL) (Negative); Urine Specific Gravity 1.019 (1.010-1.030); Urine Urobilinogen Negative (Negative)
[2019-10-27] MEDS: Losartan TAB* 25 MG PO SCH (15:30)
[2019-10-27 15:33] LABS: Urine Bacteria Absent (Absent); Urine Red Blood Cell 3+(>10/hpf) (Absent); Urine White Blood Cell Trace(0-5/hpf) (Absent)
[2019-10-27] MEDS ORDERED: Tamsulosin CAP* 0.4 MG PO SCH (21:00)
[2019-10-27] MEDS: NS 0.9% 1000 ML** 1,000 ML IV SCH (22:34)
[2019-10-28] MEDS: Mometasone/Formoter 200/5 MDI INH SCH ×2 (04:23→07:31)
[2019-10-28] MEDS: Enoxaparin(*) 40 MG/0.4 ML SYR SUBCUT SCH (05:33)
[2019-10-28] MEDS: methylPREDNISolone SOD 40 MG* 1 ML VIAL IV SCH ×2 (05:33→07:54)
[2019-10-28] MEDS ORDERED: Succinylcholine* 20 MG/ML 10 ML VIAL ONE ×2 (05:37→05:44)
[2019-10-28] MEDS ORDERED: Etomidate* 2 MG/ML 20 ML VIAL (40 MG) ONE (05:44)
[2019-10-28] MEDS ORDERED: Midazolam* 1 MG/ML 5 ML VIAL (5 MG) ONE (05:48)
[2019-10-28] MEDS ORDERED: Midazolam* 1 MG/ML 2 ML VIAL (2 MG) IV SLOW PU ONE (05:48)
[2019-10-28] MEDS ORDERED: Atropine SYRINGE* 0.1 MG/ML 10 ML SYRINGE (1 MG) ONE (05:50)
[2019-10-28] MEDS ORDERED: Atropine 1MG/ML INJ* 1 ML VIAL IV PUSH PRN (05:51)
--- NOTE | 2019-10-28 05:54 | PN ---
Hospitalist Progress Note Date of Service: 10/28/19 Patient more sedated and not very combative or talkative all night. Nurse suggested checking ABG for hypercapnia which revealed high pCO2. BiPAP settings were already maxed out so requested ER physician to intubate for hypercapneac respiratory failure. Patient given etomidate and succinyl CoA and intubated. Will Repeat ABG 1Hr post intubation. Patient was noted to be bradycardic post-intubation which required him to be given atropine.
--- NOTE | 2019-10-28 05:57 | PN ---
Progress Note - Progress Note Date of Service: 10/28/19 Note: Intubation preformed due to a Dx of hypercapnia and an inability to breath on own. Procedure began at 0543, the pt was given 10mgs of Etomidate and 100mgs of Succinylcholine prior to intubation. An 8.0mm tube was used with good effect. Dr. Clay, Hospitalist, stated that he would interpret the post-procedural X- Ray. Procedures - Sedation Patient Received Moderate/Deep Sedation with Procedure: No - Intubation Time of Intubation: 05:43 Intubation Method: orotracheal Tube Size (cm): 8.0 Medications: Succinylcholine Breath Sounds after Intubation: equal Intubation Complications: no complications Post Intubation Xray: Yes - Interpreted by Dr. Clay
[2019-10-28] MEDS ORDERED: Midazolam IV for DRIP* 100 MG in NS 0.9% 100 ML* 80 ML IV SCH (06:00)
[2019-10-28] MEDS: Nicotine Patch Removal NOTE FOLLOW UP SCH (06:00)
[2019-10-28] MEDS ORDERED: Propofol* 100 ML ONE (06:08)
[2019-10-28] MEDS: Propofol* 100 ML IV SCH ×3 (06:15→10:52)
[2019-10-28 07:05] LABS: ABS Lymphocytes 0.2 10^3/ul (1.0-4.8); ABS Monocytes 0.5 10^3/ul (0-0.8); ABS Neutrophils 7.8 10^3/ul (1.5-7.7); Eosinophil % 0.1 %; Hematocrit 41 % (42-52); Hemoglobin 13.2 g/dL (14.0-18.0); Lymphocyte % 2.7 %; Mean Corpuscular HGB Conc 32 g/dL (31-36); Mean Corpuscular Hemoglobin 30 pg (27-31); Mean Corpuscular Volume 91 fL (80-94); Mean Platelet Volume 8.7 fL (7.4-10.4); Platelet Count 140 10^3/uL (150-450); Red Blood Count 4.48 10^6 /uL (4.18-5.48); Red Cell Distribution Width 15 % (10-15); White Blood Count 8.6 10^3/uL (3.5-10.8)
[2019-10-28 07:45] LABS: BUN/Creatinine Ratio 39.1 (8-20); Calcium 8.9 mg/dL (8.6-10.3); EGFR African American 160.2 (>60); EGFR Non-African American 132.4 (>60); Magnesium 2.1 mg/dL (1.9-2.7); Phosphorus 3.9 mg/dL (2.5-5.0); Potassium 4.8 mmol/L (3.5-5.0)
[2019-10-28] MEDS: Insulin LISPRO* 1 UNITS UNIT SUBCUT SCH ×2 (08:15→13:53)
[2019-10-28] MEDS: Folic Acid TAB* 1 MG PO SCH (10:58)
[2019-10-28] MEDS: DULoxetine DR CAP* 60 MG CAP.DR PO SCH (10:58)
[2019-10-28] MEDS: Aspirin EC TAB* 81 MG TAB.EC PO SCH (10:58)
[2019-10-28] MEDS: Nicotine PATCH 7 MG/24 HR* PATCH TRANSDERM SCH (10:59)
[2019-10-28] MEDS: Losartan TAB* 25 MG PO SCH (10:59)
[2019-10-28] MEDS: Multivitamins/Minerals TAB PO SCH (10:59)
[2019-10-28] MEDS: OLANzapine TAB* 5 MG PO SCH (10:59)
[2019-10-28] MEDS: QUEtiapine TAB* 25 MG PO SCH (10:59)
[2019-10-28] MEDS: Pantoprazole TAB * 40 MG TAB PO SCH (10:59)
[2019-10-28] MEDS: Thiamine TAB* 100 MG TAB PO SCH (11:00)
--- NOTE | 2019-10-28 11:11 | PN ---
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 Patient with climbing CO2 after increasing lethargy all night. ABG revealed pH 7.30 and CO2 of 115 after being on Bipap for 2 hours. Decision was made to intubate, as patient was persistently encephalopathic and could not protect his airway. Unfortunately, he has required additional respiratory support given his alcohol withdrawal, but at this time it does appear that his respiratory failure has worsened and he is no longer responding to therapy, including steroids, nighttime bipap, alternating vapotherm and salter, WAM protocol and thiamine. His sister arrived and stated that she had several conversations with Dr. Mojica of Pulmonology regarding the severity of her brother's lung disease, and that at some point, his respiratory failure would be permanent, and without lung transplant he would likely not survive. Also given Mathieu's lifestyle choices, including alcoholism, tobacco abuse and recent overdose of heroin in September, it is highly unlikely that Mathieu will qualify for a transplant or that we would be able to transfer him to [facility], where he was supposed to be following up for transplant evaluation. She immediately reached out to her parents and her sister in [place] to discuss goals of care, as she stated to me "He never wanted this". I had a lengthy discussion with Mathieu's parents regarding the severity of his condition, and as his surrogates, they have decided to terminally extubate Mathieu and provide comfort measures only. The patient is unable to make this decision right now, as he lacks capacity secondary to persistent encephalopathy. His mother who is the legal surrogate states very explicitly that she has had many discussions with him in the past regarding his wishes, and that continuing with intubation is not in line with what Mathieu expressed to his parents in the past. 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 Given his poor prognosis and unlikely chance for meaningful recovery, this is a reasonable decision. I explained to them that we would start a morphine drip for discomfort and air hunger, and consult Dr. Agudelo from Palliative Care. At the request of the patient's mother and in accordance with the patient's wishes, he will be terminally extubated today. They also have declined rescue bipap or oxygen, no CPR, and no feeding tube. Plan of care coordinated with nursing and Dr. Hull , ICU attending. Vital Signs: Temp Pulse Resp BP SpO2 FiO2 96.6 F 57 10 119/78 94 35 10/28/19 07:48 10/28/19 09:15 10/28/19 08:00 10/28/19 09:15 10/28/19 09:15 10/28 08:00 Physical Exam: Gen: HEENT: Lungs: Cardiac: Abdomen: Extremities: Neuro: Fluid Balance (Past 24 Hours): Intake & Output 10/26/19 10/27/19 10/28/19 10/29/19 06:59 06:59 06:59 06:59 Intake Total 85.7 20 580 Output Total 925 1095 867 180 Balance -839.3 -1075 -287 -180 Weight 212 lb 8.41 oz 207 lb 3.752 oz Intake: Medicated IV 85.7 20 100 Precedex 85.7 20 phenobarbitol 100 Oral 0 0 480 Output: Urine 925 775 300 [place] 567 180 Straight Cath 320 Other: Estimated Void Small Date of Last Bowel 10/23/19 Movement # Bowel Movements 1 Estimated Stool Amount Medium Other Amount Description post void bladder scan amt greater thann 200mL post void bladder scan amt greater thann 200mL # Voids 1 Labs: Laboratory Results - last 24 hr 10/27/19 10/28/19 10/28/19 15:10 05:04 06:45 WBC RBC Hgb Hct MCV MCH MCHC RDW Plt Count MPV Neut % (Auto) Lymph % (Auto) [place] % (Auto) Eos % (Auto) Baso % (Auto) Absolute Neuts (auto) Absolute Lymphs (auto) Absolute Monos (auto) Absolute Eos (auto) Absolute Basos (auto) Absolute Nucleated RBC Nucleated RBC % Patient Temperature Not Reportable ABG pH 7.30 L ABG pH (Temp Correct) Not Reportable ABG pCO2 115 H* ABG pCO2 (Temp Corrct Not Reportable ABG pO2 95 ABG pO2 (Temp Correct Not Reportable ABG HCO3 43.2 H* ABG O2 Saturation 98.8 H ABG Base Excess 23.5 H Respiration Rate 20 O2 Delivery Device bipap Ventilator Type Not Reportable Vent Mode Not Reportable FiO2 70 Inspiratory Time Not Reportable PEEP Not Reportable Pressure Support Not Reportable Pressure Control Not Reportable EPAP 5 IPAP 25 BiPAP Not Reportable Sodium 143 Potassium 4.8 Chloride 93 L Carbon Dioxide 45 H* Anion Gap 5 BUN 25 H Creatinine 0.64 L Est GFR ( Amer) 160.2 Est GFR (Non-Af Amer) 132.4 BUN/Creatinine Ratio 39.1 H Glucose 127 H Calcium 8.9 Phosphorus 3.9 Magnesium 2.1 Urine Color Digna Urine Appearance Cloudy Urine pH 6.0 Ur Specific [place] 1.019 Urine Protein 2+(100 mg/dl) A Urine Ketones Negative Urine Blood 3+ A Urine Nitrate Negative Urine Bilirubin Negative Urine Urobilinogen Negative Ur Leukocyte Esterase Negative Urine WBC (Auto) Trace(0-5/hpf) Urine RBC (Auto) 3+(>10/hpf) A Urine Bacteria Absent Urine Glucose 1+(50 mg/dl) A 10/28/19 10/28/19 06:45 07:25 WBC 8.6 RBC 4.48 Hgb 13.2 L Hct 41 L MCV 91 MCH 30 MCHC 32 RDW 15 Plt Count 140 L MPV 8.7 Neut % (Auto) 91.1 Lymph % (Auto) 2.7 [place] % (Auto) 6.0 Eos % (Auto) 0.1 Baso % (Auto) 0.1 Absolute Neuts (auto) 7.8 H Absolute Lymphs (auto) 0.2 L Absolute Monos (auto) 0.5 Absolute Eos (auto) 0.0 Absolute Basos (auto) 0.0 Absolute Nucleated RBC 0.0 Nucleated RBC % 0.0 Patient Temperature Not Reportable ABG pH 7.67 H* ABG pH (Temp Correct) Not Reportable ABG pCO2 46 H ABG pCO2 (Temp Corrct Not Reportable ABG pO2 56 L* ABG pO2 (Temp Correct Not Reportable ABG HCO3 47.3 H* ABG O2 Saturation 95.8 ABG Base Excess 28.8 H Respiration Rate 18 O2 Delivery Device vent Ventilator Type 550 Vent Mode cmv FiO2 35 Inspiratory Time Not Reportable PEEP 5 Pressure Support Not Reportable Pressure Control Not Reportable EPAP Not Reportable IPAP Not Reportable BiPAP Not Reportable Sodium Potassium Chloride Carbon Dioxide Anion Gap BUN Creatinine Est GFR ( Amer) Est GFR (Non-Af Amer) BUN/Creatinine Ratio Glucose Calcium Phosphorus Magnesium Urine Color Urine Appearance Urine pH Ur Specific [place] Urine Protein Urine Ketones Urine Blood Urine Nitrate Urine Bilirubin Urine Urobilinogen Ur Leukocyte Esterase Urine WBC (Auto) Urine RBC (Auto) Urine Bacteria Urine Glucose Studies: Patient Name: MATHIEU GRISSOM Medical Record#: [id number] Ordering Physician: Ron Clay MD Acct.#: [id number] : 1970 Age: 49 Sex: M Location: [facility] Exam Date: 10/28/19 06 ADM Status: ADM IN Order Information: CHEST AP/PORT Accession Number: [id number] CPT: 02242 INDICATION: Post intubation. Former tobacco use. COMPARISON: October 25, 2019 TECHNIQUE: Dual energy PA and lateral views of the chest obtained. REPORT AND IMPRESSION: #. Endotracheal tube is 2 cm above the Quin. #. Moderate prominence of the interstitial markings without change. Interval improvement in alveolar opacity at the RIGHT lung base. Grossly clear pleural spaces. Negative for pneumothorax. #. The heart, pulmonary vasculature, and mediastinal contours are unremarkable. Nutrition: NPO Impression: Impression: This is a 49 year old male with acute on chronic respiratory failure d/t ILD and COPD exacerbation. Course complicated by alcohol withdrawal and delirium. He continues to have episodes at night of increased agitation, desaturation, needing precedex and bipap which is improved today: Diagnoses: - Acute on chronic hypoxic and hypercapnic respiratory failure - NSTEMI - Alcohol withdrawal with acute delerium tremens - DM - Metabolic Encephalopathy Plan: Neuro - Persistently encephalopathic overnight with increasing CO2, was not receiving ativan or other sedating medications that would have affected neuro status changes - RASS-3 on propofol CV - Bradycardia after intubation, required atropine, rate in the low 50s on tele - On asa per cardiology Resp- - Failed bipap with CO2 of 115, given advanced ILD, high baseline O2 requirements and need for lung transplant, patient is not likely to wean off vent - CXR as above, no new infiltrate - Vent: APV/CMV, rate 10, 35%FIO2 tV 400 ID- - No active issues GI- - NPO Renal- - [place]omack Heme- - No active issues - Lovenox for DVT prophylaxis Endo - No active issues MSK/SKIN - Pressure ulcer prophylaxis, T&P Q2H Wounds- none Disposition: Continued critical care needs while acutely intubated for acute on chronic respiratory failure with likely plan for terminal extubation and comfort measures today. Patient clinical status: Critical/guarded Code Status: Changing to DNR per family request, will update [facility] Total Critical Care time is 45 minutes
[2019-10-28] MEDS: NS 0.9% 1000 ML** 1,000 ML IV SCH (11:45)
[2019-10-28] MEDS ORDERED: LORazepam PREMIX BAG 1MG/ML* 100 MG/100 ML BAG IVPB SCH (12:00)
[2019-10-28] MEDS ORDERED: Morphine 10 MG/ML VIAL (1 ml) IV ONE (12:06)
[2019-10-28] MEDS ORDERED: Haloperidol INJ IV/IM* 5 MG/ML AMP IV SLOW PU ONE (12:08)
[2019-10-28] MEDS ORDERED: Midazolam* 1 MG/ML 10 ML VIAL (10 MG) IV SLOW PU ONE (12:09)
[2019-10-28] MEDS ORDERED: Morphine PCA ADULT* 5 MG/ML 30 ML PCA SCH (12:30)
--- NOTE | 2019-10-28 13:23 | CONSULT ---
Palliative / Hospice Consult Ordering Provider: William Hull - No PCP Referal Reason: Goals of care/no bowel meds/MS - Subjective Code Status: DNR Advance Directives Location: No Advance Directives MOLST Part A Completed: Yes - updated and on chart MOLST Part E Completed:: Yes - updated and on chart - History or Present Illness History or Present Illness: 49yo male with interstitial lung disease presents to ER with SOB. PMH is significant for interstitial lung disease on chronic O2 6-10 liters secondary to occupational exposure, HTN, alcohol abuse, COPD, GERD and BPH. 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 Studies ekg-sinus tach and RBBB, CXR-R basilar infiltrate atelectasis ve pneumonia, CTA no PE, Echo- EF 55-60%, CXR #2 increase airspace opacification RML, H/H 13.2/41, plt 140, BUN/Cr 25/.64, egfr 132.4, alb 3.6, troponin 1.60, INR .96 and BC neg. Pt admitted to ICU with acute on chronic respiratory failure on BIPAP, NSTEMI, interstitial lung disease and etoh withdrawal. Pt was being weaned from BIPAP but early this am was more somulent ABG checked and increasing hypercapnia and was intubated. Pt had 2 prior ER visits and one hospitalization in last year. All history is from family and medical record. Lab Values: Abnormal Lab Results 10/27/19 10/28/19 10/28/19 15:10 05:04 06:45 WBC RBC Hgb Hct MCV MCH MCHC RDW Plt Count MPV Neut % (Auto) Lymph % (Auto) [place] % (Auto) Eos % (Auto) Baso % (Auto) Absolute Neuts (auto) Absolute Lymphs (auto) Absolute Monos (auto) Absolute Eos (auto) Absolute Basos (auto) Absolute Nucleated RBC Nucleated RBC % Patient Temperature Not Reportable ABG pH 7.30 L ABG pH (Temp Correct) Not Reportable ABG pCO2 115 H* ABG pCO2 (Temp Corrct Not Reportable ABG pO2 95 ABG pO2 (Temp Correct Not Reportable ABG HCO3 43.2 H* ABG O2 Saturation 98.8 H ABG Base Excess 23.5 H Respiration Rate 20 O2 Delivery Device bipap Ventilator Type Not Reportable Vent Mode Not Reportable FiO2 70 Inspiratory Time Not Reportable PEEP Not Reportable Pressure Support Not Reportable Pressure Control Not Reportable EPAP 5 IPAP 25 BiPAP Not Reportable Sodium 143 Potassium 4.8 Chloride 93 L Carbon Dioxide 45 H* Anion Gap 5 BUN 25 H Creatinine 0.64 L Est GFR ( Amer) 160.2 Est GFR (Non-Af Amer) 132.4 BUN/Creatinine Ratio 39.1 H Glucose 127 H Calcium 8.9 Phosphorus 3.9 Magnesium 2.1 Urine Color Digna Urine Appearance Cloudy Urine pH 6.0 Ur Specific [place] 1.019 Urine Protein 2+(100 mg/dl) A Urine Ketones Negative Urine Blood 3+ A Urine Nitrate Negative Urine Bilirubin Negative Urine Urobilinogen Negative Ur Leukocyte Esterase Negative Urine WBC (Auto) Trace(0-5/hpf) Urine RBC (Auto) 3+(>10/hpf) A Urine Bacteria Absent Urine Glucose 1+(50 mg/dl) A 10/28/19 10/28/19 06:45 07:25 WBC 8.6 RBC 4.48 Hgb 13.2 L Hct 41 L MCV 91 MCH 30 MCHC 32 RDW 15 Plt Count 140 L MPV 8.7 Neut % (Auto) 91.1 Lymph % (Auto) 2.7 [place] % (Auto) 6.0 Eos % (Auto) 0.1 Baso % (Auto) 0.1 Absolute Neuts (auto) 7.8 H Absolute Lymphs (auto) 0.2 L Absolute Monos (auto) 0.5 Absolute Eos (auto) 0.0 Absolute Basos (auto) 0.0 Absolute Nucleated RBC 0.0 Nucleated RBC % 0.0 Patient Temperature Not Reportable ABG pH 7.67 H* ABG pH (Temp Correct) Not Reportable ABG pCO2 46 H ABG pCO2 (Temp Corrct Not Reportable ABG pO2 56 L* ABG pO2 (Temp Correct Not Reportable ABG HCO3 47.3 H* ABG O2 Saturation 95.8 ABG Base Excess 28.8 H Respiration Rate 18 O2 Delivery Device vent Ventilator Type 550 Vent Mode cmv FiO2 35 Inspiratory Time Not Reportable PEEP 5 Pressure Support Not Reportable Pressure Control Not Reportable EPAP Not Reportable IPAP Not Reportable BiPAP Not Reportable Sodium Potassium Chloride Carbon Dioxide Anion Gap BUN Creatinine Est GFR ( Amer) Est GFR (Non-Af Amer) BUN/Creatinine Ratio Glucose Calcium Phosphorus Magnesium Urine Color Urine Appearance Urine pH Ur Specific [place] Urine Protein Urine Ketones Urine Blood Urine Nitrate Urine Bilirubin Urine Urobilinogen Ur Leukocyte Esterase Urine WBC (Auto) Urine RBC (Auto) Urine Bacteria Urine Glucose Laboratory Last Values WBC 8.6 10^3/uL (3.5-10.8) 10/28/19 06:45 RBC 4.48 10^6 /uL (4.18-5.48) 10/28/19 06:45 Hgb 13.2 g/dL (14.0-18.0) L 10/28/19 06:45 Hct 41 % (42-52) L 10/28/19 06:45 MCV 91 fL (80-94) 10/28/19 06:45 MCH 30 pg (27-31) 10/28/19 06:45 MCHC 32 g/dL (31-36) 10/28/19 06:45 RDW 15 % (10-15) 10/28/19 06:45 Plt Count 140 10^3/uL (150-450) L 10/28/19 06:45 MPV 8.7 fL (7.4-10.4) 10/28/19 06:45 Neut % (Auto) 91.1 % 10/28/19 06:45 Lymph % (Auto) 2.7 % 10/28/19 06:45 [place] % (Auto) 6.0 % 10/28/19 06:45 Eos % (Auto) 0.1 % 10/28/19 06:45 Baso % (Auto) 0.1 % 10/28/19 06:45 Absolute Neuts (auto) 7.8 10^3/ul (1.5-7.7) H 10/28/19 06:45 Absolute Lymphs (auto) 0.2 10^3/ul (1.0-4.8) L 10/28/19 06:45 Absolute Monos (auto) 0.5 10^3/ul (0-0.8) 10/28/19 06:45 Absolute Eos (auto) 0.0 10^3/ul (0-0.6) 10/28/19 06:45 Absolute Basos (auto) 0.0 10^3/ul (0-0.2) 10/28/19 06:45 Absolute Nucleated RBC 0.0 10^3/ul 10/28/19 06:45 Nucleated RBC % 0.0 10/28/19 06:45 INR (Anticoag Therapy) 0.96 (0.82-1.09) 10/19/19 22:40 APTT 65.4 seconds (26.0-38.0) H 10/20/19 21:35 Patient Temperature Not Reportable 10/28/19 07:25 ABG pH 7.67 (7.35-7.45) H* 10/28/19 07:25 ABG pH (Temp Correct) Not Reportable 10/28/19 07:25 ABG pCO2 46 mmHg (35-45) H 10/28/19 07:25 ABG pCO2 (Temp Corrct Not Reportable 10/28/19 07:25 ABG pO2 56 mmHg (80-100) L* 10/28/19 07:25 ABG pO2 (Temp Correct Not Reportable 10/28/19 07:25 ABG HCO3 47.3 mmol/L (19-31) H* 10/28/19 07:25 ABG O2 Saturation 95.8 % (94.0-98.0) 10/28/19 07:25 ABG Base Excess 28.8 mmol/L (-2.0-2.0) H 10/28/19 07:25 Respiration Rate 18 10/28/19 07:25 O2 Delivery Device vent 10/28/19 07:25 Ventilator Type 550 10/28/19 07:25 Vent Mode cmv 10/28/19 07:25 FiO2 35 10/28/19 07:25 Inspiratory Time Not Reportable 10/28/19 07:25 PEEP 5 10/28/19 07:25 Pressure Support Not Reportable 10/28/19 07:25 Pressure Control Not Reportable 10/28/19 07:25 EPAP Not Reportable 10/28/19 07:25 IPAP Not Reportable 10/28/19 07:25 BiPAP Not Reportable 10/28/19 07:25 Sodium 143 mmol/L (135-145) 10/28/19 06:45 Potassium 4.8 mmol/L (3.5-5.0) 10/28/19 06:45 Chloride 93 mmol/L (101-111) L 10/28/19 06:45 Carbon Dioxide 45 mmol/L (22-32) H* 10/28/19 06:45 Anion Gap 5 mmol/L (2-11) 10/28/19 06:45 BUN 25 mg/dL (6-24) H 10/28/19 06:45 Creatinine 0.64 mg/dL (0.67-1.17) L 10/28/19 06:45 Est GFR ( Amer) 160.2 (>60) 10/28/19 06:45 Est GFR (Non-Af Amer) 132.4 (>60) 10/28/19 06:45 BUN/Creatinine Ratio 39.1 (8-20) H 10/28/19 06:45 Glucose 127 mg/dL (70-100) H 10/28/19 06:45 POC Glucose (mg/dL) 148 mg/dL (70-100) H 10/26/19 00:22 Hemoglobin A1c 6.3 % (4.0-5.6) H 10/22/19 04:07 Lactic Acid 1.7 mmol/L (0.5-2.0) 10/20/19 02:15 Calcium 8.9 mg/dL (8.6-10.3) 10/28/19 06:45 Ionized Calcium 1.18 mmol/L (1.16-1.32) 10/24/19 04:47 Phosphorus 3.9 mg/dL (2.5-5.0) 10/28/19 06:45 Magnesium 2.1 mg/dL (1.9-2.7) 10/28/19 06:45 Total Bilirubin 0.80 mg/dL (0.2-1.0) 10/26/19 04:05 AST 16 U/L (13-39) 10/26/19 04:05 ALT 22 U/L (7-52) 10/26/19 04:05 Alkaline Phosphatase 31 U/L (34-104) L 10/26/19 04:05 Total Creatine Kinase 159 U/L (10-223) 10/20/19 06:07 CK-MB (CK-2) 37.2 ng/mL (0.6-6.3) H 10/20/19 06:07 Troponin I 0.56 ng/mL (<0.03) H* 10/25/19 05:27 C-Reactive Protein 13.11 mg/L (<8.01) H 10/19/19 22:40 Total Protein 5.9 g/dL (6.4-8.9) L 10/26/19 04:05 Albumin 3.6 g/dL (3.2-5.2) 10/26/19 04:05 Globulin 2.3 g/dL (2-4) 10/26/19 04:05 Albumin/Globulin Ratio 1.6 (1-3) 10/26/19 04:05 TSH 3.06 mcIU/mL (0.34-5.60) 10/19/19 22:40 Urine Color Digna 10/27/19 15:10 Urine Appearance Cloudy 10/27/19 15:10 Urine pH 6.0 (5-9) 10/27/19 15:10 Ur Specific [place] 1.019 (1.010-1.030) 10/27/19 15:10 Urine Protein 2+(100 mg/dl) (Negative) A 10/27/19 15:10 Urine Ketones Negative (Negative) 10/27/19 15:10 Urine Blood 3+ (Negative) A 10/27/19 15:10 Urine Nitrate Negative (Negative) 10/27/19 15:10 Urine Bilirubin Negative (Negative) 10/27/19 15:10 Urine Urobilinogen Negative (Negative) 10/27/19 15:10 Ur Leukocyte Esterase Negative (Negative) 10/27/19 15:10 Urine WBC (Auto) Trace(0-5/hpf) (Absent) 10/27/19 15:10 Urine RBC (Auto) 3+(>10/hpf) (Absent) A 10/27/19 15:10 Ur Squamous Epith Cells Present (Absent) A 10/20/19 02:10 Urine Bacteria Absent (Absent) 10/27/19 15:10 Ur Creatinine Concen 1.78 mg/dL 10/20/19 12:30 U Sodium Concentration 77 mmol/L 10/20/19 12:30 Urine Glucose 1+(50 mg/dl) (Negative) A 10/27/19 15:10 Urine Opiates Screen None detected (None Detect) 10/20/19 02:10 Ur Barbiturates Screen None detected (None Detect) 10/20/19 02:10 Ur Phencyclidine Scrn None detected (None Detect) 10/20/19 02:10 Ur Amphetamines Screen None detected (None Detect) 10/20/19 02:10 U Benzodiazepines Scrn None detected (None Detect) 10/20/19 02:10 Urine Cocaine Screen None detected (None Detect) 10/20/19 02:10 U Cannabinoids Screen None detected (None Detect) 10/20/19 02:10 Serum Alcohol 109 mg/dL (<10) H 10/20/19 02:26 Influenza A (Rapid) Negative (Negative) 10/19/19 22:07 Influenza B (Rapid) Negative (Negative) 10/19/19 22:07 - Objective Active Medications: Midazolam HCl 100 mg/ Sodium (Chloride) 100 mls @ 5 mls/hr IV Q50H AGATHA; Protocol Last Admin: 10/28/19 06:08 Dose: 5 mls/hr Morphine Sulfate (Morphine Product Marketing Consultant Adult* 5 Mg/Ml) 30 mls @ 0 mls/hr [employer] .change Q24H AGATHA; Protocol Vital Signs: Vital Signs: Temp Pulse Resp BP Pulse Ox 96.8 F 57 10 119/78 94 10/28/19 11:43 10/28/19 09:15 10/28/19 08:00 10/28/19 09:15 10/28/19 09:15 Patient Weight: Weight 94 kg Intake and Output: Intake & Output 10/26/19 10/27/19 10/28/19 10/29/19 06:59 06:59 06:59 06:59 Intake Total 85.7 20 580 Output Total 925 1095 867 180 Balance -839.3 -1075 -287 -180 Weight 96.4 kg 94 kg Intake: Medicated IV 85.7 20 100 Precedex 85.7 20 phenobarbitol 100 Oral 0 0 480 Output: Urine 925 775 300 [place] 567 180 Straight Cath 320 Other: Estimated Void Small Date of Last Bowel 10/23/19 Movement # Bowel Movements 1 Estimated Stool Amount Medium Other Amount Description post void bladder scan amt greater thann 200mL post void bladder scan amt greater thann 200mL # Voids 1 ADLs: Meal Record Start: 10/20/19 02: 37 Freq: ,13,18 Status: Active Protocol: Created 10/20/19 02:37 System (Rec: 10/20/19 02:37 System ICU-C15) Document 10/20/19 09:00 PLX1943 (Rec: 10/20/19 10:00 IIY4660 ICU-C10) Document 10/20/19 13:00 RWM9406 (Rec: 10/20/19 15:09 PYS2674 ICU-C12) Document 10/20/19 18:00 JHS0395 (Rec: 10/20/19 18:21 JRS5183 ICU-C12) Document 10/22/19 09:00 TJZ8755 (Rec: 10/22/19 09:35 LCD8872 ICU-C06) Document 10/22/19 13:00 LBH5618 (Rec: 10/22/19 13:18 NXN1133 ICU-M18) Document 10/22/19 18:00 PFC6213 (Rec: 10/22/19 18:27 XMD1607 ICU-C06) Document 10/23/19 09:00 JJO1873 (Rec: 10/23/19 14:02 YKR8591 ICU-C15) Document 10/23/19 13:00 IEO8666 (Rec: 10/23/19 14:12 VWX2358 ICU-C15) Document 10/23/19 18:00 RGD6131 (Rec: 10/23/19 19:38 DRS6928 ICU-C15) Document 10/24/19 09:00 ATG9652 (Rec: 10/24/19 09:07 KZX4291 ICU-L03) Document 10/24/19 13:00 GXA6672 (Rec: 10/24/19 13:15 QNC4892 ICU-L03) Document 10/24/19 18:00 NHU7989 (Rec: 10/24/19 18:29 EPI6141 ICU-C14) Document 10/25/19 09:00 WFQ6433 (Rec: 10/25/19 09:14 DDD2862 ICU-C06) Document 10/25/19 13:00 CYS4524 (Rec: 10/25/19 13:02 VJS5608 ICU-C06) Document 10/25/19 18:00 VBY0166 (Rec: 10/25/19 18:26 NHR5167 ICU-M18) Document 10/26/19 09:00 CTH3601 (Rec: 10/26/19 10:16 IIZ5901 ICU-M28) Document 10/26/19 13:00 AWU7834 (Rec: 10/26/19 13:05 YLD7928 ICU-M28) Document 10/26/19 18:00 WFY5836 (Rec: 10/26/19 19:41 IMW8885 ICU-M28) Document 10/27/19 09:58 TFY9885 (Rec: 10/27/19 09:58 XZM6947 ICU-C12) Intake and Output Start: 10/19/19 21: 11 Freq: Status: Active Protocol: Created 10/19/19 21:11 System (Rec: 10/19/19 21:11 System ED-C24) Intake and Output Start: 10/20/19 02: 37 Freq: Q1HR Status: Active Protocol: Created 10/20/19 02:37 System (Rec: 10/20/19 02:37 System ICU-C15) Document 10/20/19 08:17 BXJ4827 (Rec: 10/20/19 08:17 [id number] ICU-M24) Document 10/20/19 18:19 IIM9233 (Rec: 10/20/19 18:19 TNT9385 ICU-C12) Document 10/20/19 22:00 MTJ1785 (Rec: 10/20/19 22:00 PJS9337 ICU-C06) Document 10/20/19 23:00 HFX2697 (Rec: 10/20/19 23:04 PRE9226 ICU-C06) Document 10/21/19 00:00 AGU8442 (Rec: 10/21/19 00:08 MKT2880 ICU-C06) Document 10/21/19 03:00 BVZ6880 (Rec: 10/21/19 03:09 PYV1527 ICU-C06) Document 10/21/19 04:00 TCW1473 (Rec: 10/21/19 04:32 INA7033 ICU-C06) Document 10/21/19 05:00 WES4311 (Rec: 10/21/19 05:11 JFQ2606 ICU-C06) Document 10/21/19 06:00 NSC9469 (Rec: 10/21/19 06:04 MTX5460 ICU-C06) Document 10/21/19 07:00 FQY2058 (Rec: 10/21/19 07:39 MAA3483 ICU-C06) Document 10/21/19 07:45 JXQ8697 (Rec: 10/21/19 07:45 FBN0478 ICU-C06) Document 10/21/19 09:00 ICO1249 (Rec: 10/21/19 12:29 CNW7107 ICU-C06) Document 10/21/19 10:00 LZR4449 (Rec: 10/21/19 12:29 PSG2956 ICU-C06) Document 10/21/19 11:00 KRK3886 (Rec: 10/21/19 12:29 TGN8805 ICU-C06) Document 10/21/19 12:00 ENN2493 (Rec: 10/21/19 12:29 DBN8265 ICU-C06) Document 10/21/19 13:00 VFE2776 (Rec: 10/21/19 15:30 NXU3934 ICU-C06) Document 10/21/19 14:00 HBV1420 (Rec: 10/21/19 15:30 DAG0705 ICU-C06) Document 10/21/19 15:00 KJG5875 (Rec: 10/21/19 15:30 PQJ6334 ICU-C06) Document 10/21/19 16:00 WCG0282 (Rec: 10/21/19 17:22 RTP6667 ICU-C06) Document 10/21/19 17:00 HRN9443 (Rec: 10/21/19 17:51 BGK8952 ICU-C06) Document 10/21/19 18:00 KYI9607 (Rec: 10/21/19 18:11 TKU4598 ICU-M18) Document 10/21/19 21:00 ZXH5279 (Rec: 10/21/19 21:09 VUB7925 ICU-C06) Document 10/21/19 22:00 ZCK8702 (Rec: 10/21/19 22:19 PCL5209 ICU-C06) Document 10/21/19 23:00 WQO9712 (Rec: 10/22/19 00:00 IIX7830 ICU-C06) Document 10/22/19 00:00 ING7060 (Rec: 10/22/19 00:00 GKL4891 ICU-C06) Document 10/22/19 00:54 HLO1971 (Rec: 10/22/19 00:54 YXX9379 ICU-C06) Document 10/22/19 02:00 XVM6925 (Rec: 10/22/19 02:04 MCM9818 ICU-M18) Document 10/22/19 02:55 NPH4000 (Rec: 10/22/19 02:55 FQV5629 ICU-C06) Document 10/22/19 03:47 MNK1512 (Rec: 10/22/19 03:47 QYP0648 ICU-C06) Document 10/22/19 05:00 MAI1103 (Rec: 10/22/19 05:02 UDJ7582 ICU-C06) Document 10/22/19 06:00 KBF6335 (Rec: 10/22/19 06:06 XOM7898 ICU-M18) Document 10/22/19 07:00 OSC2885 (Rec: 10/22/19 08:07 KPA2185 ICU-C06) Document 10/22/19 09:00 RGL9345 (Rec: 10/22/19 09:04 BXL2617 ICU-M18) Document 10/22/19 12:00 GLC0124 (Rec: 10/22/19 12:46 KWT1342 ICU-M18) Document 10/22/19 13:00 JMZ7618 (Rec: 10/22/19 13:21 HDA2969 ICU-M18) Document 10/22/19 14:00 IOY3738 (Rec: 10/22/19 15:02 FSI4510 ICU-M18) Document 10/22/19 15:00 NVC6669 (Rec: 10/22/19 15:04 DXX3249 ICU-M18) Document 10/22/19 16:51 QDH5622 (Rec: 10/22/19 16:51 UKF2313 ICU-M18) Document 10/22/19 18:00 RGB7104 (Rec: 10/22/19 18:05 EBA2954 ICU-M18) Document 10/22/19 19:00 ETL6833 (Rec: 10/22/19 20:10 PYD6355 ICU-C06) Document 10/22/19 20:00 POC8244 (Rec: 10/22/19 20:10 RCR8829 ICU-C06) Document 10/22/19 22:00 HOL2966 (Rec: 10/22/19 22:44 VXN0388 ICU-C06) Document 10/22/19 23:00 GHB3861 (Rec: 10/22/19 23:04 RYW1207 ICU-C06) Document 10/23/19 00:00 QQU1158 (Rec: 10/23/19 00:56 CBO9279 ICU-C06) Document 10/23/19 01:00 LWQ9966 (Rec: 10/23/19 01:55 XHI1393 ICU-C06) Document 10/23/19 02:00 VBZ4430 (Rec: 10/23/19 02:15 CSI8335 ICU-M18) Document 10/23/19 03:00 QER5691 (Rec: 10/23/19 03:04 CJB6476 ICU-M18) Document 10/23/19 04:00 WBM0927 (Rec: 10/23/19 04:03 WUI2093 ICU-M18) Document 10/23/19 05:00 PXP8311 (Rec: 10/23/19 05:22 JJT4557 ICU-C06) Document 10/23/19 06:00 XRX5903 (Rec: 10/23/19 06:24 DSB9687 ICU-C06) Document 10/23/19 07:00 WIA6131 (Rec: 10/23/19 07:42 GFY7044 ICU-M18) Document 10/23/19 08:00 XYX5034 (Rec: 10/23/19 08:13 HTI9834 ICU-M18) Document 10/23/19 10:00 FVB4670 (Rec: 10/23/19 10:39 LQQ8633 ICU-M18) Document 10/23/19 11:00 HXM0827 (Rec: 10/23/19 14:03 PHZ9875 ICU-C15) Document 10/23/19 12:00 KAF4572 (Rec: 10/23/19 14:08 VCT6690 ICU-M18) Document 10/23/19 13:00 XIS4082 (Rec: 10/23/19 14:08 LLA0908 ICU-M18) Document 10/23/19 14:00 QXW8035 (Rec: 10/23/19 14:08 DOL5181 ICU-M18) Document 10/23/19 15:00 VAA3818 (Rec: 10/23/19 15:59 NCX2456 ICU-M18) Document 10/23/19 16:00 YKF9852 (Rec: 10/23/19 16:01 XAJ4041 ICU-M18) Document 10/23/19 17:00 FWX6553 (Rec: 10/23/19 17:28 HCO3055 ICU-M18) Document 10/23/19 18:00 KBO3642 (Rec: 10/23/19 18:32 NAQ5260 ICU-M18) Document 10/23/19 20:00 MSG8173 (Rec: 10/23/19 20:40 PXN6225 ICU-C06) Document 10/23/19 21:00 LEU2770 (Rec: 10/23/19 21:27 EDN1684 ICU-M18) Document 10/23/19 22:00 LPW0022 (Rec: 10/23/19 22:22 JPH9309 ICU-C10) Document 10/23/19 23:00 GWR2891 (Rec: 10/23/19 23:05 MOA7903 ICU-C10) Document 10/24/19 00:00 AOI4228 (Rec: 10/24/19 00:09 FHL8616 ICU-C10) Document 10/24/19 01:42 JMK3780 (Rec: 10/24/19 01:42 RXH5645 ICU-C10) Document 10/24/19 02:00 HZP3811 (Rec: 10/24/19 02:34 QQB5180 ICU-C10) Document 10/24/19 03:32 VXX6112 (Rec: 10/24/19 03:32 MOT2558 ICU-C10) Document 10/24/19 04:00 VXU4850 (Rec: 10/24/19 04:55 VZU0227 ICU-C10) Document 10/24/19 05:00 XNO0674 (Rec: 10/24/19 05:27 LTZ4062 ICU-C10) Document 10/24/19 06:09 EYR3278 (Rec: 10/24/19 06:10 HNR9180 ICU-M18) Document 10/24/19 08:53 PRK1903 (Rec: 10/24/19 08:54 BBX6796 ICU-M18) Document 10/24/19 10:00 TTP5747 (Rec: 10/24/19 10:00 DPW5524 ICU-M18) Document 10/24/19 11:00 HUB7180 (Rec: 10/24/19 11:07 JCG6679 ICU-M18) Document 10/24/19 13:00 MTU4413 (Rec: 10/24/19 14:12 TLB1686 ICU-M18) Document 10/24/19 14:00 TGS7295 (Rec: 10/24/19 14:14 PHM4122 ICU-M18) Document 10/24/19 15:00 MFQ7697 (Rec: 10/24/19 15:05 WBD5903 ICU-M18) Document 10/24/19 16:00 WHJ7843 (Rec: 10/24/19 16:19 RMH2531 ICU-M18) Document 10/24/19 17:00 ECO3417 (Rec: 10/24/19 18:12 DWK5052 ICU-M18) Document 10/24/19 18:00 EOH4786 (Rec: 10/24/19 18:12 NYL3749 ICU-M18) Document 10/24/19 20:00 ZUY6318 (Rec: 10/24/19 20:18 COJ3028 ICU-M18) Document 10/24/19 20:42 RHA7967 (Rec: 10/24/19 20:42 LFM2290 ICU-M18) Document 10/24/19 22:00 XDT4622 (Rec: 10/24/19 23:38 DIV6652 ICU-M18) Document 10/25/19 03:15 AMF9835 (Rec: 10/25/19 04:20 PRX6978 ICU-C25) Document 10/25/19 11:02 NDH9082 (Rec: 10/25/19 11:02 VMK0611 ICU-M18) Document 10/25/19 12:36 KTL9626 (Rec: 10/25/19 12:36 YJC6833 ICU-M18) Document 10/25/19 16:34 IAT8790 (Rec: 10/25/19 16:34 MBL0471 ICU-M18) Document 10/25/19 19:12 DLJ8370 (Rec: 10/25/19 19:12 PGZ4950 ICU-M18) Document 10/25/19 22:16 OCZ3247 (Rec: 10/25/19 22:16 MMQ2929 ICU-C06) Document 10/26/19 13:44 PJF4938 (Rec: 10/26/19 13:44 MTA7392 ICU-M23) Document 10/26/19 20:24 OLL9966 (Rec: 10/26/19 20:25 PFG1143 ICU-M28) Document 10/26/19 22:00 GMI6884 (Rec: 10/26/19 22:01 AOF9383 ICU-M28) Document 10/27/19 05:03 IGQ1885 (Rec: 10/27/19 05:04 WWS4794 ISDEMO-M03 ) Document 10/27/19 14:30 LSZ2316 (Rec: 10/27/19 14:49 OHJ5889 ICU-M28) Document 10/27/19 22:30 JBF5568 (Rec: 10/27/19 22:50 ZCY1669 ISDEMO-M03 ) Document 10/28/19 00:00 FMT2160 (Rec: 10/28/19 00:17 LNV9780 ICU-L03) Document 10/28/19 01:00 RJE2969 (Rec: 10/28/19 01:04 BJP4827 ISDEMO-M03 ) Document 10/28/19 02:00 HEG4877 (Rec: 10/28/19 04:29 MAW6600 ISDEMO-M03 ) Document 10/28/19 04:00 HVC4730 (Rec: 10/28/19 04:32 TKI0541 ISDEMO-M03 ) Document 10/28/19 05:00 CTI8969 (Rec: 10/28/19 05:05 OUC9701 ISDEMO-M03 ) Document 10/28/19 06:00 WLT3501 (Rec: 10/28/19 07:15 ZWM4736 ICU-M28) Document 10/28/19 07:00 EKG8489 (Rec: 10/28/19 07:15 SVA1982 ICU-M28) Document 10/28/19 08:00 QJD4095 (Rec: 10/28/19 09:02 [id number] ICU-C10) Co-Sign 10/28/19 08:00 [id number] Eyes: No Scleral Icterus Ears/Nose/Mouth/Throat: NL Teeth, Lips, Gums Neck: NL Appearance and Movements; NL JVP Cardiovascular: NL Sounds; No Murmurs; No JVD Respiratory: Symmetrical Chest Expansion and Respiratory Effort Abdominal: NL Sounds; No Tenderness; No Distention Extremities: No Edema Neurological: - - obtunded - Assessment Assessment: 49 yo male with ILD intubated pt family requesting terminal extubation - Plan Consult Plan (MU): Other Plan: Spoke with mother(Marina Patel [phone]) of pt who is surrogate decision maker. Parents are in [facility] mother underwent a medical procedure. Family is aware pt has poor prognosis with underlying lung disease and now requiring intubation. They don't want the pt to suffer and would like to remove the tube. They are aware he will . Updated sister who is at bedside with the pt. Morphine/ativan given, tube removed and pt appears comfortable. MOLST updated to reflect family wishes. KPS 20%, PPS 20% - Time On Unit Date of Evaluation: 10/28/19 Hospice Consult Time in: 12:00 Hospice Consult Time Out: 13:00 Hospice Consult Time Total: 60 > 50% of Time Spend In Counseling or Coordinating Care: Yes
[2019-10-28 14:05] VITALS: BP 99/73
--- NOTE | 2019-10-28 14:33 | PN ---
Progress Note - Progress Note Date of Service: 10/28/19 Note: Note: Immediately after extubation, patient had one agonal breath and then went into PEA on the monitor, then asystole. Patient was examined, no spontaneous respirations noted, no pulse auscultated, asystole in two leads, pupils fixed and dilated. Time of 1:18pm. EDRS completed #[id number].
--- NOTE | 2019-10-28 18:40 | DS ---
CC: Dr. Marte; Dr. Leilani oMjica, Pulmonology * DISCHARGE/ SUMMARY: DATE OF ADMISSION: 10/20/19 DATE OF DISCHARGE AND EXPIRATION: 10/28/19 TIME OF : 1:18 p.m. PRIMARY CARE PROVIDER: Dr. Marte. ATTENDING FOR THIS DISCHARGE: Dr. William Hull, ICU elementary school principal.* (dictated by Tenzin Harris, MIGUEL) HOSPITAL COURSE: Please refer to admitting H and P on 10/20/19; but, in short, Mr. Patel was a 49-year-old male patient with recent admissions from May 2019 until the present for shortness of breath. Mr. Patel had extensive history of interstitial lung disease, occupational exposures, and COPD. His interstitial lung disease was also suspicious for sarcoidosis. He had been treating as an outpatient with Dr. Mojica and again had 2 admissions for acute shortness of breath. He had a very high oxygen requirement at home of 10 L and also had some issues with compliance regarding some behavioral modifications that were required of him given his advanced lung disease. Dr. Mojica had recommended smoking cessation for him as he had history of tobacco abuse and continued to smoke. He had also been referred because of his high oxygen requirement and progressive dyspnea for referral for potential lung transplant evaluation down at [facility]. It was unclear if the patient had consistent followup with [facility], but in either case the patient did present in September of this year short of breath and also with heroin overdose on 09/26/19 and presented again on 10/20/19 acutely short of breath. On this particular admission, the patient did require Vapotherm and acute BiPAP. He was in hypercapnic respiratory failure and we did have a significant amount of trouble weaning him off of Vapotherm and off of BiPAP. His course was also further complicated by acute alcohol intoxication and withdrawal, which required him to be on Precedex drip and escalating doses of Ativan. The patient did have blood gases frequently, which showed persistent hypercarbia and increased encephalopathy throughout the course of the hospitalization. On the evening of 10/27/19, the patient again became increasingly encephalopathic. Blood gas was again checked. His CO2 was 85 and he was placed back on BiPAP; however, 2 hours later his CO2 progressed to 115 and the decision was made to intubate the patient. It should be noted that at the beginning of this patient's hospitalization, we did have discussions with his sister and his family members that intubation would be difficult for him because of his advanced lung disease and the fact that the patient did need potentially a lung transplant that intubation would not be effective because of the patient would not have any further recourse beyond mechanical ventilation. On the morning of 10/28/19 after being acutely intubated, a discussion was had with the patient's healthcare surrogate, his mother and his father and also sister at the bedside. They expressed their wish in terms of the patient's known wishes prior to intubation that he did not wish to have a prolonged course. It had been a very difficult 2 weeks for him and in accordance to his wishes and the family's wishes and goals of care, the family opted to terminally extubate Mr. Patel and let him be on comfort measures only. We did have extensive discussion regarding the patient's critical prognosis, our inability to control his carbon dioxide, the fact that we would not be able to stabilize the patient enough to be able to transport him to a transplant center. Also, given his ongoing alcohol abuse, drug abuse and other behavioral factors, his prognosis remained very poor in terms of qualifying for a lung transplant. The patient's mother and father did express to me that they had many conversations with Mr. Patel prior to this event that he would not want prolonged course of intubation and he understood that with his advanced disease that if he did not have lung transplant that this would likely result in his and they were in agreement that comfort measures would be in line with his wishes and the decision was made to terminally extubate the patient. He was placed on a morphine drip. He had already been on midazolam drip for his intubation earlier today. He was very comfortable. He, shortly after being extubated, within 5 minutes, only took one breath and then almost immediately. His time of was 1:18 p.m. on 10/28/19. Dr. Kaylin Agudelo from Palliative Care was also involved in end-of-life decision making as was Dr. William Hull, ICU elementary school principal. All parties involved with Mr. Patel's care were in agreement with this plan. TIME SPENT: Time spent on discharge planning 35 minutes. Postmortem care provided by nursing care. TENZIN HARRIS, [employer] [id number]/[facility] [place] #: [id number] [facility]
== END 2019-10-28 13:18 | disposition expired | DRG 190 ==
LOC: ED 20:59 → ICU 10-20 02:00
PROVIDERS: ADMIT Hospitalist; ATTEND Internal Medicine
PROC: 0BH17EZ Insertion of Endotracheal Airway into Trachea, Via Natural or Artificial Opening (ICD-10-PCS; principal; 2019-10-21)
PROC: 5A1935Z Respiratory Ventilation, Less than 24 Consecutive Hours (ICD-10-PCS; 2019-10-21)
PROC: 5A09457 Assistance with Respiratory Ventilation, 24-96 Consecutive Hours, Continuous Positive Airway Pressure (ICD-10-PCS; 2019-10-21)
DX: I21.A1 Myocardial infarction type 2 (principal); J96.21 Acute and chronic respiratory failure with hypoxia; G93.41 Metabolic encephalopathy; J96.22 Acute and chronic respiratory failure with hypercapnia; J84.9 Interstitial pulmonary disease, unspecified; N17.9 Acute kidney failure, unspecified; F10.221 Alcohol dependence with intoxication delirium; F10.231 Alcohol dependence with withdrawal delirium; J44.1 Chronic obstructive pulmonary disease with (acute) exacerbation; I24.9 Acute ischemic heart disease, unspecified; D86.0 Sarcoidosis of lung; E78.00 Pure hypercholesterolemia, unspecified; I10 Essential (primary) hypertension; K21.9 Gastro-esophageal reflux disease without esophagitis; N40.0 Benign prostatic hyperplasia without lower urinary tract symptoms; F41.9 Anxiety disorder, unspecified; G47.33 Obstructive sleep apnea (adult) (pediatric); I27.81 Cor pulmonale (chronic); F32.9 Major depressive disorder, single episode, unspecified; E11.9 Type 2 diabetes mellitus without complications; Y90.9 Presence of alcohol in blood, level not specified; I45.10 Unspecified right bundle-branch block; Z66 Do not resuscitate; E87.5 Hyperkalemia; R00.1 Bradycardia, unspecified; Z85.828 Personal history of other malignant neoplasm of skin; Z87.891 Personal history of nicotine dependence; Z88.8 Allergy status to other drugs, medicaments and biological substances; Z85.118 Personal history of other malignant neoplasm of bronchus and lung; Z91.19 Patient's noncompliance with other medical treatment and regimen
CPT/HCPCS: 36415; 36600; 71045; 71275; 80048; 80053; 80307; 80320; 81003; 81015; 82330; 82550; 82553; 82570; 82803; 83036; 83605; 83735; 84100; 84132; 84300; 84443; 84450; 84484; 85025; 85027; 85610; 85730; 86140; 87040; 87077; 87086; 87186; 87641; 87899; 93005; 93306; 94002; 94640; 94660; 99285; A9270-GY; C8929; G0480; J0330; J0360; J0461; J0610; J1200; J1630; J1644; J1650; J1815; J2060; J2250; J2270; J2405; J2560; J2704; J2920; J3411; J3490; Q9967